=== PATIENT | female | born 1935 | race Caucasian/White ===

== ENCOUNTER 2017-11-06 19:53 | Inpatient (IN) | payer MEDICARE, OTHER ==
[2017-11-06] VITALS (9 sets, daily range): BP systolic 107–176; BP diastolic 57–110; PULSE 107–140; RESP 18–23; TEMP 97–98.7; O2SAT 95–100
[~2017-11-06] VITALS: Ht 162.6 cm; Wt 71.7 kg
[2017-11-06] MEDS ORDERED: SODIUM CHLOR 0.9% 1000 ML INJ 1,000 ML IV ONE (19:55)
[2017-11-06] MEDS ORDERED: methylPREDNISolone SOD SUCC 125 MG/2 ML VIAL ONE (19:57)
[2017-11-06] MEDS ORDERED: diphenhydrAMINE HCL 50 MG/ML VIAL ONE (19:57)
[2017-11-06] MEDS ORDERED: methylPREDNISolone SOD SUCC 125 MG/2 ML VIAL IV PUSH ONE (20:00)
[2017-11-06] MEDS ORDERED: MORPHINE SULFATE 4 MG/ML INJ IV PUSH ONE (20:00)
[2017-11-06] MEDS ORDERED: diphenhydrAMINE HCL 50 MG/ML VIAL IV PUSH ONE (20:00)
[2017-11-06] MEDS ORDERED: ONDANSETRON HCL 4 MG/2 ML VIAL ONE ×2 (20:02→20:04)
[2017-11-06 20:14] LABS: AUTOMATED NEUTROPHIL # 2.9 TH/MM3 (1.8-7.7); BASOPHIL # 0.1 TH/MM3 (0-0.2); BASOPHIL % 0.7 % (0.0-2.0); EOSINOPHIL # 0.1 TH/MM3 (0-0.4); EOSINOPHIL % 1.3 % (0.0-4.0); HEMATOCRIT 39.1 % (35.0-46.0); HEMOGLOBIN 13.4 GM/DL (11.6-15.3); LYMPH % 58.8 % (9.0-44.0); LYMPHOCYTE # 5.5 TH/MM3 (1.0-4.8); MEAN CELL VOLUME 91.5 FL (80.0-100.0); MEAN CORPUSCULAR HEMOGLOBIN 31.3 PG (27.0-34.0); MEAN CORPUSCULAR HGB CONC 34.2 % (32.0-36.0); MEAN PLATELET VOLUME 8.3 FL (7.0-11.0); MONO % 7.8 % (0.0-8.0); MONOCYTE # 0.7 TH/MM3 (0-0.9); NEUT % 31.4 % (16.0-70.0); PLATELET COUNT 263 TH/MM3 (150-450); RED BLOOD COUNT 4.27 MIL/MM3 (4.00-5.30); RED CELL DISTRIBUTION WIDTH 14.3 % (11.6-17.2); WHITE BLOOD COUNT 9.3 TH/MM3 (4.0-11.0)
[2017-11-06] MEDS ORDERED: ONDANSETRON HCL 4 MG/2 ML VIAL IV PUSH ONE (20:15)
[2017-11-06] MEDS ORDERED: niCARdipine INJ 25 MG in SODIUM CHLOR 0.9% 250 ML INJ 240 ML IV ONE (20:15)
--- NOTE | 2017-11-06 20:16 | RADRPT ---
EXAM DATE/TIME: 11/06/2017 20:05 [facility] COMPARISON: No previous studies available for comparison. INDICATIONS : Stroke Alert. Left sided weakness. RADIATION DOSE: 56.35 CTDIvol (mGy) MEDICAL HISTORY : Non-responsive. SURGICAL HISTORY : Non-responsive. ENCOUNTER: Initial ACUITY: 1 day PAIN SCALE: Non-responsive LOCATION: cranial TECHNIQUE: Multiple contiguous axial images were obtained of the head. Using automated exposure control and adj ustment of the mA and/or kV according to patient size, radiation dose was kept as low as reasonably a chievable to obtain optimal diagnostic quality images. DICOM format image data is available electro nically for review and comparison. FINDINGS: CEREBRUM: There is a large acute right frontal lobe hemorrhage measuring approximately 8.7 x 5.2 cm. It causes local mass effect with approximately 9 mm of [id number] midline shift. There is effacement of the right sylvian fissure with possible blood products in the sylvian fissure. There is effacement of the sulci in the right temporal lobe. Ventricles are normal in size. There is mild cerebral atrophy. No mass is appreciated. POSTERIOR FOSSA: The cerebellum and brainstem demonstrate no acute finding. The 4th ventricle is midline. The cerebe llopontine angle is unremarkable. EXTRACRANIAL: There is mucoperiosteal thickening within the right maxillary sinus. SKULL: The calvaria is intact. No evidence of skull fracture. CONCLUSION: Right frontal lobe acute hemorrhage measuring approximately 8.7 x 5.2 cm causing 9 mm of [id number] t midline shift. These findings were telephoned to Dr. Barnett at 8: 13 PM on 11/06/2017. Finn Molina MD on November 06, 2017 at 20:11 Board Certified Radiologist. This report was verified electronically.
[2017-11-06 20:22] LABS: INTERNATIONAL NORMALIZED RATIO 1.1 RATIO; PROTHROMBIN TIME - PATIENT 11.6 SEC (9.8-11.6)
[2017-11-06 20:34] LABS: TROPONIN I LESS THAN 0.02 NG/ML (0.02-0.05)
[2017-11-06 20:41] LABS: LYMPHOCYTES 59 % (9-44); MONOCYTES 7 % (0-8); POLYS (SEG NEUTROPHILS) 32 % (16-70)
[2017-11-06 20:43] LABS: BILIRUBIN, URINE NEG (NEG); BLOOD, URINE NEG (NEG); GLUCOSE,URINE NEG (NEG); HYALINE CAST, URINE 1 /lpf (RARE); KETONE, URINE NEG (NEG); NITRITE,URINE NEG (NEG); SQUAMOUS EPITHELIAL CELL URINE 1 /hpf (0-5); URINE COLOR YELLOW (YELLW/STRAW); URINE LEUKOCYTE ESTERASE NEG (NEG)
--- NOTE | 2017-11-06 20:45 | RADRPT ---
EXAM DATE/TIME: 11/06/2017 20:06 [facility] COMPARISON: CT BRAIN W/O CONTRAST, November 06, 2017, 20:05. INDICATIONS : Stroke alert. ; Reconstructed from previous dataset, no dose MEDICAL HISTORY : Non-responsive. SURGICAL HISTORY : Non-responsive. ENCOUNTER: Initial ACUITY: 1 day PAIN SCALE: Non-responsive LOCATION: Bilateral head TECHNIQUE: 3D reconstructions of the head were performed. DICOM format image data is available electronically f or review and comparison. FINDINGS: Sagittal and coronal reformations again demonstrate a large right frontal acute hemorrhage measuring approximately 8.6 x 5.4 x 6.1 cm. It has local mass effect and causes midline shift. CONCLUSION: Reconstructions again demonstrate the right frontal acute hemorrhage. Please see nonc ontrast head CT report for further description. Finn Molina MD on November 06, 2017 at 20:42 Board Certified Radiologist. This report was verified electronically.
[2017-11-06] MEDS ORDERED: APIX5TAB PO ×2 (20:48→21:33)
[2017-11-06] MEDS ORDERED: FURO1TAB62 PO (20:48)
--- NOTE | 2017-11-06 20:48 | PD ---
HPI . Stroke alert Chief Complaint: Stroke Alert Time Seen by Provider: 19:55 Travel History International Travel<30 days: No Contact w/Intl Traveler<30days: No Traveled to known affect area: No History of Present Illness HPI This patient presents to us as a stroke alert. Onset of symptoms was 7 PM. She describes severe headache and has profound left-sided weakness. She is on Eliquis for atrial fibrillation. Symptoms are severe. No modifying factors. PFSH Past Medical History Hx Anticoagulant Therapy: Yes (eliquis) Social History Tobacco Use: No Allergies-Medications (Allergen,Severity, Reaction): Coded Allergies: Fish Containing Products (Verified Allergy, Unknown, 11/06/17) Sulfa (Sulfonamide Antibiotics) (Verified Allergy, Unknown, 11/06/17) iodine (Verified Allergy, Unknown, 11/06/17) Reported Meds & Prescriptions Reported Meds & Active Scripts Active Reported Eliquis (Apixaban) 5 Mg Tab 5 Mg PO BID Lasix (Furosemide) 20 Mg Tab 20 Mg PO DAILY Review of Systems Except as stated in HPI: all other systems reviewed are Neg HENT: Positive: Headaches Neurologic: Positive: Focal Abnormalities, Headache, Slurred Speech, No: Change in Mentation Physical Exam Narrative GENERAL: Patient is awake and alert. SKIN: warm/dry. HEAD: Normocephalic. Atraumatic. EYES: Pupils equal and round. No scleral icterus. No injection or drainage. Left gaze palsy. ENT: No nasal bleeding or discharge. Mucous membranes pink and moist. NECK: Trachea midline. Full range of motion without pain.. CARDIOVASCULAR: Regular rate and rhythm. RESPIRATORY: No accessory muscle use. Clear to auscultation. Breath sounds equal bilaterally. GASTROINTESTINAL: Abdomen soft. Nontender. Bowel sounds present. Nondistended. MUSCULOSKELETAL: No obvious deformities. NEUROLOGICAL: Awake and alert. Obvious left-sided facial weakness. Tongue protrudes to the left. No extraocular motion to the left. Left extremities are flaccid. PSYCHIATRIC: Appropriate mood and affect; insight and judgment normal. Data Data Last Documented VS Vital Signs Date Time Temp Pulse Resp B/P (MAP) Pulse Ox O2 Delivery O2 Flow Rate FiO2 11/06/17 20:42 98 Nasal Cannula 2.00 11/06/17 20:42 11/06/17 20:38 125 18 11/06/17 19:53 98.7 Orders Orders Diphenhydramine Inj (Benadryl Inj) (11/06/17 19:57) Methylprednisolone So Succ Inj (Solumedr (11/06/17 19:57) Diet Npo (11/07/17 Breakfast) Activity Bed Rest (11/06/17 ) Electrocardiogram (11/06/17 ) I-Stat Profile (11/06/17 19:55) Prothrombin Time / Inr (Pt) (11/06/17 19:55) Act Partial Throm Time (Ptt) (11/06/17 19:55) Complete Blood Count With Diff (11/06/17 19:55) Fibrinogen (11/06/17 19:55) Creatine Kinase (Cpk) (11/06/17 19:55) Troponin I (11/06/17 19:55) Ua Includes Microscopic (11/06/17 19:55) Type And Screen (11/06/17 19:55) Ct Brain W/O Iv Contrast(Rout) (11/06/17 ) Chest, Single Ap (11/06/17 ) Consult Neurology (11/06/17 ) Blood Glucose (11/06/17 19:55) Ecg Monitoring (11/06/17 19:55) Neuro Checks Q2HX12,Q4H (11/06/17 19:55) Nursing Bedside Swallow Assess .ONCE (11/06/17 19:55) Iv Access Insert/Monitor (11/06/17 19:55) NPO (11/06/17 19:55) Oximetry (11/06/17 19:55) Resp Oxygen Nc Stroke (11/06/17 ) Sodium Chlor 0.9% 1000 Ml Inj (Ns 1000 M (11/06/17 19:55) Cath For Specimen (11/06/17 19:55) Diphenhydramine Inj (Benadryl Inj) (11/06/17 20:00) Morphine Inj (Morphine Inj) (11/06/17 20:00) Methylprednisolone So Succ Inj (Solumedr (11/06/17 20:00) Ondansetron Inj (Zofran Inj) (11/06/17 20:02) Ondansetron Inj (Zofran Inj) (11/06/17 20:15) (Hub Use Only)Inp Phy Cons/Ref (2/18/18 ) Ondansetron Inj (Zofran Inj) (11/06/17 20:04) Nicardipine Inj (Cardene Inj) (11/06/17 20:15) ^ Lab Follow Up (11/06/17 20:10) Prothrombin Complex Conc Inj (Kcentra In (11/06/17 21:00) Ct 3d/Special Reconstruction (11/06/17 ) Admit Order (Ed Use Only) (11/06/17 ) Physician President / Telemetry JANNETH.Q8H (11/06/17 20:48) Vital Signs (Adult) Q4H (11/06/17 20:48) Activity Bed Rest (11/06/17 20:48) Notify Dr: Other (11/06/17 20:48) Labs Laboratory Tests Test 11/06/17 19:58 11/06/17 20:30 White Blood Count 9.3 TH/MM3 Red Blood Count 4.27 MIL/MM3 Hemoglobin 13.4 GM/DL Bedside Hemoglobin 12.9 G/DL Hematocrit 39.1 % Bedside Hematocrit 38.0 % Mean Corpuscular Volume 91.5 FL Mean Corpuscular Hemoglobin 31.3 PG Mean Corpuscular Hemoglobin Concent 34.2 % Red Cell Distribution Width 14.3 % Platelet Count 263 TH/MM3 Mean Platelet Volume 8.3 FL Neutrophils (%) (Auto) 31.4 % Lymphocytes (%) (Auto) 58.8 % Monocytes (%) (Auto) 7.8 % Eosinophils (%) (Auto) 1.3 % Basophils (%) (Auto) 0.7 % Neutrophils # (Auto) 2.9 TH/MM3 Lymphocytes # (Auto) 5.5 TH/MM3 Monocytes # (Auto) 0.7 TH/MM3 Eosinophils # (Auto) 0.1 TH/MM3 Basophils # (Auto) 0.1 TH/MM3 CBC Comment AUTO DIFF Differential Total Cells Counted 100 Neutrophils % (Manual) 32 % Lymphocytes % 59 % Monocytes % 7 % Eosinophils % 2 % Neutrophils # (Manual) 3.0 TH/MM3 Differential Comment FINAL DIFF MANUAL Platelet Estimate NORMAL Platelet Morphology Comment NORMAL Red Cell Morphology Comment NORMAL Prothrombin Time 11.6 SEC Prothromb Time International Ratio 1.1 RATIO Activated Partial Thromboplast Time 24.3 SEC Fibrinogen 346 mg/dL Bedside Sodium 138 MMOL/L Bedside Potassium 3.6 MMOL/L Bedside Chloride 104 MMOL/L Bedside Blood Urea Nitrogen 13 MG/DL Bedside Creatinine 0.6 MG/DL Bedside Glucose 128 MG/DL Total Creatine Kinase 68 U/L Troponin I LESS THAN 0.02 NG/ML Urine Color YELLOW Urine Turbidity CLEAR Urine pH 6.0 Urine Specific [place] 1.009 Urine Protein NEG mg/dL Urine Glucose (UA) NEG mg/dL Urine Ketones NEG mg/dL Urine Occult Blood NEG Urine Nitrite NEG Urine Bilirubin NEG Urine Urobilinogen LESS THAN 2.0 MG/DL Urine Leukocyte Esterase NEG Urine Squamous Epithelial Cells 1 /hpf Urine Hyaline Casts 1 /lpf MDM Medical Screen Exam Complete: Yes Emergency Medical Condition: Yes Differential Diagnosis Differential diagnosis includes but is not limited to TIA, CVA, brain tumor, migraine, anxiety Narrative Course This patient presented to us as a stroke alert. Cursory NIH stroke scale is at least 9. She will not be a candidate for TPA because she is on Eliquis. She states that she is allergic to iodine in that it causes a rash. The patient was premedicated with Solu-Medrol and Benadryl anticipating the need for contrast. Patient was taken emergently to CT where she was found to have a large right- sided intracerebral hemorrhage. Cardene and Kcentra were then ordered. Dr. Uriarte, neurology, has been aware of this patient to presentation. Dr. Lin, neurosurgery, happened to be in the department seeing another patient. He was made immediately aware of currently. The patient will be admitted to [facility] [place]. Critical Care Narrative Aggregate critical care time was 60 minutes. Time to perform other separately billable procedures was not included in the critical care time. My time did not include minutes spent treating any other patients simultaneously or on activities that did not directly contribute to the patient's treatment. The services I provided to this patient were to treat and/or prevent clinically significant deterioration due to stroke alert, hemorrhagic stroke I provided critical care services requiring my management, as noted below: Chart data review, documentation time, medication orders and management, vital sign assessments/reviewing monitor data, ordering and reviewing lab tests, ordering and interpreting/reviewing x-rays and diagnostic studies, care of the patient and discussion of the patient with the admitting physicians Stroke Alert NIHSS NIH Stroke Scale Result: 9 NIHSS Time Completed: 19:50 Thrombolytic Contraindications Contraindications: CT Intracranial Bleed Physician Communication Physician Communication Dr. Uriarte, Dr. Lin, Dr. Yusuf Diagnosis Diagnosis: Primary Impression: Hemorrhagic stroke Admitting Physician Requests: Admit Condition: Serious Aline Barnett MD Nov 06, 2017 20:48
[2017-11-06] MEDS ORDERED: PROTHROMBIN COMPLEX CONC INJ 2,000 UNITS in SYRINGE/BAG 1 EA IV ONE (21:00)
--- NOTE | 2017-11-06 21:01 | RADRPT ---
EXAM DATE/TIME: 11/06/2017 20:52 [facility] COMPARISON: No previous studies available for comparison. INDICATIONS : Stroke Alert MEDICAL HISTORY : Non responsive SURGICAL HISTORY : Non responsive ENCOUNTER: Initial ACUITY: 1 day PAIN SCORE: Non-responsive. LOCATION: chest FINDINGS: Portable AP view the chest demonstrates a normal-sized cardiac silhouette with calcification of the a elías. Moderate opacity left base has an appearance suggesting atelectasis. No pleural effusion or pne umothorax is identified. Bones and soft tissues demonstrate no acute finding. CONCLUSION: Mild atelectasis at the left base. Otherwise, no acute finding is identified. Finn Molina MD on November 06, 2017 at 20:59 Board Certified Radiologist. This report was verified electronically.
[2017-11-06] MEDS ORDERED: BISACODYL 10 MG SUPP RECTAL PRN (21:30)
[2017-11-06] MEDS ORDERED: SENNOSIDES 8.6 MG TAB PO PRN (21:30)
[2017-11-06] MEDS ORDERED: MAGNESIUM HYDROXIDE SUSP 30 ML CUP PO PRN (21:30)
[2017-11-06] MEDS ORDERED: MISCELLANEOUS NURSING INFORMATION XX SCH (21:30)
[2017-11-06] MEDS ORDERED: SODIUM CHLORIDE 0.9% FLUSH 10 ML FLUSH IV FLUSH PRN (21:30)
[2017-11-06] MEDS ORDERED: ACETAMINOPHEN 325 MG TAB PO PRN (21:30)
[2017-11-06] MEDS ORDERED: LACTULOSE SYRUP 20 GM/30 ML CUP PO PRN (21:30)
[2017-11-06] MEDS ORDERED: DILT120C9 PO (21:33)
[2017-11-06] MEDS ORDERED: HYDR25TA5 PO (21:35)
[2017-11-06] MEDS ORDERED: AMIO200T PO (21:35)
[2017-11-06] MEDS ORDERED: FURO1TAB60 PO (21:35)
[2017-11-06] MEDS ORDERED: [UNRECOGNIZED DRUG - CODE] (21:35)
[2017-11-06] MEDS ORDERED: LIDO5%T TOPICAL (21:35)
[2017-11-06] MEDS: SODIUM CHLORIDE 23.4% INJ 188 MEQ in SODIUM CHLOR 0.9% 1000 ML INJ 1,000 ML IV SCH (22:15)
--- NOTE | 2017-11-06 22:39 | HHI.HP ---
HPI Service Critical Care Medicine Primary Care Physician Finn Deluca MD Admission Diagnosis hemorrhagic stroke Diagnosis: Travel History International Travel<30 Days: No Contact w/Intl Traveler <30 Da: No Traveled to Known Affected Are: No History of Present Illness History of Present Illness HPI 82-year-old female with a medical history of atrial fibrillation on anticoagulation with Eliquis who developed sudden onset left-sided weakness and altered mental status and slurred speech as she was walking out with her family after the [place]. She was rushed to the ER as a stroke alert. Head CT showed a large right frontal hemorrhage. She was also hypertensive on arrival and was started on nicardipine drip. She received Kcentra in the ER and was accepted for admission by critical care medicine. Neurosurgery was consulted and patient was evaluated in the ER by Dr. Lin. When I evaluated the patient in the ER she was laying in the ER stretcher not in any acute distress. She had a dense left-sided weakness and slurred speech however was easily arousable and following commands and knew where she was and couldn't give me her home address. History was obtained by discussion with patient's family as well as ER physician. History PFSH Past Medical History atrial fibrillation status post previous ablation by Dr. Blackburn few weeks ago Hx Anticoagulant Therapy: Yes (eliquis) Social History Tobacco Use: No Allergies-Medications Allergies-Medications (Allergen,Severity, Reaction): Coded Allergies: Fish Containing Products (Verified Allergy, Unknown, 11/06/17) Sulfa (Sulfonamide Antibiotics) (Verified Allergy, Unknown, 11/06/17) iodine (Verified Allergy, Unknown, 11/06/17) Reported Meds & Prescriptions Reported Meds & Active Scripts Active Reported Eliquis (Apixaban) 5 Mg Tab 5 Mg PO BID Lasix (Furosemide) 20 Mg Tab 20 Mg PO DAILY ROS Review of Systems Except as stated in HPI: all other systems reviewed are Neg HENT: Positive: Headaches Neurologic: Positive: Focal Abnormalities, Headache, Slurred Speech, No: Change in Mentation Past Family Social History Allergies: Coded Allergies: Fish Containing Products (Verified Allergy, Unknown, 11/06/17) Sulfa (Sulfonamide Antibiotics) (Verified Allergy, Unknown, 11/06/17) iodine (Verified Allergy, Unknown, 11/06/17) Physical Exam Vital Signs Vital Signs Date Time Temp Pulse Resp B/P (MAP) Pulse Ox O2 Delivery O2 Flow Rate FiO2 11/06/17 22:13 11/06/17 21:49 115 20 122/61 (81) 97 Nasal Cannula 2.00 11/06/17 21:37 109 18 107/65 (79) 99 Nasal Cannula 2.00 11/06/17 21:25 107 18 114/57 (76) 100 Nasal Cannula 2.00 11/06/17 20:51 117 145/71 11/06/17 20:42 98 Nasal Cannula 2.00 11/06/17 20:42 98 Nasal Cannula 2.00 11/06/17 20:38 125 18 147/66 (93) 98 Nasal Cannula 2.00 11/06/17 20:33 124 18 135/64 (87) 98 Nasal Cannula 2.00 11/06/17 19:55 99 2.00 11/06/17 19:55 99 Nasal Cannula 2.00 11/06/17 19:53 98.7 140 22 176/110 (132) 98 Physical Exam Narrative GENERAL: Patient is awake and alert. SKIN: warm/dry. HEAD: Normocephalic. Atraumatic. EYES: Pupils equal and round. No scleral icterus. No injection or drainage. Left gaze palsy. ENT: No nasal bleeding or discharge. Mucous membranes pink and moist. NECK: Trachea midline. Full range of motion without pain.. CARDIOVASCULAR: Regular rate and rhythm. RESPIRATORY: No accessory muscle use. Clear to auscultation. Breath sounds equal bilaterally. GASTROINTESTINAL: Abdomen soft. Nontender. Bowel sounds present. Nondistended. MUSCULOSKELETAL: No obvious deformities. NEUROLOGICAL: Awake and alert. Obvious left-sided facial weakness. Tongue protrudes to the left. No extraocular motion to the left. Left hemiplegia. Pupils equal reacting actively to light. Laboratory Laboratory Tests Test 11/06/17 19:58 11/06/17 20:30 White Blood Count 9.3 Red Blood Count 4.27 Hemoglobin 13.4 Bedside Hemoglobin 12.9 Hematocrit 39.1 Bedside Hematocrit 38.0 Mean Corpuscular Volume 91.5 Mean Corpuscular Hemoglobin 31.3 Mean Corpuscular Hemoglobin Concent 34.2 Red Cell Distribution Width 14.3 Platelet Count 263 Mean Platelet Volume 8.3 Neutrophils (%) (Auto) 31.4 Lymphocytes (%) (Auto) 58.8 Monocytes (%) (Auto) 7.8 Eosinophils (%) (Auto) 1.3 Basophils (%) (Auto) 0.7 Neutrophils # (Auto) 2.9 Lymphocytes # (Auto) 5.5 Monocytes # (Auto) 0.7 Eosinophils # (Auto) 0.1 Basophils # (Auto) 0.1 CBC Comment AUTO DIFF Differential Total Cells Counted 100 Neutrophils % (Manual) 32 Lymphocytes % 59 Monocytes % 7 Eosinophils % 2 Neutrophils # (Manual) 3.0 Differential Comment FINAL DIFF MANUAL Platelet Estimate NORMAL Platelet Morphology Comment NORMAL Red Cell Morphology Comment NORMAL Prothrombin Time 11.6 Prothromb Time International Ratio 1.1 Activated Partial Thromboplast Time 24.3 Fibrinogen 346 Bedside Sodium 138 Bedside Potassium 3.6 Bedside Chloride 104 Bedside Blood Urea Nitrogen 13 Bedside Creatinine 0.6 Bedside Glucose 128 Total Creatine Kinase 68 Troponin I LESS THAN 0.02 Urine Color YELLOW Urine Turbidity CLEAR Urine pH 6.0 Urine Specific [place] 1.009 Urine Protein NEG Urine Glucose (UA) NEG Urine Ketones NEG Urine Occult Blood NEG Urine Nitrite NEG Urine Bilirubin NEG Urine Urobilinogen LESS THAN 2.0 Urine Leukocyte Esterase NEG Urine Squamous Epithelial Cells 1 Urine Hyaline Casts 1 Result Diagram: 11/06/171957 Imaging Last Impressions Multiplanar Reconstruction 11/06/17 0000 Signed Impressions: Service Date/Time: Monday, November 06, 2017 20:06 - CONCLUSION: Reconstructions again demonstrate the right frontal acute hemorrhage. Please see noncontrast head CT report for further description. Finn Molina MD Head CT 11/06/17 0000 Signed Impressions: Service Date/Time: Monday, November 06, 2017 20:05 - CONCLUSION: Right frontal lobe acute hemorrhage measuring approximately 8.7 x 5.2 cm causing 9 mm of [id number] midline shift. These findings were telephoned to Dr. Barnett at 8 : 13 PM on 11/06/2017. Finn Molina MD Chest X-Ray 11/06/17 0000 Signed Impressions: Service Date/Time: Monday, November 06, 2017 20:52 - CONCLUSION: Mild atelectasis at the left base. Otherwise, no acute finding is identified. MD Flores Del Real VTE Risk Assessment Flores VTE Risk Assessment: Mod/High Risk (score >= 2) VTE Pharm Contraindication: Hemorrhage Caprini Risk Assessment Model Point Value = 1 Point Value = 2 Point Value = 3 Point Value = 5 Age 41-60 Minor surgery BMI > 25 kg/m2 Swollen legs Varicose veins or History of unexplained or recurrent spontaneous Oral contraceptives or hormone replacement Sepsis (< 1 month) Serious lung disease, including pneumonia (< 1 month) Abnormal pulmonary function Acute myocardial infarction Congestive heart failure (< 1 month) History of inflammatory bowel disease Medical patient at bed rest Age 61-74 Arthroscopic surgery Major open surgery (> 45 min) Laparoscopic surgery (> 45 min) Malignancy Confined to bed (> 72 hours) Immobilizing plaster cast Central venous access Age >= 75 History of VTE Family history of VTE Factor V Leiden Prothrombin [id number] Lupus anticoagulant Anticardiolipin antibodies Elevated serum homocysteine Heparin-induced thrombocytopenia Other congenital or acquired thrombophilia Stroke (< 1 month) Elective arthroplasty Hip, pelvis, or leg fracture Acute spinal cord injury (< 1 month) Prophylaxis Regimen Total Risk Factor Score Risk Level Prophylaxis Regimen 0-1 Low Early ambulation 2 Moderate Order ONE of the following: *Sequential Compression Device (SCD) *Heparin 5000 units SQ BID 3-4 Higher Order ONE of the following medications: *Heparin 5000 units SQ TID *Enoxaparin/Lovenox 40 mg SQ daily (WT < 150 kg, CrCl > 30 mL/min) *Enoxaparin/Lovenox 30 mg SQ daily (WT < 150 kg, CrCl > 10-29 mL/min) *Enoxaparin/Lovenox 30 mg SQ BID (WT < 150 kg, CrCl > 30 mL/min) AND/OR *Sequential Compression Device (SCD) 5 or more Highest Order ONE of the following medications: *Heparin 5000 units SQ TID (Preferred with Epidurals) *Enoxaparin/Lovenox 40 mg SQ daily (WT < 150 kg, CrCl > 30 mL/min) *Enoxaparin/Lovenox 30 mg SQ daily (WT < 150 kg, CrCl > 10-29 mL/min) *Enoxaparin/Lovenox 30 mg SQ BID (WT < 150 kg, CrCl > 30 mL/min) AND *Sequential Compression Device (SCD) Assessment and Plan Assessment and Plan 82-year-old female with: Large right frontal intracerebral hemorrhage with mass effect Uncontrolled hypertension History of atrial fibrillation on anticoagulation Plan: Neuro: Admit to [facility]. Neurochecks per ICU protocol. Neurosurgery consulted and has evaluated the patient. Received Kcentra for reversible for Eliquis. Repeat head CT in a.m. to follow up. Started 2% saline at 80 cc/h. Follow serial sodium and osmolality. Cardiovascular: Watch for hypotension. On nicardipine currently to keep SBP less than 1 40 mmHg. Hold anticoagulation with Eliquis. Received Kcentra. GI/liver: Nothing by mouth except meds. Renal/: Strict intake output, monitor and replete elect lites, follow BUN/ creatinine. Heme: Follow CBC and coags. Received Kcentra earlier. Endocrine: Watch for hyperglycemia, SSI for glycemic control if needed Prophylaxis: Pepcid, SCDs. No heparin or Lovenox in view of intracranial hemorrhage Discussed with neurosurgery, discussed with ER physician. Discussed with patient's family regarding current clinical status and plan of care and they voiced understanding. I explained possible need for intubation if neurologic status worsens. I also discussed possible need for central line placement. He voiced understanding and were agreeable with plan of care. Condition critical Time spent on critical care excluding procedures: 45 minutes Wiley Yusuf MD Nov 06, 2017 22:39
[2017-11-06] MEDS ORDERED: SODIUM CHLORIDE 0.9% IV ONE (23:00)
[2017-11-06] MEDS ORDERED: PHENYTOIN IV ONE (23:00)
[2017-11-07] VITALS (14 sets, daily range): BP systolic 108–135; BP diastolic 52–60; PULSE 94–124; RESP 20–27; TEMP 97.5–99.4; O2SAT 92–99
[2017-11-07] MEDS ORDERED: RESP: ALBUTEROL 2.5 MG/IPRATROPIUM 0.5 MG NEB (PRN) INH
[2017-11-07] MEDS: ONDANSETRON HCL 4 MG/2 ML VIAL IV PUSH PRN ×2 (00:53→15:10)
[2017-11-07] MEDS: niCARdipine 25 MG/NS 250 ML Vial2Bag or IV room IV PRN ×6 (02:50→23:43)
[2017-11-07] MEDS ORDERED: METOCLOPRAMIDE HCL 10 MG/2 ML VIAL IV PUSH PRN (03:00)
--- NOTE | 2017-11-07 05:07 | RADRPT ---
EXAM DATE/TIME: 11/07/2017 04:46 [facility] COMPARISON: CT BRAIN W/O CONTRAST, November 06, 2017, 20:05. INDICATIONS : Follow up hemorrhagic stroke. RADIATION DOSE: 34.76 CTDIvol (mGy) MEDICAL HISTORY : Cardiovascular disease. SURGICAL HISTORY : None. ENCOUNTER: Subsequent ACUITY: 1 day PAIN SCALE: Non-responsive LOCATION: cranial TECHNIQUE: Multiple contiguous axial images were obtained of the head. Using automated exposure control and adj ustment of the mA and/or kV according to patient size, radiation dose was kept as low as reasonably a chievable to obtain optimal diagnostic quality images. DICOM format image data is available electro nically for review and comparison. FINDINGS: There has been a mild interval increase in the size and density of the large high density hemorr paulette involving the right frontal and parietal lobes with surrounding edema. There is increased mass e ffect on the right lateral ventricle small amount of interventricular hemorrhage noted in the right l ateral ventricle. There is questionable subfalcine herniation anteriorly. There are new areas of punc pitt hemorrhage in the left frontal and parietal lobes best seen on axial image #23. These measure up to approximately 6-7 mm in greatest diameter. There is increased midline shift to the left is after approximately 1.2 cm. There is subtle apparent subarachnoid hemorrhage noted in the right temporal lo be. There is mild asymmetry of the suprasellar cisterns. CONCLUSION: 1. Mild interval increase in the size and density of the large intraparenchymal hemorrhage in the rig ht frontal and parietal lobes. 2. There are new small areas of intraparenchymal hemorrhages in the left frontal and parietal lobes. 3. There is increased mass effect and midline shift with questionable anterior subfalcine herniation. 4. New mild intraventricular hemorrhage now noted in the right lateral ventricle. 5. Mild subarachnoid hemorrhage is noted in the right temporal lobe. 6. There is mild asymmetry of the suprasellar cisterns. Randy Hyman MD on November 07, 2017 at 4:57 Board Certified Radiologist. This report was verified electronically.
[2017-11-07 06:00] LABS: AUTOMATED NEUTROPHIL # 9.6 TH/MM3 (1.8-7.7); HEMATOCRIT 36.4 % (35.0-46.0); HEMOGLOBIN 12.4 GM/DL (11.6-15.3); LYMPH % 3.6 % (9.0-44.0); LYMPHOCYTE # 0.4 TH/MM3 (1.0-4.8); MEAN CELL VOLUME 92.4 FL (80.0-100.0); MEAN CORPUSCULAR HEMOGLOBIN 31.5 PG (27.0-34.0); MEAN PLATELET VOLUME 8.6 FL (7.0-11.0); MONOCYTE # 0.1 TH/MM3 (0-0.9); NEUT % 95.4 % (16.0-70.0); PLATELET COUNT 247 TH/MM3 (150-450); RED BLOOD COUNT 3.94 MIL/MM3 (4.00-5.30); RED CELL DISTRIBUTION WIDTH 14.5 % (11.6-17.2); WHITE BLOOD COUNT 10.1 TH/MM3 (4.0-11.0)
[2017-11-07 06:21] LABS: INTERNATIONAL NORMALIZED RATIO 1.1 RATIO; PROTHROMBIN TIME - PATIENT 11.2 SEC (9.8-11.6)
--- NOTE | 2017-11-07 06:24 | MB ---
cc: JORGE A TODD MD DATE OF CONSULTATION 11/06/2017 CHIEF COMPLAINT Stroke. HISTORY This is an 82-year-old female patient with a history of atrial fibrillation on Eliquis. [place] she began to slur her words and developed weakness. She was then brought to [facility] by ambulance where she underwent evaluation and, because of abnormal CT neurosurgery consult was placed. No other history is available at the present time. PAST MEDICAL HISTORY Remarkable for atrial fibrillation and use of anticoagulants. No other history is available. ALLERGIES IODINE. SULFA. MEDICATIONS Not available at the present time. REVIEW OF SYSTEMS Unobtainable due to the patient's condition. SOCIAL HISTORY Not obtainable. FAMILY HISTORY Not obtainable. PHYSICAL EXAMINATION VITAL SIGNS: Blood pressure 176/110, pulse oximetry of 98, pulse of 140, respiratory rate of 22. Temperature of 98.7. GENERAL EXAM: A well-developed female in moderate distress. HEENT: Unremarkable. NECK: Supple with good carotid pulses bilaterally. CHEST: Symmetric. LUNGS: Clear. HEART: Regular rhythm with normal heart sounds. ABDOMEN: Soft and nontender. EXTREMITIES: Clear. NEUROLOGIC: The patient is lethargic but arouses to voice and to pain. She tends to follow some simple commands. She attempts to speak but some of the words are unintelligible. Cranial nerves II-XII appear intact. Motor exam shows a left hemiparesis at about 2+/5. Sensory exam is intact to pain. Deep tendon reflexes are trace at all sites. She has a positive Babinski on the left side. IMAGING STUDIES Review of the CT scan of the brain shows evidence of hemorrhage in the right frontal area with a shift from right to left and compression of the ventricular system from the right side. IMPRESSION Overall impression is that of hemorrhage stroke associated to the use of Eliquis. PLAN 1. Admit the patient to Intensive Care. 2. She is being given Kcentra by the ER physician. 3. She will be placed on neurological observation and, depending on her continued state, it is possible that surgery could be entertained. This has been discussed with the and the son. MD GLORIA You/MAGO /8:40 PM /6:13 AM MTDXiomara
[2017-11-07 06:27] LABS: ALBUMIN 3.8 GM/DL (3.4-5.0); AST (GOT) 25 U/L (15-37); BICARBONATE 21.1 MEQ/L (21.0-32.0); BLOOD UREA NITROGEN 10 MG/DL (7-18); CALCIUM 8.5 MG/DL (8.5-10.1); CHLORIDE 107 MEQ/L (98-107); CREATININE 0.85 MG/DL (0.50-1.00); GLOMERULAR FILTRATION RATE 64 ML/MIN (>89); GLUCOSE,RANDOM 224 MG/DL (74-106); MAGNESIUM 1.7 MG/DL (1.5-2.5); SODIUM (NA) 142 MEQ/L (136-145)
[2017-11-07 06:30] LABS: ALKALINE PHOSPHATASE 74 U/L (45-117); ALT (GPT) 17 U/L (10-53); PHOSPHORUS 2.3 MG/DL (2.5-4.9); TOTAL BILIRUBIN ADULT 0.6 MG/DL (0.2-1.0); TOTAL PROTEIN 7.5 GM/DL (6.4-8.2)
[2017-11-07] MEDS: SODIUM CHLORIDE 0.9% FLUSH 10 ML FLUSH IV FLUSH SCH ×2 (08:36→20:37)
[2017-11-07] MEDS: DOCUSATE SODIUM 50 MG/SENNA 8.6 MG TAB PO SCH ×2 (08:37→20:32)
[2017-11-07] MEDS: PHENYTOIN INJ 100 MG/2 ML VIAL IV PUSH SCH ×2 (09:20→20:31)
[2017-11-07] MEDS: FAMOTIDINE 20 MG/2 ML VIAL IV PUSH SCH ×2 (09:21→20:32)
--- NOTE | 2017-11-07 11:03 | HHI.CCPN ---
Subjective Remarks/Hospital Course 11/06: 82-year-old female with a medical history of atrial fibrillation on anticoagulation with Eliquis who developed sudden onset left-sided weakness and altered mental status and slurred speech as she was walking out with her family after the [place]. She was rushed to the ER as a stroke alert. Head CT showed a large right frontal hemorrhage. She was also hypertensive on arrival and was started on nicardipine drip. She received Kcentra in the ER and was accepted for admission by critical care medicine. Neurosurgery was consulted and patient was evaluated in the ER by Dr. Lin. When I evaluated the patient in the ER she was laying in the ER stretcher not in any acute distress. She had a dense left-sided weakness and slurred speech however was easily arousable and following commands and knew where she was and couldn't give me her home address. History was obtained by discussion with patient's family as well as ER physician. 11/07: No events since admission. Patient resting comfortable, easily arousable, following commands. No CP, dyspnea, palpitations, BARNARD, N/V. Tmax 98.7, I/O 215/ 1750. On nicardipine at 2.5. Objective Vital Signs Date Time Temp Pulse Resp B/P (MAP) Pulse Ox O2 Delivery O2 Flow Rate FiO2 11/07/17 09:29 93 Nasal Cannula 2.00 11/07/17 06:00 109 11/07/17 04:00 98.7 25 125/60 (81) Intake and Output 11/07/17 11/07/17 11/08/17 08:00 16:00 00:00 Intake Total 115 ml Output Total 1750 ml Balance -1635 ml Result Diagram: 11/07/17 0511/07/17 05 Imaging Last Impressions Multiplanar Reconstruction 11/06/17 0000 Signed Impressions: Service Date/Time: Monday, November 06, 2017 20:06 - CONCLUSION: Reconstructions again demonstrate the right frontal acute hemorrhage. Please see noncontrast head CT report for further description. Finn Molina MD Head CT 11/06/17 0000 Signed Impressions: Service Date/Time: Monday, November 06, 2017 20:05 - CONCLUSION: Right frontal lobe acute hemorrhage measuring approximately 8.7 x 5.2 cm causing 9 mm of [id number] midline shift. These findings were telephoned to Dr. Barnett at 8 : 13 PM on 11/06/2017. Finn Molina MD Chest X-Ray 11/06/17 0000 Signed Impressions: Service Date/Time: Monday, November 06, 2017 20:52 - CONCLUSION: Mild atelectasis at the left base. Otherwise, no acute finding is identified. Finn Molina MD Objective Remarks General - elderly lady, sleeping, easily arousable, ill appearing HEENT - pupils equal, reactive, sclerae anicteric, neck supple, no nuchal rigidity, neck veins not distended, no carotid bruit, MMM, no thrush CV - irregular S1, S2, no murmurs Chest - clear b/l, good air entry, no wheezes Abdomen - soft, non-tender, non-distended, BS present, no hepatomegaly, no splenomegaly Skin - no rashes, no cyanosis Extremities - warm and well perfused, no edema, + peripheral pulses, no clubbing Neuro - sleeping, easily arousable, oriented, + left-sided facial weakness, tongue protrudes towards left side, no EOMI left, motor 5/5 uppper and lower extremities over the right side and left upper 0/5, left lower 3/5 A/P Assessment and Plan 1. Large right frontal intracerebral hemorrhage with mass effect 2. Coagulopathy - in the setting of eliquis use 3. Uncontrolled hypertension - now controlled 4. History of atrial fibrillation 1. Continue supplemental O2 to keep SpO2 above 92% 2. neuro checks 3. If worsening neurologic status will need intubation. No need for now 4. HOB elevation, maintain normothermia, avoid aggitation 5. NS plan noted 6. Stat CT head with any chnage in neuro status 7. Recievd Kcentra. Last eliquis dose was on 11/06 in AM 8. On 2% saline at 80 cc/h. Follow serial sodium and osmolality. 9. On nicardipine currently to keep SBP less than 140 mmHg 10. NPO 11. Glycemic control if needed 12. GI/DVT prophylaxis. No heparin or Lovenox in view of intracranial hemorrhage 13. Replete electrolytes 14. On phenytoin for seizure ppx Patient is critically ill and she is at very high risk for further deterioration. I spent 32 minutes of critical care time managing BP, electrolytes, oxygenation , discussing with nursing staff and family, ordering labs, reviewing the data. Jose C Walton MD Nov 07, 2017 11:03
[2017-11-07] MEDS: SODIUM CHLORIDE 23.4% INJ 188 MEQ in SODIUM CHLOR 0.9% 1000 ML INJ 1,000 ML IV SCH (11:24)
--- NOTE | 2017-11-07 11:53 | HHI.NSPN ---
(Nahun Prabhakar) History Chief Complaint: Headache. Large right ICH. (Nahun Prabhakar) Interval History This is an 82-year-old female patient with a history of atrial fibrillation on Eliquis. [place] began to slur her words and developed weakness. She was then brought to [facility] by ambulance where she underwent evaluation and, because of abnormal CT neurosurgery consult was placed. No other history is available at the present time. 11/07: Pt lethargic but opens her eyes to voice. She does answer some questions when asked. Her son at the bedside states she was talking on the cell phone earlier. She complains of right sided headaches. (Nahun Prabhakar) Review of Systems General: Negative for: fever, chills, insomnia Respiratory: Negative for: shortness of breath, cough, sputum Cardiovascular: Negative for: chest pain Gastrointestinal: Negative for: nausea, vomitting (Nahun Prabhakar) Exam Results Vital Signs Date Time Temp Pulse Resp B/P (MAP) Pulse Ox O2 Delivery O2 Flow Rate FiO2 11/07/17 09:29 93 Nasal Cannula 2.00 11/07/17 06:00 109 11/07/17 04:00 98.7 25 125/60 (81) Intake and Output 11/07/17 11/07/17 11/08/17 08:00 16:00 00:00 Intake Total 115 ml Output Total 1750 ml Balance -1635 ml (Nahun Prabhakar) Physical Examination General: Pt resting in bed with eyes closed but does open them when asked and verbalizes. Eyes: Pupils equal. Sclera anicteric. Resp: CTA bilaterally Heart: NSR no murmurs. Abd: Soft positive bs Skin: No cyanosis or erythema Muscle: Left hemiparesis compared to the right side. Neuro: Pt prefers eyes closed but opens them when asked. Pupils 3mm bilaterally reactive bilaterally. Follows simple commands. She answers some simple questions. (Nahun Prabhakar) Lab, Micro, Other Results Last Impressions Head CT 11/07/17 0600 Signed Impressions: Service Date/Time: Tuesday, November 07, 2017 04:46 - CONCLUSION: 1. Mild interval increase in the size and density of the large intraparenchymal hemorrhage in the right frontal and parietal lobes. 2. There are new small areas of intraparenchymal hemorrhages in the left frontal and parietal lobes. 3. There is increased mass effect and midline shift with questionable anterior subfalcine herniation. 4. New mild intraventricular hemorrhage now noted in the right lateral ventricle. 5. Mild subarachnoid hemorrhage is noted in the right temporal lobe. 6. There is mild asymmetry of the suprasellar cisterns. Randy Hyman MD Multiplanar Reconstruction 11/06/17 0000 Signed Impressions: Service Date/Time: Monday, November 06, 2017 20:06 - CONCLUSION: Reconstructions again demonstrate the right frontal acute hemorrhage. Please see noncontrast head CT report for further description. Finn Molina MD Chest X-Ray 11/06/17 0000 Signed Impressions: Service Date/Time: Monday, November 06, 2017 20:52 - CONCLUSION: Mild atelectasis at the left base. Otherwise, no acute finding is identified. Finn Molina MD Laboratory Tests Test 11/06/17 19:58 11/06/17 20:30 11/06/17 22:30 11/07/17 05:19 White Blood Count 9.3 TH/MM3 10.1 TH/MM3 Red Blood Count 4.27 MIL/MM3 3.94 MIL/MM3 Hemoglobin 13.4 GM/DL 12.4 GM/DL Bedside Hemoglobin 12.9 G/DL Hematocrit 39.1 % 36.4 % Bedside Hematocrit 38.0 % Mean Corpuscular Volume 91.5 FL 92.4 FL Mean Corpuscular Hemoglobin 31.3 PG 31.5 PG Mean Corpuscular Hemoglobin Concent 34.2 % 34.0 % Red Cell Distribution Width 14.3 % 14.5 % Platelet Count 263 TH/MM3 247 TH/MM3 Mean Platelet Volume 8.3 FL 8.6 FL Neutrophils (%) (Auto) 31.4 % 95.4 % Lymphocytes (%) (Auto) 58.8 % 3.6 % Monocytes (%) (Auto) 7.8 % 1.0 % Eosinophils (%) (Auto) 1.3 % 0.0 % Basophils (%) (Auto) 0.7 % 0.0 % Neutrophils # (Auto) 2.9 TH/MM3 9.6 TH/MM3 Lymphocytes # (Auto) 5.5 TH/MM3 0.4 TH/MM3 Monocytes # (Auto) 0.7 TH/MM3 0.1 TH/MM3 Eosinophils # (Auto) 0.1 TH/MM3 0.0 TH/MM3 Basophils # (Auto) 0.1 TH/MM3 0.0 TH/MM3 CBC Comment AUTO DIFF DIFF FINAL Differential Total Cells Counted 100 Neutrophils % (Manual) 32 % Lymphocytes % 59 % Monocytes % 7 % Eosinophils % 2 % Neutrophils # (Manual) 3.0 TH/MM3 Differential Comment FINAL DIFF MANUAL Platelet Estimate NORMAL Platelet Morphology Comment NORMAL Red Cell Morphology Comment NORMAL Prothrombin Time 11.6 SEC 11.2 SEC Prothromb Time International Ratio 1.1 RATIO 1.1 RATIO Activated Partial Thromboplast Time 24.3 SEC 24.1 SEC Fibrinogen 346 mg/dL Bedside Sodium 138 MMOL/L Bedside Potassium 3.6 MMOL/L Bedside Chloride 104 MMOL/L Bedside Blood Urea Nitrogen 13 MG/DL Bedside Creatinine 0.6 MG/DL Bedside Glucose 128 MG/DL Total Creatine Kinase 68 U/L Troponin I LESS THAN 0.02 NG/ML Urine Color YELLOW Urine Turbidity CLEAR Urine pH 6.0 Urine Specific [place] 1.009 Urine Protein NEG mg/dL Urine Glucose (UA) NEG mg/dL Urine Ketones NEG mg/dL Urine Occult Blood NEG Urine Nitrite NEG Urine Bilirubin NEG Urine Urobilinogen LESS THAN 2.0 MG/DL Urine Leukocyte Esterase NEG Urine Squamous Epithelial Cells 1 /hpf Urine Hyaline Casts 1 /lpf Nasal Screen MRSA (PCR) MRSA NOT DETECTED Blood Urea Nitrogen 10 MG/DL Creatinine 0.85 MG/DL Random Glucose 224 MG/DL Total Protein 7.5 GM/DL Albumin 3.8 GM/DL Calcium Level 8.5 MG/DL Phosphorus Level 2.3 MG/DL Magnesium Level 1.7 MG/DL Alkaline Phosphatase 74 U/L Aspartate Amino Transf (AST/SGOT) 25 U/L Alanine Aminotransferase (ALT/SGPT) 17 U/L Total Bilirubin 0.6 MG/DL Sodium Level 142 MEQ/L Potassium Level 3.2 MEQ/L Chloride Level 107 MEQ/L Carbon Dioxide Level 21.1 MEQ/L Anion Gap 14 MEQ/L Estimat Glomerular Filtration Rate 64 ML/MIN (Nahun Prabhakar) Medical Decision Making Impression and Plan A: 82 y/o FM with 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 P: Continue with close Neuro checks. Eliquis has been stopped obviously. Continue to monitor off this. If pt becomes more lethargic she may require intubation by critical care for airway protection and I discussed with with the pts son at bedside. Pts is currently not at bedside. Continue with critical care. (Nahun Prabhakar) Attending Statement The exam, history, and the medical decision-making described in the above note were completed with the assistance of the mid-level provider. I reviewed and agree with the findings presented. I attest that I had a [id number] encounter with the patient on the same day, and personally performed and documented my assessment and findings in the medical record. Follow-up CT scan the progressive right hemorrhagic stroke with increased midline shift and small areas of hemorrhage in the left frontoparietal medial aspect. She is lethargic but does arouse and will follow simple commands with left hemiplegia and left facial droop. She is off Eliquis for 24 hours in the earliest any surgical intervention can be undertaken is tomorrow morning. Discussed at length with patient and the son at the bedside informs me that they want continue aggressive measures including intubation and surgical intervention once she is a candidate for surgery. Understand knee interim her condition could deteriorate and she could progress to a comatose state and brain but unfortunately there is no known reversal for her anticoagulation. Her condition is very critical with guarded prognosis. Discussed with nursing staff. (Gerhard Hernandez MD) Nahun Prabhakar Nov 07, 2017 11:53 Gerhard Hernandez MD Nov 07, 2017 13:58
[2017-11-07] MEDS ORDERED: MAGNESIUM SULFATE 1 GM PREMIX 100 ML IV ONE (12:00)
[2017-11-07] MEDS ORDERED: POTASSIUM PHOSPHATE INJ 15 MMOL in SODIUM CHLORIDE 0.9% INJ 150 ML IV ONE (13:00)
--- NOTE | 2017-11-07 22:04 | RADRPT ---
EXAM DATE/TIME: 11/07/2017 21:21 [facility] COMPARISON: No previous studies available for comparison. INDICATIONS : Cerebrovascular accident. MEDICAL HISTORY : Stroke. Hypertension. Anticoagulant therapy. Atrial fibrillation. Arthritis. SURGICAL HISTORY : Cardiac ablation. ENCOUNTER: Initial ACUITY: 1 day PAIN SCORE: 3/10 LOCATION: Bilateral neck PEAK SYSTOLIC VELOCITIES (cm/sec): ICA/CCA RATIO: Right: 0.9 Left: 1.2 ICA: Right: 55.7 Left: 94.3 CCA: Right: 63.3 Left: 76.5 ECA: Right: 102.2 Left: 102.2 VERTEBRAL: Right: 64.8 antegrade Left: 67.7 antegrade Elevated flow velocities and ICA/CCA ratios have been found to correlate with increased degrees of vessel stenosis, calculated as percentage of diameter relative to a normal segment of distal ICA/CCA FINDINGS: RIGHT CAROTID: No significant stenosis is visualized. The waveforms are within normal limits. LEFT CAROTID: No significant stenosis is visualized. The waveforms are within normal limits. VERTEBRAL ARTERIES: Antegrade flow is seen in both vertebral arteries. MISCELLANEOUS: None. CONCLUSION: No evidence of flow-limiting carotid stenosis. Finn Meza MD on November 07, 2017 at 22:02 Board Certified Radiologist. This report was verified electronically.
--- NOTE | 2017-11-07 23:01 | EKG ---
Date Performed: 11/06/2017 Time Performed: 20:24:55 PTAGE: 82 years EKG: ATRIAL FIBRILLATION WITH RAPID VENTRICULAR RESPONSE INCOMPLETE RIGHT BUNDLE BRANCH BLOCK MO DERATE ST DEPRESSION ABNORMAL QRS-T ANGLE ABNORMAL ECG INTERPRETATION BASED ON A DEFAULT AGE OF 40 YE ARS NO PREVIOUS TRACING DOCTOR: Aisha Blackburn Interpretating Date/Time 11/07/2017 22:54:07
[2017-11-08] VITALS (18 sets, daily range): BP systolic 104–145; BP diastolic 55–83; PULSE 83–133; RESP 19–28; TEMP 97.6–98.8; O2SAT 95–100
[2017-11-08] MEDS ORDERED: METOPROLOL TARTRATE 5 MG/5 ML VIAL IV PUSH PRN (00:15)
[2017-11-08] MEDS ORDERED: DILTIAZEM HCL 25 MG/5 ML VIAL IV PUSH ONE (04:30)
[2017-11-08 05:11] LABS: AUTOMATED NEUTROPHIL # 16.2 TH/MM3 (1.8-7.7); BASOPHIL # 0.2 TH/MM3 (0-0.2); BASOPHIL % 1.3 % (0.0-2.0); HEMATOCRIT 37.5 % (35.0-46.0); HEMOGLOBIN 12.8 GM/DL (11.6-15.3); LYMPH % 3.5 % (9.0-44.0); LYMPHOCYTE # 0.6 TH/MM3 (1.0-4.8); MEAN CELL VOLUME 92.7 FL (80.0-100.0); MEAN CORPUSCULAR HEMOGLOBIN 31.6 PG (27.0-34.0); MEAN CORPUSCULAR HGB CONC 34.1 % (32.0-36.0); MEAN PLATELET VOLUME 8.8 FL (7.0-11.0); MONO % 4.8 % (0.0-8.0); MONOCYTE # 0.9 TH/MM3 (0-0.9); NEUT % 90.4 % (16.0-70.0); PLATELET COUNT 229 TH/MM3 (150-450); RED BLOOD COUNT 4.04 MIL/MM3 (4.00-5.30); RED CELL DISTRIBUTION WIDTH 14.9 % (11.6-17.2); WHITE BLOOD COUNT 17.9 TH/MM3 (4.0-11.0)
[2017-11-08] MEDS: DILTIAZEM INJ 125 MG in SODIUM CHLORIDE 0.9% INJ 100 ML IV PRN ×2 (05:16→15:47)
[2017-11-08 05:35] LABS: ALBUMIN 3.7 GM/DL (3.4-5.0); ALKALINE PHOSPHATASE 75 U/L (45-117); ALT (GPT) 33 U/L (10-53); AST (GOT) 31 U/L (15-37); BICARBONATE 26.2 MEQ/L (21.0-32.0); BLOOD UREA NITROGEN 9 MG/DL (7-18); CALCIUM 8.6 MG/DL (8.5-10.1); CHLORIDE 114 MEQ/L (98-107); GLOMERULAR FILTRATION RATE 96 ML/MIN (>89); GLUCOSE,RANDOM 154 MG/DL (74-106); MAGNESIUM 2.4 MG/DL (1.5-2.5); SODIUM (NA) 149 MEQ/L (136-145); TOTAL BILIRUBIN ADULT 0.9 MG/DL (0.2-1.0); TOTAL PROTEIN 7.4 GM/DL (6.4-8.2)
[2017-11-08] MEDS: SODIUM CHLORIDE 23.4% INJ 188 MEQ in SODIUM CHLOR 0.9% 1000 ML INJ 1,000 ML IV SCH (07:11)
[2017-11-08] MEDS ORDERED: VANCOMYCIN HCL 1000 MG VIAL ONE (07:32)
[2017-11-08] MEDS ORDERED: THROMBIN (TOPICAL) 5,000 UNIT VIAL ONE ×2 (07:32→10:17)
[2017-11-08] MEDS ORDERED: BUPIVACAINE/EPINEPHRINE 0.5% PF 30 ML VIAL ONE (07:33)
[2017-11-08] MEDS ORDERED: GELFOAM SIZE 100 ONE ×2 (07:33→10:17)
[2017-11-08] MEDS ORDERED: levETIRAcetam 500 MG/5 ML VIAL IV ONE (07:33)
[2017-11-08] MEDS ORDERED: GENTAMICIN SULFATE 80 MG/2 ML VIAL ONE (07:33)
--- NOTE | 2017-11-08 08:06 | MB ---
cc: THALIA FONSECA M.D. DATE OF CONSULTATION 11/07/2017 REASON FOR CONSULTATION Stroke alert HISTORY OF PRESENT ILLNESS Ms. Sprague is an 82-year-old female on Eliquis for atrial fibrillation. Yesterday around 07:00 p.m. developed significant left-sided weakness and headache. She presented to the ER as a stroke alert. In the course of her evaluation, she underwent CT scan of the brain which revealed a right frontal lobe acute hemorrhage measuring 8.7 x 5.7 cm with right to left midline shift and mass effect. She has persisted with her left-sided weakness. She had a repeat CT scan today showing mild interval increase in the density and size of the intraparenchymal hemorrhage in the right frontal parietal area. There were new small areas of intraparenchymal hemorrhage in the left frontal and parietal lobes, increased mass effect and midline shift was noted. Mild subarachnoid hemorrhage was noted in the right temporal lobe. There is mild intraventricular hemorrhage as well in the right lateral ventricle. Mild asymmetry of the suprasellar cisterns was identified. Since the patient was on Eliquis, she did receive Kcentra in the emergency room. Neurosurgery has evaluated and has been following the patient as well. PERSONAL HISTORY Remarkable for atrial fibrillation. ALLERGIES FISH, SULFA, AND IODINE. MEDICATIONS On admission: 1. Eliquis 5 mg b.i.d. 2. Lasix 20 mg daily NEUROLOGIC EXAMINATION Blood pressure is 110/52, pulse 106, respirations are 25, temperature 98.9 degrees. Higher cortical functions, she is lethargic, but arousable. Follows simple commands. She has a dense left hemiplegia with essentially 0/5 strength left arm and left leg. She can move the right arm and right leg briskly, reflexes are symmetric. CT of the brain is as noted above including the follow-up CT today. LABORATORY DATA The white count is 10,100, hemoglobin is 12.4, hematocrit 36.4% platelet count 247,000. Sodium is 149, potassium 3.6, chloride 104, CO2 21.1, the BUN is 10, creatinine 0.85, AST 25, ALT 17, PT 11.2, INR 1.1, APTT 24.1. IMPRESSION Hemorrhagic stroke related to Eliquis. RECOMMENDATIONS We will obtain as well a carotid ultrasound and echocardiogram to rule out potential embolic source. ADDENDUM Because of the hemorrhage, the patient was obviously not a candidate for TPA. MD AMAYA Acevedo/MADDIE /8:58 PM /7:44 AM
[2017-11-08] MEDS ORDERED: PHENYTOIN INJ 100 MG/2 ML VIAL ONE (08:49)
[2017-11-08] MEDS: DOCUSATE SODIUM 50 MG/SENNA 8.6 MG TAB PO SCH ×2 (09:00→20:28)
[2017-11-08] MEDS: PHENYTOIN INJ 100 MG/2 ML VIAL IV PUSH SCH ×2 (09:00→20:27)
[2017-11-08] MEDS: FAMOTIDINE 20 MG/2 ML VIAL IV PUSH SCH ×2 (09:00→20:27)
[2017-11-08] MEDS: SODIUM CHLORIDE 0.9% FLUSH 10 ML FLUSH IV FLUSH SCH ×2 (09:00→20:28)
[2017-11-08] MEDS ORDERED: SODIUM CHLORIDE 0.9% IV ONE (09:45)
[2017-11-08] MEDS ORDERED: PHENYTOIN IV ONE (09:45)
[2017-11-08] MEDS ORDERED: SODIUM CHLORIDE 0.9% FLUSH 10 ML FLUSH IV FLUSH PRN (11:30)
[2017-11-08] MEDS ORDERED: SENNOSIDES 8.6 MG TAB PO PRN (11:30)
[2017-11-08] MEDS ORDERED: MAGNESIUM SULFATE INJ 2 GM in SODIUM CHLORIDE 0.9% INJ 100 ML IV PRN (11:30)
[2017-11-08] MEDS ORDERED: cloNIDine HCL 0.1 MG TAB PO PRN (11:30)
[2017-11-08] MEDS ORDERED: LORazepam 2 MG/ML VIAL IV PUSH PRN (11:30)
[2017-11-08] MEDS ORDERED: POTASSIUM CHLOR 20 MEQ PREMIX 100 ML IV PRN ×3 (11:30→14:30)
[2017-11-08] MEDS ORDERED: MAGNESIUM HYDROXIDE SUSP 30 ML CUP PO PRN (11:30)
[2017-11-08] MEDS ORDERED: MORPHINE SULFATE 4 MG/ML INJ IV PUSH PRN (11:30)
[2017-11-08] MEDS ORDERED: CALCIUM GLUCONATE INJ 1 GM in SODIUM CHLORIDE 0.9% INJ 100 ML IV PRN (11:30)
[2017-11-08] MEDS ORDERED: LACTULOSE SYRUP 20 GM/30 ML CUP PO PRN (11:30)
[2017-11-08] MEDS ORDERED: PROMETHAZINE INJ 25 MG/ML VIAL IM PRN (11:30)
[2017-11-08] MEDS ORDERED: RESP: ALBUTEROL 2.5 MG/3 ML NEB (PRN) NEB (11:30)
[2017-11-08] MEDS ORDERED: ALUMINUM/MAGNESIUM/SIMETH 30 ML CUP PO PRN (11:30)
[2017-11-08] MEDS ORDERED: ACETAMINOPHEN 325 MG TAB PO PRN (11:30)
[2017-11-08] MEDS ORDERED: BISACODYL 10 MG SUPP RECTAL PRN (11:30)
[2017-11-08] MEDS ORDERED: LABETALOL HCL 100 MG/20 ML VIAL IV PUSH PRN (11:30)
[2017-11-08] MEDS ORDERED: niCARdipine INJ 25 MG in SODIUM CHLOR 0.9% 250 ML INJ 240 ML IV PRN (11:30)
--- NOTE | 2017-11-08 11:41 | PD.OP ---
Finn Deluca MD Operative Report Date of Surgery: Nov 08, 2017 Preoperative Diagnosis: Large right frontal parietal intracerebral hemorrhage with associated stroke Postoperative Diagnosis: Same Procedure: Right frontoparietal craniotomy for intracerebral hemorrhage evacuation; microsurgical technique Anesthesia: Gen. endotracheal by Eloise soler Surgeon: Gerhard Hernandez M.D. Stenciler(s): Bhavna Amezcua Operation and Findings: Following initiation of a general endotracheal anesthesia the patient had invasive lines and Morrison catheter in place along with the sequential compression device. A gram of vancomycin and 500 mg of Dilantin administered intravenously and she was positioned with the right side up on a shoulder roll and head secured to a horseshoe headrest. The right side of the head shaved and prepped with ChloraPrep and sterilely draped in the usual sterile fashion. A large reverse question sridhar incision site was then made after infiltrating the scalp was 0.5% Marcaine with epinephrine solution a skin incision made extending onto the galea at the previous incision site. Valerie clips were used at the scalp edges for hemostasis and the flap retracted inferiorly with hooks. With an automated carton lettering machine operator a bur hole was made and with the craniotome bone flap elevated. Bone holes were placed the craniotomy edges and for Nurolon dural tacking sutures placed for hemostasis. The dura opened in a cruciate format and significant brain swelling was noted. The cerebral hemorrhage in the frontoparietal area was approaching the cortical surface. Microsurgical resection with microscope magnification was used for further dissection. Posterior frontal aspect corticectomy was made and the hematoma evacuated which was large and extending all the way down to the ventricle frontal parietal aspect. No underlying vascular abnormality or obvious neoplasm was evident. After resection of the cerebral hemorrhage the brain was more relaxed and pulsatile. Bipolar cautery along with Gelfoam and thrombin used for hemostasis of the hematoma evacuation. A 7 mm ADRIANA subdural drain was also placed which is exited through the marilee hole and through a separate scalp site and secured with a 2-0 nylon tie. The dura was then approximated using 4-0 Nurolon interrupted sutures and a central dural tacking stitch also placed. The bone flap was packed using Guild mini plates. The galea approximated using 2-0 Vicryl interrupted sutures and finer scalp closure was with greta. A sterile pressure dressing was then applied. There were no intraoperative complications and all sponge and needle count was correct at the end of the procedure. Estimated blood loss about 200 cc. Patient was extubated and taken to the recovery room. Gerhard Hernandez MD Nov 08, 2017 11:41
[2017-11-08] MEDS ORDERED: DO NOT ADM ANY ANTICOAGULANT DRUGS PRN (12:00)
[2017-11-08] MEDS ORDERED: ONDANSETRON HCL 4 MG/2 ML VIAL IV ONE (12:00)
[2017-11-08] MEDS ORDERED: LIDOCAINE HCL 1% PF 5 ML SYRINGE OTHER ONE (12:00)
[2017-11-08] MEDS ORDERED: PROPOFOL 200 MG/20 ML AMP IV ONE (12:00)
[2017-11-08] MEDS ORDERED: PHENYLEPHRINE HCL 10 MG/ML VIAL IV ONE (12:00)
[2017-11-08] MEDS ORDERED: GLYCOPYRROLATE 1 MG/5 ML SYRINGE IV PUSH ONE (12:00)
[2017-11-08] MEDS ORDERED: ROCURONIUM INJ 50 MG/5 ML SYRINGE IV PUSH ONE (12:00)
[2017-11-08] MEDS ORDERED: ePHEDrine/NS 25 MG/5 ML SYRINGE IV ONE (12:00)
[2017-11-08] MEDS ORDERED: NEOSTIGMINE 5 MG/5 ML SYRINGE IV PUSH ONE (12:00)
[2017-11-08] MEDS ORDERED: ceFAZolin INJ 1,000 MG VIAL ONE (12:22)
[2017-11-08] MEDS ORDERED: SODIUM CHLORIDE 0.9% INJ 100 ML ONE (12:22)
[2017-11-08 12:28] LABS: HEMATOCRIT 31.4 % (35.0-46.0); HEMOGLOBIN 10.5 GM/DL (11.6-15.3); MEAN CELL VOLUME 92.9 FL (80.0-100.0); MEAN CORPUSCULAR HEMOGLOBIN 31.1 PG (27.0-34.0); MEAN CORPUSCULAR HGB CONC 33.4 % (32.0-36.0); MEAN PLATELET VOLUME 8.8 FL (7.0-11.0); PLATELET COUNT 196 TH/MM3 (150-450); RED BLOOD COUNT 3.37 MIL/MM3 (4.00-5.30); RED CELL DISTRIBUTION WIDTH 14.7 % (11.6-17.2); WHITE BLOOD COUNT 14.1 TH/MM3 (4.0-11.0)
[2017-11-08 12:47] LABS: BICARBONATE 25.1 MEQ/L (21.0-32.0); CALCIUM 7.8 MG/DL (8.5-10.1); CREATININE 0.56 MG/DL (0.50-1.00)
[2017-11-08] MEDS: NS + KCL 20 MEQ INJ 1,000 ML IV SCH (13:55)
--- NOTE | 2017-11-08 14:09 | HHI.CCPN ---
Subjective Remarks/Hospital Course 11/06: 82-year-old female with a medical history of atrial fibrillation on anticoagulation with Eliquis who developed sudden onset left-sided weakness and altered mental status and slurred speech as she was walking out with her family after the [place]. She was rushed to the ER as a stroke alert. Head CT showed a large right frontal hemorrhage. She was also hypertensive on arrival and was started on nicardipine drip. She received Kcentra in the ER and was accepted for admission by critical care medicine. Neurosurgery was consulted and patient was evaluated in the ER by Dr. Lin. When I evaluated the patient in the ER she was laying in the ER stretcher not in any acute distress. She had a dense left-sided weakness and slurred speech however was easily arousable and following commands and knew where she was and couldn't give me her home address. History was obtained by discussion with patient's family as well as ER physician. 11/07: No events since admission. Patient resting comfortable, easily arousable, following commands. No CP, dyspnea, palpitations, BARNARD, N/V. Tmax 98.7, I/O 215/ 1750. On nicardipine at 2.5. 11/08: Patient underwent right frontoparietal craniotomy for intracerebral hemorrhage evacuation. No events intra-op. Tmax 99.4. Lethargic but arousable, follows some commands. Had episode of Afib with RVR last night and she was started on cardizem drip. now HR in the low 100's. ROS - unobtainable, patient is too lethargic Objective Vital Signs Date Time Temp Pulse Resp B/P (MAP) Pulse Ox O2 Delivery O2 Flow Rate FiO2 11/08/17 13:05 98.6 102 19 104/55 (71) 97 11/08/17 12:45 Nasal Cannula 3 Intake and Output 11/08/17 11/08/17 11/09/17 08:00 16:00 00:00 Intake Total 400 ml Output Total 1850 ml 540 ml Balance -1850 ml -140 ml Result Diagram: 11/08/17 1210 11/08/17 1210 Imaging Last Impressions Multiplanar Reconstruction 11/06/17 0000 Signed Impressions: Service Date/Time: Monday, November 06, 2017 20:06 - CONCLUSION: Reconstructions again demonstrate the right frontal acute hemorrhage. Please see noncontrast head CT report for further description. Finn Molina MD Head CT 11/06/17 0000 Signed Impressions: Service Date/Time: Monday, November 06, 2017 20:05 - CONCLUSION: Right frontal lobe acute hemorrhage measuring approximately 8.7 x 5.2 cm causing 9 mm of [id number] midline shift. These findings were telephoned to Dr. Barnett at 8 : 13 PM on 11/06/2017. Finn Molina MD Chest X-Ray 11/06/17 0000 Signed Impressions: Service Date/Time: Monday, November 06, 2017 20:52 - CONCLUSION: Mild atelectasis at the left base. Otherwise, no acute finding is identified. Finn Molina MD Objective Remarks General - elderly lady, lethargic, arousable, ill appearing HEENT - pupils are equal and reactive, sclerae are anicteric, neck is supple, no rigidity, no JVD, no carotid bruit, dry MM, no thrush, circumferential dressing over the scalp, + ADRIANA with sanguinous fluid CV - irregular heart sounds, no murmurs Chest - clear b/l, good air entry, no wheezes Abdomen - soft, not tender, non-distended, BS present, no hepatomegaly, no splenomegaly Skin - no rashes, no cyanosis Extremities - warm, no edema, + peripheral pulses, no clubbing Neuro - lethargic, arousable,+ pupillary, + left-sided facial weakness, follows some commands, moves right upper and lower extremity, does not appear to be moving left side A/P Assessment and Plan 1. Large right frontal intracerebral hemorrhage with mass effect s/p right frontoparietal craniotomy for intracerebral hemorrhage evacuation 2. Coagulopathy - in the setting of eliquis use 3. Uncontrolled hypertension - now controlled 4. History of atrial fibrillation - had RVR over the night 1. Continue supplemental O2 to keep SpO2 above 92% 2. Neuro checks 3. If worsening neurologic status will need intubation 4. HOB elevation, maintain normothermia, avoid agitation 5. Stop 2% NS 6. Stat CT head with any change in neuro status 7. Received Kcentra. Last eliquis dose was on 11/06 in AM 8. On cardizem drip. Will change to po tomorrow 9. Glycemic control if needed 10. Seizure prophylaxis with phenytoin 11. GI/DVT prophylaxis. No heparin or Lovenox in view of intracranial hemorrhage Jose C Walton MD Nov 08, 2017 14:09
[2017-11-08] MEDS ORDERED: MAGNESIUM OXIDE 400 MG TAB PO PRN (14:30)
[2017-11-08] MEDS ORDERED: POTASSIUM CHLOR 40 MEQ PREMIX 100 ML IV PRN ×2 (14:30)
[2017-11-08] MEDS ORDERED: POTASSIUM CHLORIDE 25 MEQ EFFERVESCENT TAB PO PRN (14:30)
[2017-11-08] MEDS ORDERED: POTASSIUM PHOSPHATE MONOBASIC 500 MG TAB PO PRN (14:30)
[2017-11-08] MEDS ORDERED: MAGNESIUM SULFATE INJ 2 GM in SODIUM CHLORIDE 0.9% INJ 96 ML IV PRN (14:30)
[2017-11-08] MEDS ORDERED: MAGNESIUM SULFATE INJ 4 GM in SODIUM CHLORIDE 0.9% INJ 92 ML IV PRN (14:30)
[2017-11-08] MEDS ORDERED: SODIUM PHOSPHATE INJ 30 MMOL in SODIUM CHLOR 0.9% 250 ML INJ 240 ML IV PRN (14:30)
[2017-11-08] MEDS ORDERED: POTASSIUM PHOSPHATE MONOBASIC 500 MG TAB PO/TUBE PRN (14:30)
[2017-11-08] MEDS ORDERED: POTASSIUM CHLOR 20 MEQ PREMIX 100 ML IV ONE (15:00)
[2017-11-08] MEDS ORDERED: POTASSIUM PHOSPHATE INJ 15 MMOL in SODIUM CHLORIDE 0.9% INJ 150 ML IV ONE (16:00)
[2017-11-08] MEDS ORDERED: SODIUM CHLORIDE 0.9% FLUSH 10 ML FLUSH IV FLUSH SCH (21:00)
[2017-11-08] MEDS ORDERED: DOCUSATE SODIUM 50 MG/SENNA 8.6 MG TAB PO SCH (21:00)
[2017-11-08] MEDS: MORPHINE SULFATE 4 MG/ML INJ IV PUSH PRN (21:10)
--- NOTE | 2017-11-08 21:53 | HHI.PR ---
Review/Management Diagnosis right frontal hemorrhage. s/p evacuation Diagnosis/Plan: Subjective Subjective Comments Pt underwent surgery today for evacuation of right frontal hematoma Active Medications Current Medications Medications (Trade) Dose Ordered Sig/Mary Anne Route Start Time Stop Time Status Last Admin (NS Flush) 2 ml UNSCH PRN IV FLUSH 11/06/17 21:30 (NS Flush) 2 ml BID IV FLUSH 11/07/17 09:00 11/08/17 20:28 (Pepcid Inj) 20 mg Q12HR IV PUSH 11/07/17 09:00 11/08/17 20:27 (Zofran Inj) 4 mg Q6H PRN IV PUSH 11/06/17 22:00 11/07/17 15:10 (Duoneb Neb) 1 ampule Q4HR NEB PRN INH 11/07/17 00:00 Miscellaneous Information 1 Q361D XX 11/06/17 21:30 (Cinyd-Colace) 1 tab BID PO 11/07/17 09:00 (Milk Of Magnesia Liq) 30 ml Q12H PRN PO 11/06/17 21:30 (Senokot) 17.2 mg Q12H PRN PO 11/06/17 21:30 (Dulcolax Supp) 10 mg DAILY PRN RECTAL 11/06/17 21:30 (Lactulose Liq) 30 ml DAILY PRN PO 11/06/17 21:30 Diltiazem HCl 125 mg/Sodium Chloride 125 ml @ 5 mls/hr TITRATE PRN IV 11/08/17 04:30 11/08/17 15:47 (Dilantin Inj) 200 mg Q12HR IV PUSH 11/08/17 21:00 11/08/17 20:27 Potassium Chloride/Sodium Chloride 1,000 ml @ 80 mls/hr [id number] IV 11/08/17 14:00 11/08/17 13:55 Cefazolin Sodium 1000 mg/Sodium Chloride 100 ml @ 200 mls/hr Q8H IV 11/08/17 20:00 11/09/17 12:29 11/08/17 20:28 (Ativan Inj) 1 mg Q1H PRN IV PUSH 11/08/17 11:30 (Mag-Al Plus Susp Liq) 30 ml Q6H PRN PO 11/08/17 11:30 (Phenergan Inj) 25 mg Q4H PRN IM 11/08/17 11:30 Calcium Gluconate 1 gm/Sodium Chloride 110 ml @ 110 mls/hr UNSCH PRN IV 11/08/17 11:30 (Morphine Inj) 2 mg Q2H PRN IV PUSH 11/08/17 11:30 11/08/17 21:10 (Morphine Inj) 4 mg Q2H PRN IV PUSH 11/08/17 11:30 (Trandate Inj) 10 mg Q1H PRN IV PUSH 11/08/17 11:30 (Catapres) 0.1 mg Q6H PRN PO 11/08/17 11:30 (Tylenol) 650 mg Q4H PRN PO 11/08/17 11:30 Nicardipine HCl 25 mg/Sodium Chloride 250 ml @ 50 mls/hr TITRATE PRN IV 11/08/17 11:30 Potassium Chloride 100 ml @ 50 mls/hr Q2H PRN IV 11/08/17 14:30 Potassium Chloride 100 ml @ 50 mls/hr Q2H PRN IV 11/08/17 14:30 (K-Lyte Cl Eff) 50 meq UNSCH PRN PO 11/08/17 14:30 Potassium Chloride 100 ml @ 25 mls/hr UNSCH PRN IV 11/08/17 14:30 Potassium Chloride 100 ml @ 50 mls/hr Q2H PRN IV 11/08/17 14:30 Magnesium Sulfate 4 gm/Sodium Chloride 100 ml @ 50 mls/hr UNSCH PRN IV 11/08/17 14:30 (Mag-Ox) 800 mg UNSCH PRN PO 11/08/17 14:30 Magnesium Sulfate 2 gm/Sodium Chloride 100 ml @ 50 mls/hr UNSCH PRN IV 11/08/17 14:30 (K-Phos) 2,000 mg Q4H PRN PO 11/08/17 14:30 Sodium Phosphate 30 mmol/Sodium Chloride 250 ml @ 42 mls/hr UNSCH PRN IV 11/08/17 14:30 (K-Phos) 2,000 mg UNSCH PRN PO/TUBE 11/08/17 14:30 Potassium Phosphate 30 mmol/ Sodium Chloride 260 ml @ 42 mls/hr UNSCH PRN IV 11/08/17 14:30 Miscellaneous Information ALL NURSING DEPARTME... UNSCH PRN .XX 2/20/18 12:00 11/09/17 11:59 Allergies Allergies Coded Allergies Fish Containing Products (Verified Allergy, Unknown, 11/06/17) Sulfa (Sulfonamide Antibiotics) (Verified Allergy, Unknown, 11/06/17) iodine (Verified Allergy, Unknown, 11/06/17) Exam I&O / VS 11/08/17 11/08/17 11/09/17 15:00 23:00 07:00 Intake Total 578 ml 343 ml Output Total 540 ml 360 ml Balance 38 ml -17 ml Intake IV Total 578 ml 343 ml Output Urine Total 300 ml 325 ml Drainage Total 40 ml 35 ml Estimated Blood Loss 200 ml # Bowel Movements 0 Vital Signs Date Time Temp Pulse Resp B/P (MAP) Pulse Ox O2 Delivery O2 Flow Rate FiO2 11/08/17 20:40 98 Nasal Cannula 3.00 11/08/17 18:00 113 11/08/17 16:00 97.8 111 20 100 104/72 (83) 11/08/17 16:00 111 11/08/17 15:47 91 109/62 11/08/17 15:00 112 11/08/17 14:00 83 11/08/17 13:05 98.6 102 19 104/55 (71) 97 11/08/17 13:05 102 11/08/17 13:05 98.6 102 19 97 104/55 (71) 11/08/17 12:45 98.3 105 12 100/59 (73) 99 Nasal Cannula 3 107/55 (72) 11/08/17 12:30 111 12 97/61 (73) 99 Nasal Cannula 3 103/54 (70) 11/08/17 12:15 111 12 105/59 (74) 99 Nasal Cannula 3 100/55 (70) 11/08/17 12:00 112 12 103/60 (74) 99 Nasal Cannula 3 107/54 (71) 11/08/17 11:52 98.3 108 12 97/53 (68) 97 Nasal Cannula 3 101/54 (70) 11/08/17 08:04 98.3 118 18 116/74 (88) 98 11/08/17 08:04 118 11/08/17 08:04 Nasal Cannula 3 11/08/17 08:00 112 11/08/17 07:00 97 Nasal Cannula 3.00 11/08/17 07:00 112 11/08/17 06:00 122 11/08/17 05:30 98.8 127 25 115/65 (82) 96 11/08/17 05:16 140 145/83 11/08/17 05:15 98.8 133 25 145/83 (103) 96 11/08/17 04:00 98.8 127 26 133/80 (97) 95 11/08/17 04:00 127 11/08/17 02:00 119 11/08/17 00:00 124 11/08/17 00:00 97.9 124 24 123/58 (79) 95 11/07/17 23:43 122 127/63 11/07/17 22:59 99 Nasal Cannula 2.00 11/07/17 22:00 123 Exam Comments lethargic, arousable, follows simple commands PERRL MOTOR--moves RUE 4/5. 0/5 LUE Objective Micro and Labs Laboratory Tests Test 11/07/17 23:44 11/08/17 04:11 11/08/17 12:10 Sodium Level 151 149 152 White Blood Count 17.9 14.1 Red Blood Count 4.04 3.37 Hemoglobin 12.8 10.5 Hematocrit 37.5 31.4 Mean Corpuscular Volume 92.7 92.9 Mean Corpuscular Hemoglobin 31.6 31.1 Mean Corpuscular Hemoglobin Concent 34.1 33.4 Red Cell Distribution Width 14.9 14.7 Platelet Count 229 196 Mean Platelet Volume 8.8 8.8 Neutrophils (%) (Auto) 90.4 Lymphocytes (%) (Auto) 3.5 Monocytes (%) (Auto) 4.8 Eosinophils (%) (Auto) 0.0 Basophils (%) (Auto) 1.3 Neutrophils # (Auto) 16.2 Lymphocytes # (Auto) 0.6 Monocytes # (Auto) 0.9 Eosinophils # (Auto) 0.0 Basophils # (Auto) 0.2 CBC Comment DIFF FINAL Differential Comment Blood Urea Nitrogen 9 11 Creatinine 0.60 0.56 Random Glucose 154 153 Total Protein 7.4 Albumin 3.7 Calcium Level 8.6 7.8 Phosphorus Level 2.0 3.2 Magnesium Level 2.4 Alkaline Phosphatase 75 Aspartate Amino Transf (AST/SGOT) 31 Alanine Aminotransferase (ALT/SGPT) 33 Total Bilirubin 0.9 Potassium Level 3.0 3.1 Chloride Level 114 118 Carbon Dioxide Level 26.2 25.1 Anion Gap 9 9 Estimat Glomerular Filtration Rate 96 104 Serum Osmolality 316 Naun Uriarte MD PhD Nov 08, 2017 21:53
[2017-11-09] VITALS (16 sets, daily range): BP systolic 110–127; BP diastolic 61–93; PULSE 100–122; RESP 17–28; TEMP 97.8–98.4; O2SAT 94–98
[2017-11-09 01:01] LABS: PHENYTOIN (DILANTIN) 14.6 MCG/ML (10.0-20.0)
[2017-11-09] MEDS: NS + KCL 20 MEQ INJ 1,000 ML IV SCH (02:30)
[2017-11-09] MEDS: DILTIAZEM INJ 125 MG in SODIUM CHLORIDE 0.9% INJ 100 ML IV PRN ×3 (03:23→19:25)
--- NOTE | 2017-11-09 04:42 | RADRPT ---
EXAM DATE/TIME: 11/09/2017 04:21 [place] COMPARISON: CT BRAIN W/O CONTRAST, November 07, 2017, 4:46. INDICATIONS : Evaluate hemorrhage. RADIATION DOSE: 56.35 CTDIvol (mGy) MEDICAL HISTORY : Stroke. Cardiovascular disease SURGICAL HISTORY : None. ENCOUNTER: Initial ACUITY: 1 day PAIN SCALE: 5/10 LOCATION: cranial TECHNIQUE: Multiple contiguous axial images were obtained of the head. Using automated exposure control and adj ustment of the mA and/or kV according to patient size, radiation dose was kept as low as reasonably a chievable to obtain optimal diagnostic quality images. DICOM format image data is available electro nically for review and comparison. FINDINGS: Interval postsurgical changes are present status post right parietal craniotomy. A subdural drai nage catheter is noted lung along the inside of the craniotomy. A small amount of surrounding gas is present along the catheter. The intraparenchymal hemorrhage has decreased in size with decreased jana a and mass effect on the lateral ventricles. The previously noted midline shift has been reduced to a pproximately 4-5 mm from 12 mm. There is a small amount of intraventricular hemorrhage again noted. T here are areas of subarachnoid hemorrhage noted in both parietal lobes. Punctate areas of intraparenc hymal hemorrhage are again noted in the medial left parietal lobe without significant change. CONCLUSION: 1. Status post interval right craniotomy and removal of a portion of the intraparenchymal hemorrhage. 2. Decreased mass effect and midline shift. 3. No new hemorrhage. Randy Hyman MD on November 09, 2017 at 4:37 Board Certified Radiologist. This report was verified electronically.
[2017-11-09 05:36] LABS: BASOPHIL % 0.2 % (0.0-2.0); HEMATOCRIT 31.5 % (35.0-46.0); HEMOGLOBIN 10.7 GM/DL (11.6-15.3); LYMPH % 6.1 % (9.0-44.0); MEAN CELL VOLUME 93.1 FL (80.0-100.0); MEAN CORPUSCULAR HEMOGLOBIN 31.7 PG (27.0-34.0); MEAN CORPUSCULAR HGB CONC 34.1 % (32.0-36.0); MEAN PLATELET VOLUME 8.8 FL (7.0-11.0); MONO % 7.2 % (0.0-8.0); MONOCYTE # 1.2 TH/MM3 (0-0.9); NEUT % 86.5 % (16.0-70.0); PLATELET COUNT 175 TH/MM3 (150-450); RED BLOOD COUNT 3.38 MIL/MM3 (4.00-5.30); RED CELL DISTRIBUTION WIDTH 14.9 % (11.6-17.2); WHITE BLOOD COUNT 16.2 TH/MM3 (4.0-11.0)
[2017-11-09 06:01] LABS: ALBUMIN 3.3 GM/DL (3.4-5.0); AST (GOT) 20 U/L (15-37); BICARBONATE 29.1 MEQ/L (21.0-32.0); BLOOD UREA NITROGEN 12 MG/DL (7-18); CALCIUM 8.5 MG/DL (8.5-10.1); CHLORIDE 120 MEQ/L (98-107); CREATININE 0.66 MG/DL (0.50-1.00); GLOMERULAR FILTRATION RATE 86 ML/MIN (>89); GLUCOSE,RANDOM 142 MG/DL (74-106); MAGNESIUM 2.3 MG/DL (1.5-2.5); SODIUM (NA) 155 MEQ/L (136-145)
[2017-11-09 06:07] LABS: ALKALINE PHOSPHATASE 70 U/L (45-117); ALT (GPT) 24 U/L (10-53); PHOSPHORUS 1.9 MG/DL (2.5-4.9); TOTAL BILIRUBIN ADULT 0.9 MG/DL (0.2-1.0); TOTAL PROTEIN 6.5 GM/DL (6.4-8.2)
[2017-11-09] MEDS: PHENYTOIN INJ 100 MG/2 ML VIAL IV PUSH SCH ×2 (08:50→21:03)
[2017-11-09] MEDS: DOCUSATE SODIUM 50 MG/SENNA 8.6 MG TAB PO SCH ×2 (08:50→21:00)
[2017-11-09] MEDS: SODIUM CHLORIDE 0.9% FLUSH 10 ML FLUSH IV FLUSH SCH ×2 (08:50→21:00)
[2017-11-09] MEDS: FAMOTIDINE 20 MG/2 ML VIAL IV PUSH SCH ×2 (08:50→21:02)
--- NOTE | 2017-11-09 09:02 | HHI.NSPN ---
(Nahun Prabhakar) History Chief Complaint: Headache. Large right ICH. (Nahun Prabhakar) Interval History This is an 82-year-old female patient with a history of atrial fibrillation on Eliquis. [place] to slur her words and developed weakness. She was then brought to [facility] by ambulance where she underwent evaluation and, because of abnormal CT neurosurgery consult was placed. No other history is available at the present time. 11/07: Pt lethargic but opens her eyes to voice. She does answer some questions when asked. Her son at the bedside states she was talking on the cell phone earlier. She complains of right sided headaches. 11/09: Pt s/p right frontoparietal craniotomy for intracerebral hemorrhage evacuation on 11/08. She opens eyes to voice, but is lethargic. Denies headache. Follows commands. Left dense hemiparesis/plegia. (Nahun Prabhakar) Review of Systems General: Negative for: fever, chills, insomnia Respiratory: Negative for: shortness of breath, cough, sputum Cardiovascular: Negative for: chest pain Gastrointestinal: Negative for: nausea, vomitting, diarrhea, constipation ( Nahun Prabhakar) Exam Results Vital Signs Date Time Temp Pulse Resp B/P (MAP) Pulse Ox O2 Delivery O2 Flow Rate FiO2 11/09/17 07:51 98 Nasal Cannula 2.00 11/09/17 06:00 118 11/09/17 04:00 98.1 23 117/72 (87) Intake and Output 11/09/17 11/09/17 11/10/17 08:00 16:00 00:00 Intake Total 125 ml Output Total 980 ml Balance -855 ml (Nahun Prabhakar) Physical Examination General: Pt resting in bed with eyes closed but does open them when asked and verbalizes. Eyes: Pupils equal 3mm bilaterally reactive bilaterally. Sclera anicteric. Resp: CTA bilaterally Heart: Irregular no murmurs. Abd: Soft positive bs Skin: No cyanosis or erythema. ADRIANA drain in place. Muscle: Left dense hemiparesis/plegia. Moves right side well. Neuro: Pt prefers eyes closed but opens them when asked. Pupils 3mm bilaterally reactive bilaterally. Follows simple commands. She answers some simple questions. (Nahun Prabhakar) Lab, Micro, Other Results Last Impressions Head CT 11/09/17 0600 Signed Impressions: Service Date/Time: Thursday, November 09, 2017 04:21 - CONCLUSION: 1. Status post interval right craniotomy and removal of a portion of the intraparenchymal hemorrhage. 2. Decreased mass effect and midline shift. 3. No new hemorrhage. Randy Hyman MD Carotid Artery Ultrasound 11/07/17 0000 Signed Impressions: Service Date/Time: Tuesday, November 07, 2017 21:21 - CONCLUSION: No evidence of flow-limiting carotid stenosis. Finn Meza MD Multiplanar Reconstruction 11/06/17 0000 Signed Impressions: Service Date/Time: Monday, November 06, 2017 20:06 - CONCLUSION: Reconstructions again demonstrate the right frontal acute hemorrhage. Please see noncontrast head CT report for further description. Finn Molina MD Chest X-Ray 11/06/17 0000 Signed Impressions: Service Date/Time: Monday, November 06, 2017 20:52 - CONCLUSION: Mild atelectasis at the left base. Otherwise, no acute finding is identified. Finn Molina MD Laboratory Tests Test 11/08/17 12:10 11/09/17 00:25 11/09/17 05:18 White Blood Count 14.1 TH/MM3 16.2 TH/MM3 Red Blood Count 3.37 MIL/MM3 3.38 MIL/MM3 Hemoglobin 10.5 GM/DL 10.7 GM/DL Hematocrit 31.4 % 31.5 % Mean Corpuscular Volume 92.9 FL 93.1 FL Mean Corpuscular Hemoglobin 31.1 PG 31.7 PG Mean Corpuscular Hemoglobin Concent 33.4 % 34.1 % Red Cell Distribution Width 14.7 % 14.9 % Platelet Count 196 TH/MM3 175 TH/MM3 Mean Platelet Volume 8.8 FL 8.8 FL Blood Urea Nitrogen 11 MG/DL 12 MG/DL Creatinine 0.56 MG/DL 0.66 MG/DL Random Glucose 153 MG/DL 142 MG/DL Calcium Level 7.8 MG/DL 8.5 MG/DL Sodium Level 152 MEQ/L 154 MEQ/L 155 MEQ/L Potassium Level 3.1 MEQ/L 3.4 MEQ/L Chloride Level 118 MEQ/L 120 MEQ/L Carbon Dioxide Level 25.1 MEQ/L 29.1 MEQ/L Anion Gap 9 MEQ/L 6 MEQ/L Estimat Glomerular Filtration Rate 104 ML/MIN 86 ML/MIN Phosphorus Level 3.2 MG/DL 1.9 MG/DL Phenytoin (Dilantin) Level 14.6 MCG/ML Neutrophils (%) (Auto) 86.5 % Lymphocytes (%) (Auto) 6.1 % Monocytes (%) (Auto) 7.2 % Eosinophils (%) (Auto) 0.0 % Basophils (%) (Auto) 0.2 % Neutrophils # (Auto) 14.0 TH/MM3 Lymphocytes # (Auto) 1.0 TH/MM3 Monocytes # (Auto) 1.2 TH/MM3 Eosinophils # (Auto) 0.0 TH/MM3 Basophils # (Auto) 0.0 TH/MM3 CBC Comment DIFF FINAL Differential Comment Total Protein 6.5 GM/DL Albumin 3.3 GM/DL Magnesium Level 2.3 MG/DL Alkaline Phosphatase 70 U/L Aspartate Amino Transf (AST/SGOT) 20 U/L Alanine Aminotransferase (ALT/SGPT) 24 U/L Total Bilirubin 0.9 MG/DL Serum Osmolality 321 MOSM/KG (Nahun Prabhakar) Medical Decision Making Impression and Plan A: 82 y/o FM with 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 P: Continue with close Neuro checks. Remove ADRIANA drain per Dr. Hernandez. Continue with critical care. Continue with blood pressure control Continue with current care. (Nahun Prabhakar) Attending Statement The exam, history, and the medical decision-making described in the above note were completed with the assistance of the mid-level provider. I reviewed and agree with the findings presented. I attest that I had a [id number] encounter with the patient on the same day, and personally performed and documented my assessment and findings in the medical record. Follow-up CT scan ahead with significant improvement with hematoma evacuation and decreased midline shift. Continue with supportive care and rehabilitation. Updated at bedside. (Gerhard Hernandez MD) Nahun Prabhakar Nov 09, 2017 09:02 Gerhard Hernandez MD Nov 09, 2017 11:40
[2017-11-09] MEDS: POTASSIUM PHOSPHATE INJ 30 MMOL in SODIUM CHLOR 0.9% 250 ML INJ 250 ML IV PRN (09:10)
[2017-11-09] MEDS ORDERED: LIDOCAINE 2%/EPINEPHrine 1:100,000 20ML MDV INFIL ONE (10:00)
--- NOTE | 2017-11-09 13:28 | ECHRPT ---
Indication: CVA/TIA CONCLUSIONS The left ventricular systolic function is moderately reduced with an estimated ejection fraction in the range of 40-45%. Wall thickness is measured at the upper limits of normal. Normal left ventricular size. [id number] mitral valve regurgitation. There is mild tricuspid valve regurgitation. The estimated pulmonary arterial pressure is 33.6 mmHg. dense focal calcification of aortic valve technically limited study BP: / HR: 114 Rhythm: Other MEASUREMENTS (Male / Female) Normal Values Technical Quality:Fair 2D ECHO LV Diastolic Diameter PLAX 4.6 cm 4.2 - 5.9 / 3.9 - 5.3 cm LV Systolic Diameter PLAX 3.9 cm IVS Diastolic Thickness 1.1 cm 0.6 - 1.0 / 0.6 - 0.9 cm LVPW Diastolic Thickness 1.1 cm 0.6 - 1.0 / 0.6 - 0.9 cm LV Relative Wall Thickness 0.5 LVOT Diameter 1.8 cm M-MODE Aortic Root Diameter MM 3.0 cm LA Systolic Diameter MM 3.8 cm LA Ao Ratio MM 1.3 AV Cusp Separation MM 1.9 cm DOPPLER AV Peak Velocity 150.0 cm/s AV Peak Gradient 9.0 mmHg LVOT Peak Velocity 80.9 cm/s LVOT Peak Gradient 2.6 mmHg AV Area Cont Eq pk 1.4 cm MR Peak Velocity 414.0 cm/s MR Peak Gradient 68.6 mmHg LV E' Lateral Velocity 14.2 cm/s LV E' Septal Velocity 13.5 cm/s TR Peak Velocity 243.0 cm/s TR Peak Gradient 23.6 mmHg Right Atrial Pressure 10.0 mmHg Pulmonary Artery Systolic Pressu 33.6 mmHg Right Ventricular Systolic Press 33.6 mmHg PV Peak Velocity 115.0 cm/s PV Peak Gradient 5.3 mmHg FINDINGS LEFT VENTRICLE The left ventricular systolic function is moderately reduced with an estimated ejection fraction in the range of 40-45%. Wall thickness is measured at the upper limits of normal. Normal left ventricular size. RIGHT VENTRICLE Normal right ventricular size and systolic function. LEFT ATRIUM The left atrial size is normal. RIGHT ATRIUM The right atrial size is normal. ATRIAL SEPTUM Normal atrial septal thickness without atrial level shunting by limited color doppler interrogation. AORTA The aortic root and proximal ascending aorta are normal in size on limited imaging. MITRAL VALVE Hexa-yu-szhxjjuz mitral valve regurgitation. AORTIC VALVE Trileaflet aortic valve. No aortic valve stenosis or regurgitation. TRICUSPID VALVE There is mild tricuspid valve regurgitation. The estimated pulmonary arterial pressure is 33.6 mmHg. PULMONARY VALVE No pulmonary valve regurgitation or stenosis. VESSELS The inferior vena cava is normal in size. PERICARDIUM No pericardial effusion. Alex Lee MD, FACC, [facility] [place] (Electronically Signed) Final Date:09 November 2017 13:27
--- NOTE | 2017-11-09 14:30 | HHI.CCPN ---
Subjective Remarks/Hospital Course 11/06: 82-year-old female with a medical history of atrial fibrillation on anticoagulation with Eliquis who developed sudden onset left-sided weakness and altered mental status and slurred speech as she was walking out with her family after the [place]. She was rushed to the ER as a stroke alert. Head CT showed a large right frontal hemorrhage. She was also hypertensive on arrival and was started on nicardipine drip. She received Kcentra in the ER and was accepted for admission by critical care medicine. Neurosurgery was consulted and patient was evaluated in the ER by Dr. Lin. When I evaluated the patient in the ER she was laying in the ER stretcher not in any acute distress. She had a dense left-sided weakness and slurred speech however was easily arousable and following commands and knew where she was and couldn't give me her home address. History was obtained by discussion with patient's family as well as ER physician. 11/07: No events since admission. Patient resting comfortable, easily arousable, following commands. No CP, dyspnea, palpitations, BARNARD, N/V. Tmax 98.7, I/O 215/ 1750. On nicardipine at 2.5. 11/08: Patient underwent right frontoparietal craniotomy for intracerebral hemorrhage evacuation. No events intra-op. Tmax 99.4. Lethargic but arousable, follows some commands. Had episode of Afib with RVR last night and she was started on cardizem drip. now HR in the low 100's. 11/09: Patient did well overnight. She is slightly more awake, more responsive. Afebrile, T-max 98.4, ins and outs 1300/1900. at bedside. ROS - unobtainable due to patient's condition Objective Vital Signs Date Time Temp Pulse Resp B/P (MAP) Pulse Ox O2 Delivery O2 Flow Rate FiO2 11/09/17 14:00 100 11/09/17 12:00 98.4 17 127/76 (93) 98 Arterial Line 11/09/17 07:51 Nasal Cannula 2.00 Intake and Output 11/09/17 11/09/17 11/10/17 08:00 16:00 00:00 Intake Total 125 ml 475 ml Output Total 980 ml Balance -855 ml 475 ml Result Diagram: 11/09/1751711/09/17517 Imaging Last Impressions Multiplanar Reconstruction 11/06/17 0000 Signed Impressions: Service Date/Time: Monday, November 06, 2017 20:06 - CONCLUSION: Reconstructions again demonstrate the right frontal acute hemorrhage. Please see noncontrast head CT report for further description. Finn Molina MD Head CT 11/06/17 0000 Signed Impressions: Service Date/Time: Monday, November 06, 2017 20:05 - CONCLUSION: Right frontal lobe acute hemorrhage measuring approximately 8.7 x 5.2 cm causing 9 mm of [id number] midline shift. These findings were telephoned to Dr. Barnett at 8 : 13 PM on 11/06/2017. Finn Molina MD Chest X-Ray 11/06/17 0000 Signed Impressions: Service Date/Time: Monday, November 06, 2017 20:52 - CONCLUSION: Mild atelectasis at the left base. Otherwise, no acute finding is identified. Finn Molina MD Objective Remarks General - elderly lady, lethargic, easily arousable, ill appearing HEENT - pupils equal and reactive, sclerae anicteric, neck supple, no rigidity, neck veins not distended, no carotid bruit, still with dry MM, no thrush, circumferential dressing over the scalp, + ADRIANA removed CV - irregular S1-S2, no murmurs Chest - clear b/l, good air entry, no wheezes Abdomen - soft, non-distended, BS present, nontender, no hepatomegaly, no splenomegaly Skin - no rashes Extremities - no edema, + peripheral pulses, warm and well-perfused Neuro - unchanged, lethargic, easily arousable,+ pupillary, + left-sided facial weakness, follows some commands, more comprehensible words, moves right upper and lower extremity, does not appear to be moving left side A/P Assessment and Plan 1. Large right frontal intracerebral hemorrhage with mass effect s/p right frontoparietal craniotomy for intracerebral hemorrhage evacuation postop day 1, doing well 2. Coagulopathy - in the setting of eliquis use, resolved 3. Uncontrolled hypertension -resolved 4. History of atrial fibrillation -heart rate remains between low 80s-110s 5. Iatrogenic hypernatremia 6. Hypokalemia 1. Continue supplemental O2 to keep SpO2 above 92% 2. Neuro checks 3. If worsening neurologic stat CT had 4. HOB elevation, maintain normothermia, avoid agitation 5. Stop fluids 6. Stat CT head with any change in neuro status 7. Received Kcentra. Last eliquis dose was on 11/06 in AM 8. On cardizem drip. Will change to po once she is able to swallow 9. Glycemic control if needed 10. Seizure prophylaxis with phenytoin 11. GI/DVT prophylaxis. No heparin or Lovenox in view of intracranial hemorrhage 12. Replete potassium Discussed with at bedside Jose C Walton MD Nov 09, 2017 14:30
[2017-11-10] VITALS (13 sets, daily range): BP systolic 118–178; BP diastolic 68–88; PULSE 99–132; RESP 22–28; TEMP 97.8–99.3; O2SAT 91–99
[2017-11-10] MEDS: DILTIAZEM INJ 125 MG in SODIUM CHLORIDE 0.9% INJ 100 ML IV PRN ×2 (04:23→20:34)
[2017-11-10 06:48] LABS: AUTOMATED NEUTROPHIL # 12.1 TH/MM3 (1.8-7.7); BASOPHIL % 0.3 % (0.0-2.0); HEMATOCRIT 33.7 % (35.0-46.0); HEMOGLOBIN 11.4 GM/DL (11.6-15.3); LYMPH % 11.2 % (9.0-44.0); LYMPHOCYTE # 1.7 TH/MM3 (1.0-4.8); MEAN CORPUSCULAR HEMOGLOBIN 31.6 PG (27.0-34.0); MEAN CORPUSCULAR HGB CONC 33.6 % (32.0-36.0); MEAN PLATELET VOLUME 9.3 FL (7.0-11.0); MONO % 8.4 % (0.0-8.0); MONOCYTE # 1.3 TH/MM3 (0-0.9); NEUT % 80.1 % (16.0-70.0); PLATELET COUNT 165 TH/MM3 (150-450); RED BLOOD COUNT 3.59 MIL/MM3 (4.00-5.30); RED CELL DISTRIBUTION WIDTH 14.8 % (11.6-17.2); WHITE BLOOD COUNT 15.1 TH/MM3 (4.0-11.0)
[2017-11-10] MEDS ORDERED: DIGOXIN 0.5 MG/2 ML VIAL IV PUSH ONE (07:30)
[2017-11-10 07:35] LABS: ALBUMIN 3.3 GM/DL (3.4-5.0); ALKALINE PHOSPHATASE 79 U/L (45-117); ALT (GPT) 28 U/L (10-53); AST (GOT) 28 U/L (15-37); BICARBONATE 30.3 MEQ/L (21.0-32.0); BLOOD UREA NITROGEN 12 MG/DL (7-18); CALCIUM 8.7 MG/DL (8.5-10.1); CHLORIDE 119 MEQ/L (98-107); CREATININE 0.51 MG/DL (0.50-1.00); GLOMERULAR FILTRATION RATE 116 ML/MIN (>89); GLUCOSE,RANDOM 122 MG/DL (74-106); MAGNESIUM 2.5 MG/DL (1.5-2.5); PHOSPHORUS 2.1 MG/DL (2.5-4.9); TOTAL PROTEIN 6.9 GM/DL (6.4-8.2)
[2017-11-10 07:38] LABS: SODIUM (NA) 156 MEQ/L (136-145)
[2017-11-10] MEDS: PHENYTOIN INJ 100 MG/2 ML VIAL IV PUSH SCH ×2 (08:33→20:14)
[2017-11-10] MEDS: SODIUM CHLORIDE 0.9% FLUSH 10 ML FLUSH IV FLUSH SCH ×2 (08:34→20:15)
[2017-11-10] MEDS: FAMOTIDINE 20 MG/2 ML VIAL IV PUSH SCH ×2 (08:37→20:14)
--- NOTE | 2017-11-10 09:23 | HHI.CCPN ---
Subjective Remarks/Hospital Course 11/06: 82-year-old female with a medical history of atrial fibrillation on anticoagulation with Eliquis who developed sudden onset left-sided weakness and altered mental status and slurred speech as she was walking out with her family after the [place]. She was rushed to the ER as a stroke alert. Head CT showed a large right frontal hemorrhage. She was also hypertensive on arrival and was started on nicardipine drip. She received Kcentra in the ER and was accepted for admission by critical care medicine. Neurosurgery was consulted and patient was evaluated in the ER by Dr. Lin. When I evaluated the patient in the ER she was laying in the ER stretcher not in any acute distress. She had a dense left-sided weakness and slurred speech however was easily arousable and following commands and knew where she was and couldn't give me her home address. History was obtained by discussion with patient's family as well as ER physician. 11/07: No events since admission. Patient resting comfortable, easily arousable, following commands. No CP, dyspnea, palpitations, BARNARD, N/V. Tmax 98.7, I/O 215/ 1750. On nicardipine at 2.5. 11/08: Patient underwent right frontoparietal craniotomy for intracerebral hemorrhage evacuation. No events intra-op. Tmax 99.4. Lethargic but arousable, follows some commands. Had episode of Afib with RVR last night and she was started on cardizem drip. now HR in the low 100's. 11/09: Patient did well overnight. She is slightly more awake, more responsive. Afebrile, T-max 98.4, ins and outs 1300/1900. at bedside. 11/10: No events over the night. T-max 98.4. Increased urine output up to 2150 cc over the last 24 hours. No significant improvement in mental status, patient remains lethargic but arousable following some commands. She remains in A. fib on Cardizem at 15 mg/h, heart rate ranging between low 100s-130s. ROS - unobtainable due to patient's condition Objective Vital Signs Date Time Temp Pulse Resp B/P (MAP) Pulse Ox O2 Delivery O2 Flow Rate FiO2 11/10/17 06:00 120 11/10/17 04:23 125/66 11/10/17 04:00 98.1 22 99 11/09/17 19:00 Nasal Cannula 2.00 Intake and Output 11/10/17 11/10/17 11/11/17 08:00 16:00 00:00 Intake Total 125 ml Output Total 1250 ml Balance -1125 ml Result Diagram: 11/10/17 0609 11/10/17 0609 Imaging Last Impressions Multiplanar Reconstruction 11/06/17 0000 Signed Impressions: Service Date/Time: Monday, November 06, 2017 20:06 - CONCLUSION: Reconstructions again demonstrate the right frontal acute hemorrhage. Please see noncontrast head CT report for further description. Finn Molina MD Head CT 11/06/17 0000 Signed Impressions: Service Date/Time: Monday, November 06, 2017 20:05 - CONCLUSION: Right frontal lobe acute hemorrhage measuring approximately 8.7 x 5.2 cm causing 9 mm of [id number] midline shift. These findings were telephoned to Dr. Barnett at 8 : 13 PM on 11/06/2017. Finn Molina MD Chest X-Ray 11/06/17 0000 Signed Impressions: Service Date/Time: Monday, November 06, 2017 20:52 - CONCLUSION: Mild atelectasis at the left base. Otherwise, no acute finding is identified. Finn Molina MD Objective Remarks General - elderly lady, lethargic, easily arousable, ill appearing HEENT - pupils are equal and reactive, sclerae are anicteric, neck is supple, no rigidity, no JVD, no carotid bruit, dry MM, no thrush CV - irregular heart sounds, no murmurs Chest -slightly coarse breath sounds bilateral, good air entry, no wheezes Abdomen - soft, non-distended, not tender, BS present, no hepatomegaly, no splenomegaly Skin - no rashes, no cyanosis Extremities -warm, no edema, + peripheral pulses Neuro - lethargic but arousable,+ pupillary, + left-sided facial weakness, follows some commands, moves right upper and lower extremity, does not move left upper and lower extremities A/P Assessment and Plan 1. Large right frontal intracerebral hemorrhage with mass effect s/p right frontoparietal craniotomy for intracerebral hemorrhage evacuation postop day 2 2. Acute encephalopathy secondary to above, not significantly improved so far 3. Coagulopathy - in the setting of eliquis use, resolved 4. Uncontrolled hypertension -resolved 5. History of atrial fibrillation -heart rate remains uncontrolled at times despite cardizem 6. Hypernatremia -trending up 7. Hypokalemia and hypophosphatemia 1. Continue supplemental O2 to keep SpO2 above 92% 2. Neuro checks 3. If worsening neurologic stat CT had 4. HOB elevation, maintain normothermia, avoid agitation 5. Start LR at 50 cc/h 6. Swallowing reevaluation. If she does not become more awake she will need an NG tube placed for p.o. meds, nutrition and free water 7. Received Kcentra. Last eliquis dose was on 11/06 in AM 8. On cardizem drip. Will change to po once she is able to swallow or NG tube in place. Start digoxin 0.25 mg IV 1 dose now 9. Glycemic control if needed 10. Seizure prophylaxis with phenytoin 11. GI/DVT prophylaxis. No heparin or Lovenox in view of intracranial hemorrhage 12. Replete potassium and phosphorus. Keep potassium above 4 and mag above 2 No family present at bedside. Patient remains with tenuous mental status and she is at very high risk of further deterioration requiring intubation and mechanical ventilation. Jose C Walton MD Nov 10, 2017 09:22
[2017-11-10] MEDS: POTASSIUM CHLOR 20 MEQ PREMIX 100 ML IV SCH ×3 (09:30→11:30)
--- NOTE | 2017-11-10 10:28 | HHI.NSPN ---
(Nahun Prabhakar) History Chief Complaint: Headache. Large right ICH. (Nahun Prabhakar) Interval History This is an 82-year-old female patient with a history of atrial fibrillation on Eliquis. [place] began to slur her words and developed weakness. She was then brought to [facility] by ambulance where she underwent evaluation and, because of abnormal CT neurosurgery consult was placed. No other history is available at the present time. 11/07: Pt lethargic but opens her eyes to voice. She does answer some questions when asked. Her son at the bedside states she was talking on the cell phone earlier. She complains of right sided headaches. 11/09: Pt s/p right frontoparietal craniotomy for intracerebral hemorrhage evacuation on 11/08. She opens eyes to voice, but is lethargic. Denies headache. Follows commands. Left dense hemiparesis/plegia. 11/10: Pt opens eyes to voice but prefers them closed. She denies headache. No n/v. She has dense left hemiparesis/plegia with neglect. (Nahun Prabhakar) Review of Systems General: Negative for: fever, chills, insomnia Respiratory: Negative for: shortness of breath, cough, sputum Cardiovascular: Negative for: chest pain Gastrointestinal: Negative for: nausea, vomitting, diarrhea, constipation ( Nahun Prabhakar) Exam Results Vital Signs Date Time Temp Pulse Resp B/P (MAP) Pulse Ox O2 Delivery O2 Flow Rate FiO2 11/10/17 06:00 120 11/10/17 04:23 125/66 11/10/17 04:00 98.1 22 99 11/09/17 19:00 Nasal Cannula 2.00 Intake and Output 11/10/17 11/10/17 11/11/17 08:00 16:00 00:00 Intake Total 125 ml Output Total 1250 ml Balance -1125 ml (Nahun Prabhakar) Physical Examination General: Pt resting in bed with eyes closed but does open them when asked and verbalizes. Eyes: Pupils equal 3mm bilaterally reactive bilaterally. Sclera anicteric. Resp: CTA bilaterally Heart: Irregular no murmurs. Abd: Soft positive bs Skin: No cyanosis or erythema. Muscle: Left dense hemiparesis/plegia. Moves right side well. Neuro: Pt prefers eyes closed but opens them when asked. Pupils 3mm bilaterally reactive bilaterally. Follows simple commands. She answers some simple questions. (Nahun Prabhakar) Lab, Micro, Other Results Last Impressions Head CT 11/09/17 0600 Signed Impressions: Service Date/Time: Thursday, November 09, 2017 04:21 - CONCLUSION: 1. Status post interval right craniotomy and removal of a portion of the intraparenchymal hemorrhage. 2. Decreased mass effect and midline shift. 3. No new hemorrhage. Randy Hyman MD Carotid Artery Ultrasound 11/07/17 0000 Signed Impressions: Service Date/Time: Tuesday, November 07, 2017 21:21 - CONCLUSION: No evidence of flow-limiting carotid stenosis. Finn Meza MD Multiplanar Reconstruction 11/06/17 0000 Signed Impressions: Service Date/Time: Monday, November 06, 2017 20:06 - CONCLUSION: Reconstructions again demonstrate the right frontal acute hemorrhage. Please see noncontrast head CT report for further description. Finn Molina MD Chest X-Ray 11/06/17 0000 Signed Impressions: Service Date/Time: Monday, November 06, 2017 20:52 - CONCLUSION: Mild atelectasis at the left base. Otherwise, no acute finding is identified. Finn Molina MD Laboratory Tests Test 11/10/17 00:13 11/10/17 06:09 Sodium Level 158 MEQ/L 156 MEQ/L White Blood Count 15.1 TH/MM3 Red Blood Count 3.59 MIL/MM3 Hemoglobin 11.4 GM/DL Hematocrit 33.7 % Mean Corpuscular Volume 94.0 FL Mean Corpuscular Hemoglobin 31.6 PG Mean Corpuscular Hemoglobin Concent 33.6 % Red Cell Distribution Width 14.8 % Platelet Count 165 TH/MM3 Mean Platelet Volume 9.3 FL Neutrophils (%) (Auto) 80.1 % Lymphocytes (%) (Auto) 11.2 % Monocytes (%) (Auto) 8.4 % Eosinophils (%) (Auto) 0.0 % Basophils (%) (Auto) 0.3 % Neutrophils # (Auto) 12.1 TH/MM3 Lymphocytes # (Auto) 1.7 TH/MM3 Monocytes # (Auto) 1.3 TH/MM3 Eosinophils # (Auto) 0.0 TH/MM3 Basophils # (Auto) 0.0 TH/MM3 CBC Comment DIFF FINAL Differential Comment Blood Urea Nitrogen 12 MG/DL Creatinine 0.51 MG/DL Random Glucose 122 MG/DL Total Protein 6.9 GM/DL Albumin 3.3 GM/DL Calcium Level 8.7 MG/DL Phosphorus Level 2.1 MG/DL Magnesium Level 2.5 MG/DL Alkaline Phosphatase 79 U/L Aspartate Amino Transf (AST/SGOT) 28 U/L Alanine Aminotransferase (ALT/SGPT) 28 U/L Total Bilirubin 1.0 MG/DL Potassium Level 3.0 MEQ/L Chloride Level 119 MEQ/L Carbon Dioxide Level 30.3 MEQ/L Anion Gap 7 MEQ/L Estimat Glomerular Filtration Rate 116 ML/MIN Serum Osmolality 329 MOSM/KG (Nahun Prabhakar) Medical Decision Making Impression and Plan A: 82 y/o FM with 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 P: Continue with close Neuro checks. Continue with critical care. Continue with blood pressure control Continue with current care. Rehab efforts. (Nauhn Prabhakar) Attending Statement The exam, history, and the medical decision-making described in the above note were completed with the assistance of the mid-level provider. I reviewed and agree with the findings presented. I attest that I had a ailc-bx-unvo encounter with the patient on the same day, and personally performed and documented my assessment and findings in the medical record. (Gerhard Hernandez MD) Nahun Prabhakar Nov 10, 2017 10:27 Gerhard Hernandez MD Nov 10, 2017 14:56
[2017-11-10] MEDS: POTASSIUM PHOSPHATE INJ 15 MMOL in SODIUM CHLORIDE 0.9% INJ 150 ML IV ONE ×2 (11:30→13:30)
[2017-11-10] MEDS: POTASSIUM PHOSPHATE INJ 30 MMOL in SODIUM CHLOR 0.9% 250 ML INJ 250 ML IV PRN (13:30)
--- NOTE | 2017-11-10 15:27 | RADRPT ---
EXAM DATE/TIME: 11/10/2017 15:09 [facility] COMPARISON: No previous studies available for comparison. INDICATIONS : Nasogastric tube placement. MEDICAL HISTORY : Stroke. Cardiovascular disease. SURGICAL HISTORY : None. ENCOUNTER: Initial ACUITY: 4 - 6 days PAIN SCORE: Non-responsive. LOCATION: Bilateral abdomen FINDINGS: A single portable supine view of the abdomen omits the left aspects of the abdomen. An NG tube is see n with the tip just past the GE junction. The proximal sidehole is within the lower thoracic esophagu s. Gas-filled loops of nondilated large and small bowel scattered throughout the visualized portions of the abdomen is scoliotic and degenerative spine. No organomegaly observed. CONCLUSION: Tip of the NG tube just past the GE junction with the proximal sidehole in the lower thoracic esophag us. Johnathon Reece Jr., MD on November 10, 2017 at 15:23 Board Certified Radiologist. This report was verified electronically.
--- NOTE | 2017-11-10 17:39 | RADRPT ---
EXAM DATE/TIME: 11/10/2017 17:15 [facility] COMPARISON: ABDOMEN SINGLE VIEW, November 10, 2017, 15:09. INDICATIONS : NG tube placement. MEDICAL HISTORY : Stroke. Cardiovascular disease. SURGICAL HISTORY : None. ENCOUNTER: Subsequent ACUITY: 1 day PAIN SCORE: Non-responsive. LOCATION: Bilateral abdomen. FINDINGS: The tip of a gastric tube is projected within the stomach and the side port is projected at the level of the diaphragm, expected location of the GE junction. No dilated loops of small or large bowel. The visualized lower lungs are clear. Moderate curvature of the lumbar spine towards the left with a ssociated degenerative changes. CONCLUSION: The side port of the gastric tube is at the level of the diaphragm and probably has not crossed into the stomach. This needs to be advanced at least 2 cm. Johnathon Jones MD on November 10, 2017 at 17:35 Board Certified Radiologist. This report was verified electronically.
[2017-11-10] MEDS: DOCUSATE SODIUM 50 MG/SENNA 8.6 MG TAB PO SCH ×2 (21:26→21:36)
[2017-11-10] MEDS: LACTATED RINGER'S 1000 ML INJ 1,000 ML IV SCH (21:36)
[2017-11-11] VITALS (13 sets, daily range): BP systolic 103–146; BP diastolic 66–86; PULSE 110–132; RESP 22–26; TEMP 98–99.6; O2SAT 96–100
[2017-11-11] MEDS: MORPHINE SULFATE 4 MG/ML INJ IV PUSH PRN (04:52)
[2017-11-11] MEDS: DILTIAZEM INJ 125 MG in SODIUM CHLORIDE 0.9% INJ 100 ML IV PRN ×3 (04:53→22:08)
[2017-11-11 05:02] LABS: AUTOMATED NEUTROPHIL # 11.5 TH/MM3 (1.8-7.7); HEMATOCRIT 35.1 % (35.0-46.0); HEMOGLOBIN 11.8 GM/DL (11.6-15.3); LYMPH % 10.8 % (9.0-44.0); LYMPHOCYTE # 1.5 TH/MM3 (1.0-4.8); MEAN CELL VOLUME 95.1 FL (80.0-100.0); MEAN CORPUSCULAR HEMOGLOBIN 31.9 PG (27.0-34.0); MEAN CORPUSCULAR HGB CONC 33.5 % (32.0-36.0); MEAN PLATELET VOLUME 9.3 FL (7.0-11.0); MONO % 7.7 % (0.0-8.0); MONOCYTE # 1.1 TH/MM3 (0-0.9); NEUT % 81.5 % (16.0-70.0); PLATELET COUNT 194 TH/MM3 (150-450); RED CELL DISTRIBUTION WIDTH 14.8 % (11.6-17.2); WHITE BLOOD COUNT 14.1 TH/MM3 (4.0-11.0)
[2017-11-11 05:33] LABS: ALKALINE PHOSPHATASE 79 U/L (45-117); ALT (GPT) 33 U/L (10-53); AST (GOT) 30 U/L (15-37); BICARBONATE 30.2 MEQ/L (21.0-32.0); BLOOD UREA NITROGEN 12 MG/DL (7-18); CALCIUM 8.7 MG/DL (8.5-10.1); CHLORIDE 119 MEQ/L (98-107); CREATININE 0.62 MG/DL (0.50-1.00); GLOMERULAR FILTRATION RATE 93 ML/MIN (>89); GLUCOSE,RANDOM 140 MG/DL (74-106); MAGNESIUM 2.1 MG/DL (1.5-2.5); PHOSPHORUS 2.6 MG/DL (2.5-4.9); TOTAL BILIRUBIN ADULT 0.9 MG/DL (0.2-1.0); TOTAL PROTEIN 6.7 GM/DL (6.4-8.2)
[2017-11-11 05:45] LABS: SODIUM (NA) 156 MEQ/L (136-145)
[2017-11-11] MEDS: LACTATED RINGER'S 1000 ML INJ 1,000 ML IV SCH (08:00)
[2017-11-11] MEDS: FAMOTIDINE 20 MG/2 ML VIAL IV PUSH SCH ×2 (08:00→20:13)
[2017-11-11] MEDS: PHENYTOIN INJ 100 MG/2 ML VIAL IV PUSH SCH ×2 (08:01→20:13)
[2017-11-11] MEDS: DOCUSATE SODIUM 50 MG/SENNA 8.6 MG TAB PO SCH ×2 (08:01→20:13)
[2017-11-11] MEDS: SODIUM CHLORIDE 0.9% FLUSH 10 ML FLUSH IV FLUSH SCH ×2 (08:01→20:13)
--- NOTE | 2017-11-11 08:24 | HHI.CCPN ---
Subjective Remarks/Hospital Course 11/06: 82-year-old female with a medical history of atrial fibrillation on anticoagulation with Eliquis who developed sudden onset left-sided weakness and altered mental status and slurred speech as she was walking out with her [place] after the [place]. She was rushed to the ER as a stroke alert. Head CT showed a large right frontal hemorrhage. She was also hypertensive on arrival and was started on nicardipine drip. She received Kcentra in the ER and was accepted for admission by critical care medicine. Neurosurgery was consulted and patient was evaluated in the ER by Dr. Lin. When I evaluated the patient in the ER she was laying in the ER stretcher not in any acute distress. She had a dense left-sided weakness and slurred speech however was easily arousable and following commands and knew where she was and couldn't give me her home address. History was obtained by discussion with patient's family as well as ER physician. 11/07: No events since admission. Patient resting comfortable, easily arousable, following commands. No CP, dyspnea, palpitations, BARNARD, N/V. Tmax 98.7, I/O 215/ 1750. On nicardipine at 2.5. 11/08: Patient underwent right frontoparietal craniotomy for intracerebral hemorrhage evacuation. No events intra-op. Tmax 99.4. Lethargic but arousable, follows some commands. Had episode of Afib with RVR last night and she was started on cardizem drip. now HR in the low 100's. 11/09: Patient did well overnight. She is slightly more awake, more responsive. Afebrile, T-max 98.4, ins and outs 1300/1900. at bedside. 11/10: No events over the night. T-max 98.4. Increased urine output up to 2150 cc over the last 24 hours. No significant improvement in mental status, patient remains lethargic but arousable following some commands. She remains in A. fib on Cardizem at 15 mg/h, heart rate ranging between low 100s-130s. 11/11: NG tube placed last evening and tube feeds together with free water started. Mental status is unchanged, patient remains lethargic but arousable. T-max of 99.6. Heart rate ranging anywhere from 90s to low 130s, on Cardizem at 15. Blood pressure is okay. ROS - unobtainable due to patient's condition Objective Vital Signs Date Time Temp Pulse Resp B/P (MAP) Pulse Ox O2 Delivery O2 Flow Rate FiO2 11/11/17 07:00 100 Nasal Cannula 2.00 11/11/17 06:00 113 11/11/17 04:00 99.4 26 140/81 (100) 11/10/17 22:21 21 Intake and Output 11/11/17 11/11/17 11/12/17 08:00 16:00 00:00 Intake Total 593 ml Output Total 900 ml Balance -307 ml Result Diagram: 11/11/17 0415 11/11/17 0415 Imaging Last Impressions Multiplanar Reconstruction 11/06/17 0000 Signed Impressions: Service Date/Time: Monday, November 06, 2017 20:06 - CONCLUSION: Reconstructions again demonstrate the right frontal acute hemorrhage. Please see noncontrast head CT report for further description. Finn Molina MD Head CT 11/06/17 0000 Signed Impressions: Service Date/Time: Monday, November 06, 2017 20:05 - CONCLUSION: Right frontal lobe acute hemorrhage measuring approximately 8.7 x 5.2 cm causing 9 mm of [id number]-[id number] midline shift. These findings were telephoned to Dr. Barnett at 8 : 13 PM on 11/06/2017. Finn Molina MD Chest X-Ray 11/06/17 0000 Signed Impressions: Service Date/Time: Monday, November 06, 2017 20:52 - CONCLUSION: Mild atelectasis at the left base. Otherwise, no acute finding is identified. Finn Molina MD Objective Remarks General - elderly lady, lethargic, easily arousable, ill appearing HEENT - pupils equal, reactive, sclerae anicteric, neck supple, no rigidity, neck veins not distended, no carotid bruit, mucous membranes remain dry, no thrush CV - irregular S1-S2, no murmurs Chest -scattered coarse breath sounds bilateral, good air entry, no wheezes Abdomen - soft, not distended, not tender, BS present, no hepatomegaly, no splenomegaly Skin - no rashes, no cyanosis Extremities - no edema, + peripheral pulses, warm and well-perfused Neuro -exam remains unchanged, lethargic but arousable,+ pupillary, left-sided facial weakness, follows some commands, moves right upper and lower extremity, does not move left upper and lower extremities A/P Assessment and Plan 1. Large right frontal intracerebral hemorrhage with mass effect s/p right frontoparietal craniotomy for intracerebral hemorrhage evacuation postop day 3 - mental status remains unchanged 2. Acute encephalopathy secondary to above, not significantly improved so far 3. Coagulopathy - in the setting of eliquis use, resolved 4. Uncontrolled hypertension -resolved 5. History of atrial fibrillation -heart rate remains uncontrolled at times despite cardizem 6. Hypernatremia 7. Hypokalemia and hypophosphatemia -improved 1. Continue supplemental O2 to keep SpO2 above 92% 2. Neuro checks 3. HOB elevation, maintain normothermia, avoid agitation 4. On free water via NG tube 5. Continue Cardizem 6. Restart home amiodarone. Heart rate still uncontrolled we will start amiodarone IV protocol 7. Received Kcentra. Last eliquis dose was on 11/06 in AM 8. Seizure prophylaxis with phenytoin 9. Glycemic control if needed 10. GI/DVT prophylaxis. No heparin or Lovenox in view of intracranial hemorrhage No family present at bedside. Jose C Walton MD Nov 11, 2017 08:24
[2017-11-11] MEDS: AMIODARONE 200 MG TAB PO SCH (08:57)
--- NOTE | 2017-11-11 10:11 | HHI.NSPN ---
(Nahun Prabhakar) History Chief Complaint: Headache. Large right ICH. (Nahun Prabhakar) Interval History This is an 82-year-old female patient with a history of atrial fibrillation on Eliquis. [place] to [place] her words and developed weakness. She was then brought to [facility] by ambulance where she underwent evaluation and, because of abnormal CT neurosurgery consult was placed. No other history is available at the present time. 11/07: Pt lethargic but opens her eyes to voice. She does answer some questions when asked. Her son at the bedside states she was talking on the cell phone earlier. She complains of right sided headaches. 11/09: Pt s/p right frontoparietal craniotomy for intracerebral hemorrhage evacuation on 11/08. She opens eyes to voice, but is lethargic. Denies headache. Follows commands. Left dense hemiparesis/plegia. 11/10: Pt opens eyes to voice but prefers them closed. She denies headache. No n/v. She has dense left hemiparesis/plegia with neglect. 11/11: Pt lethargic but does open eyes slightly to voice. Pupils 3mm bilaterally. She follows some simple commands on right side. Left dense hemiparesis. (Nahun Prabhakar) System Review Comments Not able to obtain given clinical condition, pt lethargic. (Nahun Prabhakar) Exam Results Vital Signs Date Time Temp Pulse Resp B/P (MAP) Pulse Ox O2 Delivery O2 Flow Rate FiO2 11/11/17 08:00 115 11/11/17 08:00 99.2 22 119/66 (83) 100 11/11/17 07:00 Nasal Cannula 2.00 11/10/17 22:21 21 Intake and Output 11/11/17 11/11/17 11/12/17 08:00 16:00 00:00 Intake Total 593 ml Output Total 900 ml Balance -307 ml (Nahun Prabhakar) Physical Examination General: Pt resting in bed with eyes closed but does open them slightly when asked although a little more lethargic today than yesterday morning. Eyes: Pupils equal 3mm bilaterally reactive bilaterally. Sclera anicteric. Resp: CTA bilaterally Heart: Irregular no murmurs. On Diltiazem drip. Abd: Soft positive bs Skin: No cyanosis or erythema. Incision clean and dry without signs of infection. Muscle: Left dense hemiparesis/plegia. Moves right side well. Neuro: Pt prefers eyes closed but opens them slightly when asked. Pupils 3mm bilaterally reactive bilaterally. Follows simple commands. She answers some simple questions. (Nahun Prabhakar) Lab, Micro, Other Results Last Impressions Abdomen X-Ray 11/10/17 0000 Signed Impressions: Service Date/Time: October 17:15 - CONCLUSION: The side port of the gastric tube is at the level of the diaphragm and probably has not crossed into the stomach. This needs to be advanced at least 2 cm. Johnathon Jones MD Head CT 11/09/17 0600 Signed Impressions: Service Date/Time: Thursday, November 09, 2017 04:21 - CONCLUSION: 1. Status post interval right craniotomy and removal of a portion of the intraparenchymal hemorrhage. 2. Decreased mass effect and midline shift. 3. No new hemorrhage. Randy Hyman MD Carotid Artery Ultrasound 11/07/17 0000 Signed Impressions: Service Date/Time: Tuesday, November 07, 2017 21:21 - CONCLUSION: No evidence of flow-limiting carotid stenosis. Finn Meza MD Multiplanar Reconstruction 11/06/17 0000 Signed Impressions: Service Date/Time: Monday, November 06, 2017 20:06 - CONCLUSION: Reconstructions again demonstrate the right frontal acute hemorrhage. Please see noncontrast head CT report for further description. Finn Molina MD Chest X-Ray 11/06/17 0000 Signed Impressions: Service Date/Time: Monday, November 06, 2017 20:52 - CONCLUSION: Mild atelectasis at the left base. Otherwise, no acute finding is identified. Finn Molina MD Laboratory Tests Test 11/10/17 21:51 11/11/17 04:15 Sodium Level 161 MEQ/L 156 MEQ/L Potassium Level 3.7 MEQ/L 3.4 MEQ/L White Blood Count 14.1 TH/MM3 Red Blood Count 3.70 MIL/MM3 Hemoglobin 11.8 GM/DL Hematocrit 35.1 % Mean Corpuscular Volume 95.1 FL Mean Corpuscular Hemoglobin 31.9 PG Mean Corpuscular Hemoglobin Concent 33.5 % Red Cell Distribution Width 14.8 % Platelet Count 194 TH/MM3 Mean Platelet Volume 9.3 FL Neutrophils (%) (Auto) 81.5 % Lymphocytes (%) (Auto) 10.8 % Monocytes (%) (Auto) 7.7 % Eosinophils (%) (Auto) 0.0 % Basophils (%) (Auto) 0.0 % Neutrophils # (Auto) 11.5 TH/MM3 Lymphocytes # (Auto) 1.5 TH/MM3 Monocytes # (Auto) 1.1 TH/MM3 Eosinophils # (Auto) 0.0 TH/MM3 Basophils # (Auto) 0.0 TH/MM3 CBC Comment DIFF FINAL Differential Comment Blood Urea Nitrogen 12 MG/DL Creatinine 0.62 MG/DL Random Glucose 140 MG/DL Total Protein 6.7 GM/DL Albumin 3.0 GM/DL Calcium Level 8.7 MG/DL Phosphorus Level 2.6 MG/DL Magnesium Level 2.1 MG/DL Alkaline Phosphatase 79 U/L Aspartate Amino Transf (AST/SGOT) 30 U/L Alanine Aminotransferase (ALT/SGPT) 33 U/L Total Bilirubin 0.9 MG/DL Chloride Level 119 MEQ/L Carbon Dioxide Level 30.2 MEQ/L Anion Gap 7 MEQ/L Estimat Glomerular Filtration Rate 93 ML/MIN Serum Osmolality 326 MOSM/KG (Nahun Prabhakar) Medical Decision Making Impression and Plan A: 82 y/o FM with 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 P: Continue with close Neuro checks. Continue with critical care. Continue with blood pressure control Continue with current care. Rehab efforts. (Nahun Prabhakar) Attending Statement The exam, history, and the medical decision-making described in the above note were completed with the assistance of the mid-level provider. I reviewed and agree with the findings presented. I attest that I had a [id number] encounter with the patient on the same day, and personally performed and documented my assessment and findings in the medical record. Arouses to verbal stimulation and follows commands and right side with left hemiplegia. Will initiate chemical DVT prophylaxis in addition to mechanical DVT reflexes given the high risk for DVT/PE. (Gerhard Heranndez MD) Nahun Prabhakar Nov 11, 2017 10:11 Gerhard Hernandez MD Nov 11, 2017 16:14
[2017-11-11] MEDS: ENOXAPARIN SODIUM 40 MG/0.4 ML SYRINGE SQ SCH (10:21)
--- NOTE | 2017-11-11 19:01 | HHI.PR ---
Review/Management Diagnosis right frontal hemorrhage. s/p evacuation Diagnosis/Plan: Subjective Subjective Comments s/p craniotomy for right parietal hemorrhage Active Medications Current Medications Medications (Trade) Dose Ordered Sig/Mary Anne Route Start Time Stop Time Status Last Admin (NS Flush) 2 ml UNSCH PRN IV FLUSH 11/06/17 21:30 (NS Flush) 2 ml BID IV FLUSH 11/07/17 09:00 11/10/17 20:15 (Pepcid Inj) 20 mg Q12HR IV PUSH 11/07/17 09:00 11/11/17 08:00 (Zofran Inj) 4 mg Q6H PRN IV PUSH 11/06/17 22:00 11/07/17 15:10 (Duoneb Neb) 1 ampule Q4HR NEB PRN INH 11/07/17 00:00 Miscellaneous Information 1 Q361D XX 11/06/17 21:30 (Cindy-Colace) 1 tab BID PO 11/07/17 09:00 11/10/17 21:36 (Milk Of Magnesia Liq) 30 ml Q12H PRN PO 11/06/17 21:30 (Senokot) 17.2 mg Q12H PRN PO 11/06/17 21:30 (Dulcolax Supp) 10 mg DAILY PRN RECTAL 11/06/17 21:30 (Lactulose Liq) 30 ml DAILY PRN PO 11/06/17 21:30 11/11/17 07:59 Diltiazem HCl 125 mg/Sodium Chloride 125 ml @ 5 mls/hr TITRATE PRN IV 11/08/17 04:30 11/11/17 17:17 (Dilantin Inj) 200 mg Q12HR IV PUSH 11/08/17 21:00 11/11/17 08:01 (Ativan Inj) 1 mg Q1H PRN IV PUSH 11/08/17 11:30 (Mag-Al Plus Susp Liq) 30 ml Q6H PRN PO 11/08/17 11:30 (Phenergan Inj) 25 mg Q4H PRN IM 11/08/17 11:30 Calcium Gluconate 1 gm/Sodium Chloride 110 ml @ 110 mls/hr UNSCH PRN IV 11/08/17 11:30 (Morphine Inj) 2 mg Q2H PRN IV PUSH 11/08/17 11:30 11/11/17 04:52 (Morphine Inj) 4 mg Q2H PRN IV PUSH 11/08/17 11:30 (Trandate Inj) 10 mg Q1H PRN IV PUSH 11/08/17 11:30 11/10/17 16:17 (Catapres) 0.1 mg Q6H PRN PO 11/08/17 11:30 (Tylenol) 650 mg Q4H PRN PO 11/08/17 11:30 11/11/17 16:53 Potassium Chloride 100 ml @ 50 mls/hr Q2H PRN IV 11/08/17 14:30 Potassium Chloride 100 ml @ 50 mls/hr Q2H PRN IV 11/08/17 14:30 11/10/17 08:37 (K-Lyte Cl Eff) 50 meq UNSCH PRN PO 11/08/17 14:30 Potassium Chloride 100 ml @ 25 mls/hr UNSCH PRN IV 11/08/17 14:30 Potassium Chloride 100 ml @ 50 mls/hr Q2H PRN IV 11/08/17 14:30 11/11/17 08:00 Magnesium Sulfate 4 gm/Sodium Chloride 100 ml @ 50 mls/hr UNSCH PRN IV 11/08/17 14:30 (Mag-Ox) 800 mg UNSCH PRN PO 11/08/17 14:30 Magnesium Sulfate 2 gm/Sodium Chloride 100 ml @ 50 mls/hr UNSCH PRN IV 11/08/17 14:30 (K-Phos) 2,000 mg Q4H PRN PO 11/08/17 14:30 Sodium Phosphate 30 mmol/Sodium Chloride 250 ml @ 42 mls/hr UNSCH PRN IV 11/08/17 14:30 (K-Phos) 2,000 mg UNSCH PRN PO/TUBE 11/08/17 14:30 Potassium Phosphate 30 mmol/ Sodium Chloride 260 ml @ 42 mls/hr UNSCH PRN IV 11/08/17 14:30 11/10/17 13:30 Lactated Ringer's 1,000 ml @ 50 mls/hr Q20H IV 11/10/17 09:30 11/11/17 08:00 (Cordarone) 200 mg DAILY PO 11/11/17 09:00 11/11/17 08:57 (Lovenox Inj) 40 mg Q24H SQ 11/11/17 10:00 11/11/17 10:21 Allergies Allergies Coded Allergies Fish Containing Products (Verified Allergy, Unknown, 11/06/17) Sulfa (Sulfonamide Antibiotics) (Verified Allergy, Unknown, 11/06/17) iodine (Verified Allergy, Unknown, 11/06/17) Exam I&O / VS 11/11/17 11/11/17 11/12/17 15:00 23:00 07:00 Intake Total 969 ml Output Total 700 ml Balance 269 ml Intake IV Total 340 ml Tube Feeding 229 ml Other 400 ml Output Urine Total 700 ml Gastric Drainage Total 0 ml # Bowel Movements 3 Vital Signs Date Time Temp Pulse Resp B/P (MAP) Pulse Ox O2 Delivery O2 Flow Rate FiO2 11/11/17 18:00 112 11/11/17 17:17 120 122/77 11/11/17 16:00 99.2 124 23 146/86 (106) 97 11/11/17 16:00 122 11/11/17 14:00 111 11/11/17 12:00 110 11/11/17 12:00 99.4 112 24 117/76 (90) 100 11/11/17 10:00 122 11/11/17 08:00 115 11/11/17 08:00 99.2 124 22 119/66 (83) 100 11/11/17 07:00 100 Nasal Cannula 2.00 11/11/17 06:00 113 11/11/17 04:53 131 11/11/17 04:00 99.4 132 26 140/81 (100) 100 11/11/17 04:00 132 11/11/17 02:00 126 11/11/17 00:00 115 11/11/17 00:00 99.6 115 26 128/73 (91) 98 11/10/17 22:21 93 21 11/10/17 22:00 113 11/10/17 20:34 123 124/79 11/10/17 20:00 99.3 118 28 125/79 (94) 91 11/10/17 20:00 118 11/10/17 19:00 91 Room Air Exam Comments not following commands PERRL MOTOR--moves RUE to withdrawal. No movement left Objective Micro and Labs Laboratory Tests Test 11/10/17 21:51 11/11/17 04:15 Sodium Level 161 156 Potassium Level 3.7 3.4 White Blood Count 14.1 Red Blood Count 3.70 Hemoglobin 11.8 Hematocrit 35.1 Mean Corpuscular Volume 95.1 Mean Corpuscular Hemoglobin 31.9 Mean Corpuscular Hemoglobin Concent 33.5 Red Cell Distribution Width 14.8 Platelet Count 194 Mean Platelet Volume 9.3 Neutrophils (%) (Auto) 81.5 Lymphocytes (%) (Auto) 10.8 Monocytes (%) (Auto) 7.7 Eosinophils (%) (Auto) 0.0 Basophils (%) (Auto) 0.0 Neutrophils # (Auto) 11.5 Lymphocytes # (Auto) 1.5 Monocytes # (Auto) 1.1 Eosinophils # (Auto) 0.0 Basophils # (Auto) 0.0 CBC Comment DIFF FINAL Differential Comment Blood Urea Nitrogen 12 Creatinine 0.62 Random Glucose 140 Total Protein 6.7 Albumin 3.0 Calcium Level 8.7 Phosphorus Level 2.6 Magnesium Level 2.1 Alkaline Phosphatase 79 Aspartate Amino Transf (AST/SGOT) 30 Alanine Aminotransferase (ALT/SGPT) 33 Total Bilirubin 0.9 Chloride Level 119 Carbon Dioxide Level 30.2 Anion Gap 7 Estimat Glomerular Filtration Rate 93 Serum Osmolality 326 Naun Uriarte MD PhD Nov 11, 2017 19:01
[2017-11-12] VITALS (14 sets, daily range): BP systolic 109–133; BP diastolic 56–77; PULSE 105–136; RESP 21–26; TEMP 97.8–99.2; O2SAT 93–100
[2017-11-12] MEDS: MORPHINE SULFATE 4 MG/ML INJ IV PUSH PRN ×3 (00:37→18:35)
[2017-11-12] MEDS: LACTATED RINGER'S 1000 ML INJ 1,000 ML IV SCH ×2 (04:10→23:01)
[2017-11-12 06:22] LABS: HEMATOCRIT 31.6 % (35.0-46.0); HEMOGLOBIN 10.6 GM/DL (11.6-15.3); MEAN CELL VOLUME 94.8 FL (80.0-100.0); MEAN CORPUSCULAR HEMOGLOBIN 31.9 PG (27.0-34.0); MEAN CORPUSCULAR HGB CONC 33.7 % (32.0-36.0); MEAN PLATELET VOLUME 9.9 FL (7.0-11.0); PLATELET COUNT 160 TH/MM3 (150-450); RED BLOOD COUNT 3.33 MIL/MM3 (4.00-5.30); RED CELL DISTRIBUTION WIDTH 14.2 % (11.6-17.2); WHITE BLOOD COUNT 14.4 TH/MM3 (4.0-11.0)
[2017-11-12 06:40] LABS: BICARBONATE 25.2 MEQ/L (21.0-32.0); CALCIUM 7.8 MG/DL (8.5-10.1); CREATININE 0.48 MG/DL (0.50-1.00); MAGNESIUM 2.1 MG/DL (1.5-2.5); PHOSPHORUS 2.3 MG/DL (2.5-4.9)
[2017-11-12] MEDS: DOCUSATE SODIUM 50 MG/SENNA 8.6 MG TAB PO SCH ×2 (08:47→20:07)
[2017-11-12] MEDS: AMIODARONE 200 MG TAB PO SCH (08:47)
[2017-11-12] MEDS: FAMOTIDINE 20 MG/2 ML VIAL IV PUSH SCH ×2 (08:47→20:07)
[2017-11-12] MEDS: SODIUM CHLORIDE 0.9% FLUSH 10 ML FLUSH IV FLUSH SCH ×2 (08:48→20:08)
[2017-11-12] MEDS: PHENYTOIN INJ 100 MG/2 ML VIAL IV PUSH SCH (08:48)
[2017-11-12] MEDS: ENOXAPARIN SODIUM 40 MG/0.4 ML SYRINGE SQ SCH (10:00)
--- NOTE | 2017-11-12 10:39 | HHI.NSPN ---
History Chief Complaint: Headache. Large right ICH. Interval History This is an 82-year-old female patient with a history of atrial fibrillation on Eliquis. [place] to [place] her words and developed weakness. She was then brought to [facility] by ambulance where she underwent evaluation and, because of abnormal CT neurosurgery consult was placed. No other history is available at the present time. 11/07: Pt lethargic but opens her eyes to voice. She does answer some questions when asked. Her son at the bedside states she was talking on the cell phone earlier. She complains of right sided headaches. 11/09: Pt s/p right frontoparietal craniotomy for intracerebral hemorrhage evacuation on 11/08. She opens eyes to voice, but is lethargic. Denies headache. Follows commands. Left dense hemiparesis/plegia. 11/10: Pt opens eyes to voice but prefers them closed. She denies headache. No n/v. She has dense left hemiparesis/plegia with neglect. 11/11: Pt lethargic but does open eyes slightly to voice. Pupils 3mm bilaterally. She follows some simple commands on right side. Left dense hemiparesis. 11/12: Pt lethargic. She opens eyes slightly to voice with persistence. No verbalizing. Pupils 3mm bilaterally reactive bilaterally. Left dense hemiparesis. System Review Comments Not able to obtain given clinical condition. Exam Results Vital Signs Date Time Temp Pulse Resp B/P (MAP) Pulse Ox O2 Delivery O2 Flow Rate FiO2 11/12/17 07:27 96 21 11/12/17 06:00 106 11/12/17 04:00 99.0 25 110/73 (85) 11/11/17 19:00 Nasal Cannula 2.00 Intake and Output 11/12/17 11/12/17 11/13/17 08:00 16:00 00:00 Intake Total 1033 ml Output Total 875 ml Balance 158 ml Physical Examination General: Pt resting in bed with eyes closed and is lethargic. VSS. Eyes: Pupils equal 3mm bilaterally reactive bilaterally. Sclera anicteric. Resp: CTA bilaterally Heart: Irregular no murmurs. On Diltiazem drip. Abd: Soft positive bs Skin: No cyanosis or erythema. Incision clean and dry without signs of infection. Muscle: Left dense hemiparesis/plegia. Moves right side spontaneously. Neuro: Pt lethargic. Pupils 3mm bilaterally reactive bilaterally. Follows simple commands. Not verbalizing much today. Lab, Micro, Other Results Last Impressions Abdomen X-Ray 11/10/17 0000 Signed Impressions: Service Date/Time: October 17:15 - CONCLUSION: The side port of the gastric tube is at the level of the diaphragm and probably has not crossed into the stomach. This needs to be advanced at least 2 cm. Johnathon Jones MD Head CT 11/09/17 0600 Signed Impressions: Service Date/Time: Thursday, November 09, 2017 04:21 - CONCLUSION: 1. Status post interval right craniotomy and removal of a portion of the intraparenchymal hemorrhage. 2. Decreased mass effect and midline shift. 3. No new hemorrhage. Randy Hyman MD Carotid Artery Ultrasound 11/07/17 0000 Signed Impressions: Service Date/Time: Tuesday, November 07, 2017 21:21 - CONCLUSION: No evidence of flow-limiting carotid stenosis. Finn Meza MD Multiplanar Reconstruction 11/06/17 0000 Signed Impressions: Service Date/Time: Monday, November 06, 2017 20:06 - CONCLUSION: Reconstructions again demonstrate the right frontal acute hemorrhage. Please see noncontrast head CT report for further description. Finn Molina MD Chest X-Ray 11/06/17 0000 Signed Impressions: Service Date/Time: Monday, November 06, 2017 20:52 - CONCLUSION: Mild atelectasis at the left base. Otherwise, no acute finding is identified. Finn Molina MD Laboratory Tests Test 11/11/17 19:39 11/12/17 05:45 Potassium Level 3.8 MEQ/L 4.0 MEQ/L White Blood Count 14.4 TH/MM3 Red Blood Count 3.33 MIL/MM3 Hemoglobin 10.6 GM/DL Hematocrit 31.6 % Mean Corpuscular Volume 94.8 FL Mean Corpuscular Hemoglobin 31.9 PG Mean Corpuscular Hemoglobin Concent 33.7 % Red Cell Distribution Width 14.2 % Platelet Count 160 TH/MM3 Mean Platelet Volume 9.9 FL Blood Urea Nitrogen 12 MG/DL Creatinine 0.48 MG/DL Random Glucose 152 MG/DL Calcium Level 7.8 MG/DL Phosphorus Level 2.3 MG/DL Magnesium Level 2.1 MG/DL Sodium Level 154 MEQ/L Chloride Level 120 MEQ/L Carbon Dioxide Level 25.2 MEQ/L Anion Gap 9 MEQ/L Estimat Glomerular Filtration Rate 124 ML/MIN Medical Decision Making Impression and Plan A: 82 y/o FM with 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 s/p right craniotomy for ICH evacuation on 11/08/17. P: Continue with close Neuro checks. Continue with critical care. Continue with blood pressure control Continue with current care. Rehab efforts. Nahun Prabhakar Nov 12, 2017 10:39 am
[2017-11-12] MEDS: DILTIAZEM INJ 125 MG in SODIUM CHLORIDE 0.9% INJ 100 ML IV PRN ×3 (11:18→23:10)
--- NOTE | 2017-11-12 15:48 | HHI.CCPN ---
Subjective Remarks/Hospital Course 11/06: 82-year-old female with a medical history of atrial fibrillation on anticoagulation with Eliquis who developed sudden onset left-sided weakness and altered mental status and slurred speech as she was walking out with her family after the [place]. She was rushed to the ER as a stroke alert. Head CT showed a large right frontal hemorrhage. She was also hypertensive on arrival and was started on nicardipine drip. She received Kcentra in the ER and was accepted for admission by critical care medicine. Neurosurgery was consulted and patient was evaluated in the ER by Dr. Lin. When I evaluated the patient in the ER she was laying in the ER stretcher not in any acute distress. She had a dense left-sided weakness and slurred speech however was easily arousable and following commands and knew where she was and couldn't give me her home address. History was obtained by discussion with patient's family as well as ER physician. 11/07: No events since admission. Patient resting comfortable, easily arousable, following commands. No CP, dyspnea, palpitations, BARNARD, N/V. Tmax 98.7, I/O 215/ 1750. On nicardipine at 2.5. 11/08: Patient underwent right frontoparietal craniotomy for intracerebral hemorrhage evacuation. No events intra-op. Tmax 99.4. Lethargic but arousable, follows some commands. Had episode of Afib with RVR last night and she was started on cardizem drip. now HR in the low 100's. 11/09: Patient did well overnight. She is slightly more awake, more responsive. Afebrile, T-max 98.4, ins and outs 1300/1900. at bedside. 11/10: No events over the night. T-max 98.4. Increased urine output up to 2150 cc over the last 24 hours. No significant improvement in mental status, patient remains lethargic but arousable following some commands. She remains in A. fib on Cardizem at 15 mg/h, heart rate ranging between low 100s-130s. 11/11: NG tube placed last evening and tube feeds together with free water started. Mental status is unchanged, patient remains lethargic but arousable. T-max of 99.6. Heart rate ranging anywhere from 90s to low 130s, on Cardizem at 15. Blood pressure is okay. 11/12: No events over the night. Patient remains on Cardizem drip at 15, amiodarone added back yesterday. Afebrile with a T-max of 99.4. Good urine output, 1575 mL's in the last 24 hours. Tolerating tube feeds. No significant improvement in mental status. Family present at bedside. ROS - unobtainable due to patient's condition Objective Vital Signs Date Time Temp Pulse Resp B/P (MAP) Pulse Ox O2 Delivery O2 Flow Rate FiO2 11/12/17 14:00 114 11/12/17 11:18 99/59 11/12/17 08:00 17 11/12/17 07:27 96 21 11/12/17 07:00 Nasal Cannula 2.00 11/12/17 04:00 99.0 Intake and Output 11/12/17 11/12/17 11/13/17 08:00 16:00 00:00 Intake Total 1033 ml Output Total 875 ml Balance 158 ml Result Diagram: 11/12/17 0545 11/12/17 0545 Imaging Last Impressions Multiplanar Reconstruction 11/06/17 0000 Signed Impressions: Service Date/Time: Monday, November 06, 2017 20:06 - CONCLUSION: Reconstructions again demonstrate the right frontal acute hemorrhage. Please see noncontrast head CT report for further description. Finn Molina MD Head CT 11/06/17 0000 Signed Impressions: Service Date/Time: Monday, November 06, 2017 20:05 - CONCLUSION: Right frontal lobe acute hemorrhage measuring approximately 8.7 x 5.2 cm causing 9 mm of [id number] midline shift. These findings were telephoned to Dr. Barnett at 8 : 13 PM on 11/06/2017. Finn Molina MD Chest X-Ray 11/06/17 0000 Signed Impressions: Service Date/Time: Monday, November 06, 2017 20:52 - CONCLUSION: Mild atelectasis at the left base. Otherwise, no acute finding is identified. Finn Molina MD Objective Remarks General - elderly lady, lethargic, arousable, ill appearing HEENT - pupils are equal and reactive, sclerae are anicteric, no neck rigidity, supple, no JVD, no carotid bruit, mucous membranes remain dry, + NGT CV - irregular heart sounds, no murmurs Chest -clear breath sounds bilateral, good air entry, no wheezes Abdomen - soft, not distended, not tender, BS present, no hepatomegaly, no splenomegaly Skin - no rashes, no cyanosis Extremities - no edema, + peripheral pulses, warm Neuro -exam remains unchanged, lethargic but arousable, pupils equal and reactive, left-sided facial droop, follows some commands, moves spontaneously right upper and lower extremity, does not move left upper and lower extremities A/P Assessment and Plan 1. Large right frontal intracerebral hemorrhage with mass effect s/p right frontoparietal craniotomy for intracerebral hemorrhage evacuation postop day 4 - mental status remains unchanged 2. Acute encephalopathy secondary to above, not significantly improved so far 3. Coagulopathy - in the setting of eliquis use, resolved 4. Uncontrolled hypertension -resolved 5. History of atrial fibrillation -heart rate remains uncontrolled at times despite cardizem 6. Hypernatremia -slowly improving 7. Hypokalemia and hypophosphatemia -improved 1. Continue supplemental O2 to keep SpO2 above 92% 2. Neuro checks 3. HOB elevation, maintain normothermia, avoid agitation 4. On free water via NG tube 5. Continue Cardizem, amiodarone 6. Load with digoxin 7. Received Kcentra. Last eliquis dose was on 11/06 in AM 8. Change phenytoin to Keppra to minimize sedative effect for seizure prophylaxis 9. Glycemic control if needed 10. GI/DVT prophylaxis. Started on Lovenox prophylaxis by neurosurgery 11. Tube feeds at goal Patient condition discussed in detail with son and at bedside. Jose C Walton MD Nov 12, 2017 15:48
[2017-11-12] MEDS ORDERED: DIGOXIN 0.5 MG/2 ML VIAL IV PUSH ONE (16:00)
[2017-11-12] MEDS: levETIRAcetam 500 MG/5 ML UDC NG SCH (20:07)
[2017-11-13] VITALS (14 sets, daily range): BP systolic 111–148; BP diastolic 58–80; PULSE 88–124; RESP 20–23; TEMP 98.1–99; O2SAT 97–100
[2017-11-13] MEDS ORDERED: DIGOXIN 0.5 MG/2 ML VIAL IV PUSH ONE
[2017-11-13] MEDS: MORPHINE SULFATE 4 MG/ML INJ IV PUSH PRN ×2 (00:54→22:44)
[2017-11-13 05:08] LABS: HEMATOCRIT 33.7 % (35.0-46.0); HEMOGLOBIN 11.2 GM/DL (11.6-15.3); MEAN CELL VOLUME 95.4 FL (80.0-100.0); MEAN CORPUSCULAR HEMOGLOBIN 31.6 PG (27.0-34.0); MEAN CORPUSCULAR HGB CONC 33.1 % (32.0-36.0); MEAN PLATELET VOLUME 9.3 FL (7.0-11.0); PLATELET COUNT 194 TH/MM3 (150-450); RED BLOOD COUNT 3.54 MIL/MM3 (4.00-5.30); RED CELL DISTRIBUTION WIDTH 14.5 % (11.6-17.2); WHITE BLOOD COUNT 15.4 TH/MM3 (4.0-11.0)
[2017-11-13 05:28] LABS: BICARBONATE 27.9 MEQ/L (21.0-32.0); CALCIUM 8.1 MG/DL (8.5-10.1); CREATININE 0.48 MG/DL (0.50-1.00); PHOSPHORUS 1.9 MG/DL (2.5-4.9)
--- NOTE | 2017-11-13 08:29 | HHI.CCPN ---
Subjective Remarks/Hospital Course 11/06: 82-year-old female with a medical history of atrial fibrillation on anticoagulation with Eliquis who developed sudden onset left-sided weakness and altered mental status and slurred speech as she was walking out with her family after the [place]. She was rushed to the ER as a stroke alert. Head CT showed a large right frontal hemorrhage. She was also hypertensive on arrival and was started on nicardipine drip. She received Kcentra in the ER and was accepted for admission by critical care medicine. Neurosurgery was consulted and patient was evaluated in the ER by Dr. Lin. When I evaluated the patient in the ER she was laying in the ER stretcher not in any acute distress. She had a dense left-sided weakness and slurred speech however was easily arousable and following commands and knew where she was and couldn't give me her home address. History was obtained by discussion with patient's family as well as ER physician. 11/07: No events since admission. Patient resting comfortable, easily arousable, following commands. No CP, dyspnea, palpitations, BARNARD, N/V. Tmax 98.7, I/O 215/ 1750. On nicardipine at 2.5. 11/08: Patient underwent right frontoparietal craniotomy for intracerebral hemorrhage evacuation. No events intra-op. Tmax 99.4. Lethargic but arousable, follows some commands. Had episode of Afib with RVR last night and she was started on cardizem drip. now HR in the low 100's. 11/09: Patient did well overnight. She is slightly more awake, more responsive. Afebrile, T-max 98.4, ins and outs 1300/1900. at bedside. 11/10: No events over the night. T-max 98.4. Increased urine output up to 2150 cc over the last 24 hours. No significant improvement in mental status, patient remains lethargic but arousable following some commands. She remains in A. fib on Cardizem at 15 mg/h, heart rate ranging between low 100s-130s. 11/11: NG tube placed last evening and tube feeds together with free water started. Mental status is unchanged, patient remains lethargic but arousable. T-max of 99.6. Heart rate ranging anywhere from 90s to low 130s, on Cardizem at 15. Blood pressure is okay. 11/12: No events over the night. Patient remains on Cardizem drip at 15, amiodarone added back yesterday. Afebrile with a T-max of 99.4. Good urine output, 1575 mL's in the last 24 hours. Tolerating tube feeds. No significant improvement in mental status. Family present at bedside. 11/13: No events overnight. Mental status is unchanged. She remains lethargic but arousable, tolerating tube feeds. Loaded with dig, on Cardizem 15, heart rate better controlled. ROS - unobtainable due to patient's condition Objective Vital Signs Date Time Temp Pulse Resp B/P (MAP) Pulse Ox O2 Delivery O2 Flow Rate FiO2 11/13/17 06:00 107 11/13/17 04:00 98.9 23 124/61 (82) 99 11/12/17 19:24 2.00 11/12/17 19:00 Nasal Cannula 11/12/17 07:27 21 Intake and Output 11/13/17 11/13/17 11/14/17 08:00 16:00 00:00 Intake Total 1285 ml Output Total 1400 ml Balance -115 ml Result Diagram: 11/13/17 0355 11/13/17 0355 Imaging Last Impressions Multiplanar Reconstruction 11/06/17 0000 Signed Impressions: Service Date/Time: Monday, November 06, 2017 20:06 - CONCLUSION: Reconstructions again demonstrate the right frontal acute hemorrhage. Please see noncontrast head CT report for further description. Finn Molina MD Head CT 11/06/17 0000 Signed Impressions: Service Date/Time: Monday, November 06, 2017 20:05 - CONCLUSION: Right frontal lobe acute hemorrhage measuring approximately 8.7 x 5.2 cm causing 9 mm of [id number] midline shift. These findings were telephoned to Dr. Barnett at 8 : 13 PM on 11/06/2017. Finn Molina MD Chest X-Ray 11/06/17 0000 Signed Impressions: Service Date/Time: Monday, November 06, 2017 20:52 - CONCLUSION: Mild atelectasis at the left base. Otherwise, no acute finding is identified. Finn Molina MD Objective Remarks General - elderly lady, lethargic, arousable, ill appearing HEENT - pupils equal, reactive, sclerae anicteric, no neck rigidity, supple, neck veins not distended, no carotid bruit, mucous membranes remain dry, + NGT CV - irregular S1-S2, no murmurs, rubs or gallops Chest -clear breath sounds bilateral, good air entry, no wheezes Abdomen - soft, nontender, not distended, BS present, no hepatomegaly, no splenomegaly Skin - no rashes, no cyanosis Extremities -warm and well perfused, no edema, + peripheral pulses Neuro -exam remains unchanged, lethargic but arousable, pupils equal and reactive, left-sided facial droop, moves spontaneously right upper and lower extremity, does not move left upper and lower extremities A/P Assessment and Plan 1. Large right frontal intracerebral hemorrhage with mass effect s/p right frontoparietal craniotomy for intracerebral hemorrhage evacuation postop day 5 - mental status remains unchanged 2. Acute encephalopathy secondary to above -no significant improvement so far 3. Coagulopathy - in the setting of eliquis use, resolved 4. Uncontrolled hypertension -resolved 5. History of atrial fibrillation -heart rate remains uncontrolled at times despite cardizem 6. Hypernatremia -slowly improving 7. Hypokalemia and hypophosphatemia -improved 1. Continue supplemental O2 to keep SpO2 above 92% 2. Neuro checks 3. HOB elevation, maintain normothermia, avoid agitation 4. On free water via NG tube 5. Continue continue amiodarone 6. Start daily digoxin. Check level on Tuesday 7. Convert Cardizem drip to p.o. 60 mg every 6 hours. Might need gradual increase in dose up to 120 mg. Keep potassium above 4 and magnesium above 2 8. Received Kcentra. Last eliquis dose was on 11/06 in AM 9. Change phenytoin to Keppra to minimize sedative effect for seizure prophylaxis 10. Glycemic control if needed 11. GI/DVT prophylaxis. Started on Lovenox prophylaxis by neurosurgery 12. Tube feeds at goal Prognosis remains poor. Jose C Walton MD Nov 13, 2017 08:29
[2017-11-13] MEDS: SODIUM CHLORIDE 0.9% FLUSH 10 ML FLUSH IV FLUSH SCH ×2 (09:00→20:44)
[2017-11-13] MEDS: DILTIAZEM HCL 60 MG TAB PO SCH ×3 (09:28→18:30)
[2017-11-13] MEDS: levETIRAcetam 500 MG/5 ML UDC NG SCH ×2 (09:28→20:48)
[2017-11-13] MEDS: FAMOTIDINE 20 MG/2 ML VIAL IV PUSH SCH ×2 (09:28→20:48)
[2017-11-13] MEDS: DOCUSATE SODIUM 50 MG/SENNA 8.6 MG TAB PO SCH ×2 (09:28→20:47)
[2017-11-13] MEDS: DIGOXIN 0.125 MG TAB PO SCH (09:29)
[2017-11-13] MEDS: AMIODARONE 200 MG TAB PO SCH (09:29)
[2017-11-13] MEDS: ENOXAPARIN SODIUM 40 MG/0.4 ML SYRINGE SQ SCH (09:29)
--- NOTE | 2017-11-13 12:02 | HHI.NSPN ---
(Nahun Prabhakar) History Chief Complaint: Headache. Large right ICH. (Nahun Prabhakar) Interval History This is an 82-year-old female patient with a history of atrial fibrillation on Eliquis. [place] to slur her words and developed weakness. She was then brought to [facility] by ambulance where she underwent evaluation and, because of abnormal CT neurosurgery consult was placed. No other history is available at the present time. 11/07: Pt lethargic but opens her eyes to voice. She does answer some questions when asked. Her son at the bedside states she was talking on the cell phone earlier. She complains of right sided headaches. 11/09: Pt s/p right frontoparietal craniotomy for intracerebral hemorrhage evacuation on 11/08. She opens eyes to voice, but is lethargic. Denies headache. Follows commands. Left dense hemiparesis/plegia. 11/10: Pt opens eyes to voice but prefers them closed. She denies headache. No n/v. She has dense left hemiparesis/plegia with neglect. 11/11: Pt lethargic but does open eyes slightly to voice. Pupils 3mm bilaterally. She follows some simple commands on right side. Left dense hemiparesis. 11/12: Pt lethargic. She opens eyes slightly to voice with persistence. No verbalizing. Pupils 3mm bilaterally reactive bilaterally. Left dense hemiparesis. 11/13: Pt lethargic. Not opening eyes to voice or pain. Not verbalizing. Pupils 3mm bilaterally reactive bilaterally. (Nahun Prabhakar) System Review Comments Not able to obtain given level of alertness and clinical condition. (Nahun Prabhakar) Exam Results Vital Signs Date Time Temp Pulse Resp B/P (MAP) Pulse Ox O2 Delivery O2 Flow Rate FiO2 11/13/17 09:33 99 Nasal Cannula 2.00 11/13/17 06:00 107 11/13/17 04:00 98.9 23 124/61 (82) 11/12/17 07:27 21 Intake and Output 11/13/17 11/13/17 11/13/17 07:59 15:59 23:59 Intake Total 1285 ml Output Total 1400 ml Balance -115 ml (Nahun Prabhakar) Physical Examination General: Pt resting in bed with eyes closed and is lethargic. VSS. Eyes: Pupils equal 3mm bilaterally reactive bilaterally. Sclera anicteric. Resp: CTA bilaterally Heart: Irregular no murmurs. On Diltiazem drip. Abd: Soft positive bs Skin: No cyanosis or erythema. Incision clean and dry without signs of infection. Muscle: Left dense hemiparesis/plegia. Moves right side spontaneously. Neuro: Pt lethargic. Pupils 3mm bilaterally reactive bilaterally. Follows simple commands. Not verbalizing much today. (Nahun Prabhakar) Lab, Micro, Other Results Last Impressions Abdomen X-Ray 11/10/17 0000 Signed Impressions: Service Date/Time: October 17:15 - CONCLUSION: The side port of the gastric tube is at the level of the diaphragm and probably has not crossed into the stomach. This needs to be advanced at least 2 cm. Johnathon Jones MD Head CT 11/09/17 0600 Signed Impressions: Service Date/Time: Thursday, November 09, 2017 04:21 - CONCLUSION: 1. Status post interval right craniotomy and removal of a portion of the intraparenchymal hemorrhage. 2. Decreased mass effect and midline shift. 3. No new hemorrhage. Randy Hyman MD Carotid Artery Ultrasound 11/07/17 0000 Signed Impressions: Service Date/Time: Tuesday, November 07, 2017 21:21 - CONCLUSION: No evidence of flow-limiting carotid stenosis. Finn Meza MD Multiplanar Reconstruction 11/06/17 0000 Signed Impressions: Service Date/Time: Monday, November 06, 2017 20:06 - CONCLUSION: Reconstructions again demonstrate the right frontal acute hemorrhage. Please see noncontrast head CT report for further description. Finn Molina MD Chest X-Ray 11/06/17 0000 Signed Impressions: Service Date/Time: Monday, November 06, 2017 20:52 - CONCLUSION: Mild atelectasis at the left base. Otherwise, no acute finding is identified. Finn Molina MD Laboratory Tests Test 11/13/17 03:55 White Blood Count 15.4 TH/MM3 Red Blood Count 3.54 MIL/MM3 Hemoglobin 11.2 GM/DL Hematocrit 33.7 % Mean Corpuscular Volume 95.4 FL Mean Corpuscular Hemoglobin 31.6 PG Mean Corpuscular Hemoglobin Concent 33.1 % Red Cell Distribution Width 14.5 % Platelet Count 194 TH/MM3 Mean Platelet Volume 9.3 FL Blood Urea Nitrogen 13 MG/DL Creatinine 0.48 MG/DL Random Glucose 147 MG/DL Calcium Level 8.1 MG/DL Phosphorus Level 1.9 MG/DL Magnesium Level 2.0 MG/DL Sodium Level 151 MEQ/L Potassium Level 4.0 MEQ/L Chloride Level 117 MEQ/L Carbon Dioxide Level 27.9 MEQ/L Anion Gap 6 MEQ/L Estimat Glomerular Filtration Rate 124 ML/MIN (Nahun Prabhakar) Medical Decision Making Impression and Plan A: 82 y/o FM with 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 s/p right craniotomy for ICH evacuation on 11/08/17. P: Continue with close Neuro checks. Continue with critical care. Continue with blood pressure control Continue with current care. Rehab efforts. (Nahun Prabhakar) Attending Statement The exam, history, and the medical decision-making described in the above note were completed with the assistance of the mid-level provider. I reviewed and agree with the findings presented. I attest that I had a [id number] encounter with the patient on the same day, and personally performed and documented my assessment and findings in the medical record. (Gerhard Hernandez MD) Nahun Prabhakar Nov 13, 2017 12:02 Gerhard Hernandez MD Nov 13, 2017 16:43
[2017-11-14] VITALS (14 sets, daily range): BP systolic 124–147; BP diastolic 65–76; PULSE 100–128; RESP 20–29; TEMP 98.4–100.2; O2SAT 96–98
[2017-11-14] MEDS: DILTIAZEM HCL 60 MG TAB PO SCH ×4 (00:45→18:08)
[2017-11-14 06:09] LABS: HEMATOCRIT 32.1 % (35.0-46.0); HEMOGLOBIN 10.8 GM/DL (11.6-15.3); MEAN CELL VOLUME 94.7 FL (80.0-100.0); MEAN CORPUSCULAR HEMOGLOBIN 31.9 PG (27.0-34.0); MEAN CORPUSCULAR HGB CONC 33.7 % (32.0-36.0); MEAN PLATELET VOLUME 10.1 FL (7.0-11.0); PLATELET COUNT 180 TH/MM3 (150-450); RED BLOOD COUNT 3.38 MIL/MM3 (4.00-5.30); RED CELL DISTRIBUTION WIDTH 14.6 % (11.6-17.2); WHITE BLOOD COUNT 13.9 TH/MM3 (4.0-11.0)
[2017-11-14 06:44] LABS: PHOSPHORUS 1.8 MG/DL (2.5-4.9)
[2017-11-14 07:00] LABS: BICARBONATE 27.9 MEQ/L (21.0-32.0); CALCIUM 8.3 MG/DL (8.5-10.1); CREATININE 0.47 MG/DL (0.50-1.00)
[2017-11-14] MEDS: SODIUM CHLORIDE 0.9% FLUSH 10 ML FLUSH IV FLUSH SCH ×2 (09:02→21:28)
[2017-11-14] MEDS: ENOXAPARIN SODIUM 40 MG/0.4 ML SYRINGE SQ SCH (09:02)
[2017-11-14] MEDS: levETIRAcetam 500 MG/5 ML UDC NG SCH ×2 (09:02→21:28)
[2017-11-14] MEDS: FAMOTIDINE 20 MG/2 ML VIAL IV PUSH SCH ×2 (09:04→21:28)
[2017-11-14] MEDS: AMIODARONE 200 MG TAB PO SCH (09:05)
[2017-11-14] MEDS: DOCUSATE SODIUM 50 MG/SENNA 8.6 MG TAB PO SCH ×2 (09:05→21:28)
[2017-11-14] MEDS: DIGOXIN 0.125 MG TAB PO SCH (09:05)
--- NOTE | 2017-11-14 11:16 | HHI.CCPN ---
Subjective Remarks/Hospital Course 11/06: 82-year-old female with a medical history of atrial fibrillation on anticoagulation with Eliquis who developed sudden onset left-sided weakness and altered mental status and slurred speech as she was walking out with her family after the [place]. She was rushed to the ER as a stroke alert. Head CT showed a large right frontal hemorrhage. She was also hypertensive on arrival and was started on nicardipine drip. She received Kcentra in the ER and was accepted for admission by critical care medicine. Neurosurgery was consulted and patient was evaluated in the ER by Dr. Lin. When I evaluated the patient in the ER she was laying in the ER stretcher not in any acute distress. She had a dense left-sided weakness and slurred speech however was easily arousable and following commands and knew where she was and couldn't give me her home address. History was obtained by discussion with patient's family as well as ER physician. 11/07: No events since admission. Patient resting comfortable, easily arousable, following commands. No CP, dyspnea, palpitations, BARNARD, N/V. Tmax 98.7, I/O 215/ 1750. On nicardipine at 2.5. 11/08: Patient underwent right frontoparietal craniotomy for intracerebral hemorrhage evacuation. No events intra-op. Tmax 99.4. Lethargic but arousable, follows some commands. Had episode of Afib with RVR last night and she was started on cardizem drip. now HR in the low 100's. 11/09: Patient did well overnight. She is slightly more awake, more responsive. Afebrile, T-max 98.4, ins and outs 1300/1900. at bedside. 11/10: No events over the night. T-max 98.4. Increased urine output up to 2150 cc over the last 24 hours. No significant improvement in mental status, patient remains lethargic but arousable following some commands. She remains in A. fib on Cardizem at 15 mg/h, heart rate ranging between low 100s-130s. 11/11: NG tube placed last evening and tube feeds together with free water started. Mental status is unchanged, patient remains lethargic but arousable. T-max of 99.6. Heart rate ranging anywhere from 90s to low 130s, on Cardizem at 15. Blood pressure is okay. 11/12: No events over the night. Patient remains on Cardizem drip at 15, amiodarone added back yesterday. Afebrile with a T-max of 99.4. Good urine output, 1575 mL's in the last 24 hours. Tolerating tube feeds. No significant improvement in mental status. Family present at bedside. 11/13: No events overnight. Mental status is unchanged. She remains lethargic but arousable, tolerating tube feeds. Loaded with dig, on Cardizem 15, heart rate better controlled. 11/14: no changes. still encephalopathic. protecting airway. will order EEG to ensure no subclinical seizures. HR under better control. ROS - unobtainable due to patient's condition Objective Vital Signs Date Time Temp Pulse Resp B/P (MAP) Pulse Ox O2 Delivery O2 Flow Rate FiO2 11/14/17 10:00 120 11/14/17 08:00 98.5 20 129/76 (93) 97 11/14/17 07:52 Nasal Cannula 2.00 11/12/17 07:27 21 Intake and Output 11/14/17 11/14/17 11/15/17 08:00 16:00 00:00 Intake Total 1064 ml Output Total 1150 ml Balance -86 ml Result Diagram: 11/14/17 0529 11/14/17 0529 Imaging Last Impressions Multiplanar Reconstruction 11/06/17 0000 Signed Impressions: Service Date/Time: Monday, November 06, 2017 20:06 - CONCLUSION: Reconstructions again demonstrate the right frontal acute hemorrhage. Please see noncontrast head CT report for further description. Finn Molina MD Head CT 11/06/17 0000 Signed Impressions: Service Date/Time: Monday, November 06, 2017 20:05 - CONCLUSION: Right frontal lobe acute hemorrhage measuring approximately 8.7 x 5.2 cm causing 9 mm of [id number] midline shift. These findings were telephoned to Dr. Barnett at 8 : 13 PM on 11/06/2017. Finn Molina MD Chest X-Ray 11/06/17 0000 Signed Impressions: Service Date/Time: Monday, November 06, 2017 20:52 - CONCLUSION: Mild atelectasis at the left base. Otherwise, no acute finding is identified. Finn Molina MD Objective Remarks General - elderly lady, lethargic, arousable, ill appearing HEENT - pupils equal, reactive, sclerae anicteric, no neck rigidity, supple, neck veins not distended, mucous membranes moist, + NGT CV - irregular, afib by tele. Chest -equal chest rise. protects airway. nc o2. Abdomen - soft, nontender, not distended, no guarding. Skin - no rashes, no cyanosis Extremities -warm and well perfused, no edema, + peripheral pulses Neuro -exam remains unchanged, lethargic but arousable, pupils equal and reactive, left-sided facial droop, moves spontaneously right upper and lower extremity, does not move left upper and lower extremities A/P Assessment and Plan 1. Large right frontal intracerebral hemorrhage with mass effect s/p right frontoparietal craniotomy for intracerebral hemorrhage evacuation postop day 6 - mental status remains unchanged 2. Acute encephalopathy secondary to above -no significant improvement so far 3. Coagulopathy - in the setting of eliquis use, resolved 4. Uncontrolled hypertension -resolved 5. History of atrial fibrillation -better controlled today. 6. Hypernatremia -slowly improving 7. Hypokalemia and hypophosphatemia -improved 1. Continue supplemental O2 to keep SpO2 above 92% 2. Neuro checks 3. HOB elevation, maintain normothermia, avoid agitation 4. On free water via NG tube 5. Continue continue amiodarone 6. daily digoxin. Check level on Tuesday 7. Cardizem drip to p.o. 60 mg every 6 hours. Keep potassium above 4 and magnesium above 2 8. Received Kcentra. Last eliquis dose was on 11/06 in AM 9. Changed phenytoin to Keppra 11/13 to minimize sedative effect for seizure prophylaxis 10. EEG today to rule out subclinical seizures. 11. Glycemic control if needed 12. GI/DVT prophylaxis. Started on Lovenox prophylaxis by neurosurgery 13. Tube feeds at goal Prognosis remains poor. Avelino Colunga MD Nov 14, 2017 11:16
--- NOTE | 2017-11-14 17:29 | HHI.NSPN ---
(Nahun Prabhakar) History Chief Complaint: Headache. Large right ICH. (Nahun Prabhakar) Interval History This is an 82-year-old female patient with a history of atrial fibrillation on Eliquis. [place] her words and developed weakness. She was then brought to [facility] by ambulance where she underwent evaluation and, because of abnormal CT neurosurgery consult was placed. No other history is available at the present time. 11/07: Pt lethargic but opens her eyes to voice. She does answer some questions when asked. Her son at the bedside states she was talking on the cell phone earlier. She complains of right sided headaches. 11/09: Pt s/p right frontoparietal craniotomy for intracerebral hemorrhage evacuation on 11/08. She opens eyes to voice, but is lethargic. Denies headache. Follows commands. Left dense hemiparesis/plegia. 11/10: Pt opens eyes to voice but prefers them closed. She denies headache. No n/v. She has dense left hemiparesis/plegia with neglect. 11/11: Pt lethargic but does open eyes slightly to voice. Pupils 3mm bilaterally. She follows some simple commands on right side. Left dense hemiparesis. 11/12: Pt lethargic. She opens eyes slightly to voice with persistence. No verbalizing. Pupils 3mm bilaterally reactive bilaterally. Left dense hemiparesis. 11/13: Pt lethargic. Not opening eyes to voice or pain. Not verbalizing. Pupils 3mm bilaterally reactive bilaterally. 11/14: Pt lethargic. She opens eyes slightly to pain. Not verbalizing. Pupils 3mm bilaterally reactive bilaterally. Not following commands. (Nahun Prabhakar) System Review Comments Not able to obtain given level of alertness. (Nahun Prabhakar) Exam Results Vital Signs Date Time Temp Pulse Resp B/P (MAP) Pulse Ox O2 Delivery O2 Flow Rate FiO2 11/14/17 16:00 128 11/14/17 16:00 98.4 24 147/71 (96) 98 11/14/17 07:52 Nasal Cannula 2.00 11/12/17 07:27 21 Intake and Output 11/14/17 11/14/17 11/15/17 08:00 16:00 00:00 Intake Total 1064 ml Output Total 1150 ml Balance -86 ml (Nahun Prabhakar) Physical Examination General: Pt resting in bed with eyes closed and is lethargic. VSS. Eyes: Pupils equal 3mm bilaterally reactive bilaterally. Sclera anicteric. Resp: CTA bilaterally Heart: Irregular no murmurs. Abd: Soft positive bs Skin: No cyanosis or erythema. Incision clean and dry without signs of infection. Muscle: Left dense hemiparesis/plegia. Not moving extremities. Neuro: Pt lethargic, opens eyes slightly to deep pain in upper chest. Pupils 3mm bilaterally reactive bilaterally. Follows simple commands. Not verbalizing. No posturing. (Nahun Prabhakar) Lab, Micro, Other Results Last Impressions Abdomen X-Ray 11/10/17 0000 Signed Impressions: Service Date/Time: October 17:15 - CONCLUSION: The side port of the gastric tube is at the level of the diaphragm and probably has not crossed into the stomach. This needs to be advanced at least 2 cm. Johnathon Jones MD Head CT 11/09/17 0600 Signed Impressions: Service Date/Time: Thursday, November 09, 2017 04:21 - CONCLUSION: 1. Status post interval right craniotomy and removal of a portion of the intraparenchymal hemorrhage. 2. Decreased mass effect and midline shift. 3. No new hemorrhage. Randy Hyman MD Carotid Artery Ultrasound 11/07/17 0000 Signed Impressions: Service Date/Time: Tuesday, November 07, 2017 21:21 - CONCLUSION: No evidence of flow-limiting carotid stenosis. Finn Meza MD Multiplanar Reconstruction 11/06/17 0000 Signed Impressions: Service Date/Time: Monday, November 06, 2017 20:06 - CONCLUSION: Reconstructions again demonstrate the right frontal acute hemorrhage. Please see noncontrast head CT report for further description. Finn Molina MD Chest X-Ray 11/06/17 0000 Signed Impressions: Service Date/Time: Monday, November 06, 2017 20:52 - CONCLUSION: Mild atelectasis at the left base. Otherwise, no acute finding is identified. Finn Molina MD Laboratory Tests Test 11/14/17 05:29 White Blood Count 13.9 TH/MM3 Red Blood Count 3.38 MIL/MM3 Hemoglobin 10.8 GM/DL Hematocrit 32.1 % Mean Corpuscular Volume 94.7 FL Mean Corpuscular Hemoglobin 31.9 PG Mean Corpuscular Hemoglobin Concent 33.7 % Red Cell Distribution Width 14.6 % Platelet Count 180 TH/MM3 Mean Platelet Volume 10.1 FL Blood Urea Nitrogen 15 MG/DL Creatinine 0.47 MG/DL Random Glucose 143 MG/DL Calcium Level 8.3 MG/DL Phosphorus Level 1.8 MG/DL Magnesium Level 2.0 MG/DL Sodium Level 146 MEQ/L Potassium Level 4.4 MEQ/L Chloride Level 114 MEQ/L Carbon Dioxide Level 27.9 MEQ/L Anion Gap 4 MEQ/L Estimat Glomerular Filtration Rate 128 ML/MIN (Nahun Prabhakar) Medical Decision Making Impression and Plan A: 82 y/o FM with 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 s/p right craniotomy for ICH evacuation on 11/08/17. P: Continue with close Neuro checks. Continue with critical care. Continue with blood pressure control Continue with current care. Rehab efforts. Pt had an EEG. Follow up CT head tomorrow am, sooner if clinically worsening currently she does open eyes slightly to deep pain briefly. (Nahun Prabhakar) Attending Statement The exam, history, and the medical decision-making described in the above note were completed with the assistance of the mid-level provider. I reviewed and agree with the findings presented. I attest that I had a [id number] encounter with the patient on the same day, and personally performed and documented my assessment and findings in the medical record. (Gerhard Hernandez MD) Nahun Prabhakar Nov 14, 2017 17:29 Gerhard Hernandez MD Nov 14, 2017 18:02
[2017-11-15] VITALS (14 sets, daily range): BP systolic 119–148; BP diastolic 58–73; PULSE 103–121; RESP 24–33; TEMP 98.1–99.7; O2SAT 96–99
[2017-11-15] MEDS: DILTIAZEM HCL 60 MG TAB PO SCH ×5 (00:31→23:24)
[2017-11-15 04:24] LABS: HEMATOCRIT 31.9 % (35.0-46.0); HEMOGLOBIN 10.5 GM/DL (11.6-15.3); MEAN CELL VOLUME 94.5 FL (80.0-100.0); MEAN CORPUSCULAR HGB CONC 32.8 % (32.0-36.0); MEAN PLATELET VOLUME 9.5 FL (7.0-11.0); PLATELET COUNT 204 TH/MM3 (150-450); RED BLOOD COUNT 3.37 MIL/MM3 (4.00-5.30); RED CELL DISTRIBUTION WIDTH 14.5 % (11.6-17.2); WHITE BLOOD COUNT 15.4 TH/MM3 (4.0-11.0)
[2017-11-15 04:56] LABS: BICARBONATE 25.4 MEQ/L (21.0-32.0); CALCIUM 8.1 MG/DL (8.5-10.1); CREATININE 0.41 MG/DL (0.50-1.00); PHOSPHORUS 2.5 MG/DL (2.5-4.9)
--- NOTE | 2017-11-15 05:48 | RADRPT ---
EXAM DATE/TIME: 11/15/2017 05:08 [facility] COMPARISON: CT BRAIN W/O CONTRAST, November 09, 2017, 4:21. INDICATIONS : Evaluate hemorrhage stroke. RADIATION DOSE: 37.73 CTDIvol (mGy) MEDICAL HISTORY : Cardiovascular disease. Hypertension. SURGICAL HISTORY : None. ENCOUNTER: Initial ACUITY: 1 day PAIN SCALE: 5/10 LOCATION: cranial TECHNIQUE: Multiple contiguous axial images were obtained of the head. Using automated exposure control and adj ustment of the mA and/or kV according to patient size, radiation dose was kept as low as reasonably a chievable to obtain optimal diagnostic quality images. DICOM format image data is available electro nically for review and comparison. FINDINGS: Redemonstration of postsurgical features of right frontoparietal craniotomy. Surgical drain has been removed in the interval. Evolving intraparenchymal hemorrhage in the right frontoparietal mid to high convexities with improved pneumocephalus and smaller intraparenchymal hemorrhage in the medial left frontal high convexities. There is stable approximate 5 mm right to left shift. Ventricles are stable in size with small amount of intraventricular blood products. There is also stable bilateral subarac hnoid blood products. Basilar cisterns are intact. Cerebellum and brainstem are intact. Remainder of the exam is unchanged. CONCLUSION: 1. Stable postsurgical features with interval removal of a right subdural drain. 2. Evolving intraparenchymal hemorrhages with stable 5 mm right to left subfalcine shift. 3. Stable subarachnoid and intraventricular hemorrhage. 4. No intercurrent hemorrhage or hydrocephalus. Bienvenido Snell MD on November 15, 2017 at 5:40 Board Certified Radiologist. This report was verified electronically.
[2017-11-15] MEDS: DOCUSATE SODIUM 50 MG/SENNA 8.6 MG TAB PO SCH ×2 (08:47→21:49)
[2017-11-15] MEDS: SODIUM CHLORIDE 0.9% FLUSH 10 ML FLUSH IV FLUSH SCH ×2 (08:47→21:49)
[2017-11-15] MEDS: levETIRAcetam 500 MG/5 ML UDC NG SCH ×2 (08:47→21:49)
[2017-11-15] MEDS: DIGOXIN 0.125 MG TAB PO SCH (08:47)
[2017-11-15] MEDS: FAMOTIDINE 20 MG/2 ML VIAL IV PUSH SCH ×2 (08:47→21:49)
[2017-11-15] MEDS: AMIODARONE 200 MG TAB PO SCH (08:47)
[2017-11-15] MEDS: ENOXAPARIN SODIUM 40 MG/0.4 ML SYRINGE SQ SCH (09:15)
--- NOTE | 2017-11-15 09:54 | HHI.CCPN ---
Subjective Remarks/Hospital Course 11/06: 82-year-old female with a medical history of atrial fibrillation on anticoagulation with Eliquis who developed sudden onset left-sided weakness and altered mental status and slurred speech as she was walking out with her family after the [place]. She was rushed to the ER as a stroke alert. Head CT showed a large right frontal hemorrhage. She was also hypertensive on arrival and was started on nicardipine drip. She received Kcentra in the ER and was accepted for admission by critical care medicine. Neurosurgery was consulted and patient was evaluated in the ER by Dr. Lin. When I evaluated the patient in the ER she was laying in the ER stretcher not in any acute distress. She had a dense left-sided weakness and slurred speech however was easily arousable and following commands and knew where she was and couldn't give me her home address. History was obtained by discussion with patient's family as well as ER physician. 11/07: No events since admission. Patient resting comfortable, easily arousable, following commands. No CP, dyspnea, palpitations, BARNARD, N/V. Tmax 98.7, I/O 215/ 1750. On nicardipine at 2.5. 11/08: Patient underwent right frontoparietal craniotomy for intracerebral hemorrhage evacuation. No events intra-op. Tmax 99.4. Lethargic but arousable, follows some commands. Had episode of Afib with RVR last night and she was started on cardizem drip. now HR in the low 100's. 11/09: Patient did well overnight. She is slightly more awake, more responsive. Afebrile, T-max 98.4, ins and outs 1300/1900. at bedside. 11/10: No events over the night. T-max 98.4. Increased urine output up to 2150 cc over the last 24 hours. No significant improvement in mental status, patient remains lethargic but arousable following some commands. She remains in A. fib on Cardizem at 15 mg/h, heart rate ranging between low 100s-130s. 11/11: NG tube placed last evening and tube feeds together with free water started. Mental status is unchanged, patient remains lethargic but arousable. T-max of 99.6. Heart rate ranging anywhere from 90s to low 130s, on Cardizem at 15. Blood pressure is okay. 11/12: No events over the night. Patient remains on Cardizem drip at 15, amiodarone added back yesterday. Afebrile with a T-max of 99.4. Good urine output, 1575 mL's in the last 24 hours. Tolerating tube feeds. No significant improvement in mental status. Family present at bedside. 11/13: No events overnight. Mental status is unchanged. She remains lethargic but arousable, tolerating tube feeds. Loaded with dig, on Cardizem 15, heart rate better controlled. 11/14: no changes. Still encephalopathic. protecting airway. will order EEG to ensure no subclinical seizures. HR under better control. ROS - unobtainable due to patient's condition 11/15: no changes. opens eyes to voice. tolerating tube feeds. EEG pending, but prelim negative for overt ictal activity. ROS unobtainable. protecting airway Objective Vital Signs Date Time Temp Pulse Resp B/P (MAP) Pulse Ox O2 Delivery O2 Flow Rate FiO2 11/15/17 08:26 97 Nasal Cannula 2.00 11/15/17 08:00 109 11/15/17 08:00 98.9 30 148/70 (96) 11/12/17 07:27 21 Intake and Output 11/15/17 11/15/17 11/16/17 08:00 16:00 00:00 Intake Total 1993 ml Output Total 1100 ml Balance 893 ml Result Diagram: 11/15/17 0333 11/15/17 0333 Imaging Last Impressions Multiplanar Reconstruction 11/06/17 0000 Signed Impressions: Service Date/Time: Monday, November 06, 2017 20:06 - CONCLUSION: Reconstructions again demonstrate the right frontal acute hemorrhage. Please see noncontrast head CT report for further description. Finn Molina MD Head CT 11/06/17 0000 Signed Impressions: Service Date/Time: Monday, November 06, 2017 20:05 - CONCLUSION: Right frontal lobe acute hemorrhage measuring approximately 8.7 x 5.2 cm causing 9 mm of atkug-[id number] midline shift. These findings were telephoned to Dr. Barnett at 8 : 13 PM on 11/06/2017. Finn Molina MD Chest X-Ray 11/06/17 0000 Signed Impressions: Service Date/Time: Monday, November 06, 2017 20:52 - CONCLUSION: Mild atelectasis at the left base. Otherwise, no acute finding is identified. Finn Molina MD Objective Remarks General - elderly lady, lethargic, arousable, ill appearing HEENT - pupils equal, reactive, sclerae anicteric, no neck rigidity, supple, neck veins not distended, mucous membranes moist, + NGT CV - irregular, afib by tele. Chest -equal chest rise. protects airway. nc o2. Abdomen - soft, nontender, not distended, no guarding. Skin - no rashes, no cyanosis Extremities -warm and well perfused, no edema, + peripheral pulses Neuro -exam remains unchanged, lethargic but arousable, pupils equal and reactive, left-sided facial droop, moves spontaneously right upper and lower extremity, does not move left upper and lower extremities A/P Assessment and Plan 1. Large right frontal intracerebral hemorrhage with mass effect s/p right frontoparietal craniotomy for intracerebral hemorrhage evacuation postop day 7 - mental status remains unchanged 2. Acute encephalopathy secondary to above -no significant improvement so far 3. Coagulopathy - in the setting of eliquis use, resolved 4. Uncontrolled hypertension -resolved 5. History of atrial fibrillation -better controlled today. 6. Hypernatremia -slowly improving 7. Hypokalemia and hypophosphatemia -improved 1. Continue supplemental O2 to keep SpO2 above 92% 2. Neuro checks 3. HOB elevation, maintain normothermia, avoid agitation 4. On free water via NG tube 5. Continue amiodarone 6. daily digoxin. Check level on Tuesday 7. Cardizem p.o. 60 mg every 6 hours. Keep potassium above 4 and magnesium above 2 8. Received Kcentra. Last eliquis dose was on 11/06 in AM 9. Changed phenytoin to Keppra 11/13 to minimize sedative effect for seizure prophylaxis 10. EEG today to rule out subclinical seizures. 11. Glycemic control if needed 12. GI/DVT prophylaxis. Started on Lovenox prophylaxis by neurosurgery 13. Tube feeds at goal Prognosis remains poor. Avelino Colunga MD Nov 15, 2017 09:54
--- NOTE | 2017-11-15 11:23 | MG ---
cc: Sarita Martinez MD EEG NUMBER [id number] Reece ROOM [id number] with photic done REASON FOR PROCEDURE Status post right frontoparietal craniotomy for ICH, 11/08/2017, came in as a stroke alert and headache, left sided hemiparesis. MEDICATIONS 1. Lanoxin 2. Cardizem 3. Keppra 4. Cordarone 5. Tylenol DESCRIPTION OF RECORD The patient has overall background attenuation. Seen predominantly of 1-2 hertz. Questionably slightly slower in the left compared with the right but overall diffusely slow. EKG, there seems to be some type of an arrhythmia noted. Photic stimulation with no driving response. IMPRESSION Abnormal EEG due to moderate slowing consistent with an encephalopathic process but no epileptic activity. MD RUTHANN Szymanski/YARELI/jonelle , 08:26 AM , 11:06 AM
--- NOTE | 2017-11-15 13:42 | RADRPT ---
EXAM DATE/TIME: 11/15/2017 09:47 [facility] COMPARISON: No previous studies available for comparison. INDICATIONS : Right arm redness. MEDICAL HISTORY : Hypertension. Arthritis. Hemorrhagic stroke. SURGICAL HISTORY : Ablation. ENCOUNTER: Initial ACUITY: 1 day PAIN SCORE: Non-responsive LOCATION: Right arm. FINDINGS: There is spontaneous flow documented in the brachial, basilic, cephalic, axillary, and subclavian vei ns. The vessels are compressible and augmentation response is documented. No filling defects are se en. The flow is phasic with respiration. Direction of flow in the jugular vein is caudal. There is a largely cystic slightly greater than 2 cm mass in the right lobe of thyroid. CONCLUSION: No evidence of right arm DVT. Thyroid mass. Further evaluation with thyroid sonography suggested Finn Meza MD on November 15, 2017 at 13:39 Board Certified Radiologist. This report was verified electronically.
--- NOTE | 2017-11-15 16:22 | HHI.NSPN ---
(Nahun Prabhakar) History Chief Complaint: Headache. Large right ICH. (Nahun Prabhakar) Interval History This is an 82-year-old female patient with a history of atrial fibrillation on Eliquis. [place] began to slur her words and developed weakness. She was then brought to [facility] by ambulance where she underwent evaluation and, because of abnormal CT neurosurgery consult was placed. No other history is available at the present time. 11/07: Pt lethargic but opens her eyes to voice. She does answer some questions when asked. Her son at the bedside states she was talking on the cell phone earlier. She complains of right sided headaches. 11/09: Pt s/p right frontoparietal craniotomy for intracerebral hemorrhage evacuation on 11/08. She opens eyes to voice, but is lethargic. Denies headache. Follows commands. Left dense hemiparesis/plegia. 11/10: Pt opens eyes to voice but prefers them closed. She denies headache. No n/v. She has dense left hemiparesis/plegia with neglect. 11/11: Pt lethargic but does open eyes slightly to voice. Pupils 3mm bilaterally. She follows some simple commands on right side. Left dense hemiparesis. 11/12: Pt lethargic. She opens eyes slightly to voice with persistence. No verbalizing. Pupils 3mm bilaterally reactive bilaterally. Left dense hemiparesis. 11/13: Pt lethargic. Not opening eyes to voice or pain. Not verbalizing. Pupils 3mm bilaterally reactive bilaterally. 11/14: Pt lethargic. She opens eyes slightly to pain. Not verbalizing. Pupils 3mm bilaterally reactive bilaterally. Not following commands. 11/15: Pt lethargic but opens eyes to voice this am. Not verbalizing. Pupils 3mm bilaterally reactive bilaterally. Not following commands. (Nahun Prabhakar) System Review Comments Not able to obtain given clinical condition. (Nahun Prabhakar) Exam Results Vital Signs Date Time Temp Pulse Resp B/P (MAP) Pulse Ox O2 Delivery O2 Flow Rate FiO2 11/15/17 14:00 113 11/15/17 12:00 98.1 27 137/59 (85) 96 11/15/17 08:26 Nasal Cannula 2.00 11/12/17 07:27 21 Intake and Output 11/15/17 11/15/17 11/16/17 08:00 16:00 00:00 Intake Total 1993 ml Output Total 1100 ml Balance 893 ml (Nahun Prabhakar) Physical Examination General: Pt resting in bed with eyes closed and is lethargic. VSS. She does open her eyes briefly to voice this am. Eyes: Pupils equal 3mm bilaterally reactive bilaterally. Sclera anicteric. Resp: CTA bilaterally Heart: Irregular no murmurs. Abd: Soft positive bs Skin: No cyanosis or erythema. Incision clean and dry without signs of infection. Muscle: Left dense hemiparesis/plegia. Not moving extremities. Neuro: Pt lethargic, opens eyes to voice for short period of time, which is better than last 2 days. Pupils 3mm bilaterally reactive bilaterally. Not following simple commands. Not verbalizing. No posturing. (Nahun Prabhakar) Lab, Micro, Other Results Last Impressions Upper Extremity Ultrasound 11/15/17 0000 Signed Impressions: Service Date/Time: Wednesday, November 15, 2017 09:47 - CONCLUSION: No evidence of right arm DVT. Thyroid mass. Further evaluation with thyroid sonography suggested Finn Meza MD Head CT 11/15/17 0000 Signed Impressions: Service Date/Time: Wednesday, November 15, 2017 05:08 - CONCLUSION: 1. Stable postsurgical features with interval removal of a right subdural drain. 2. Evolving intraparenchymal hemorrhages with stable 5 mm right to left subfalcine shift. 3. Stable subarachnoid and intraventricular hemorrhage. 4. No intercurrent hemorrhage or hydrocephalus. Bienvenido Snell MD Abdomen X-Ray 11/10/17 0000 Signed Impressions: Service Date/Time: October 17:15 - CONCLUSION: The side port of the gastric tube is at the level of the diaphragm and probably has not crossed into the stomach. This needs to be advanced at least 2 cm. Johnathon Jones MD Carotid Artery Ultrasound 11/07/17 0000 Signed Impressions: Service Date/Time: Tuesday, November 07, 2017 21:21 - CONCLUSION: No evidence of flow-limiting carotid stenosis. Finn Meza MD Multiplanar Reconstruction 11/06/17 0000 Signed Impressions: Service Date/Time: Monday, November 06, 2017 20:06 - CONCLUSION: Reconstructions again demonstrate the right frontal acute hemorrhage. Please see noncontrast head CT report for further description. Finn Molina MD Chest X-Ray 11/06/17 0000 Signed Impressions: Service Date/Time: Monday, November 06, 2017 20:52 - CONCLUSION: Mild atelectasis at the left base. Otherwise, no acute finding is identified. Finn Molina MD Laboratory Tests Test 11/15/17 03:33 White Blood Count 15.4 TH/MM3 Red Blood Count 3.37 MIL/MM3 Hemoglobin 10.5 GM/DL Hematocrit 31.9 % Mean Corpuscular Volume 94.5 FL Mean Corpuscular Hemoglobin 31.0 PG Mean Corpuscular Hemoglobin Concent 32.8 % Red Cell Distribution Width 14.5 % Platelet Count 204 TH/MM3 Mean Platelet Volume 9.5 FL Blood Urea Nitrogen 15 MG/DL Creatinine 0.41 MG/DL Random Glucose 148 MG/DL Calcium Level 8.1 MG/DL Phosphorus Level 2.5 MG/DL Magnesium Level 2.0 MG/DL Sodium Level 144 MEQ/L Potassium Level 4.2 MEQ/L Chloride Level 112 MEQ/L Carbon Dioxide Level 25.4 MEQ/L Anion Gap 7 MEQ/L Estimat Glomerular Filtration Rate 149 ML/MIN (Nahun Prabhakar) Medical Decision Making Impression and Plan A: 82 y/o FM with 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 s/p right craniotomy for ICH evacuation on 11/08/17. Follow up CT head stable P: Continue with close Neuro checks. Continue with critical care. Continue with blood pressure control Continue with current care. Rehab efforts. (Nahun Prabhakar) Attending Statement The exam, history, and the medical decision-making described in the above note were completed with the assistance of the mid-level provider. I reviewed and agree with the findings presented. I attest that I had a [id number] encounter with the patient on the same day, and personally performed and documented my assessment and findings in the medical record. Updated at bedside. (Gerhard Hernandez MD) Nahun Prabhakar Nov 15, 2017 16:21 Gerhard Hernandez MD Nov 15, 2017 18:00
[2017-11-16] VITALS (13 sets, daily range): BP systolic 108–146; BP diastolic 57–75; PULSE 102–120; RESP 27–32; TEMP 98.1–100.5; O2SAT 94–97
[2017-11-16 03:32] LABS: HEMATOCRIT 31.9 % (35.0-46.0); HEMOGLOBIN 10.5 GM/DL (11.6-15.3); MEAN CELL VOLUME 93.7 FL (80.0-100.0); MEAN CORPUSCULAR HGB CONC 33.1 % (32.0-36.0); MEAN PLATELET VOLUME 9.2 FL (7.0-11.0); PLATELET COUNT 230 TH/MM3 (150-450); WHITE BLOOD COUNT 15.6 TH/MM3 (4.0-11.0)
[2017-11-16 04:05] LABS: BICARBONATE 25.3 MEQ/L (21.0-32.0); CALCIUM 8.2 MG/DL (8.5-10.1); CREATININE 0.48 MG/DL (0.50-1.00)
[2017-11-16 04:20] LABS: DIGOXIN 0.9 NG/ML (0.8-2.0)
[2017-11-16] MEDS: DILTIAZEM HCL 60 MG TAB PO SCH ×3 (05:42→17:09)
[2017-11-16] MEDS: levETIRAcetam 500 MG/5 ML UDC NG SCH ×2 (08:05→21:06)
[2017-11-16] MEDS: DOCUSATE SODIUM 50 MG/SENNA 8.6 MG TAB PO SCH ×2 (08:05→20:58)
[2017-11-16] MEDS: AMIODARONE 200 MG TAB PO SCH (08:05)
[2017-11-16] MEDS: FAMOTIDINE 20 MG/2 ML VIAL IV PUSH SCH ×2 (08:05→21:06)
[2017-11-16] MEDS: DIGOXIN 0.125 MG TAB PO SCH (08:05)
[2017-11-16] MEDS: SODIUM CHLORIDE 0.9% FLUSH 10 ML FLUSH IV FLUSH SCH ×2 (08:35→21:05)
--- NOTE | 2017-11-16 09:46 | HHI.CCPN ---
Subjective Remarks/Hospital Course 11/06: 82-year-old female with a medical history of atrial fibrillation on anticoagulation with Eliquis who developed sudden onset left-sided weakness and altered mental status and slurred speech as she was walking out with her family after the [place]. She was rushed to the ER as a stroke alert. Head CT showed a large right frontal hemorrhage. She was also hypertensive on arrival and was started on nicardipine drip. She received Kcentra in the ER and was accepted for admission by critical care medicine. Neurosurgery was consulted and patient was evaluated in the ER by Dr. Lin. When I evaluated the patient in the ER she was laying in the ER stretcher not in any acute distress. She had a dense left-sided weakness and slurred speech however was easily arousable and following commands and knew where she was and couldn't give me her home address. History was obtained by discussion with patient's family as well as ER physician. 11/07: No events since admission. Patient resting comfortable, easily arousable, following commands. No CP, dyspnea, palpitations, BARNARD, N/V. Tmax 98.7, I/O 215/ 1750. On nicardipine at 2.5. 11/08: Patient underwent right frontoparietal craniotomy for intracerebral hemorrhage evacuation. No events intra-op. Tmax 99.4. Lethargic but arousable, follows some commands. Had episode of Afib with RVR last night and she was started on cardizem drip. now HR in the low 100's. 11/09: Patient did well overnight. She is slightly more awake, more responsive. Afebrile, T-max 98.4, ins and outs 1300/1900. at bedside. 11/10: No events over the night. T-max 98.4. Increased urine output up to 2150 cc over the last 24 hours. No significant improvement in mental status, patient remains lethargic but arousable following some commands. She remains in A. fib on Cardizem at 15 mg/h, heart rate ranging between low 100s-130s. 11/11: NG tube placed last evening and tube feeds together with free water started. Mental status is unchanged, patient remains lethargic but arousable. T-max of 99.6. Heart rate ranging anywhere from 90s to low 130s, on Cardizem at 15. Blood pressure is okay. 11/12: No events over the night. Patient remains on Cardizem drip at 15, amiodarone added back yesterday. Afebrile with a T-max of 99.4. Good urine output, 1575 mL's in the last 24 hours. Tolerating tube feeds. No significant improvement in mental status. Family present at bedside. 11/13: No events overnight. Mental status is unchanged. She remains lethargic but arousable, tolerating tube feeds. Loaded with dig, on Cardizem 15, heart rate better controlled. 11/14: no changes. Still encephalopathic. protecting airway. will order EEG to ensure no subclinical seizures. HR under better control. ROS - unobtainable due to patient's condition 11/15: no changes. opens eyes to voice. tolerating tube feeds. EEG pending, but prelim negative for overt ictal activity. ROS unobtainable. protecting airway. 11/16: Protects airway, breathing comfortably. No seizure activity. Objective Vital Signs Date Time Temp Pulse Resp B/P (MAP) Pulse Ox O2 Delivery O2 Flow Rate FiO2 11/16/17 08:00 99.2 116 32 136/66 (89) 97 11/16/17 07:53 21 11/16/17 07:00 Nasal Cannula 2.00 Intake and Output 11/16/17 11/16/17 11/17/17 08:00 16:00 00:00 Intake Total 1298 ml Output Total 850 ml Balance 448 ml Result Diagram: 11/16/17 0310 11/16/17 0310 Imaging Last Impressions Multiplanar Reconstruction 11/06/17 0000 Signed Impressions: Service Date/Time: Monday, November 06, 2017 20:06 - CONCLUSION: Reconstructions again demonstrate the right frontal acute hemorrhage. Please see noncontrast head CT report for further description. Finn Molina MD Head CT 11/06/17 0000 Signed Impressions: Service Date/Time: Monday, November 06, 2017 20:05 - CONCLUSION: Right frontal lobe acute hemorrhage measuring approximately 8.7 x 5.2 cm causing 9 mm of sefth-bq-cjeo midline shift. These findings were telephoned to Dr. Barnett at 8 : 13 PM on 11/06/2017. Finn Molina MD Chest X-Ray 11/06/17 0000 Signed Impressions: Service Date/Time: Monday, November 06, 2017 20:52 - CONCLUSION: Mild atelectasis at the left base. Otherwise, no acute finding is identified. Finn Molina MD Objective Remarks General - elderly lady, lethargic, arousable, ill appearing HEENT - pupils equal, reactive, sclerae anicteric, no neck rigidity, supple, neck veins not distended, mucous membranes moist, + NGT CV - irregular, afib by tele. Chest -equal chest rise. protects airway. nc o2. Abdomen - soft, nontender, not distended, no guarding. bs active. Skin - no rashes, no cyanosis Extremities -warm and well perfused, no edema, + peripheral pulses Neuro -exam remains unchanged, lethargic, pupils equal and reactive, left-sided facial droop, moves spontaneously right upper and lower extremity, does not move left upper and lower extremities A/P Assessment and Plan 1. Large right frontal intracerebral hemorrhage with mass effect s/p right frontoparietal craniotomy for intracerebral hemorrhage evacuation postop day 7 - mental status remains unchanged 2. Acute encephalopathy secondary to above -no significant improvement so far 3. Coagulopathy - in the setting of eliquis use, resolved 4. Uncontrolled hypertension -resolved 5. History of atrial fibrillation -better controlled today. 6. Hypernatremia -slowly improving 7. Hypokalemia and hypophosphatemia -improved 1. Continue supplemental O2 to keep SpO2 above 92% 2. Neuro checks 3. HOB elevation, maintain normothermia, avoid agitation 4. On free water via NG tube 5. Continue amiodarone 6. daily digoxin. Check level on Tuesday 7. Cardizem p.o. 60 mg every 6 hours. Keep potassium above 4 and magnesium above 2 8. Received Kcentra. Last eliquis dose was on 11/06 in AM 9. Changed phenytoin to Keppra 11/13 to minimize sedative effect for seizure prophylaxis 10. EEG today to rule out subclinical seizures. 11. Glycemic control if needed 12. GI/DVT prophylaxis. Started on Lovenox prophylaxis by neurosurgery 13. Tube feeds at goal 14. Evaluating for rehab placement. Tay Quiñones MD Nov 16, 2017 09:46
[2017-11-16] MEDS: ENOXAPARIN SODIUM 40 MG/0.4 ML SYRINGE SQ SCH (10:26)
--- NOTE | 2017-11-16 17:22 | HHI.NSPN ---
(Nahun Prabhakar) History Chief Complaint: Headache. Large right ICH. (Nahun Prabhakar) Interval History This is an 82-year-old female patient with a history of atrial fibrillation on Eliquis. [place] to slur her words and developed weakness. She was then brought to [facility] by ambulance where she underwent evaluation and, because of abnormal CT neurosurgery consult was placed. No other history is available at the present time. 11/07: Pt lethargic but opens her eyes to voice. She does answer some questions when asked. Her son at the bedside states she was talking on the cell phone earlier. She complains of right sided headaches. 11/09: Pt s/p right frontoparietal craniotomy for intracerebral hemorrhage evacuation on 11/08. She opens eyes to voice, but is lethargic. Denies headache. Follows commands. Left dense hemiparesis/plegia. 11/10: Pt opens eyes to voice but prefers them closed. She denies headache. No n/v. She has dense left hemiparesis/plegia with neglect. 11/11: Pt lethargic but does open eyes slightly to voice. Pupils 3mm bilaterally. She follows some simple commands on right side. Left dense hemiparesis. 11/12: Pt lethargic. She opens eyes slightly to voice with persistence. No verbalizing. Pupils 3mm bilaterally reactive bilaterally. Left dense hemiparesis. 11/13: Pt lethargic. Not opening eyes to voice or pain. Not verbalizing. Pupils 3mm bilaterally reactive bilaterally. 11/14: Pt lethargic. She opens eyes slightly to pain. Not verbalizing. Pupils 3mm bilaterally reactive bilaterally. Not following commands. 11/15: Pt lethargic but opens eyes to voice this am. Not verbalizing. Pupils 3mm bilaterally reactive bilaterally. Not following commands. 11/16: Pt lethargic but opens eyes to pain not voice today. She is not verbalizing. Not following commands. Pupils 3mm bilaterally reactive bilaterally. (Nahun Prabhakar) System Review Comments Not able to obtain given level of alertness. (Nahun Prabhakar) Exam Results Vital Signs Date Time Temp Pulse Resp B/P (MAP) Pulse Ox O2 Delivery O2 Flow Rate FiO2 11/16/17 16:00 99.4 108 30 112/63 (79) 96 11/16/17 07:53 21 11/16/17 07:00 Nasal Cannula 2.00 Intake and Output 11/16/17 11/16/17 11/17/17 08:00 16:00 00:00 Intake Total 1298 ml 400 ml Output Total 850 ml Balance 448 ml 400 ml (Nahun Prabhakar) Physical Examination General: Pt resting in bed with eyes closed and is lethargic. VSS. She does open her eyes briefly to pain. Eyes: Pupils equal 3mm bilaterally reactive bilaterally. Sclera anicteric. Resp: CTA bilaterally Heart: Irregular no murmurs. Abd: Soft positive bs Skin: No cyanosis or erythema. Incision clean and dry without signs of infection. Muscle: Left dense hemiparesis/plegia. Not moving extremities spontaneously. Neuro: Pt lethargic, opens eyes to pain for short period of time. Pupils 3mm bilaterally reactive bilaterally. Not following simple commands. Not verbalizing. Not posturing. (Nahun Prabhakar) Lab, Micro, Other Results Last Impressions Upper Extremity Ultrasound 11/15/17 0000 Signed Impressions: Service Date/Time: Wednesday, November 15, 2017 09:47 - CONCLUSION: No evidence of right arm DVT. Thyroid mass. Further evaluation with thyroid sonography suggested Finn Meza MD Head CT 11/15/17 0000 Signed Impressions: Service Date/Time: Wednesday, November 15, 2017 05:08 - CONCLUSION: 1. Stable postsurgical features with interval removal of a right subdural drain. 2. Evolving intraparenchymal hemorrhages with stable 5 mm right to left subfalcine shift. 3. Stable subarachnoid and intraventricular hemorrhage. 4. No intercurrent hemorrhage or hydrocephalus. Bienvenido Snell MD Abdomen X-Ray 11/10/17 0000 Signed Impressions: Service Date/Time: October 17:15 - CONCLUSION: The side port of the gastric tube is at the level of the diaphragm and probably has not crossed into the stomach. This needs to be advanced at least 2 cm. Johnathon Jones MD Carotid Artery Ultrasound 11/07/17 0000 Signed Impressions: Service Date/Time: Tuesday, November 07, 2017 21:21 - CONCLUSION: No evidence of flow-limiting carotid stenosis. Finn Meza MD Multiplanar Reconstruction 11/06/17 0000 Signed Impressions: Service Date/Time: Monday, November 06, 2017 20:06 - CONCLUSION: Reconstructions again demonstrate the right frontal acute hemorrhage. Please see noncontrast head CT report for further description. Finn Molina MD Chest X-Ray 11/06/17 0000 Signed Impressions: Service Date/Time: Monday, November 06, 2017 20:52 - CONCLUSION: Mild atelectasis at the left base. Otherwise, no acute finding is identified. Finn Molina MD Laboratory Tests Test 11/16/17 03:10 White Blood Count 15.6 TH/MM3 Red Blood Count 3.40 MIL/MM3 Hemoglobin 10.5 GM/DL Hematocrit 31.9 % Mean Corpuscular Volume 93.7 FL Mean Corpuscular Hemoglobin 31.0 PG Mean Corpuscular Hemoglobin Concent 33.1 % Red Cell Distribution Width 14.0 % Platelet Count 230 TH/MM3 Mean Platelet Volume 9.2 FL Blood Urea Nitrogen 17 MG/DL Creatinine 0.48 MG/DL Random Glucose 165 MG/DL Calcium Level 8.2 MG/DL Sodium Level 142 MEQ/L Potassium Level 4.2 MEQ/L Chloride Level 109 MEQ/L Carbon Dioxide Level 25.3 MEQ/L Anion Gap 8 MEQ/L Estimat Glomerular Filtration Rate 124 ML/MIN Digoxin Level 0.9 NG/ML 11/16/17 11/16/17 11/17/17 15:00 23:00 07:00 Intake Total 400 ml Balance 400 ml Other 400 ml (Nahun Prabhakar) Medical Decision Making Impression and Plan A: 82 y/o FM with 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 s/p right craniotomy for ICH evacuation on 11/08/17. Follow up CT head stable P: Continue with close Neuro checks. Continue with critical care. Continue with blood pressure control Continue with current care. Rehab efforts. Pt may need a peg tube if she does not wake up soon. Discussed with son at bedside. (Nahun Prabhakar) Attending Statement The exam, history, and the medical decision-making described in the above note were completed with the assistance of the mid-level provider. I reviewed and agree with the findings presented. I attest that I had a [id number] encounter with the patient on the same day, and personally performed and documented my assessment and findings in the medical record. (Gerhard Hernandez MD) Nahun Prabhakar Nov 16, 2017 17:22 Gerhard Hernandez MD Nov 16, 2017 18:17
[2017-11-17] VITALS (16 sets, daily range): BP systolic 83–135; BP diastolic 53–73; PULSE 102–122; RESP 26–32; TEMP 98.4–99.4; O2SAT 94–100
[2017-11-17] MEDS: DILTIAZEM HCL 60 MG TAB PO SCH ×4 (00:16→18:00)
[2017-11-17] MEDS: FAMOTIDINE 20 MG/2 ML VIAL IV PUSH SCH ×2 (08:04→21:38)
[2017-11-17] MEDS: SODIUM CHLORIDE 0.9% FLUSH 10 ML FLUSH IV FLUSH SCH ×2 (08:04→21:00)
[2017-11-17] MEDS: DIGOXIN 0.125 MG TAB PO SCH (08:05)
[2017-11-17] MEDS: DOCUSATE SODIUM 50 MG/SENNA 8.6 MG TAB PO SCH ×2 (08:05→21:00)
[2017-11-17] MEDS: levETIRAcetam 500 MG/5 ML UDC NG SCH ×2 (08:05→21:38)
[2017-11-17] MEDS: AMIODARONE 200 MG TAB PO SCH (08:05)
[2017-11-17] MEDS: ENOXAPARIN SODIUM 40 MG/0.4 ML SYRINGE SQ SCH (10:00)
--- NOTE | 2017-11-17 13:40 | HHI.CCPN ---
Subjective Remarks/Hospital Course 11/06: 82-year-old female with a medical history of atrial fibrillation on anticoagulation with Eliquis who developed sudden onset left-sided weakness and altered mental status and slurred speech as she was walking out with her family after the [place]. She was rushed to the ER as a stroke alert. Head CT showed a large right frontal hemorrhage. She was also hypertensive on arrival and was started on nicardipine drip. She received Kcentra in the ER and was accepted for admission by critical care medicine. Neurosurgery was consulted and patient was evaluated in the ER by Dr. Lin. When I evaluated the patient in the ER she was laying in the ER stretcher not in any acute distress. She had a dense left-sided weakness and slurred speech however was easily arousable and following commands and knew where she was and couldn't give me her home address. History was obtained by discussion with patient's family as well as ER physician. 11/07: No events since admission. Patient resting comfortable, easily arousable, following commands. No CP, dyspnea, palpitations, BARNARD, N/V. Tmax 98.7, I/O 215/ 1750. On nicardipine at 2.5. 11/08: Patient underwent right frontoparietal craniotomy for intracerebral hemorrhage evacuation. No events intra-op. Tmax 99.4. Lethargic but arousable, follows some commands. Had episode of Afib with RVR last night and she was started on cardizem drip. now HR in the low 100's. 11/09: Patient did well overnight. She is slightly more awake, more responsive. Afebrile, T-max 98.4, ins and outs 1300/1900. at bedside. 11/10: No events over the night. T-max 98.4. Increased urine output up to 2150 cc over the last 24 hours. No significant improvement in mental status, patient remains lethargic but arousable following some commands. She remains in A. fib on Cardizem at 15 mg/h, heart rate ranging between low 100s-130s. 11/11: NG tube placed last evening and tube feeds together with free water started. Mental status is unchanged, patient remains lethargic but arousable. T-max of 99.6. Heart rate ranging anywhere from 90s to low 130s, on Cardizem at 15. Blood pressure is okay. 11/12: No events over the night. Patient remains on Cardizem drip at 15, amiodarone added back yesterday. Afebrile with a T-max of 99.4. Good urine output, 1575 mL's in the last 24 hours. Tolerating tube feeds. No significant improvement in mental status. Family present at bedside. 11/13: No events overnight. Mental status is unchanged. She remains lethargic but arousable, tolerating tube feeds. Loaded with dig, on Cardizem 15, heart rate better controlled. 11/14: no changes. Still encephalopathic. protecting airway. will order EEG to ensure no subclinical seizures. HR under better control. ROS - unobtainable due to patient's condition 11/15: no changes. opens eyes to voice. tolerating tube feeds. EEG pending, but prelim negative for overt ictal activity. ROS unobtainable. protecting airway. 11/16: Protects airway, breathing comfortably. No seizure activity. 11/17: Patient is not protecting airway. Gurgling breath sounds. Tachypneic. Wheezing bilateral upper chest. Myself and Dr. Quiñones discussed extensively with patient's . he wants everything done including trach and PEG Objective Vital Signs Date Time Temp Pulse Resp B/P (MAP) Pulse Ox O2 Delivery O2 Flow Rate FiO2 11/17/17 12:00 99.1 112 30 123/73 (90) 96 11/17/17 07:00 Room Air 21 11/16/17 07:00 2.00 Intake and Output 11/17/17 11/17/17 11/18/17 08:00 16:00 00:00 Intake Total 1284 ml Output Total 800 ml Balance 484 ml Result Diagram: 11/16/17 0310 11/16/17 0310 Imaging Last Impressions Multiplanar Reconstruction 11/06/17 0000 Signed Impressions: Service Date/Time: Monday, November 06, 2017 20:06 - CONCLUSION: Reconstructions again demonstrate the right frontal acute hemorrhage. Please see noncontrast head CT report for further description. Finn Molina MD Head CT 11/06/17 0000 Signed Impressions: Service Date/Time: Monday, November 06, 2017 20:05 - CONCLUSION: Right frontal lobe acute hemorrhage measuring approximately 8.7 x 5.2 cm causing 9 mm of [id number] midline shift. These findings were telephoned to Dr. Barnett at 8 : 13 PM on 11/06/2017. Finn Molina MD Chest X-Ray 11/06/17 0000 Signed Impressions: Service Date/Time: Monday, November 06, 2017 20:52 - CONCLUSION: Mild atelectasis at the left base. Otherwise, no acute finding is identified. Finn Molina MD Objective Remarks General - elderly lady, lethargic, not arousable, ill appearing HEENT - pupils equal, reactive, sclerae anicteric, no neck rigidity, supple, neck veins not distended, mucous membranes moist, + NGT CV - irregular, afib by tele. Chest -equal chest rise. Not protecting airway. No gag, very weak cough. Upper chest wheezing. Gurgling Abdomen - soft, nontender, not distended, no guarding. bs active. Skin - no rashes, no cyanosis Extremities -warm and well perfused, no edema, + peripheral pulses Neuro -Lethargic, pupils equal and reactive, left-sided facial droop, very weakly moves spontaneously right upper extremity, does not move left upper and lower extremities Urinary Catheter: Yes Assessment to: Continue A/P Assessment and Plan ASSESSMENT Large right frontal intracerebral hemorrhage with mass effect s/p right frontoparietal craniotomy for intracerebral hemorrhage evacuation postop day 7 - mental status remains unchanged Acute encephalopathy secondary to above Lack of airway protection, respiratory failure Probable Aspiration Coagulopathy - in the setting of eliquis use, resolved Uncontrolled hypertension -resolved History of atrial fibrillation -better controlled today. Hypernatremia -slowly improving Hypokalemia and hypophosphatemia -improved PLAN: 1. Proceed with endotracheal intubation and mechanical ventilation as the patient clearly lacks airway protection, clinically aspirating 2. Proceed with tracheostomy after intubation. Consent obtained from a . Discussed with neurosurgery Dr. Hernandez 3. HOB elevation, maintain normothermia, avoid agitation. Neuro checks 4. On free water via NG tube. Discontinue as the sodium is 142 5. Propofol infusion for sedation and vent synchrony 6. Consult GI for PEG placement 7. Continue amiodarone. Daily digoxin. Cardizem p.o. 60 mg every 6 hours. Keep potassium above 4 and magnesium above 2 8. Received Kcentra. Last eliquis dose was on 11/06 in AM 9. Changed phenytoin to Keppra 11/13 to minimize sedative effect for seizure prophylaxis 10. EEG 11/15 due to moderate slowing consistent with an encephalopathic process but no epileptic activity. 11. Glycemic control if needed 12. GI/DVT prophylaxis. Started on Lovenox prophylaxis by neurosurgery. Hold for tracheostomy and PEG placement 13. Tube feeds at goal, hold for procedures 14. Evaluate for rehab placement after trach and PEG. Sanjay Briseno MD Nov 17, 2017 13:40
[2017-11-17] MEDS ORDERED: ROCURONIUM INJ 50 MG/5 ML VIAL IV ONE ×2 (13:45→16:30)
[2017-11-17] MEDS ORDERED: ETOMIDATE 20 MG/10 ML VIAL IV PUSH ONE (13:45)
[2017-11-17] MEDS ORDERED: MIDAZOLAM HCL 5 MG/ML VIAL (1 ML) ONE ×2 (14:29→14:30)
--- NOTE | 2017-11-17 15:01 | PD.PROCEDR ---
Procedure Note Procedure Indication -respiratory failure from inability to protect airway INTUBATION: The patient was put in optimal position for the procedure. Rapid sequence intubation was initiated by me using 15 milligrams of etomidate IV and 50 milligrams of Rocuronium IV. DL with Mac 4 blade Grade 1 view, single attempt. The patient was intubated with a 8.0 cuffed endotracheal tube. Tube placement was confirmed by visualization of the tube and balloon passing through the cords, capnometry and subsequent chest x-ray. Breath sounds were equal and well aerated bilaterally postintubation. No breath sounds over stomach. Patient tolerated procedure well. Sanjay Briseno MD Nov 17, 2017 15:01
--- NOTE | 2017-11-17 15:05 | PD.PROCEDR ---
Procedure Note Procedure Procedure: Percutaneous Dilation Tracheostomy Tube Placement Diagnosis: Acute and Chronic respiratory failure Indications: Failure to protect airway due to ICH, encephalopathy Anesthesia: Versed 5 mg IV, fentanyl 100 ug IV. Continuous propofol infusion Neuromuscular Blockade: Rocuronium 10 g IV Description of the Procedure: The patient was sedated and paralyzed and positioned in the supine position with a chest roll. The patient's neck was slightly extended. Landmarks were palpated and the anatomy of the anterior neck was deemed normal. A time out procedure was performed. The patient was placed on a volume control mode of ventilation, on 100% FiO2. The patient's neck was prepped and draped sterilely. A bronchoscope was inserted into the endotracheal tube for endoscopic guidance (see separate bronchoscopy procedure note). 1% lidocaine with epinephrine was injected subcutaneously in the midline neck for local anesthesia. An approximately 1.5cm skin incision was made using a #15 blade. Under direct bronchoscopic guidance, the cuff of the endotracheal tube was deflated and the endotracheal tube was retracted to a level above the level of the skin incision. At this point, a 15G introducer needle/catheter was advanced midline under negative aspiration with saline filled syringe until bubbles were seen and the needle and catheter were visualized in the lumen of the trachea. The needle was withdrawn leaving the catheter in place. A J- shaped guidewire was advanced through the catheter into the lumen of the trachea , under direct bronchoscopic visualization. Using a modified Seldinger technique, a 14 Fr, 4.5 cm introducer dilator was used, followed by a Blue Rhino Percutaneous Tracheostomy Dilator, and finally a 28 Fr tracheostomy loading catheter with 8.0 Cuffed Shiley tracheostomy tube. The loading catheter and guidewire were removed and the tracheostomy tube was confirmed in the lumen of the trachea with bronchoscopy, end-tidal CO2, and returning volumes on the ventilator. The tracheostomy was sewn to the skin with interrupted 2.0 Prolene sutures, and a tracheostomy tie was applied to the skin. There were no immediate complications. EBL <1ml. A chest x-ray has been ordered. I personally performed the procedure, along with Dr. Quiñones. Sanjay Briseno MD Nov 17, 2017 15:05
--- NOTE | 2017-11-17 15:07 | PD.PROCEDR ---
Procedure Note Procedure DX Respiratory Failure, Hemorrhagic Stroke OP: Therapeutic Bronchoscopy (64113) Procedure: Time out performed. Bronchoscope delivered through the side port of the indwelling orotracheal tube circuit while mechanical ventilation in use and usual ICU monitoring operative. The tracheobronchial tree revealed normal anatomy and clean mucosa without inflammation or excoriation. No secretions. The scope and tracheal tube were then withdrawn together to the level of the cricoid and used to provide visualization for the percutaneous tracheostomy described in a separate note. After trach tube insertion the scope was passed to confirm a good position of the new trach tube in the mid trachea, safely above the carley. Sats were mainatained over 95% throughout the procedure. Tay Quiñones MD Nov 17, 2017 15:07
--- NOTE | 2017-11-17 15:27 | RADRPT ---
EXAM DATE/TIME: 11/17/2017 15:00 [facility] COMPARISON: CHEST SINGLE AP, November 06, 2017, 20:52. INDICATIONS : Evaluate trach placement. MEDICAL HISTORY : Stroke. Cardiovascular disease. SURGICAL HISTORY : None. ENCOUNTER: Subsequent ACUITY: 2 weeks PAIN SCORE: Non-responsive. LOCATION: Bilateral chest FINDINGS: A single view of the chest demonstrates the lungs to be symmetrically aerated without evidence of mas s, infiltrate or effusion. Tracheostomy tube and nasogastric are both in good position The cardiomed iastinal contours are unremarkable. Osseous structures are intact. CONCLUSION: Lungs are grossly clear. Tracheostomy tube and nasogastric tube are both in good position. Karri Box MD on November 17, 2017 at 15:25 Board Certified Radiologist. This report was verified electronically.
[2017-11-17] MEDS ORDERED: MIDAZOLAM HCL 10 MG/10 ML VIAL IV ONE (16:30)
--- NOTE | 2017-11-17 17:03 | HHI.NSPN ---
(Nahun Prabhakar) History Chief Complaint: Headache. Large right ICH. (Nahun Prabhakar) Interval History This is an 82-year-old female patient with a history of atrial fibrillation on Eliquis. [place] her words and developed weakness. She was then brought to [facility] by ambulance where she underwent evaluation and, because of abnormal CT neurosurgery consult was placed. No other history is available at the present time. 11/07: Pt lethargic but opens her eyes to voice. She does answer some questions when asked. Her son at the bedside states she was talking on the cell phone earlier. She complains of right sided headaches. 11/09: Pt s/p right frontoparietal craniotomy for intracerebral hemorrhage evacuation on 11/08. She opens eyes to voice, but is lethargic. Denies headache. Follows commands. Left dense hemiparesis/plegia. 11/10: Pt opens eyes to voice but prefers them closed. She denies headache. No n/v. She has dense left hemiparesis/plegia with neglect. 11/11: Pt lethargic but does open eyes slightly to voice. Pupils 3mm bilaterally. She follows some simple commands on right side. Left dense hemiparesis. 11/12: Pt lethargic. She opens eyes slightly to voice with persistence. No verbalizing. Pupils 3mm bilaterally reactive bilaterally. Left dense hemiparesis. 11/13: Pt lethargic. Not opening eyes to voice or pain. Not verbalizing. Pupils 3mm bilaterally reactive bilaterally. 11/14: Pt lethargic. She opens eyes slightly to pain. Not verbalizing. Pupils 3mm bilaterally reactive bilaterally. Not following commands. 11/15: Pt lethargic but opens eyes to voice this am. Not verbalizing. Pupils 3mm bilaterally reactive bilaterally. Not following commands. 11/16: Pt lethargic but opens eyes to pain not voice today. She is not verbalizing. Not following commands. Pupils 3mm bilaterally reactive bilaterally. 11/17: Pt had trach today. On Diprivan. Not opening eyes. Pupils 3mm bilaterally, reactive bilaterally. Not following commands. (Nahun Prabhakar) System Review Comments Not able to obtain given clinical condition. (Nahun Prabhakar) Exam Results Vital Signs Date Time Temp Pulse Resp B/P (MAP) Pulse Ox O2 Delivery O2 Flow Rate FiO2 11/17/17 15:28 100 40 11/17/17 14:00 109 11/17/17 12:00 99.1 30 123/73 (90) 11/17/17 07:00 Room Air 11/16/17 07:00 2.00 Intake and Output 11/17/17 11/17/17 11/18/17 08:00 16:00 00:00 Intake Total 1284 ml Output Total 800 ml Balance 484 ml (Nahun Prabhakar) Physical Examination General: Pt seated on Diprivan with trach in place. VSS. Eyes: Pupils equal 3mm bilaterally reactive bilaterally. Sclera anicteric. Resp: CTA bilaterally Heart: Irregular no murmurs. Abd: Soft positive bs Skin: No cyanosis or erythema. Incision clean and dry without signs of infection. Muscle: Left dense hemiparesis/plegia. Not moving extremities spontaneously. Neuro: Pt sedated on Diprivan. Pupils 3mm bilaterally reactive bilaterally. Not following simple commands. Not verbalizing. Not posturing. (Nahun Prabhakar) Lab, Micro, Other Results Last Impressions Chest X-Ray 11/17/17 0000 Signed Impressions: Service Date/Time: November 15:00 - CONCLUSION: Lungs are grossly clear. Tracheostomy tube and nasogastric tube are both in good position. Karri Box MD Upper Extremity Ultrasound 11/15/17 0000 Signed Impressions: Service Date/Time: Wednesday, November 15, 2017 09:47 - CONCLUSION: No evidence of right arm DVT. Thyroid mass. Further evaluation with thyroid sonography suggested Finn Meza MD Head CT 11/15/17 0000 Signed Impressions: Service Date/Time: Wednesday, November 15, 2017 05:08 - CONCLUSION: 1. Stable postsurgical features with interval removal of a right subdural drain. 2. Evolving intraparenchymal hemorrhages with stable 5 mm right to left subfalcine shift. 3. Stable subarachnoid and intraventricular hemorrhage. 4. No intercurrent hemorrhage or hydrocephalus. Bienvenido Snell MD Abdomen X-Ray 11/10/17 0000 Signed Impressions: Service Date/Time: October 17:15 - CONCLUSION: The side port of the gastric tube is at the level of the diaphragm and probably has not crossed into the stomach. This needs to be advanced at least 2 cm. Johnathon Jones MD Carotid Artery Ultrasound 11/07/17 0000 Signed Impressions: Service Date/Time: Tuesday, November 07, 2017 21:21 - CONCLUSION: No evidence of flow-limiting carotid stenosis. Finn Meza MD Multiplanar Reconstruction 11/06/17 0000 Signed Impressions: Service Date/Time: Monday, November 06, 2017 20:06 - CONCLUSION: Reconstructions again demonstrate the right frontal acute hemorrhage. Please see noncontrast head CT report for further description. Finn Molina MD (Nahun Prabhakar) Medical Decision Making Impression and Plan A: 82 y/o FM with 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 s/p right craniotomy for ICH evacuation on 11/08/17. Follow up CT head stable P: Continue with Neuro checks. Continue with critical care. Continue with blood pressure control Continue with current care. Rehab efforts. Pt was trached today and reportedly consents for peg soon. (Nahun Prabhakar) Attending Statement The exam, history, and the medical decision-making described in the above note were completed with the assistance of the mid-level provider. I reviewed and agree with the findings presented. I attest that I had a [id number] encounter with the patient on the same day, and personally performed and documented my assessment and findings in the medical record. (Gerhard Hernandez MD) Nahun Prabhakar Nov 17, 2017 17:03 Gerhard Hernandez MD Nov 18, 2017 07:54
[2017-11-17] MEDS: CHLORHEXIDINE 0.12% (ORAL KIT) 15 ML CUP MT SCH (20:00)
[2017-11-18] VITALS (18 sets, daily range): BP systolic 125–132; BP diastolic 56–68; PULSE 76–112; RESP 22–31; TEMP 98.2–99.9; O2SAT 99–100
[2017-11-18] MEDS: DILTIAZEM HCL 60 MG TAB PO SCH ×4 (00:11→17:18)
[2017-11-18] MEDS: PROPOFOL 1000 MG/100 ML INJ 100 ML IV PRN ×2 (05:49→06:30)
[2017-11-18] MEDS: CHLORHEXIDINE 0.12% (ORAL KIT) 15 ML CUP MT SCH ×2 (08:00→20:50)
[2017-11-18] MEDS: DOCUSATE SODIUM 50 MG/SENNA 8.6 MG TAB PO SCH ×2 (09:00→20:50)
[2017-11-18] MEDS: SODIUM CHLORIDE 0.9% FLUSH 10 ML FLUSH IV FLUSH SCH ×2 (09:00→20:50)
[2017-11-18] MEDS: AMIODARONE 200 MG TAB PO SCH (09:21)
[2017-11-18] MEDS: MORPHINE SULFATE 4 MG/ML INJ IV PUSH PRN (09:22)
[2017-11-18] MEDS: ENOXAPARIN SODIUM 40 MG/0.4 ML SYRINGE SQ SCH (09:22)
[2017-11-18] MEDS: DIGOXIN 0.125 MG TAB PO SCH (09:22)
[2017-11-18] MEDS: levETIRAcetam 500 MG/5 ML UDC NG SCH ×2 (09:22→20:49)
[2017-11-18] MEDS: FAMOTIDINE 20 MG/2 ML VIAL IV PUSH SCH ×2 (09:22→20:49)
--- NOTE | 2017-11-18 09:50 | HHI.NSPN ---
(Nahun Prabhakar) History Chief Complaint: Headache. Large right ICH. (Nahun Prabhakar) Interval History This is an 82-year-old female patient with a history of atrial fibrillation on Eliquis. [place] began to slur her words and developed weakness. She was then brought to [facility] by ambulance where she underwent evaluation and, because of abnormal CT neurosurgery consult was placed. No other history is available at the present time. 11/07: Pt lethargic but opens her eyes to voice. She does answer some questions when asked. Her son at the bedside states she was talking on the cell phone earlier. She complains of right sided headaches. 11/09: Pt s/p right frontoparietal craniotomy for intracerebral hemorrhage evacuation on 11/08. She opens eyes to voice, but is lethargic. Denies headache. Follows commands. Left dense hemiparesis/plegia. 11/10: Pt opens eyes to voice but prefers them closed. She denies headache. No n/v. She has dense left hemiparesis/plegia with neglect. 11/11: Pt lethargic but does open eyes slightly to voice. Pupils 3mm bilaterally. She follows some simple commands on right side. Left dense hemiparesis. 11/12: Pt lethargic. She opens eyes slightly to voice with persistence. No verbalizing. Pupils 3mm bilaterally reactive bilaterally. Left dense hemiparesis. 11/13: Pt lethargic. Not opening eyes to voice or pain. Not verbalizing. Pupils 3mm bilaterally reactive bilaterally. 11/14: Pt lethargic. She opens eyes slightly to pain. Not verbalizing. Pupils 3mm bilaterally reactive bilaterally. Not following commands. 11/15: Pt lethargic but opens eyes to voice this am. Not verbalizing. Pupils 3mm bilaterally reactive bilaterally. Not following commands. 11/16: Pt lethargic but opens eyes to pain not voice today. She is not verbalizing. Not following commands. Pupils 3mm bilaterally reactive bilaterally. 11/17: Pt had trach today. On Diprivan. Not opening eyes. Pupils 3mm bilaterally, reactive bilaterally. Not following commands. 11/18: Pt opening eyes slightly to pain. Not following commands. Trach in place on Vent. (Nahun Prabhakar) System Review Comments Not able to obtain given clinical condition. (Nahun Prabhakar) Exam Results Vital Signs Date Time Temp Pulse Resp B/P (MAP) Pulse Ox O2 Delivery O2 Flow Rate FiO2 11/18/17 08:00 40 11/18/17 08:00 98.9 108 25 125/57 (79) 100 11/18/17 07:00 Mechanical Ventilator Trach Collar 11/16/17 07:00 2.00 Intake and Output 11/18/17 11/18/17 11/18/17 07:59 15:59 23:59 Intake Total 915 ml Output Total 550 ml Balance 365 ml (Nahun Prabhakar) Physical Examination General: Pt seated on Diprivan with trach in place. VSS. Eyes: Pupils equal 3mm bilaterally reactive bilaterally. Sclera anicteric. Resp: CTA bilaterally. trach in place. On vent pressure controlled. Rate 16. FiO2 35%. Heart: Irregular no murmurs. Abd: Soft positive bs Skin: No cyanosis or erythema. Incision clean and dry without signs of infection. Muscle: Left dense hemiparesis/plegia. Not moving extremities spontaneously. Neuro: Pt sedated on Diprivan. Opens eyes slightly to pain. Pupils 3mm bilaterally reactive bilaterally. Not following simple commands. Not verbalizing. Not posturing. (Nahun Prabhakar) Lab, Micro, Other Results Last Impressions Chest X-Ray 11/17/17 0000 Signed Impressions: Service Date/Time: November 15:00 - CONCLUSION: Lungs are grossly clear. Tracheostomy tube and nasogastric tube are both in good position. Karri Box MD Upper Extremity Ultrasound 11/15/17 0000 Signed Impressions: Service Date/Time: Wednesday, November 15, 2017 09:47 - CONCLUSION: No evidence of right arm DVT. Thyroid mass. Further evaluation with thyroid sonography suggested Finn Meza MD Head CT 11/15/17 0000 Signed Impressions: Service Date/Time: Wednesday, November 15, 2017 05:08 - CONCLUSION: 1. Stable postsurgical features with interval removal of a right subdural drain. 2. Evolving intraparenchymal hemorrhages with stable 5 mm right to left subfalcine shift. 3. Stable subarachnoid and intraventricular hemorrhage. 4. No intercurrent hemorrhage or hydrocephalus. Bienvenido Snell MD Abdomen X-Ray 11/10/17 0000 Signed Impressions: Service Date/Time: October 17:15 - CONCLUSION: The side port of the gastric tube is at the level of the diaphragm and probably has not crossed into the stomach. This needs to be advanced at least 2 cm. Johnathon Jones MD Carotid Artery Ultrasound 11/07/17 0000 Signed Impressions: Service Date/Time: Tuesday, November 07, 2017 21:21 - CONCLUSION: No evidence of flow-limiting carotid stenosis. Finn Meza MD Multiplanar Reconstruction 11/06/17 0000 Signed Impressions: Service Date/Time: Monday, November 06, 2017 20:06 - CONCLUSION: Reconstructions again demonstrate the right frontal acute hemorrhage. Please see noncontrast head CT report for further description. Finn Molina MD Laboratory Tests Test 11/17/17 15:50 Blood Gas Puncture Site RT RADIAL Blood Gas Patient Temperature 98.6 Blood Gas HCO3 24 mmol/L Blood Gas Base Excess 1.0 mmol/L Blood Gas Oxygen Saturation 98 % Arterial Blood pH 7.53 Arterial Blood Partial Pressure CO2 29 mmHg Arterial Blood Partial Pressure O2 144 mmHg Arterial Blood Oxygen Content 16.7 Vol % Arterial Blood Carboxyhemoglobin 1.3 % Arterial Blood Methemoglobin 0.6 % Blood Gas Hemoglobin 12.0 G/DL Oxygen Delivery Device VENTILATOR Blood Gas Ventilator Setting PRVC/16/425/0.9/+5 Blood Gas Inspired Oxygen 40 % (Nahun Prabhakar) Medical Decision Making Impression and Plan A: 82 y/o FM with 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 s/p right craniotomy for ICH evacuation on 11/08/17. Follow up CT head stable P: Continue with Neuro checks. Continue with critical care. Continue with blood pressure control Continue with current care. Rehab efforts. Consents signed for peg. (Nahun Prabhakar) Attending Statement The exam, history, and the medical decision-making described in the above note were completed with the assistance of the mid-level provider. I reviewed and agree with the findings presented. I attest that I had a [id number] encounter with the patient on the same day, and personally performed and documented my assessment and findings in the medical record. (Gerhard Hernandez MD) Nahun Prabhakra Nov 18, 2017 09:50 Gerhard Hernandez MD Nov 18, 2017 18:48
--- NOTE | 2017-11-18 11:55 | PD.CONS ---
HPI History of Present Illness This is a 82 year old female with hx AF on eliquis who was brought as stroke alert. she was found to have large right frontal hemorrhage, is s/p crani. She subsequently had respiratory distress and was intubated. GI has been consulted for PEG tube placement. is seeking aggressive care and she is s/p trach. Tolerating TF. Hx obtained from EMR and pt's at bedside. (Shruthi Turk) PFSH Past Medical History AF Past Surgical History ABLATION STEFANIA (Shruthi Turk) Coded Allergies: Fish Containing Products (Verified Allergy, Unknown, 11/06/17) Sulfa (Sulfonamide Antibiotics) (Verified Allergy, Unknown, 11/06/17) iodine (Verified Allergy, Unknown, 11/06/17) Family History unk Social History rare etoh quit smoking 10 y ago no illicit drug use per (Shruthi Turk) Review of Systems noncontributory (Shruthi Turk) GI Exam Vitals I&O Vital Signs Date Time Temp Pulse Resp B/P (MAP) Pulse Ox O2 Delivery O2 Flow Rate FiO2 11/18/17 10:00 98 11/18/17 08:00 40 11/18/17 08:00 98.9 108 25 125/57 (79) 100 11/18/17 08:00 101 11/18/17 07:41 100 35 11/18/17 07:00 100 Mechanical Ventilator 40 Trach Collar 11/18/17 06:00 103 11/18/17 04:14 99 40 11/18/17 04:00 102 11/18/17 04:00 98.6 102 30 125/58 (80) 100 11/18/17 04:00 40 11/18/17 02:00 104 11/18/17 01:04 100 40 11/18/17 00:00 112 11/18/17 00:00 40 11/18/17 00:00 98.4 112 28 132/62 (85) 100 11/17/17 22:00 106 11/17/17 20:00 40 11/17/17 20:00 99.4 104 32 119/65 (83) 100 11/17/17 20:00 104 11/17/17 19:44 100 40 11/17/17 19:00 100 Mechanical Ventilator 40 Trach Collar 3/1/18 18:00 108 11/17/17 17:02 99 40 11/17/17 16:00 98.4 102 29 83/53 (63) 100 11/17/17 16:00 108 11/17/17 15:28 100 40 11/17/17 15:00 40 11/17/17 14:30 100 100 11/17/17 14:00 109 11/17/17 12:00 99.1 112 30 123/73 (90) 96 11/17/17 12:00 112 I/O 11/17/17 11/17/17 11/17/17 11/18/17 11/18/17 11/18/17 07:00 15:00 23:00 07:00 15:00 23:00 Intake Total 1284 ml 776 ml 915 ml Output Total 800 ml 750 ml 550 ml Balance 484 ml 26 ml 365 ml IV Total 100 ml Tube Feeding 684 ml 356 ml 715 ml Tube Irrigant 20 ml Other 600 ml 400 ml 100 ml Output Urine Total 800 ml 750 ml 550 ml # Bowel Movements 1 1 0 Imaging Last Impressions Chest X-Ray 11/17/17 0000 Signed Impressions: Service Date/Time: November 15:00 - CONCLUSION: Lungs are grossly clear. Tracheostomy tube and nasogastric tube are both in good position. Karri Box MD Upper Extremity Ultrasound 11/15/17 0000 Signed Impressions: Service Date/Time: Wednesday, November 15, 2017 09:47 - CONCLUSION: No evidence of right arm DVT. Thyroid mass. Further evaluation with thyroid sonography suggested Finn Meza MD Head CT 11/15/17 0000 Signed Impressions: Service Date/Time: Wednesday, November 15, 2017 05:08 - CONCLUSION: 1. Stable postsurgical features with interval removal of a right subdural drain. 2. Evolving intraparenchymal hemorrhages with stable 5 mm right to left subfalcine shift. 3. Stable subarachnoid and intraventricular hemorrhage. 4. No intercurrent hemorrhage or hydrocephalus. Bienvenido Snell MD Abdomen X-Ray 11/10/17 0000 Signed Impressions: Service Date/Time: October 17:15 - CONCLUSION: The side port of the gastric tube is at the level of the diaphragm and probably has not crossed into the stomach. This needs to be advanced at least 2 cm. Johnathon Jones MD Carotid Artery Ultrasound 11/07/17 0000 Signed Impressions: Service Date/Time: Tuesday, November 07, 2017 21:21 - CONCLUSION: No evidence of flow-limiting carotid stenosis. Finn Meza MD Multiplanar Reconstruction 11/06/17 0000 Signed Impressions: Service Date/Time: Monday, November 06, 2017 20:06 - CONCLUSION: Reconstructions again demonstrate the right frontal acute hemorrhage. Please see noncontrast head CT report for further description. Finn Molina MD Laboratory Test 11/17/17 15:50 Blood Gas Puncture Site RT RADIAL Blood Gas Patient Temperature 98.6 Blood Gas HCO3 24 mmol/L Blood Gas Base Excess 1.0 mmol/L Blood Gas Oxygen Saturation 98 % Arterial Blood pH 7.53 Arterial Blood Partial Pressure CO2 29 mmHg Arterial Blood Partial Pressure O2 144 mmHg Arterial Blood Oxygen Content 16.7 Vol % Arterial Blood Carboxyhemoglobin 1.3 % Arterial Blood Methemoglobin 0.6 % Blood Gas Hemoglobin 12.0 G/DL Oxygen Delivery Device VENTILATOR Blood Gas Ventilator Setting PRVC/16/425/0.9/+5 Blood Gas Inspired Oxygen 40 % Physical Examination HEENT: normocephalic;right cranium incision; no jaundice. CHEST: coarse CARDIAC: irr HR ABDOMEN: Soft, nondistended, nontender; no hepatosplenomegaly; bowel sounds are present in all four quadrants. EXTREMITIES: No clubbing, cyanosis,+ generalized edema. SKIN: Normal; no rash; no jaundice. [employer] RESOURCE SPECIALIST: unresponsive (Shruthi Turk) Assessment and Plan Plan ASSESSMENT - 82 yo lady brought as stroke alert, found to have frontal hemorrhage, s/p crani, s/p trach, GI consulted for PEG tube placement. d/w pts and he wants to proceed PLAN - EGD with PEG tube placement Tuesday - obtain consent - hold TF after midnight Tuesday night - 1g ancef consulting sales manager to OR - supportive care pt seen by myself and Dr Bartlett and this note is on his behalf (Shruthi Turk) Plan Patient was seen and examined, agree with above note, plan for PEG tube on Tuesday, antibiotic will be given before the procedure (America Byrne MD) Shruthi Turk Nov 18, 2017 11:55 America Byrne MD Nov 18, 2017 17:25
[2017-11-18] MEDS: MORPHINE SULFATE 2 MG/ML INJ IV PUSH PRN ×2 (12:03→15:59)
--- NOTE | 2017-11-18 16:19 | HHI.CCPN ---
Subjective Remarks/Hospital Course 11/06: 82-year-old female with a medical history of atrial fibrillation on anticoagulation with Eliquis who developed sudden onset left-sided weakness and altered mental status and slurred speech as she was walking out with her family after the [place] [employer]. She was rushed to the ER as a stroke alert. Head CT showed a large right frontal hemorrhage. She was also hypertensive on arrival and was started on nicardipine drip. She received Kcentra in the ER and was accepted for admission by critical care medicine. Neurosurgery was consulted and patient was evaluated in the ER by Dr. Lin. When I evaluated the patient in the ER she was laying in the ER stretcher not in any acute distress. She had a dense left-sided weakness and slurred speech however was easily arousable and following commands and knew where she was and couldn't give me her home address. History was obtained by discussion with patient's family as well as ER physician. 11/07: No events since admission. Patient resting comfortable, easily arousable, following commands. No CP, dyspnea, palpitations, BARNARD, N/V. Tmax 98.7, I/O 215/ 1750. On nicardipine at 2.5. 11/08: Patient underwent right frontoparietal craniotomy for intracerebral hemorrhage evacuation. No events intra-op. Tmax 99.4. Lethargic but arousable, follows some commands. Had episode of Afib with RVR last night and she was started on cardizem drip. now HR in the low 100's. 11/09: Patient did well overnight. She is slightly more awake, more responsive. Afebrile, T-max 98.4, ins and outs 1300/1900. at bedside. 11/10: No events over the night. T-max 98.4. Increased urine output up to 2150 cc over the last 24 hours. No significant improvement in mental status, patient remains lethargic but arousable following some commands. She remains in A. fib on Cardizem at 15 mg/h, heart rate ranging between low 100s-130s. 11/11: NG tube placed last evening and tube feeds together with free water started. Mental status is unchanged, patient remains lethargic but arousable. T-max of 99.6. Heart rate ranging anywhere from 90s to low 130s, on Cardizem at 15. Blood pressure is okay. 11/12: No events over the night. Patient remains on Cardizem drip at 15, amiodarone added back yesterday. Afebrile with a T-max of 99.4. Good urine output, 1575 mL's in the last 24 hours. Tolerating tube feeds. No significant improvement in mental status. Family present at bedside. 11/13: No events overnight. Mental status is unchanged. She remains lethargic but arousable, tolerating tube feeds. Loaded with dig, on Cardizem 15, heart rate better controlled. 11/14: no changes. Still encephalopathic. protecting airway. will order EEG to ensure no subclinical seizures. HR under better control. ROS - unobtainable due to patient's condition 11/15: no changes. opens eyes to voice. tolerating tube feeds. EEG pending, but prelim negative for overt ictal activity. ROS unobtainable. protecting airway. 11/16: Protects airway, breathing comfortably. No seizure activity. 11/17: Patient is not protecting airway. Gurgling breath sounds. Tachypneic. Wheezing bilateral upper chest. Myself and Dr. Quiñones discussed extensively with patient's . he wants everything done including trach and PEG. 11/18: Plan for PEG on tuesday. Continue weaning trials for vent. Opens eyes today. Objective Vital Signs Date Time Temp Pulse Resp B/P (MAP) Pulse Ox O2 Delivery O2 Flow Rate FiO2 11/18/17 14:00 97 11/18/17 12:00 40 11/18/17 12:00 98.9 26 131/57 (81) 100 11/18/17 07:00 Mechanical Ventilator Trach Collar 11/16/17 07:00 2.00 Intake and Output 11/18/17 11/18/17 11/19/17 08:00 16:00 00:00 Intake Total 915 ml Output Total 550 ml Balance 365 ml Result Diagram: 11/16/17 0310 11/16/17 0310 Imaging Last Impressions Multiplanar Reconstruction 11/06/17 0000 Signed Impressions: Service Date/Time: Monday, November 06, 2017 20:06 - CONCLUSION: Reconstructions again demonstrate the right frontal acute hemorrhage. Please see noncontrast head CT report for further description. Finn Molina MD Head CT 11/06/17 0000 Signed Impressions: Service Date/Time: Monday, November 06, 2017 20:05 - CONCLUSION: Right frontal lobe acute hemorrhage measuring approximately 8.7 x 5.2 cm causing 9 mm of [id number] midline shift. These findings were telephoned to Dr. Barnett at 8 : 13 PM on 11/06/2017. Finn Molina MD Chest X-Ray 11/06/17 0000 Signed Impressions: Service Date/Time: Monday, November 06, 2017 20:52 - CONCLUSION: Mild atelectasis at the left base. Otherwise, no acute finding is identified. Finn Molina MD Objective Remarks General - elderly lady, lethargic, not arousable, ill appearing HEENT - pupils equal, reactive, sclerae anicteric, no neck rigidity, supple, neck veins not distended, mucous membranes moist, + NGT. Trach site clean. CV - irregular, afib by tele. Chest -equal chest rise. Not protecting airway. No gag, very weak cough. Upper chest wheezing. Gurgling Abdomen - soft, nontender, not distended, no guarding. bs active. Skin - no rashes, no cyanosis Extremities -warm and well perfused, no edema, + peripheral pulses Neuro -Lethargic, pupils equal and reactive, left-sided facial droop, very weakly moves spontaneously right upper extremity, does not move left upper and lower extremities A/P Assessment and Plan ASSESSMENT Large right frontal intracerebral hemorrhage with mass effect s/p right frontoparietal craniotomy for intracerebral hemorrhage evacuation postop day 7 - mental status remains unchanged Acute encephalopathy secondary to above Lack of airway protection, respiratory failure Probable Aspiration Coagulopathy - in the setting of eliquis use, resolved Uncontrolled hypertension -resolved History of atrial fibrillation -better controlled today. Hypernatremia -slowly improving Hypokalemia and hypophosphatemia -improved PLAN: 1. Proceed with endotracheal intubation and mechanical ventilation as the patient clearly lacks airway protection, clinically aspirating 2. Proceed with tracheostomy after intubation. Consent obtained from a . Discussed with neurosurgery Dr. Hernandez 3. HOB elevation, maintain normothermia, avoid agitation. Neuro checks 4. On free water via NG tube. Discontinue as the sodium is 142 5. Propofol infusion for sedation and vent synchrony 6. Consult GI for PEG placement 7. Continue amiodarone. Daily digoxin. Cardizem p.o. 60 mg every 6 hours. Keep potassium above 4 and magnesium above 2 8. Received Kcentra. Last eliquis dose was on 11/06 in AM 9. Changed phenytoin to Keppra 11/13 to minimize sedative effect for seizure prophylaxis 10. EEG 11/15 due to moderate slowing consistent with an encephalopathic process but no epileptic activity. 11. Glycemic control if needed 12. GI/DVT prophylaxis. Started on Lovenox prophylaxis by neurosurgery. Hold for tracheostomy and PEG placement 13. Tube feeds at goal, hold for procedures 14. Evaluate for rehab placement after trach and PEG. Overall impression: Slightly more responsive. Will need rehab placement after PEG. Tay Quiñones MD Nov 18, 2017 16:19
[2017-11-19] VITALS (16 sets, daily range): BP systolic 120–156; BP diastolic 56–67; PULSE 92–110; RESP 27–35; TEMP 97.6–100.9; O2SAT 99–100
[2017-11-19] MEDS: DILTIAZEM HCL 60 MG TAB PO SCH ×5 (00:06→22:13)
[2017-11-19] MEDS: DOCUSATE SODIUM 50 MG/SENNA 8.6 MG TAB PO SCH ×2 (08:12→20:06)
[2017-11-19] MEDS: DIGOXIN 0.125 MG TAB PO SCH (08:12)
[2017-11-19] MEDS: MORPHINE SULFATE 2 MG/ML INJ IV PUSH PRN ×2 (08:12→20:20)
[2017-11-19] MEDS: levETIRAcetam 500 MG/5 ML UDC NG SCH ×2 (08:12→20:06)
[2017-11-19] MEDS: FAMOTIDINE 20 MG/2 ML VIAL IV PUSH SCH ×2 (08:12→20:06)
[2017-11-19] MEDS: AMIODARONE 200 MG TAB PO SCH (08:12)
[2017-11-19] MEDS: CHLORHEXIDINE 0.12% (ORAL KIT) 15 ML CUP MT SCH ×2 (08:13→20:07)
[2017-11-19] MEDS: SODIUM CHLORIDE 0.9% FLUSH 10 ML FLUSH IV FLUSH SCH ×2 (08:13→20:06)
[2017-11-19] MEDS: ENOXAPARIN SODIUM 40 MG/0.4 ML SYRINGE SQ SCH (10:29)
--- NOTE | 2017-11-19 11:31 | HHI.GIFU ---
Subjective Remarks Pt resting in bed. On vent. Tolerating TF at goal rate. + BM. (Shruthi Turk) Objective Vitals I&O Vital Signs Date Time Temp Pulse Resp B/P (MAP) Pulse Ox O2 Delivery O2 Flow Rate FiO2 11/19/17 10:00 109 11/19/17 08:41 35 18 08:41 100 35 11/19/17 08:41 100 Ventilator 35 11/19/17 08:00 109 11/19/17 08:00 35 11/19/17 08:00 99.6 109 35 139/60 (86) 100 11/19/17 07:00 100 Mechanical Ventilator 35 11/19/17 06:00 105 11/19/17 05:45 100 35 11/19/17 04:00 110 11/19/17 04:00 100.9 110 28 128/57 (80) 99 11/19/17 04:00 35 11/19/17 02:00 92 11/19/17 00:08 99 35 11/19/17 00:00 35 11/19/17 00:00 97.6 102 27 125/56 (79) 100 11/19/17 00:00 102 11/18/17 22:00 102 11/18/17 21:10 100 35 11/18/17 20:00 98 11/18/ 20:00 35 11/18/17 20:00 100 Mechanical Ventilator 35 Trach Collar 11/18/17 20:00 98.2 99 31 128/68 (88) 100 11/18/17 18:00 76 11/18/17 16:00 99.9 108 22 127/56 (79) 100 11/18/17 16:00 108 18 16:00 35 11/18/17 14:00 97 11/18/17 12:00 104 18 12:00 40 11/18/17 12:00 98.9 104 26 131/57 (81) 100 11/18/17 11:51 100 35 I/O 32/18 3/2/18 3/18 3/18 3//18 18 07:00 15:00 23:00 07:00 15:00 23:00 Intake Total 915 ml 805 ml 1216 ml Output Total 550 ml 651 ml 675 ml Balance 365 ml 154 ml 541 ml IV Total 100 ml Tube Feeding 715 ml 655 ml 616 ml Other 100 ml 150 ml 600 ml Output Urine Total 550 ml 650 ml 675 ml Stool Total 1 ml # Bowel Movements 0 1 Laboratory Laboratory Tests Test 11/06/17 19:58 11/06/17 20:30 11/06/17 22:30 11/07/17 05:19 Bedside Hemoglobin 12.9 G/DL Bedside Hematocrit 38.0 % Differential Total Cells Counted 100 Neutrophils % (Manual) 32 % Lymphocytes % 59 % Monocytes % 7 % Eosinophils % 2 % Neutrophils # (Manual) 3.0 TH/MM3 Platelet Estimate NORMAL Platelet Morphology Comment NORMAL Red Cell Morphology Comment NORMAL Fibrinogen 346 mg/dL Bedside Sodium 138 MMOL/L Bedside Potassium 3.6 MMOL/L Bedside Chloride 104 MMOL/L Bedside Blood Urea Nitrogen 13 MG/DL Bedside Creatinine 0.6 MG/DL Bedside Glucose 128 MG/DL Total Creatine Kinase 68 U/L Troponin I LESS THAN 0.02 NG/ML Urine Color YELLOW Urine Turbidity CLEAR Urine pH 6.0 Urine Specific [place] 1.009 Urine Protein NEG mg/dL Urine Glucose (UA) NEG mg/dL Urine Ketones NEG mg/dL Urine Occult Blood NEG Urine Nitrite NEG Urine Bilirubin NEG Urine Urobilinogen LESS THAN 2.0 MG/DL Urine Leukocyte Esterase NEG Urine Squamous Epithelial Cells 1 /hpf Urine Hyaline Casts 1 /lpf Nasal Screen MRSA (PCR) MRSA NOT DETECTED Prothrombin Time 11.2 SEC Prothromb Time International Ratio 1.1 RATIO Activated Partial Thromboplast Time 24.1 SEC Test 11/09/17 00:25 11/11/17 04:15 11/15/17 03:33 11/16/17 03:10 Phenytoin (Dilantin) Level 14.6 MCG/ML Neutrophils (%) (Auto) 81.5 % Lymphocytes (%) (Auto) 10.8 % Monocytes (%) (Auto) 7.7 % Eosinophils (%) (Auto) 0.0 % Basophils (%) (Auto) 0.0 % Neutrophils # (Auto) 11.5 TH/MM3 Lymphocytes # (Auto) 1.5 TH/MM3 Monocytes # (Auto) 1.1 TH/MM3 Eosinophils # (Auto) 0.0 TH/MM3 Basophils # (Auto) 0.0 TH/MM3 CBC Comment DIFF FINAL Differential Comment Serum Osmolality 326 MOSM/KG Blood Urea Nitrogen 12 MG/DL 15 MG/DL 17 MG/DL Creatinine 0.62 MG/DL 0.41 MG/DL 0.48 MG/DL Random Glucose 140 MG/DL 148 MG/DL 165 MG/DL Total Protein 6.7 GM/DL Albumin 3.0 GM/DL Calcium Level 8.7 MG/DL 8.1 MG/DL 8.2 MG/DL Phosphorus Level 2.6 MG/DL 2.5 MG/DL Magnesium Level 2.1 MG/DL 2.0 MG/DL Alkaline Phosphatase 79 U/L Aspartate Amino Transf (AST/SGOT) 30 U/L Alanine Aminotransferase (ALT/SGPT) 33 U/L Total Bilirubin 0.9 MG/DL Sodium Level 156 MEQ/L 144 MEQ/L 142 MEQ/L Potassium Level 3.4 MEQ/L 4.2 MEQ/L 4.2 MEQ/L Chloride Level 119 MEQ/L 112 MEQ/L 109 MEQ/L Carbon Dioxide Level 30.2 MEQ/L 25.4 MEQ/L 25.3 MEQ/L White Blood Count 15.6 TH/MM3 Red Blood Count 3.40 MIL/MM3 Hemoglobin 10.5 GM/DL Hematocrit 31.9 % Mean Corpuscular Volume 93.7 FL Mean Corpuscular Hemoglobin 31.0 PG Mean Corpuscular Hemoglobin Concent 33.1 % Red Cell Distribution Width 14.0 % Platelet Count 230 TH/MM3 Mean Platelet Volume 9.2 FL Anion Gap 8 MEQ/L Estimat Glomerular Filtration Rate 124 ML/MIN Digoxin Level 0.9 NG/ML Test 11/17/17 15:50 Blood Gas Puncture Site RT RADIAL Blood Gas Patient Temperature 98.6 Blood Gas HCO3 24 mmol/L Blood Gas Base Excess 1.0 mmol/L Blood Gas Oxygen Saturation 98 % Arterial Blood pH 7.53 Arterial Blood Partial Pressure CO2 29 mmHg Arterial Blood Partial Pressure O2 144 mmHg Arterial Blood Oxygen Content 16.7 Vol % Arterial Blood Carboxyhemoglobin 1.3 % Arterial Blood Methemoglobin 0.6 % Blood Gas Hemoglobin 12.0 G/DL Oxygen Delivery Device VENTILATOR Blood Gas Ventilator Setting [facility]/16/425/0.9/+5 Blood Gas Inspired Oxygen 40 % Imaging Last Impressions Chest X-Ray 11/17/17 0000 Signed Impressions: Service Date/Time: November 15:00 - CONCLUSION: Lungs are grossly clear. Tracheostomy tube and nasogastric tube are both in good position. Karri Box MD Upper Extremity Ultrasound 11/15/17 0000 Signed Impressions: Service Date/Time: Wednesday, November 15, 2017 09:47 - CONCLUSION: No evidence of right arm DVT. Thyroid mass. Further evaluation with thyroid sonography suggested Finn Meza MD Head CT 11/15/17 0000 Signed Impressions: Service Date/Time: Wednesday, November 15, 2017 05:08 - CONCLUSION: 1. Stable postsurgical features with interval removal of a right subdural drain. 2. Evolving intraparenchymal hemorrhages with stable 5 mm right to left subfalcine shift. 3. Stable subarachnoid and intraventricular hemorrhage. 4. No intercurrent hemorrhage or hydrocephalus. Bienvenido Snell MD Abdomen X-Ray 11/10/17 0000 Signed Impressions: Service Date/Time: October 17:15 - CONCLUSION: The side port of the gastric tube is at the level of the diaphragm and probably has not crossed into the stomach. This needs to be advanced at least 2 cm. Johnathon Jones MD Carotid Artery Ultrasound 11/07/17 0000 Signed Impressions: Service Date/Time: Tuesday, November 07, 2017 21:21 - CONCLUSION: No evidence of flow-limiting carotid stenosis. Finn Meza MD Multiplanar Reconstruction 11/06/17 0000 Signed Impressions: Service Date/Time: Monday, November 06, 2017 20:06 - CONCLUSION: Reconstructions again demonstrate the right frontal acute hemorrhage. Please see noncontrast head CT report for further description. Finn Molina MD Physical Exam HEENT: normocephalic;right cranium incision; no jaundice. CHEST: coarse CARDIAC: irr HR ABDOMEN: Soft, nondistended, nontender; no hepatosplenomegaly; bowel sounds are present in all four quadrants. EXTREMITIES: No clubbing, cyanosis,mild BUE edema SKIN: Normal; no rash; no jaundice. RESEARCH PROGRAM INTERN: unresponsive (Srhuthi Turk) Assessment and Plan Plan ASSESSMENT - 82 yo lady brought as stroke alert, found to have frontal hemorrhage, s/p crani, s/p trach, GI consulted for PEG tube placement. d/w pts and he wants to proceed 11/19/17 tolerating TF. + BM. weaning trials underway per CCM PLAN - EGD with PEG tube placement Tuesday - hold TF after midnight Tuesday night - 1g ancef application performance engineer to OR - supportive care pt seen by myself and Dr Childs and this note is on his behalf (Shruthi Truk) Physician Comments Seen and examined with MEDIA ANALYTICS MANAGER< egd/peg on tuesday. Continue TF for now. (Drew Childs MD) Shruthi Turk Nov 19, 2017 11:31 Drew Childs MD Nov 20, 2017 16:19
--- NOTE | 2017-11-19 13:04 | HHI.NSPN ---
(Sadie Deluca) Note Status Status: Progress Note (Sadie Deluca) Interval History Interval History This is an 82-year-old female patient with a history of atrial fibrillation on Eliquis. [place] to slur her words and developed weakness. She was then brought to [facility] by ambulance where she underwent evaluation and, because of abnormal CT neurosurgery consult was placed. No other history is available at the present time. 11/07: Pt lethargic but opens her eyes to voice. She does answer some questions when asked. Her son at the bedside states she was talking on the cell phone earlier. She complains of right sided headaches. 11/09: Pt s/p right frontoparietal craniotomy for intracerebral hemorrhage evacuation on 11/08. She opens eyes to voice, but is lethargic. Denies headache. Follows commands. Left dense hemiparesis/plegia. 11/10: Pt opens eyes to voice but prefers them closed. She denies headache. No n/v. She has dense left hemiparesis/plegia with neglect. 11/11: Pt lethargic but does open eyes slightly to voice. Pupils 3mm bilaterally. She follows some simple commands on right side. Left dense hemiparesis. 11/12: Pt lethargic. She opens eyes slightly to voice with persistence. No verbalizing. Pupils 3mm bilaterally reactive bilaterally. Left dense hemiparesis. 11/13: Pt lethargic. Not opening eyes to voice or pain. Not verbalizing. Pupils 3mm bilaterally reactive bilaterally. 11/14: Pt lethargic. She opens eyes slightly to pain. Not verbalizing. Pupils 3mm bilaterally reactive bilaterally. Not following commands. 11/15: Pt lethargic but opens eyes to voice this am. Not verbalizing. Pupils 3mm bilaterally reactive bilaterally. Not following commands. 11/16: Pt lethargic but opens eyes to pain not voice today. She is not verbalizing. Not following commands. Pupils 3mm bilaterally reactive bilaterally. 11/17: Pt had trach today. On Diprivan. Not opening eyes. Pupils 3mm bilaterally, reactive bilaterally. Not following commands. 3/2: Pt opening eyes slightly to pain. Not following commands. Trach in place on Vent. 11/19: in room, reports opening eyes. she has previous purposeful movement right arm trying to reach and he reports moving right leg placing it off the bed. (Sadie Deluca) Labs, Micro, & Vital Signs Results Date Time Temp Pulse Resp B/P (MAP) Pulse Ox O2 Delivery O2 Flow Rate FiO2 11/19/17 12:14 100 35 11/19/17 10:00 109 11/19/17 08:41 35 11/19/17 08:41 100 35 11/19/17 08:41 100 Ventilator 35 11/19/17 08:00 109 11/19/17 08:00 35 11/19/17 08:00 99.6 109 35 139/60 (86) 100 11/19/17 07:00 100 Mechanical Ventilator 35 11/19/17 06:00 105 11/19/17 05:45 100 35 11/19/17 04:00 110 11/19/17 04:00 100.9 110 28 128/57 (80) 99 11/19/17 04:00 35 11/19/17 02:00 92 11/19/17 00:08 99 35 11/19/17 00:00 35 11/19/17 00:00 97.6 102 27 125/56 (79) 100 11/19/17 00:00 102 11/18/17 22:00 102 11/18/17 21:10 100 35 11/18/17 20:00 98 11/18/17 20:00 35 11/18/17 20:00 100 Mechanical Ventilator 35 Trach Collar 11/18/17 20:00 98.2 99 31 128/68 (88) 100 11/18/17 18:00 76 11/18/17 16:00 99.9 108 22 127/56 (79) 100 11/18/17 16:00 108 11/18/17 16:00 35 11/18/17 14:00 97 Constitutional Vital Signs Date Time Temp Pulse Resp B/P (MAP) Pulse Ox O2 Delivery O2 Flow Rate FiO2 11/19/17 12:14 100 35 11/19/17 10:00 109 11/19/17 08:41 35 3//18 08:41 100 35 3//18 08:41 100 Ventilator 35 3//18 08:00 109 3/18 08:00 35 3//18 08:00 99.6 109 35 139/60 (86) 100 3/18 07:00 100 Mechanical Ventilator 35 3/18 06:00 105 3//18 05:45 100 35 3/18 04:00 110 3//18 04:00 100.9 110 28 128/57 (80) 99 3/18 04:00 35 3//18 02:00 92 3/18 00:08 99 35 3/18 00:00 35 3/18 00:00 97.6 102 27 125/56 (79) 100 318 00:00 102 3/18 22:00 102 /18 21:10 100 35 3//18 20:00 98 3//18 20:00 35 3//18 20:00 100 Mechanical Ventilator 35 Trach Collar 11/18/17 20:00 98.2 99 31 128/68 (88) 100 3/18 18:00 76 3//18 16:00 99.9 108 22 127/56 (79) 100 18 16:00 108 /18 16:00 35 18 14:00 97 (Sadie Deluca) Review of Systems ROS Limitations: Clinical Condition (Sadie Deluca) Physical Exam General: Pt off sedative drips Eyes: Pupils equal. Sclera anicteric. Resp: CTA bilaterally. Heart: NSR no murmurs Abd: Soft positive bs but diminished. Skin. scalp incision is healing well. Muscle: Not following for muscle testing. Pt had slight withdrawal right side to pain. Left hemiparesis. Neuro: Pupils equal 3mm bilaterally with slight reaction bilaterally. Slightly opening eyes to pain. Not following commands. Neck: tracheostomy NGT feeds in place (Sadie Deluca) Medications Current Medications Current Medications Medications (Trade) Dose Ordered Sig/Mary [place] Route PRN Reason Start Time Stop Time Status Last Admin Dose Admin Sodium Chloride (NS Flush) 2 ml UNSCH PRN IV FLUSH FLUSH AFTER USING IV ACCESS 11/06/17 21:30 Sodium Chloride (NS Flush) 2 ml BID IV FLUSH 11/07/17 09:00 11/19/17 08:13 Famotidine (Pepcid Inj) 20 mg Q12HR IV PUSH 11/07/17 09:00 11/19/17 08:12 Ondansetron HCl (Zofran Inj) 4 mg Q6H PRN IV PUSH NAUSEA OR VOMITING 11/06/17 22:00 11/07/17 15:10 Albuterol/ Ipratropium (Duoneb Neb) 1 ampule Q4HR NEB PRN INH WHEEZING 11/07/17 00:00 Miscellaneous Information 1 Q361D XX 11/06/17 21:30 Senna/Docusate Sodium (Cindy-Colace) 1 tab BID PO 11/07/17 09:00 11/19/17 08:12 Magnesium Hydroxide (Milk Of Magnesia Liq) 30 ml Q12H PRN PO Mild constipation 11/06/17 21:30 Sennosides (Senokot) 17.2 mg Q12H PRN PO Moderate constipation 11/06/17 21:30 Bisacodyl (Dulcolax Supp) 10 mg DAILY PRN RECTAL SEVERE CONSITIPATION 11/06/17 21:30 Lactulose (Lactulose Liq) 30 ml DAILY PRN PO SEVERE CONSITIPATION 11/06/17 21:30 11/11/17 07:59 Al Hydrox/Mg Hydrox/Simethicone (Mag-Al Plus Susp Liq) 30 ml Q6H PRN PO DYSPEPSIA 11/08/17 11:30 Promethazine HCl (Phenergan Inj) 25 mg Q4H PRN IM NAUSEA OR VOMITING 11/08/17 11:30 Calcium Gluconate 1 gm/Sodium Chloride 110 ml @ 110 mls/hr UNSCH PRN IV SEE LABEL COMMENTS 11/08/17 11:30 Labetalol HCl (Trandate Inj) 10 mg Q1H PRN IV PUSH SYS BP GREATER THAN 170 MMHG 11/08/17 11:30 11/10/17 16:17 Acetaminophen (Tylenol) 650 mg Q4H PRN PO TEMPERATURE > 101.5 F 11/08/17 11:30 11/11/17 16:53 Potassium Chloride 100 ml @ 50 mls/hr Q2H PRN IV For Potassium 2.8 - 3.2 mEq/L 11/08/17 14:30 Potassium Chloride 100 ml @ 50 mls/hr Q2H PRN IV For Potassium 2.8 - 3.2 mEq/L 11/08/17 14:30 11/10/17 08:37 Potassium Bicarb/ Potassium Chloride (K-Lyte Cl Eff) 50 meq UNSCH PRN PO For Potassium 3.3 - 3.5 mEq/L 11/08/17 14:30 Potassium Chloride 100 ml @ 25 mls/hr UNSCH PRN IV For Potassium 3.3 - 3.5 mEq/L 11/08/17 14:30 Potassium Chloride 100 ml @ 50 mls/hr Q2H PRN IV For Potassium 3.3 - 3.5 mEq/L 11/08/17 14:30 11/11/17 08:00 Magnesium Sulfate 4 gm/Sodium Chloride 100 ml @ 50 mls/hr UNSCH PRN IV For Magnesium 0.9 - 1.1 mg/dL 11/08/17 14:30 Magnesium Oxide (Mag-Ox) 800 mg UNSCH PRN PO For Magnesium 1.2 - 1.6 mg/dL 11/08/17 14:30 Magnesium Sulfate 2 gm/Sodium Chloride 100 ml @ 50 mls/hr UNSCH PRN IV For Magnesium 1.2 - 1.6 mg/dL 11/08/17 14:30 Potassium Phosphate (K-Phos) 2,000 mg Q4H PRN PO For Phosphorus < 2.5 mg/dL 11/08/17 14:30 Sodium Phosphate 30 mmol/Sodium Chloride 250 ml @ 42 mls/hr UNSCH PRN IV For Phosphorus < 2.5 mg/dL 11/08/17 14:30 Potassium Phosphate (K-Phos) 2,000 mg UNSCH PRN PO/TUBE SEE LABEL COMMENTS 11/08/17 14:30 Potassium Phosphate 30 mmol/ Sodium Chloride 260 ml @ 42 mls/hr UNSCH PRN IV SEE LABEL COMMENTS 11/08/17 14:30 11/10/17 13:30 Amiodarone HCl (Cordarone) 200 mg DAILY PO 11/11/17 09:00 11/19/17 08:12 Enoxaparin Sodium (Lovenox Inj) 40 mg Q24H SQ 11/11/17 10:00 Future Hold 11/19/17 10:29 Levetriacetam (Keppra Liq) 500 mg Q12HR NG 11/12/17 21:00 11/19/17 08:12 Digoxin (Lanoxin) 0.125 mg DAILY PO 11/13/17 09:00 11/19/17 08:12 Diltiazem HCl (Cardizem) 60 mg Q6HR PO 11/13/17 08:30 11/19/17 11:20 Chlorhexidine Gluconate (Peridex 0.12% Liq) 15 ml BID@08,20 MT 11/17/17 20:00 11/19/17 08:13 Propofol 100 ml @ 2.172 mls/ hr TITRATE PRN IV SEDATION 11/17/17 13:45 11/18/17 06:30 Morphine Sulfate (Morphine Inj) 2 mg Q3H PRN IV PUSH PAIN SCALE 1 TO 10 11/18/17 09:45 11/19/17 08:12 Cefazolin Sodium 1000 mg/Sodium Chloride 100 ml @ 200 mls/hr VETERINARY MANAGER IV 11/19/17 06:00 11/22/17 05:59 (Sadie Deluca) Medical Decision Making MDM Remarks 82 y/o FM with 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 s/p right craniotomy for ICH evacuation on 11/08/17. Follow up CT head stable (Sadie Deluca) Plan Plan Remarks continue with critical care wean sedation and vent as tolerated continue with close neuro checks discussed with in room, questions answered (Sadie Deluca) Attending Statement The exam, history, and the medical decision-making described in the above note were completed with the assistance of the mid-level provider. I reviewed and agree with the findings presented. I attest that I had a [id number] encounter with the patient on the same day, and personally performed and documented my assessment and findings in the medical record. (Edson Nolen MD) Sadie Deluca Nov 19, 2017 13:04 Edson Nolen MD Nov 21, 2017 12:51
[2017-11-20] VITALS (14 sets, daily range): BP systolic 126–153; BP diastolic 60–73; PULSE 87–120; RESP 28–33; TEMP 99.7–102.3; O2SAT 98–100
[2017-11-20] MEDS: DILTIAZEM HCL 60 MG TAB PO SCH ×3 (04:06→17:44)
[2017-11-20] MEDS: SODIUM CHLORIDE 0.9% FLUSH 10 ML FLUSH IV FLUSH SCH ×2 (09:26→20:52)
[2017-11-20] MEDS: DIGOXIN 0.125 MG TAB PO SCH (09:26)
[2017-11-20] MEDS: FAMOTIDINE 20 MG/2 ML VIAL IV PUSH SCH ×2 (09:26→20:51)
[2017-11-20] MEDS: CHLORHEXIDINE 0.12% (ORAL KIT) 15 ML CUP MT SCH ×2 (09:26→20:52)
[2017-11-20] MEDS: AMIODARONE 200 MG TAB PO SCH (09:26)
[2017-11-20] MEDS: levETIRAcetam 500 MG/5 ML UDC NG SCH ×2 (09:26→20:51)
[2017-11-20] MEDS: ENOXAPARIN SODIUM 40 MG/0.4 ML SYRINGE SQ SCH (09:27)
[2017-11-20] MEDS: DOCUSATE SODIUM 50 MG/SENNA 8.6 MG TAB PO SCH ×2 (09:27→20:51)
--- NOTE | 2017-11-20 11:16 | HHI.GIFU ---
Subjective Remarks Resting in the bed eyes closed No response to verbal communication Trach and ventilator still present Mild abdominal bloating, feedings tolerated at 65 cc an hour (Serina Palacios) Objective Vitals I&O Vital Signs Date Time Temp Pulse Resp B/P (MAP) Pulse Ox O2 Delivery O2 Flow Rate FiO2 11/20/17 08:17 99 35 11/20/17 08:17 98 Ventilator 35 11/20/17 08:17 35 11/20/17 08:00 102.3 105 32 136/73 (94) 100 11/20/17 08:00 35 11/20/17 07:00 100 Mechanical Ventilator 35 11/20/17 06:00 87 11/20/17 04:22 99 35 11/20/17 04:00 100.3 104 31 153/64 (93) 100 11/20/17 04:00 104 11/20/17 04:00 35 11/20/17 02:00 98 11/20/17 01:38 99 35 11/20/17 00:00 94 11/20/17 00:00 99.9 94 28 140/65 (90) 99 11/20/17 00:00 35 11/19/17 22:00 100 11/19/17 20:00 102 11/19/17 20:00 99.8 102 34 156/67 (96) 100 11/19/17 20:00 35 11/19/17 19:30 100 35 11/19/17 19:00 100 Mechanical Ventilator 35 11/19/17 16:37 99 35 11/19/17 16:00 35 11/19/17 16:00 98.5 93 29 120/60 (80) 100 11/19/17 12:14 100 35 11/19/17 12:00 35 11/19/17 12:00 99.8 105 29 134/63 (86) 100 I/O 11/19/17 11/19/17 11/19/17 11/20/17 11/20/17 11/20/17 06:59 14:59 22:59 06:59 14:59 22:59 Intake Total 1216 ml 1446 ml 1446 ml Output Total 675 ml 800 ml 550 ml Balance 541 ml 646 ml 896 ml Tube Feeding 616 ml 746 ml 646 ml Tube Irrigant 200 ml Other 600 ml 700 ml 600 ml Output Urine Total 675 ml 800 ml 550 ml # Bowel Movements 1 2 0 Imaging Last Impressions Chest X-Ray 11/17/17 0000 Signed Impressions: Service Date/Time: November 15:00 - CONCLUSION: Lungs are grossly clear. Tracheostomy tube and nasogastric tube are both in good position. Karri Box MD Upper Extremity Ultrasound 11/15/17 0000 Signed Impressions: Service Date/Time: Wednesday, November 15, 2017 09:47 - CONCLUSION: No evidence of right arm DVT. Thyroid mass. Further evaluation with thyroid sonography suggested Finn Meza MD Head CT 11/15/17 0000 Signed Impressions: Service Date/Time: Wednesday, November 15, 2017 05:08 - CONCLUSION: 1. Stable postsurgical features with interval removal of a right subdural drain. 2. Evolving intraparenchymal hemorrhages with stable 5 mm right to left subfalcine shift. 3. Stable subarachnoid and intraventricular hemorrhage. 4. No intercurrent hemorrhage or hydrocephalus. Beinvenido Snell MD Abdomen X-Ray 11/10/17 0000 Signed Impressions: Service Date/Time: October 17:15 - CONCLUSION: The side port of the gastric tube is at the level of the diaphragm and probably has not crossed into the stomach. This needs to be advanced at least 2 cm. Johnathon Jones MD Carotid Artery Ultrasound 11/07/17 0000 Signed Impressions: Service Date/Time: Tuesday, November 07, 2017 21:21 - CONCLUSION: No evidence of flow-limiting carotid stenosis. Finn Meza MD Multiplanar Reconstruction 11/06/17 0000 Signed Impressions: Service Date/Time: Monday, November 06, 2017 20:06 - CONCLUSION: Reconstructions again demonstrate the right frontal acute hemorrhage. Please see noncontrast head CT report for further description. Finn Molina MD Physical Exam HEENT: normocephalic;right cranium incision open to air clean dry and intact; no jaundice. Eyes closed CHEST: No obvious wheezing and coarse rhonchi CARDIAC: irr HR ABDOMEN: Mild bloating, no hepatosplenomegaly; bowel sounds are present in all four quadrants. EXTREMITIES: No clubbing, cyanosis,mild BUE edema improved SKIN: Pale thin turgor no rash; no jaundice. VACUUM FORMING MACHINE OPERATOR: No obvious response to verbal stimuli (Serina Palacios) Assessment and Plan Plan ASSESSMENT/ History - 82 yo lady brought as stroke alert, found to have frontal hemorrhage, s/p crani, s/p trach, GI consulted for PEG tube placement. d/w pts and he wants to proceed 11/19/17 tolerating TF. + BM. weaning trials underway per CCM 11/20/17, No family present, Trach and ventilator continue, positive bloating, Feedings [place] 65cc/hr. tolerating PLAN - EGD with PEG tube placement Tuesday - hold TF after midnight Tuesday night - 1g ancef ad operations specialist to OR - supportive care - Monitor labs - Is notified GI if patient has any bleeding seen by myself and Dr Childs and this note is on his behalf (Serina Palacios) Physician Comments Seen and examined with FINAL ASSEMBLER BOAT, egd/peg tomorrow. Hold TF after midnight. Ancef ad operations specialist to GI. (Drew Childs MD) Serina Palacios Nov 20, 2017 11:16 Drew Childs MD Nov 20, 2017 16:20
--- NOTE | 2017-11-20 12:21 | HHI.CCPN ---
Subjective Remarks/Hospital Course 11/06: 82-year-old female with a medical history of atrial fibrillation on anticoagulation with Eliquis who developed sudden onset left-sided weakness and altered mental status and slurred speech as she was walking out with her family after the [place]. She was rushed to the ER as a stroke alert. Head CT showed a large right frontal hemorrhage. She was also hypertensive on arrival and was started on nicardipine drip. She received Kcentra in the ER and was accepted for admission by critical care medicine. Neurosurgery was consulted and patient was evaluated in the ER by Dr. Lin. When I evaluated the patient in the ER she was laying in the ER stretcher not in any acute distress. She had a dense left-sided weakness and slurred speech however was easily arousable and following commands and knew where she was and couldn't give me her home address. History was obtained by discussion with patient's family as well as ER physician. 11/07: No events since admission. Patient resting comfortable, easily arousable, following commands. No CP, dyspnea, palpitations, BARNARD, N/V. Tmax 98.7, I/O 215/ 1750. On nicardipine at 2.5. 11/08: Patient underwent right frontoparietal craniotomy for intracerebral hemorrhage evacuation. No events intra-op. Tmax 99.4. Lethargic but arousable, follows some commands. Had episode of Afib with RVR last night and she was started on cardizem drip. now HR in the low 100's. 11/09: Patient did well overnight. She is slightly more awake, more responsive. Afebrile, T-max 98.4, ins and outs 1300/1900. at bedside. 11/10: No events over the night. T-max 98.4. Increased urine output up to 2150 cc over the last 24 hours. No significant improvement in mental status, patient remains lethargic but arousable following some commands. She remains in A. fib on Cardizem at 15 mg/h, heart rate ranging between low 100s-130s. 11/11: NG tube placed last evening and tube feeds together with free water started. Mental status is unchanged, patient remains lethargic but arousable. T-max of 99.6. Heart rate ranging anywhere from 90s to low 130s, on Cardizem at 15. Blood pressure is okay. 11/12: No events over the night. Patient remains on Cardizem drip at 15, amiodarone added back yesterday. Afebrile with a T-max of 99.4. Good urine output, 1575 mL's in the last 24 hours. Tolerating tube feeds. No significant improvement in mental status. Family present at bedside. 11/13: No events overnight. Mental status is unchanged. She remains lethargic but arousable, tolerating tube feeds. Loaded with dig, on Cardizem 15, heart rate better controlled. 11/14: no changes. Still encephalopathic. protecting airway. will order EEG to ensure no subclinical seizures. HR under better control. ROS - unobtainable due to patient's condition 11/15: no changes. opens eyes to voice. tolerating tube feeds. EEG pending, but prelim negative for overt ictal activity. ROS unobtainable. protecting airway. 11/16: Protects airway, breathing comfortably. No seizure activity. 11/17: Patient is not protecting airway. Gurgling breath sounds. Tachypneic. Wheezing bilateral upper chest. Myself and Dr. Quiñones discussed extensively with patient's . he wants everything done including trach and PEG. 11/18: Plan for PEG on tuesday. Continue weaning trials for vent. Opens eyes today. 11/20: Remains on CPAP 10/5 slightly tachypneic. No improvement in mental status. PEG tube planned for tomorrow. Attempt TP up to 2 hours Objective Vital Signs Date Time Temp Pulse Resp B/P (MAP) Pulse Ox O2 Delivery O2 Flow Rate FiO2 11/20/17 08:17 99 35 11/20/17 08:17 Ventilator 11/20/17 08:00 102.3 105 32 136/73 (94) 11/16/17 07:00 2.00 Intake and Output 11/20/17 11/20/17 11/21/17 08:00 16:00 00:00 Intake Total 1446 ml Output Total 550 ml Balance 896 ml Result Diagram: 11/16/17 0310 11/16/17 0310 Imaging Last Impressions Multiplanar Reconstruction 11/06/17 0000 Signed Impressions: Service Date/Time: Monday, November 06, 2017 20:06 - CONCLUSION: Reconstructions again demonstrate the right frontal acute hemorrhage. Please see noncontrast head CT report for further description. Finn Molina MD Head CT 11/06/17 0000 Signed Impressions: Service Date/Time: Monday, November 06, 2017 20:05 - CONCLUSION: Right frontal lobe acute hemorrhage measuring approximately 8.7 x 5.2 cm causing 9 mm of [id number] midline shift. These findings were telephoned to Dr. Barnett at 8 : 13 PM on 11/06/2017. Finn Molina MD Chest X-Ray 11/06/17 0000 Signed Impressions: Service Date/Time: Monday, November 06, 2017 20:52 - CONCLUSION: Mild atelectasis at the left base. Otherwise, no acute finding is identified. Finn Molina MD Objective Remarks General - elderly lady, lethargic, not arousable, ill appearing HEENT - pupils equal, reactive, sclerae anicteric, no neck rigidity, supple, neck veins not distended, mucous membranes moist, + NGT. Trach site clean. CV - irregular, afib by tele. Chest -equal chest rise. Chest clear to auscultation Abdomen - soft, nontender, not distended, no guarding. bs active. Skin - no rashes, no cyanosis Extremities -warm and well perfused, no edema, + peripheral pulses Neuro -Lethargic, pupils equal and reactive, left-sided facial droop, weakly moves spontaneously right upper extremity, localizes to pian, does not move left upper and lower extremities A/P Assessment and Plan ASSESSMENT Large right frontal intracerebral hemorrhage with mass effect s/p right frontoparietal craniotomy for intracerebral hemorrhage evacuation Acute encephalopathy secondary to above Lack of airway protection, respiratory failure, status post tracheostomy on 2017 Coagulopathy - in the setting of eliquis use, resolved Uncontrolled hypertension -resolved History of atrial fibrillation -better controlled today. Hypernatremia -slowly improving Hypokalemia and hypophosphatemia -improved PLAN: 1. Status post tracheostomy tolerating CPAP attempt TP up to 2 hours 2. PEG 11/21/17 3. HOB elevation, maintain normothermia, avoid agitation. Neuro checks 4. On free water via NG tube. 5. Propofol infusion as needed for sedation and vent synchrony. Daily sedation hold 6. Monitor heart rate blood pressure 7. Continue amiodarone. Daily digoxin. Cardizem p.o. 60 mg every 6 hours. Keep potassium above 4 and magnesium above 2 8. Received Kcentra. Last eliquis dose was on 11/06 in AM 9. Changed phenytoin to Keppra 11/13 to minimize sedative effect for seizure prophylaxis 10. EEG 11/15 due to moderate slowing consistent with an encephalopathic process but no epileptic activity. 11. Glycemic control if needed 12. GI/DVT prophylaxis. Started on Lovenox prophylaxis by neurosurgery. Hold for PEG placement 13. Tube feeds at goal, hold for procedures 14. Evaluate for rehab placement after trach (done) and PEG. Overall impression: Will need rehab placement after PEG. Sanjay Briseno MD Nov 20, 2017 12:21
--- NOTE | 2017-11-20 13:13 | HHI.NSPN ---
(Sadie Deluca) Note Status Status: Progress Note (Sadie Deluca) Interval History Interval History This is an 82-year-old female patient with a history of atrial fibrillation on Eliquis. [place] to slur her words and developed weakness. She was then brought to [facility] by ambulance where she underwent evaluation and, because of abnormal CT neurosurgery consult was placed. No other history is available at the present time. 11/07: Pt lethargic but opens her eyes to voice. She does answer some questions when asked. Her son at the bedside states she was talking on the cell phone earlier. She complains of right sided headaches. 11/09: Pt s/p right frontoparietal craniotomy for intracerebral hemorrhage evacuation on 11/08. She opens eyes to voice, but is lethargic. Denies headache. Follows commands. Left dense hemiparesis/plegia. 11/10: Pt opens eyes to voice but prefers them closed. She denies headache. No n/v. She has dense left hemiparesis/plegia with neglect. 11/11: Pt lethargic but does open eyes slightly to voice. Pupils 3mm bilaterally. She follows some simple commands on right side. Left dense hemiparesis. 11/12: Pt lethargic. She opens eyes slightly to voice with persistence. No verbalizing. Pupils 3mm bilaterally reactive bilaterally. Left dense hemiparesis. 11/13: Pt lethargic. Not opening eyes to voice or pain. Not verbalizing. Pupils 3mm bilaterally reactive bilaterally. 11/14: Pt lethargic. She opens eyes slightly to pain. Not verbalizing. Pupils 3mm bilaterally reactive bilaterally. Not following commands. 11/15: Pt lethargic but opens eyes to voice this am. Not verbalizing. Pupils 3mm bilaterally reactive bilaterally. Not following commands. 11/16: Pt lethargic but opens eyes to pain not voice today. She is not verbalizing. Not following commands. Pupils 3mm bilaterally reactive bilaterally. 11/17: Pt had trach today. On Diprivan. Not opening eyes. Pupils 3mm bilaterally, reactive bilaterally. Not following commands. 3: Pt opening eyes slightly to pain. Not following commands. Trach in place on Vent. 11/19: in room, reports opening eyes. she has previous purposeful movement right arm trying to reach and he reports moving right leg placing it off the bed. 11/20: on CPAP, no overall changes to neuro checks overnight (Sadie Deluca) Labs, Micro, & Vital Signs Results Date Time Temp Pulse Resp B/P (MAP) Pulse Ox O2 Delivery O2 Flow Rate FiO2 11/20/17 08:17 99 35 11/20/17 08:17 98 Ventilator 35 11/20/17 08:17 35 11/20/17 08:00 102.3 105 32 136/73 (94) 100 11/20/17 08:00 35 11/20/17 07:00 100 Mechanical Ventilator 35 11/20/17 06:00 87 11/20/17 04:22 99 35 11/20/17 04:00 100.3 104 31 153/64 (93) 100 11/20/17 04:00 104 11/20/17 04:00 35 11/20/17 02:00 98 11/20/17 01:38 99 35 11/20/17 00:00 94 11/20/17 00:00 99.9 94 28 140/65 (90) 99 11/20/17 00:00 35 11/19/17 22:00 100 11/19/17 20:00 102 11/19/17 20:00 99.8 102 34 156/67 (96) 100 11/19/17 20:00 35 11/19/17 19:30 100 35 11/19/17 19:00 100 Mechanical Ventilator 35 11/19/17 16:37 99 35 11/19/17 16:00 35 11/19/17 16:00 98.5 93 29 120/60 (80) 100 Constitutional Vital Signs Date Time Temp Pulse Resp B/P (MAP) Pulse Ox O2 Delivery O2 Flow Rate FiO2 11/20/17 08:17 99 35 11/20/17 08:17 98 Ventilator 35 11/20/17 08:17 35 11/20/17 08:00 102.3 105 32 136/73 (94) 100 11/20/17 08:00 35 11/20/17 07:00 100 Mechanical Ventilator 35 11/20/17 06:00 87 11/20/17 04:22 99 35 11/20/17 04:00 100.3 104 31 153/64 (93) 100 11/20/17 04:00 104 11/20/17 04:00 35 11/20/17 02:00 98 11/20/17 01:38 99 35 11/20/17 00:00 94 11/20/17 00:00 99.9 94 28 140/65 (90) 99 11/20/17 00:00 35 11/19/17 22:00 100 11/19/17 20:00 102 11/19/17 20:00 99.8 102 34 156/67 (96) 100 11/19/17 20:00 35 11/19/17 19:30 100 35 11/19/17 19:00 100 Mechanical Ventilator 35 11/19/17 16:37 99 35 11/19/17 16:00 35 11/19/17 16:00 98.5 93 29 120/60 (80) 100 (Sadie Deluca) Review of Systems ROS Limitations: Clinical Condition, Altered Mental Status (Sadie Deluca) Physical Exam General: Pt off sedative drips Eyes: Pupils equal. Sclera anicteric. Resp: CTA bilaterally. Heart: NSR no murmurs Abd: Soft positive bs but diminished. Skin. scalp incision is healing well. Muscle: Not following for muscle testing. Pt had slight withdrawal right side to pain. Left hemiparesis. Neuro: Pupils equal 3mm bilaterally with slight reaction bilaterally. Slightly opening eyes to pain. Not following commands. Neck: tracheostomy NGT feeds in place (Sadie Deluca) Medications Current Medications Current Medications Medications (Trade) Dose Ordered Sig/Mary Anne Route PRN Reason Start Time Stop Time Status Last Admin Dose Admin Sodium Chloride (NS Flush) 2 ml UNSCH PRN IV FLUSH FLUSH AFTER USING IV ACCESS 11/06/17 21:30 Sodium Chloride (NS Flush) 2 ml BID IV FLUSH 11/07/17 09:00 11/20/17 09:26 Famotidine (Pepcid Inj) 20 mg Q12HR IV PUSH 11/07/17 09:00 11/20/17 09:26 Ondansetron HCl (Zofran Inj) 4 mg Q6H PRN IV PUSH NAUSEA OR VOMITING 11/06/17 22:00 11/07/17 15:10 Albuterol/ Ipratropium (Duoneb Neb) 1 ampule Q4HR NEB PRN INH WHEEZING 11/07/17 00:00 Miscellaneous Information 1 Q361D XX 11/06/17 21:30 Senna/Docusate Sodium (Cindy-Colace) 1 tab BID PO 11/07/17 09:00 11/20/17 09:27 Magnesium Hydroxide (Milk Of Magnesia Liq) 30 ml Q12H PRN PO Mild constipation 11/06/17 21:30 Sennosides (Senokot) 17.2 mg Q12H PRN PO Moderate constipation 11/06/17 21:30 Bisacodyl (Dulcolax Supp) 10 mg DAILY PRN RECTAL SEVERE CONSITIPATION 11/06/17 21:30 Lactulose (Lactulose Liq) 30 ml DAILY PRN PO SEVERE CONSITIPATION 11/06/17 21:30 11/11/17 07:59 Al Hydrox/Mg Hydrox/Simethicone (Mag-Al Plus Susp Liq) 30 ml Q6H PRN PO DYSPEPSIA 11/08/17 11:30 Promethazine HCl (Phenergan Inj) 25 mg Q4H PRN IM NAUSEA OR VOMITING 11/08/17 11:30 Calcium Gluconate 1 gm/Sodium Chloride 110 ml @ 110 mls/hr UNSCH PRN IV SEE LABEL COMMENTS 11/08/17 11:30 Labetalol HCl (Trandate Inj) 10 mg Q1H PRN IV PUSH SYS BP GREATER THAN 170 MMHG 11/08/17 11:30 11/10/17 16:17 Acetaminophen (Tylenol) 650 mg Q4H PRN PO TEMPERATURE > 101.5 F 11/08/17 11:30 11/11/17 16:53 Potassium Chloride 100 ml @ 50 mls/hr Q2H PRN IV For Potassium 2.8 - 3.2 mEq/L 11/08/17 14:30 Potassium Chloride 100 ml @ 50 mls/hr Q2H PRN IV For Potassium 2.8 - 3.2 mEq/L 11/08/17 14:30 11/10/17 08:37 Potassium Bicarb/ Potassium Chloride (K-Lyte Cl Eff) 50 meq UNSCH PRN PO For Potassium 3.3 - 3.5 mEq/L 11/08/17 14:30 Potassium Chloride 100 ml @ 25 mls/hr UNSCH PRN IV For Potassium 3.3 - 3.5 mEq/L 11/08/17 14:30 Potassium Chloride 100 ml @ 50 mls/hr Q2H PRN IV For Potassium 3.3 - 3.5 mEq/L 11/08/17 14:30 11/11/17 08:00 Magnesium Sulfate 4 gm/Sodium Chloride 100 ml @ 50 mls/hr UNSCH PRN IV For Magnesium 0.9 - 1.1 mg/dL 11/08/17 14:30 Magnesium Oxide (Mag-Ox) 800 mg UNSCH PRN PO For Magnesium 1.2 - 1.6 mg/dL 11/08/17 14:30 Magnesium Sulfate 2 gm/Sodium Chloride 100 ml @ 50 mls/hr UNSCH PRN IV For Magnesium 1.2 - 1.6 mg/dL 11/08/17 14:30 Potassium Phosphate (K-Phos) 2,000 mg Q4H PRN PO For Phosphorus < 2.5 mg/dL 11/08/17 14:30 Sodium Phosphate 30 mmol/Sodium Chloride 250 ml @ 42 mls/hr UNSCH PRN IV For Phosphorus < 2.5 mg/dL 11/08/17 14:30 Potassium Phosphate (K-Phos) 2,000 mg UNSCH PRN PO/TUBE SEE LABEL COMMENTS 11/08/17 14:30 Potassium Phosphate 30 mmol/ Sodium Chloride 260 ml @ 42 mls/hr UNSCH PRN IV SEE LABEL COMMENTS 11/08/17 14:30 11/10/17 13:30 Amiodarone HCl (Cordarone) 200 mg DAILY PO 11/11/17 09:00 11/20/17 09:26 Enoxaparin Sodium (Lovenox Inj) 40 mg Q24H SQ 11/11/17 10:00 Future Hold 11/20/17 09:27 Levetriacetam (Keppra Liq) 500 mg Q12HR NG 11/12/17 21:00 11/20/17 09:26 Digoxin (Lanoxin) 0.125 mg DAILY PO 11/13/17 09:00 11/20/17 09:26 Diltiazem HCl (Cardizem) 60 mg Q6HR PO 11/13/17 08:30 11/20/17 11:15 Chlorhexidine Gluconate (Peridex 0.12% Liq) 15 ml BID@08,20 MT 11/17/17 20:00 11/20/17 09:26 Propofol 100 ml @ 2.172 mls/ hr TITRATE PRN IV SEDATION 11/17/17 13:45 11/18/17 06:30 Morphine Sulfate (Morphine Inj) 2 mg Q3H PRN IV PUSH PAIN SCALE 1 TO 10 11/18/17 09:45 11/19/17 20:20 Cefazolin Sodium 1000 mg/Sodium Chloride 100 ml @ 200 mls/hr [employer] SOFTWARE CONSULTANT IV 11/19/17 06:00 11/22/17 05:59 (Sadie Deluca) Medical Decision Making MDM Remarks 82 y/o FM with 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 s/p right craniotomy for ICH evacuation on 11/08/17. Follow up CT head stable (Sadie Deluca) Plan Plan Remarks continue with critical care, CPAP and vent weaning as tolerated continue with close neuro checks follow up neuro exam (Sadie Deluca) Attending Statement The exam, history, and the medical decision-making described in the above note were completed with the assistance of the mid-level provider. I reviewed and agree with the findings presented. I attest that I had a [id number] encounter with the patient on the same day, and personally performed and documented my assessment and findings in the medical record. (Edson Nolen MD) Sadie Deluca Nov 20, 2017 13:13 Edson Nolen MD Nov 21, 2017 13:03
[2017-11-20] MEDS: MORPHINE SULFATE 2 MG/ML INJ IV PUSH PRN (17:44)
--- NOTE | 2017-11-20 19:38 | HHI.CCPN ---
Subjective Remarks/Hospital Course Note for 11/19/17: 11/06: 82-year-old female with a medical history of atrial fibrillation on anticoagulation with Eliquis who developed sudden onset left-sided weakness and altered mental status and slurred speech as she was walking out with her family after the [place]. She was rushed to the ER as a stroke alert. Head CT showed a large right frontal hemorrhage. She was also hypertensive on arrival and was started on nicardipine drip. She received Kcentra in the ER and was accepted for admission by critical care medicine. Neurosurgery was consulted and patient was evaluated in the ER by Dr. Lin. When I evaluated the patient in the ER she was laying in the ER stretcher not in any acute distress. She had a dense left-sided weakness and slurred speech however was easily arousable and following commands and knew where she was and couldn't give me her home address. History was obtained by discussion with patient's family as well as ER physician. 11/07: No events since admission. Patient resting comfortable, easily arousable, following commands. No CP, dyspnea, palpitations, BARNARD, N/V. Tmax 98.7, I/O 215/ 1750. On nicardipine at 2.5. 11/08: Patient underwent right frontoparietal craniotomy for intracerebral hemorrhage evacuation. No events intra-op. Tmax 99.4. Lethargic but arousable, follows some commands. Had episode of Afib with RVR last night and she was started on cardizem drip. now HR in the low 100's. 11/09: Patient did well overnight. She is slightly more awake, more responsive. Afebrile, T-max 98.4, ins and outs 1300/1900. at bedside. 11/10: No events over the night. T-max 98.4. Increased urine output up to 2150 cc over the last 24 hours. No significant improvement in mental status, patient remains lethargic but arousable following some commands. She remains in A. fib on Cardizem at 15 mg/h, heart rate ranging between low 100s-130s. 11/11: NG tube placed last evening and tube feeds together with free water started. Mental status is unchanged, patient remains lethargic but arousable. T-max of 99.6. Heart rate ranging anywhere from 90s to low 130s, on Cardizem at 15. Blood pressure is okay. 11/12: No events over the night. Patient remains on Cardizem drip at 15, amiodarone added back yesterday. Afebrile with a T-max of 99.4. Good urine output, 1575 mL's in the last 24 hours. Tolerating tube feeds. No significant improvement in mental status. Family present at bedside. 11/13: No events overnight. Mental status is unchanged. She remains lethargic but arousable, tolerating tube feeds. Loaded with dig, on Cardizem 15, heart rate better controlled. 11/14: no changes. Still encephalopathic. protecting airway. will order EEG to ensure no subclinical seizures. HR under better control. ROS - unobtainable due to patient's condition 11/15: no changes. opens eyes to voice. tolerating tube feeds. EEG pending, but prelim negative for overt ictal activity. ROS unobtainable. protecting airway. 11/16: Protects airway, breathing comfortably. No seizure activity. 11/17: Patient is not protecting airway. Gurgling breath sounds. Tachypneic. Wheezing bilateral upper chest. Myself and Dr. Quiñones discussed extensively with patient's . he wants everything done including trach and PEG. 11/18: Plan for PEG on tuesday. Continue weaning trials for vent. Opens eyes today. 11/19: Appears to open eyes more frequently. PEG placement discussed again with . Probably won't participate with rehab, likely need LTAC or SNF disposition in 4-5 days. Objective Vital Signs Date Time Temp Pulse Resp B/P (MAP) Pulse Ox O2 Delivery O2 Flow Rate FiO2 11/20/17 16:00 99.7 103 32 138/63 (88) 100 11/20/17 16:00 35 11/20/17 08:17 Ventilator 11/16/17 07:00 2.00 Intake and Output 11/20/17 11/20/17 11/21/17 08:00 16:00 00:00 Intake Total 1446 ml 1446 ml Output Total 550 ml 900 ml Balance 896 ml 546 ml Result Diagram: 11/16/17 0310 11/16/17 0310 Imaging Last Impressions Multiplanar Reconstruction 11/06/17 0000 Signed Impressions: Service Date/Time: Monday, November 06, 2017 20:06 - CONCLUSION: Reconstructions again demonstrate the right frontal acute hemorrhage. Please see noncontrast head CT report for further description. Finn Molina MD Head CT 11/06/17 0000 Signed Impressions: Service Date/Time: Monday, November 06, 2017 20:05 - CONCLUSION: Right frontal lobe acute hemorrhage measuring approximately 8.7 x 5.2 cm causing 9 mm of [id number] midline shift. These findings were telephoned to Dr. Barnett at 8 : 13 PM on 11/06/2017. Finn Molina MD Chest X-Ray 11/06/17 0000 Signed Impressions: Service Date/Time: Monday, November 06, 2017 20:52 - CONCLUSION: Mild atelectasis at the left base. Otherwise, no acute finding is identified. Finn Molina MD Objective Remarks General - elderly lady, lethargic, not arousable, ill appearing HEENT - pupils equal, reactive, sclerae anicteric, no neck rigidity, supple, neck veins not distended, mucous membranes moist, + NGT. Trach site clean. CV - irregular, afib by tele. Chest -equal chest rise. Chest clear to auscultation, no adventitious sounds. Abdomen - soft, nontender, not distended, no guarding. bs active. Skin - no rashes, no cyanosis Extremities -warm and well perfused, no edema, + peripheral pulses Neuro -Lethargic, pupils equal and reactive, left-sided facial droop, weakly moves spontaneously right upper extremity, localizes right side to pain, does not move left upper and lower extremities A/P Assessment and Plan ASSESSMENT Large right frontal intracerebral hemorrhage with mass effect s/p right frontoparietal craniotomy for intracerebral hemorrhage evacuation Acute encephalopathy secondary to above Lack of airway protection, respiratory failure, status post tracheostomy on 2017 Coagulopathy - in the setting of eliquis use, resolved Uncontrolled hypertension -resolved History of atrial fibrillation -better controlled today. Hypernatremia -slowly improving Hypokalemia and hypophosphatemia -improved PLAN: 1. Status post tracheostomy tolerating CPAP attempt TP up to 2 hours 2. PEG 11/21/17 3. HOB elevation, maintain normothermia, avoid agitation. Neuro checks 4. On free water via NG tube. 5. Propofol infusion as needed for sedation and vent synchrony. Daily sedation hold 6. Monitor heart rate blood pressure 7. Continue amiodarone. Daily digoxin. Cardizem p.o. 60 mg every 6 hours. Keep potassium above 4 and magnesium above 2 8. Received Kcentra. Last eliquis dose was on 11/06 in AM 9. Changed phenytoin to Keppra 11/13 to minimize sedative effect for seizure prophylaxis 10. EEG 11/15 due to moderate slowing consistent with an encephalopathic process but no epileptic activity. 11. Glycemic control if needed 12. GI/DVT prophylaxis. Started on Lovenox prophylaxis by neurosurgery. Hold for PEG placement 13. Tube feeds at goal, hold for procedures 14. Evaluate for rehab placement after trach (done) and PEG. Overall impression: Will need rehab or SNF placement after PEG. Tay Quiñones MD Nov 20, 2017 19:38
[2017-11-21] VITALS (19 sets, daily range): BP systolic 116–161; BP diastolic 65–84; PULSE 94–117; RESP 19–32; TEMP 98.2–99.1; O2SAT 99–100
[2017-11-21] MEDS: DILTIAZEM HCL 60 MG TAB PO SCH ×4 (00:37→17:33)
[2017-11-21 06:21] LABS: AUTOMATED NEUTROPHIL # 11.2 TH/MM3 (1.8-7.7); BASOPHIL # 0.1 TH/MM3 (0-0.2); BASOPHIL % 0.5 % (0.0-2.0); EOSINOPHIL # 0.1 TH/MM3 (0-0.4); EOSINOPHIL % 0.6 % (0.0-4.0); HEMATOCRIT 28.7 % (35.0-46.0); HEMOGLOBIN 9.5 GM/DL (11.6-15.3); LYMPH % 10.5 % (9.0-44.0); LYMPHOCYTE # 1.4 TH/MM3 (1.0-4.8); MEAN CELL VOLUME 94.7 FL (80.0-100.0); MEAN CORPUSCULAR HEMOGLOBIN 31.4 PG (27.0-34.0); MEAN CORPUSCULAR HGB CONC 33.2 % (32.0-36.0); MEAN PLATELET VOLUME 8.8 FL (7.0-11.0); MONO % 5.3 % (0.0-8.0); MONOCYTE # 0.7 TH/MM3 (0-0.9); NEUT % 83.1 % (16.0-70.0); PLATELET COUNT 476 TH/MM3 (150-450); RED BLOOD COUNT 3.03 MIL/MM3 (4.00-5.30); RED CELL DISTRIBUTION WIDTH 14.4 % (11.6-17.2); WHITE BLOOD COUNT 13.5 TH/MM3 (4.0-11.0)
--- NOTE | 2017-11-21 06:28 | RADRPT ---
EXAM DATE/TIME: 11/21/2017 05:06 [facility] COMPARISON: CHEST SINGLE AP, November 17, 2017, 15:00. INDICATIONS : Short of breath. MEDICAL HISTORY : Stroke. Cardiovascular disease. SURGICAL HISTORY : None. ENCOUNTER: Subsequent ACUITY: 1 week PAIN SCORE: 0/10 LOCATION: Bilateral chest FINDINGS: Portable AP view of the chest demonstrates a normal-sized cardiac silhouette. Tracheostomy and nasoga stric tube remain present. EKG lines overlie the patient. No pleural effusion, airspace consolidation , or pneumothorax is identified. The bones and soft tissues demonstrate no acute finding. CONCLUSION: No acute cardiopulmonary abnormality is identified. Finn Molina MD on November 21, 2017 at 6:25 Board Certified Radiologist. This report was verified electronically.
[2017-11-21 06:53] LABS: ALBUMIN 1.9 GM/DL (3.4-5.0); AST (GOT) 36 U/L (15-37); BICARBONATE 26.8 MEQ/L (21.0-32.0); BLOOD UREA NITROGEN 25 MG/DL (7-18); CALCIUM 8.8 MG/DL (8.5-10.1); CHLORIDE 111 MEQ/L (98-107); CREATININE 0.53 MG/DL (0.50-1.00); GLOMERULAR FILTRATION RATE 111 ML/MIN (>89); GLUCOSE,RANDOM 143 MG/DL (74-106); MAGNESIUM 2.4 MG/DL (1.5-2.5); SODIUM (NA) 148 MEQ/L (136-145)
[2017-11-21 06:57] LABS: ALKALINE PHOSPHATASE 108 U/L (45-117); ALT (GPT) 77 U/L (10-53); TOTAL BILIRUBIN ADULT 0.4 MG/DL (0.2-1.0); TOTAL PROTEIN 6.7 GM/DL (6.4-8.2)
[2017-11-21] MEDS: CHLORHEXIDINE 0.12% (ORAL KIT) 15 ML CUP MT SCH ×2 (08:00→20:03)
[2017-11-21] MEDS: DOCUSATE SODIUM 50 MG/SENNA 8.6 MG TAB PO SCH ×2 (08:53→20:19)
[2017-11-21] MEDS: FAMOTIDINE 20 MG/2 ML VIAL IV PUSH SCH ×2 (08:53→20:19)
[2017-11-21] MEDS: AMIODARONE 200 MG TAB PO SCH (08:53)
[2017-11-21] MEDS: DIGOXIN 0.125 MG TAB PO SCH (08:53)
[2017-11-21] MEDS: levETIRAcetam 500 MG/5 ML UDC NG SCH ×2 (08:53→20:19)
[2017-11-21] MEDS: SODIUM CHLORIDE 0.9% FLUSH 10 ML FLUSH IV FLUSH SCH ×2 (08:53→20:04)
--- NOTE | 2017-11-21 10:09 | HHI.CCPN ---
Subjective Remarks/Hospital Course Note for 11/19/17: 11/06: 82-year-old female with a medical history of atrial fibrillation on anticoagulation with Eliquis who developed sudden onset left-sided weakness and altered mental status and slurred speech as she was walking out with her family after the [place]. She was rushed to the ER as a stroke alert. Head CT showed a large right frontal hemorrhage. She was also hypertensive on arrival and was started on nicardipine drip. She received Kcentra in the ER and was accepted for admission by critical care medicine. Neurosurgery was consulted and patient was evaluated in the ER by Dr. Lin. When I evaluated the patient in the ER she was laying in the ER stretcher not in any acute distress. She had a dense left-sided weakness and slurred speech however was easily arousable and following commands and knew where she was and couldn't give me her home address. History was obtained by discussion with patient's family as well as ER physician. 11/07: No events since admission. Patient resting comfortable, easily arousable, following commands. No CP, dyspnea, palpitations, BARNARD, N/V. Tmax 98.7, I/O 215/ 1750. On nicardipine at 2.5. 11/08: Patient underwent right frontoparietal craniotomy for intracerebral hemorrhage evacuation. No events intra-op. Tmax 99.4. Lethargic but arousable, follows some commands. Had episode of Afib with RVR last night and she was started on cardizem drip. now HR in the low 100's. 11/09: Patient did well overnight. She is slightly more awake, more responsive. Afebrile, T-max 98.4, ins and outs 1300/1900. at bedside. 11/10: No events over the night. T-max 98.4. Increased urine output up to 2150 cc over the last 24 hours. No significant improvement in mental status, patient remains lethargic but arousable following some commands. She remains in A. fib on Cardizem at 15 mg/h, heart rate ranging between low 100s-130s. 11/11: NG tube placed last evening and tube feeds together with free water started. Mental status is unchanged, patient remains lethargic but arousable. T-max of 99.6. Heart rate ranging anywhere from 90s to low 130s, on Cardizem at 15. Blood pressure is okay. 11/12: No events over the night. Patient remains on Cardizem drip at 15, amiodarone added back yesterday. Afebrile with a T-max of 99.4. Good urine output, 1575 mL's in the last 24 hours. Tolerating tube feeds. No significant improvement in mental status. Family present at bedside. 11/13: No events overnight. Mental status is unchanged. She remains lethargic but arousable, tolerating tube feeds. Loaded with dig, on Cardizem 15, heart rate better controlled. 11/14: no changes. Still encephalopathic. protecting airway. will order EEG to ensure no subclinical seizures. HR under better control. ROS - unobtainable due to patient's condition 11/15: no changes. opens eyes to voice. tolerating tube feeds. EEG pending, but prelim negative for overt ictal activity. ROS unobtainable. protecting airway. 11/16: Protects airway, breathing comfortably. No seizure activity. 11/17: Patient is not protecting airway. Gurgling breath sounds. Tachypneic. Wheezing bilateral upper chest. Myself and Dr. Quiñones discussed extensively with patient's . he wants everything done including trach and PEG. 11/18: Plan for PEG on tuesday. Continue weaning trials for vent. Opens eyes today. 11/19: Appears to open eyes more frequently. PEG placement discussed again with . Probably won't participate with rehab, likely need LTAC or SNF disposition in 4-5 days. 11/20: Remains on CPAP / slightly tachypneic. No improvement in mental status. PEG tube planned for tomorrow. Attempt TP up to 2 hours 11/21: Remains from CPAP again slightly tachypneic plan for PEG today. Neuro status remains the same. LTAC/SNF eval after PEG Objective Vital Signs Date Time Temp Pulse Resp B/P (MAP) Pulse Ox O2 Delivery O2 Flow Rate FiO2 11/21/17 08:45 35 11/21/17 08:30 100 11/21/17 08:00 102 11/21/17 08:00 98.7 22 133/84 (100) 11/21/17 07:00 Mechanical Ventilator Intake and Output 11/21/17 11/21/17 11/22/17 08:00 16:00 00:00 Intake Total 577 ml Output Total 650 ml Balance -73 ml Result Diagram: 11/21/17 0552 11/21/17 0552 Imaging Last Impressions Multiplanar Reconstruction 11/06/17 0000 Signed Impressions: Service Date/Time: Monday, November 06, 2017 20:06 - CONCLUSION: Reconstructions again demonstrate the right frontal acute hemorrhage. Please see noncontrast head CT report for further description. Finn Molina MD Head CT 11/06/17 0000 Signed Impressions: Service Date/Time: Monday, November 06, 2017 20:05 - CONCLUSION: Right frontal lobe acute hemorrhage measuring approximately 8.7 x 5.2 cm causing 9 mm of [id number] midline shift. These findings were telephoned to Dr. Barnett at 8 : 13 PM on 11/06/2017. Finn Molina MD Chest X-Ray 11/06/17 0000 Signed Impressions: Service Date/Time: Monday, November 06, 2017 20:52 - CONCLUSION: Mild atelectasis at the left base. Otherwise, no acute finding is identified. Finn Molina MD Objective Remarks General - elderly lady, lethargic, not arousable, ill appearing HEENT - pupils equal, reactive, sclerae anicteric, no neck rigidity, supple, neck veins not distended, mucous membranes moist, + NGT. Trach site clean. CV - irregular, afib by tele. Chest -equal chest rise. Chest clear to auscultation, no adventitious sounds. Abdomen - soft, nontender, not distended, no guarding. bs active. Skin - no rashes, no cyanosis Extremities -warm and well perfused, no edema, + peripheral pulses Neuro -Lethargic, pupils equal and reactive, left-sided facial droop, weakly moves spontaneously right upper extremity, localizes right side to pain, does not move left upper and lower extremities A/P Assessment and Plan ASSESSMENT Large right frontal intracerebral hemorrhage with mass effect s/p right frontoparietal craniotomy for intracerebral hemorrhage evacuation Acute encephalopathy secondary to above Lack of airway protection, respiratory failure, status post tracheostomy on 2017 Coagulopathy - in the setting of eliquis use, resolved Uncontrolled hypertension -resolved History of atrial fibrillation -better controlled today. Hypernatremia -slowly improving Hypokalemia and hypophosphatemia -improved PLAN: 1. Status post tracheostomy 11/17/17, tolerating CPAP. Tolerated TP up to 2 hours , increase to 4-6 hours today 2. PEG planned for 11/21/17 3. HOB elevation, maintain normothermia, avoid agitation. Neuro checks 4. On free water via NG tube. 5. Propofol infusion as needed for sedation and vent synchrony. Daily sedation hold 6. Monitor heart rate blood pressure 7. Continue amiodarone. Daily digoxin. Cardizem p.o. 60 mg every 6 hours. Keep potassium above 4 and magnesium above 2 8. Received Kcentra. Last eliquis dose was on 11/06 in AM 9. Changed phenytoin to Keppra 11/13 to minimize sedative effect for seizure prophylaxis 10. EEG 11/15 due to moderate slowing consistent with an encephalopathic process but no epileptic activity. 11. Glycemic control 12. GI/DVT prophylaxis. Started on Lovenox prophylaxis by neurosurgery. Hold for PEG placement 13. Tube feeds at goal, hold for procedures 14. Evaluate for SNF/LTAC after trach (done) and PEG today. Overall impression: Will need rehab or SNF/LTAC placement after PEG. Level 2 Sanjay Briseno MD Nov 21, 2017 10:09
[2017-11-21] MEDS ORDERED: PHENYLEPH/NS 1000 MCG/10 ML SYR IV ONE (12:00)
[2017-11-21] MEDS ORDERED: ceFAZolin INJ 1,000 MG VIAL IV ONE (13:20)
--- NOTE | 2017-11-21 13:59 | GIPROC ---
[facility] [address] [facility]. [facility], [address] EGD WITH PEG PROCEDURE REPORT EXAM DATE: 11/21/2017 PATIENT NAME: Cynthia Sprague MR#: [id number] BIRTHDATE: 1935 ATTENDING: Alida Farooq MD ORDER #: [id number] MACHINE [employer] SPECIALIST: Krish Manuel and Annabella Shrestha STATUS: inpatient INDICATIONS: The patient is a 82 yr old female here for an EGD with PEG due to placement of PEG PROCEDURE PERFORMED: EGD with PEG placement MEDICATIONS: None and Per Anesthesia. TOPICAL ANESTHETIC: none CONSENT: The patient understands the risks and benefits of the procedure and understands that these risks include, but are not limited to: sedation, allergic reaction, infection, perforation and/or bleeding. Alternative means of evaluation and treatment include, among others: physical exam, x-rays, and/or surgical intervention. The patient elects to proceed with this endoscopic procedure. medical equipment was checked for proper function. Hand hygiene and appropriate measures for infection prevention was taken. After the risks, benefits and alternatives of the procedure were thoroughly explained, Informed consent was verified, confirmed and timeout was successfully executed by the treatment team. The patient was anesthetized with topical anesthesia and the Pentax [id number] endoscope was introduced through the mouth and advanced to the second portion of the duodenum. The instrument was slowly withdrawn as the mucosa was fully examined. The upper, middle, and distal third of the esophagus were carefully inspected and no abnormalities were noted. The z-line was well seen at the GEJ. The endoscope was pushed into the fundus which was normal including a retroflexed view. The antrum, first and second part of the duodenum were unremarkable. The stomach was then inflated with air, and by a combination of transillumination and manual palpation, the site for the gastrostomy tube placement was selected and marked on the anterior abdominal wall. The skin of the anterior abdomen was surgically prepped and draped with sterile towels. Utilizing strict sterile technique, the selected site was then anesthetized with 1% xylocaine by injection into the skin and subcutaneous tissue. A 1 cm incision was made through the skin and subcutaneous tissue, and the needle/cannula assembly was then passed through the abdominal wall and through the anterior wall of the stomach, maintaining visualization with the endoscope. A snare device previously placed through the instrument channel was then opened and placed around the cannula, the needle was removed, and the insertion wire was passed through the cannula and into the stomach lumen. The snare was then loosened from the cannula, and repositioned to snare the insertion wire. The snare was then pulled up to the endoscope distal tip, and the scope was then withdrawn bringing with it the snare and insertion wire. The insertion wire was then released from the snare, and then loop-attached to the Bard 20 Fr gastrostomy tube. Using the "pull technique", the G-tube was then pulled into place by traction on the insertion wire at the abdominal wall end. The G-tube insertion site was then cleansed once again, and the external bolster was placed over the tube to secure it to the abdominal wall. A sterile dressing was then applied, and the procedure terminated. no abnormalities The gastroscope was then slowly withdrawn and removed. ADVERSE EVENT: There were no complications. IMPRESSIONS: 1. The upper, middle, and distal third of the esophagus were carefully inspected and no abnormalities were noted. The z-line was well seen at the GEJ. The endoscope was pushed into the fundus which was normal including a retroflexed view. The antrum, first and second part of the duodenum were unremarkable. 2. PEG tube placed successfully. RECOMMENDATIONS: PEG recomendations: 1- NPO for 6 hours except for meds 2- Flush PEG tube every 6 hours with water and after each PEG feeding 3- May resume regular diet in the morning 4- May use Ensure or Boost etc. for PEG tube feeding REPEAT EXAM: procedure as needed Alida Farooq MD eSigned: Alida Farooq MD 11/21/2017 1:59 PM cc: PATIENT NAME: Cynthia Sprague MR#: [id number]
--- NOTE | 2017-11-21 23:32 | HHI.NSPN ---
History Chief Complaint: Headache. Large right ICH. Interval History 82-year-old female status post right craniotomy for intracranial hemorrhage. Exam Results Vital Signs Date Time Temp Pulse Resp B/P (MAP) Pulse Ox O2 Delivery O2 Flow Rate FiO2 11/21/17 22:00 114 11/21/17 20:00 99.1 24 148/65 (92) 100 11/21/17 20:00 35 11/21/17 19:00 T-Piece 11/21/17 16:10 6.00 Intake and Output 11/21/17 11/21/17 11/22/17 08:00 16:00 00:00 Intake Total 577 ml 100 ml 100 ml Output Total 650 ml 700 ml Balance -73 ml 100 ml -600 ml Physical Examination General: Pt off sedative drips Eyes: Pupils equal. Sclera anicteric. Resp: CTA bilaterally. Heart: NSR no murmurs Abd: Soft positive bs but diminished. NG tube Skin. scalp incision is healing well. Muscle: Not following for muscle testing. Pt had slight withdrawal right side to pain. Left hemiparesis. Neuro: Minimal eye opening to pain. Not following commands. Pupils mid range mildly reactive. Mild conjugate oculocephalic movements. Neck: tracheostomy Lab, Micro, Other Results Laboratory Tests Test 11/21/17 05:52 White Blood Count 13.5 TH/MM3 Red Blood Count 3.03 MIL/MM3 Hemoglobin 9.5 GM/DL Hematocrit 28.7 % Mean Corpuscular Volume 94.7 FL Mean Corpuscular Hemoglobin 31.4 PG Mean Corpuscular Hemoglobin Concent 33.2 % Red Cell Distribution Width 14.4 % Platelet Count 476 TH/MM3 Mean Platelet Volume 8.8 FL Neutrophils (%) (Auto) 83.1 % Lymphocytes (%) (Auto) 10.5 % Monocytes (%) (Auto) 5.3 % Eosinophils (%) (Auto) 0.6 % Basophils (%) (Auto) 0.5 % Neutrophils # (Auto) 11.2 TH/MM3 Lymphocytes # (Auto) 1.4 TH/MM3 Monocytes # (Auto) 0.7 TH/MM3 Eosinophils # (Auto) 0.1 TH/MM3 Basophils # (Auto) 0.1 TH/MM3 CBC Comment DIFF FINAL Differential Comment Blood Urea Nitrogen 25 MG/DL Creatinine 0.53 MG/DL Random Glucose 143 MG/DL Total Protein 6.7 GM/DL Albumin 1.9 GM/DL Calcium Level 8.8 MG/DL Magnesium Level 2.4 MG/DL Alkaline Phosphatase 108 U/L Aspartate Amino Transf (AST/SGOT) 36 U/L Alanine Aminotransferase (ALT/SGPT) 77 U/L Total Bilirubin 0.4 MG/DL Sodium Level 148 MEQ/L Potassium Level 4.4 MEQ/L Chloride Level 111 MEQ/L Carbon Dioxide Level 26.8 MEQ/L Anion Gap 10 MEQ/L Estimat Glomerular Filtration Rate 111 ML/MIN Medical Decision Making Impression and Plan Impression: No overall neurologic improvement following right craniotomy for intracranial hemorrhage. Continuing therapy. At this point she is not adequately responsive to benefit from inpatient rehabilitation. Discussed with the patient's in the room today and all questions answered. Continue tube feedings Sky Villareal MD Nov 21, 2017 23:32
[2017-11-22] VITALS (15 sets, daily range): BP systolic 98–150; BP diastolic 60–93; PULSE 84–119; RESP 21–31; TEMP 98.5–99.2; O2SAT 100
[2017-11-22 01:46] LABS: HEMATOCRIT 30.1 % (35.0-46.0); HEMOGLOBIN 9.7 GM/DL (11.6-15.3)
[2017-11-22] MEDS: DILTIAZEM HCL 60 MG TAB PO SCH ×4 (06:14→17:46)
[2017-11-22] MEDS: FAMOTIDINE 20 MG/2 ML VIAL IV PUSH SCH ×2 (08:34→20:53)
[2017-11-22] MEDS: DIGOXIN 0.125 MG TAB PO SCH (08:34)
[2017-11-22] MEDS: levETIRAcetam 500 MG/5 ML UDC NG SCH ×2 (08:35→20:53)
[2017-11-22] MEDS: DOCUSATE SODIUM 50 MG/SENNA 8.6 MG TAB PO SCH ×2 (08:35→20:53)
[2017-11-22] MEDS: AMIODARONE 200 MG TAB PO SCH (08:35)
[2017-11-22] MEDS: CHLORHEXIDINE 0.12% (ORAL KIT) 15 ML CUP MT SCH ×2 (08:36→20:53)
[2017-11-22] MEDS: SODIUM CHLORIDE 0.9% FLUSH 10 ML FLUSH IV FLUSH SCH ×2 (08:36→20:53)
--- NOTE | 2017-11-22 11:59 | HHI.GIFU ---
Subjective Remarks Pt resting in bed. s/p PEG tube placement. at bedside. (Shruthi TurkP) Objective Vitals I&O Vital Signs Date Time Temp Pulse Resp B/P (MAP) Pulse Ox O2 Delivery O2 Flow Rate FiO2 11/22/17 10:00 108 11/22/17 08:22 100 35 11/22/17 08:00 98.6 110 31 102/60 (74) 100 11/22/17 08:00 35 11/22/17 08:00 110 11/22/17 07:00 Mechanical Ventilator 35 11/22/17 06:00 86 11/22/17 04:00 98.9 119 21 98/66 (77) 100 11/22/17 04:00 119 11/22/17 04:00 35 11/22/17 02:00 109 11/22/17 01:40 100 35 11/22/17 00:00 118 11/22/17 00:00 35 11/22/17 00:00 99.1 118 30 126/68 (87) 100 11/21/17 22:00 114 11/21/17 20:00 117 11/21/17 20:00 99.1 117 24 148/65 (92) 100 11/21/17 20:00 35 11/21/17 19:52 100 35 11/21/17 19:00 T-Piece 35 11/21/17 18:00 94 11/21/17 16:10 100 T-piece 6.00 35 11/21/17 16:00 98.2 112 29 146/66 (92) 100 11/21/17 16:00 35 11/21/17 16:00 112 11/21/17 15:44 100 35 11/21/17 15:00 35 11/21/17 14:00 116 11/21/17 13:26 35 11/21/17 12:00 98.8 110 32 135/67 (89) 100 11/21/17 12:00 110 11/21/17 12:00 35 I/O 11/21/17 11/21/17 11/21/17 11/22/17 11/22/17 11/22/17 07:00 15:00 23:00 07:00 15:00 23:00 Intake Total 577 ml 100 ml 100 ml 100 ml Output Total 650 ml 700 ml 650 ml Balance -73 ml 100 ml -600 ml -550 ml Tube Feeding 377 ml 0 ml Other 200 ml 100 ml 100 ml 100 ml Output Urine Total 650 ml 700 ml 650 ml # Bowel Movements 0 1 Laboratory Laboratory Tests Test 11/22/17 01:36 Hemoglobin 9.7 Hematocrit 30.1 Imaging Last Impressions Chest X-Ray 11/21/17 0600 Signed Impressions: Service Date/Time: Tuesday, November 21, 2017 05:06 - CONCLUSION: No acute cardiopulmonary abnormality is identified. Finn Molina MD Upper Extremity Ultrasound 11/15/17 0000 Signed Impressions: Service Date/Time: Wednesday, November 15, 2017 09:47 - CONCLUSION: No evidence of right arm DVT. Thyroid mass. Further evaluation with thyroid sonography suggested Finn Meza MD Head CT 11/15/17 0000 Signed Impressions: Service Date/Time: Wednesday, November 15, 2017 05:08 - CONCLUSION: 1. Stable postsurgical features with interval removal of a right subdural drain. 2. Evolving intraparenchymal hemorrhages with stable 5 mm right to left subfalcine shift. 3. Stable subarachnoid and intraventricular hemorrhage. 4. No intercurrent hemorrhage or hydrocephalus. Bienvenido Snell MD Abdomen X-Ray 11/10/17 0000 Signed Impressions: Service Date/Time: October 17:15 - CONCLUSION: The side port of the gastric tube is at the level of the diaphragm and probably has not crossed into the stomach. This needs to be advanced at least 2 cm. Johnathon Jones MD Carotid Artery Ultrasound 11/07/17 0000 Signed Impressions: Service Date/Time: Tuesday, November 07, 2017 21:21 - CONCLUSION: No evidence of flow-limiting carotid stenosis. Finn Meza MD Multiplanar Reconstruction 11/06/17 0000 Signed Impressions: Service Date/Time: Monday, November 06, 2017 20:06 - CONCLUSION: Reconstructions again demonstrate the right frontal acute hemorrhage. Please see noncontrast head CT report for further description. Finn Molina MD Physical Exam HEENT: normocephalic;right cranium incision CHEST: CTA CARDIAC: irr HR ABDOMEN: BS +, nondistended, PEG tube dressing D&I EXTREMITIES: No clubbing, cyanosis SKIN: no rash no jaundice [employer]: No obvious response to verbal stimuli (Shruthi Turk) Assessment and Plan Plan ASSESSMENT/ History - 82 yo lady brought as stroke alert, found to have frontal hemorrhage, s/p crani, s/p trach, GI consulted for PEG tube placement. d/w pts and he wants to proceed 11/19/17 tolerating TF. + BM. weaning trials underway per CCM 11/20/17, No family present, Trach and ventilator continue, positive bloating, Feedings Twocal 65cc/hr. tolerating 11/21/17 s/p EGD and PEG tube placement PLAN - restart TF - Monitor labs - supportive care - GI will sign off, please reconsult if needed seen by myself and Dr Farooq and this note is on his behalf (Shruthi Turk) Physician Comments As above, follow post PEG orders, please notify us if needed. (Alida Farooq MD) Shruthi Turk Nov 22, 2017 11:59 Alida Farooq MD Nov 22, 2017 12:18
--- NOTE | 2017-11-22 13:39 | HHI.NSPN ---
(Sadie Deluca) Note Status Status: Progress Note (Sadie Deluca) Interval History Interval History This is an 82-year-old female patient with a history of atrial fibrillation on Eliquis. [place] to slur her words and developed weakness. She was then brought to [facility] by ambulance where she underwent evaluation and, because of abnormal CT neurosurgery consult was placed. No other history is available at the present time. 11/07: Pt lethargic but opens her eyes to voice. She does answer some questions when asked. Her son at the bedside states she was talking on the cell phone earlier. She complains of right sided headaches. 11/09: Pt s/p right frontoparietal craniotomy for intracerebral hemorrhage evacuation on 11/08. She opens eyes to voice, but is lethargic. Denies headache. Follows commands. Left dense hemiparesis/plegia. 11/10: Pt opens eyes to voice but prefers them closed. She denies headache. No n/v. She has dense left hemiparesis/plegia with neglect. 11/11: Pt lethargic but does open eyes slightly to voice. Pupils 3mm bilaterally. She follows some simple commands on right side. Left dense hemiparesis. 11/12: Pt lethargic. She opens eyes slightly to voice with persistence. No verbalizing. Pupils 3mm bilaterally reactive bilaterally. Left dense hemiparesis. 11/13: Pt lethargic. Not opening eyes to voice or pain. Not verbalizing. Pupils 3mm bilaterally reactive bilaterally. 11/14: Pt lethargic. She opens eyes slightly to pain. Not verbalizing. Pupils 3mm bilaterally reactive bilaterally. Not following commands. 11/15: Pt lethargic but opens eyes to voice this am. Not verbalizing. Pupils 3mm bilaterally reactive bilaterally. Not following commands. 11/16: Pt lethargic but opens eyes to pain not voice today. She is not verbalizing. Not following commands. Pupils 3mm bilaterally reactive bilaterally. 11/17: Pt had trach today. On Diprivan. Not opening eyes. Pupils 3mm bilaterally, reactive bilaterally. Not following commands. 3: Pt opening eyes slightly to pain. Not following commands. Trach in place on Vent. 11/19: in room, reports opening eyes. she has previous purposeful movement right arm trying to reach and he reports moving right leg placing it off the bed. 11/20: on CPAP, no overall changes to neuro checks overnight 11/22: moves right side spontaneously, awaiting PEG placement. no acute neuro changes overnight (Sadie Deluca) Labs, Micro, & Vital Signs Results Date Time Temp Pulse Resp B/P (MAP) Pulse Ox O2 Delivery O2 Flow Rate FiO2 11/22/17 10:00 108 11/22/17 08:22 100 35 11/22/17 08:00 98.6 110 31 102/60 (74) 100 11/22/17 08:00 35 11/22/17 08:00 110 11/22/17 07:00 Mechanical Ventilator 35 11/22/17 06:00 86 11/22/17 04:00 98.9 119 21 98/66 (77) 100 11/22/17 04:00 119 11/22/17 04:00 35 11/22/17 02:00 109 11/22/17 01:40 100 35 11/22/17 00:00 118 11/22/17 00:00 35 11/22/17 00:00 99.1 118 30 126/68 (87) 100 11/21/17 22:00 114 11/21/17 20:00 117 11/21/17 20:00 99.1 117 24 148/65 (92) 100 11/21/17 20:00 35 11/21/17 19:52 100 35 11/21/17 19:00 T-Piece 35 11/21/17 18:00 94 11/21/17 16:10 100 T-piece 6.00 35 11/21/17 16:00 98.2 112 29 146/66 (92) 100 11/21/17 16:00 35 11/21/17 16:00 112 11/21/17 15:44 100 35 11/21/17 15:00 35 11/21/17 14:00 116 Constitutional Vital Signs Date Time Temp Pulse Resp B/P (MAP) Pulse Ox O2 Delivery O2 Flow Rate FiO2 11/22/17 10:00 108 11/22/17 08:22 100 35 11/22/17 08:00 98.6 110 31 102/60 (74) 100 11/22/17 08:00 35 11/22/17 08:00 110 11/22/17 07:00 Mechanical Ventilator 35 11/22/17 06:00 86 11/22/17 04:00 98.9 119 21 98/66 (77) 100 11/22/17 04:00 119 11/22/17 04:00 35 11/22/17 02:00 109 11/22/17 01:40 100 35 11/22/17 00:00 118 11/22/17 00:00 35 11/22/17 00:00 99.1 118 30 126/68 (87) 100 11/21/17 22:00 114 11/21/17 20:00 117 11/21/17 20:00 99.1 117 24 148/65 (92) 100 11/21/17 20:00 35 11/21/17 19:52 100 35 11/21/17 19:00 T-Piece 35 11/21/17 18:00 94 11/21/17 16:10 100 T-piece 6.00 35 11/21/17 16:00 98.2 112 29 146/66 (92) 100 11/21/17 16:00 35 11/21/17 16:00 112 11/21/17 15:44 100 35 11/21/17 15:00 35 11/21/17 14:00 116 (Sadie Deluca) Physical Exam General: Pt off sedative drips Eyes: Pupils equal. Sclera anicteric. Resp: CTA bilaterally. Heart: NSR no murmurs Abd: Soft positive bs but diminished. Skin. scalp incision is healing well. Muscle: Not following for muscle testing. moves spontaneously, right side. left hemiparesis. Neuro: Pupils equal 3mm bilaterally with slight reaction bilaterally. Slightly opening eyes to pain. Not following commands. Neck: tracheostomy NGT feeds in place (Sadie Deluca) Medications Current Medications Current Medications Medications (Trade) Dose Ordered Sig/Mary Anne Route PRN Reason Start Time Stop Time Status Last Admin Dose Admin Sodium Chloride (NS Flush) 2 ml UNSCH PRN IV FLUSH FLUSH AFTER USING IV ACCESS 11/06/17 21:30 Sodium Chloride (NS Flush) 2 ml BID IV FLUSH 11/07/17 09:00 11/22/17 08:36 Famotidine (Pepcid Inj) 20 mg Q12HR IV PUSH 11/07/17 09:00 11/22/17 08:34 Ondansetron HCl (Zofran Inj) 4 mg Q6H PRN IV PUSH NAUSEA OR VOMITING 11/06/17 22:00 11/07/17 15:10 Albuterol/ Ipratropium (Duoneb Neb) 1 ampule Q4HR NEB PRN INH WHEEZING 11/07/17 00:00 Miscellaneous Information 1 Q361D XX 11/06/17 21:30 Senna/Docusate Sodium (Cindy-Colace) 1 tab BID PO 11/07/17 09:00 11/22/17 08:35 Magnesium Hydroxide (Milk Of Magnesia Liq) 30 ml Q12H PRN PO Mild constipation 11/06/17 21:30 Sennosides (Senokot) 17.2 mg Q12H PRN PO Moderate constipation 11/06/17 21:30 Bisacodyl (Dulcolax Supp) 10 mg DAILY PRN RECTAL SEVERE CONSITIPATION 11/06/17 21:30 Lactulose (Lactulose Liq) 30 ml DAILY PRN PO SEVERE CONSITIPATION 11/06/17 21:30 11/11/17 07:59 Al Hydrox/Mg Hydrox/Simethicone (Mag-Al Plus Susp Liq) 30 ml Q6H PRN PO DYSPEPSIA 11/08/17 11:30 Promethazine HCl (Phenergan Inj) 25 mg Q4H PRN IM NAUSEA OR VOMITING 11/08/17 11:30 Calcium Gluconate 1 gm/Sodium Chloride 110 ml @ 110 mls/hr UNSCH PRN IV SEE LABEL COMMENTS 11/08/17 11:30 Labetalol HCl (Trandate Inj) 10 mg Q1H PRN IV PUSH SYS BP GREATER THAN 170 MMHG 11/08/17 11:30 11/10/17 16:17 Acetaminophen (Tylenol) 650 mg Q4H PRN PO TEMPERATURE > 101.5 F 11/08/17 11:30 11/11/17 16:53 Potassium Chloride 100 ml @ 50 mls/hr Q2H PRN IV For Potassium 2.8 - 3.2 mEq/L 11/08/17 14:30 Potassium Chloride 100 ml @ 50 mls/hr Q2H PRN IV For Potassium 2.8 - 3.2 mEq/L 11/08/17 14:30 11/10/17 08:37 Potassium Bicarb/ Potassium Chloride (K-Lyte Cl Eff) 50 meq UNSCH PRN PO For Potassium 3.3 - 3.5 mEq/L 11/08/17 14:30 Potassium Chloride 100 ml @ 25 mls/hr UNSCH PRN IV For Potassium 3.3 - 3.5 mEq/L 11/08/17 14:30 Potassium Chloride 100 ml @ 50 mls/hr Q2H PRN IV For Potassium 3.3 - 3.5 mEq/L 11/08/17 14:30 11/11/17 08:00 Magnesium Sulfate 4 gm/Sodium Chloride 100 ml @ 50 mls/hr UNSCH PRN IV For Magnesium 0.9 - 1.1 mg/dL 11/08/17 14:30 Magnesium Oxide (Mag-Ox) 800 mg UNSCH PRN PO For Magnesium 1.2 - 1.6 mg/dL 11/08/17 14:30 Magnesium Sulfate 2 gm/Sodium Chloride 100 ml @ 50 mls/hr UNSCH PRN IV For Magnesium 1.2 - 1.6 mg/dL 11/08/17 14:30 Potassium Phosphate (K-Phos) 2,000 mg Q4H PRN PO For Phosphorus < 2.5 mg/dL 11/08/17 14:30 Sodium Phosphate 30 mmol/Sodium Chloride 250 ml @ 42 mls/hr UNSCH PRN IV For Phosphorus < 2.5 mg/dL 11/08/17 14:30 Potassium Phosphate (K-Phos) 2,000 mg UNSCH PRN PO/TUBE SEE LABEL COMMENTS 11/08/17 14:30 Potassium Phosphate 30 mmol/ Sodium Chloride 260 ml @ 42 mls/hr UNSCH PRN IV SEE LABEL COMMENTS 11/08/17 14:30 11/10/17 13:30 Amiodarone HCl (Cordarone) 200 mg DAILY PO 11/11/17 09:00 11/22/17 08:35 Enoxaparin Sodium (Lovenox Inj) 40 mg Q24H SQ 11/11/17 10:00 Future Hold 11/20/17 09:27 Levetriacetam (Keppra Liq) 500 mg Q12HR NG 11/12/17 21:00 11/22/17 08:35 Digoxin (Lanoxin) 0.125 mg DAILY PO 11/13/17 09:00 11/22/17 08:34 Diltiazem HCl (Cardizem) 60 mg Q6HR PO 11/13/17 08:30 11/22/17 12:25 Chlorhexidine Gluconate (Peridex 0.12% Liq) 15 ml BID@08,20 MT 11/17/17 20:00 11/22/17 08:36 Propofol 100 ml @ 2.172 mls/ hr TITRATE PRN IV SEDATION 11/17/17 13:45 11/18/17 06:30 Morphine Sulfate (Morphine Inj) 2 mg Q3H PRN IV PUSH PAIN SCALE 1 TO 10 11/18/17 09:45 11/20/17 17:44 (Sadie Deluca) Medical Decision Making MDM Remarks 82 y/o FM with 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 s/p right craniotomy for ICH evacuation on 11/08/17. Follow up CT head stable (Sadie Deluca) Plan Plan Remarks awaiting PEG placement, continue with critical care wean sedation and vent as tolerated continue with neuro checks (Sadie Deluca) Attending Statement The exam, history, and the medical decision-making described in the above note were completed with the assistance of the mid-level provider. I reviewed and agree with the findings presented. I attest that I had a [id number] encounter with the patient on the same day, and personally performed and documented my assessment and findings in the medical record. (Edson Nolen MD) Sadie Deluca Nov 22, 2017 13:39 Edson Nolen MD Nov 25, 2017 20:35
--- NOTE | 2017-11-22 15:12 | HHI.CCPN ---
Subjective Remarks/Hospital Course Note for 11/19/17: 11/06: 82-year-old female with a medical history of atrial fibrillation on anticoagulation with Eliquis who developed sudden onset left-sided weakness and altered mental status and slurred speech as she was walking out with her family after the [place]. She was rushed to the ER as a stroke alert. Head CT showed a large right frontal hemorrhage. She was also hypertensive on arrival and was started on nicardipine drip. She received Kcentra in the ER and was accepted for admission by critical care medicine. Neurosurgery was consulted and patient was evaluated in the ER by Dr. Lin. When I evaluated the patient in the ER she was laying in the ER stretcher not in any acute distress. She had a dense left-sided weakness and slurred speech however was easily arousable and following commands and knew where she was and couldn't give me her home address. History was obtained by discussion with patient's family as well as ER physician. 11/07: No events since admission. Patient resting comfortable, easily arousable, following commands. No CP, dyspnea, palpitations, BARNARD, N/V. Tmax 98.7, I/O 215/ 1750. On nicardipine at 2.5. 11/08: Patient underwent right frontoparietal craniotomy for intracerebral hemorrhage evacuation. No events intra-op. Tmax 99.4. Lethargic but arousable, follows some commands. Had episode of Afib with RVR last night and she was started on cardizem drip. now HR in the low 100's. 11/09: Patient did well overnight. She is slightly more awake, more responsive. Afebrile, T-max 98.4, ins and outs 1300/1900. at bedside. 11/10: No events over the night. T-max 98.4. Increased urine output up to 2150 cc over the last 24 hours. No significant improvement in mental status, patient remains lethargic but arousable following some commands. She remains in A. fib on Cardizem at 15 mg/h, heart rate ranging between low 100s-130s. 11/11: NG tube placed last evening and tube feeds together with free water started. Mental status is unchanged, patient remains lethargic but arousable. T-max of 99.6. Heart rate ranging anywhere from 90s to low 130s, on Cardizem at 15. Blood pressure is okay. 11/12: No events over the night. Patient remains on Cardizem drip at 15, amiodarone added back yesterday. Afebrile with a T-max of 99.4. Good urine output, 1575 mL's in the last 24 hours. Tolerating tube feeds. No significant improvement in mental status. Family present at bedside. 11/13: No events overnight. Mental status is unchanged. She remains lethargic but arousable, tolerating tube feeds. Loaded with dig, on Cardizem 15, heart rate better controlled. 11/14: no changes. Still encephalopathic. protecting airway. will order EEG to ensure no subclinical seizures. HR under better control. ROS - unobtainable due to patient's condition 11/15: no changes. opens eyes to voice. tolerating tube feeds. EEG pending, but prelim negative for overt ictal activity. ROS unobtainable. protecting airway. 11/16: Protects airway, breathing comfortably. No seizure activity. 11/17: Patient is not protecting airway. Gurgling breath sounds. Tachypneic. Wheezing bilateral upper chest. Myself and Dr. Quiñones discussed extensively with patient's . he wants everything done including trach and PEG. 11/18: Plan for PEG on tuesday. Continue weaning trials for vent. Opens eyes today. 11/19: Appears to open eyes more frequently. PEG placement discussed again with . Probably won't participate with rehab, likely need LTAC or SNF disposition in 4-5 days. 11/20: Remains on CPAP 06/23 slightly tachypneic. No improvement in mental status. PEG tube planned for tomorrow. Attempt TP up to 2 hours 11/21: Remains from CPAP again slightly tachypneic plan for PEG today. Neuro status remains the same. LTAC/SNF eval after PEG 11/22: Status post trach and PEG. PEG was placed yesterday. Case management for rehab/LTAC/SNF placement. Tolerating T piece Objective Vital Signs Date Time Temp Pulse Resp B/P (MAP) Pulse Ox O2 Delivery O2 Flow Rate FiO2 11/22/17 10:00 108 11/22/17 08:22 100 35 11/22/17 08:00 98.6 31 102/60 (74) 11/22/17 07:00 Mechanical Ventilator 11/21/17 16:10 6.00 Intake and Output 11/22/17 11/22/17 11/23/17 08:00 16:00 00:00 Intake Total 100 ml Output Total 650 ml Balance -550 ml Result Diagram: 11/22/17 0136 11/21/17 0552 Imaging Last Impressions Multiplanar Reconstruction 11/06/17 0000 Signed Impressions: Service Date/Time: Monday, November 06, 2017 20:06 - CONCLUSION: Reconstructions again demonstrate the right frontal acute hemorrhage. Please see noncontrast head CT report for further description. Finn Molina MD Head CT 11/06/17 0000 Signed Impressions: Service Date/Time: Monday, November 06, 2017 20:05 - CONCLUSION: Right frontal lobe acute hemorrhage measuring approximately 8.7 x 5.2 cm causing 9 mm of [id number] midline shift. These findings were telephoned to Dr. Barnett at 8 : 13 PM on 11/06/2017. Finn Molina MD Chest X-Ray 11/06/17 0000 Signed Impressions: Service Date/Time: Monday, November 06, 2017 20:52 - CONCLUSION: Mild atelectasis at the left base. Otherwise, no acute finding is identified. Finn Molina MD Objective Remarks General - elderly lady, lethargic, not arousable, ill appearing HEENT - pupils equal, reactive, sclerae anicteric, no neck rigidity, supple, neck veins not distended, mucous membranes moist, + NGT. Trach site clean. CV - irregular, afib by tele. Chest -equal chest rise. Chest clear to auscultation, no adventitious sounds. Abdomen - soft, nontender, not distended, no guarding. bs active. Skin - no rashes, no cyanosis Extremities -warm and well perfused, no edema, + peripheral pulses Neuro -Lethargic, pupils equal and reactive, left-sided facial droop, weakly moves spontaneously right upper extremity, localizes right side to pain, does not move left upper and lower extremities A/P Assessment and Plan ASSESSMENT Large right frontal intracerebral hemorrhage with mass effect s/p right frontoparietal craniotomy for intracerebral hemorrhage evacuation Acute encephalopathy secondary to above Lack of airway protection, respiratory failure, status post tracheostomy on 2017 Coagulopathy - in the setting of eliquis use, resolved Uncontrolled hypertension -resolved History of atrial fibrillation -better controlled today. Hypernatremia -slowly improving Hypokalemia and hypophosphatemia -improved PLAN: 1. Status post tracheostomy 11/17/17, TP 24/7 as tolerated 2. s/p PEG 11/21/17 3. HOB elevation, maintain normothermia, avoid agitation. Neuro checks 4. On free water via NG tube. 5. Tube feeds restarted 6. Monitor heart rate blood pressure 7. Continue amiodarone. Daily digoxin. Cardizem p.o. 60 mg every 6 hours. Keep potassium above 4 and magnesium above 2 8. Received Kcentra. Last eliquis dose was on 11/06 in AM 9. Changed phenytoin to Keppra 11/13 to minimize sedative effect for seizure prophylaxis 10. EEG 11/15 due to moderate slowing consistent with an encephalopathic process but no epileptic activity. 11. Glycemic control 12. GI/DVT prophylaxis. Started on Lovenox prophylaxis by neurosurgery. 13. Evaluate for SNF/LTAC. [place] [address] [place] Overall impression: Will need rehab or SNF/LTAC placement Level 2 Sanjay Briseno MD Nov 22, 2017 15:12
[2017-11-23] VITALS (14 sets, daily range): BP systolic 95–141; BP diastolic 62–94; PULSE 82–110; RESP 20–24; TEMP 97.8–98.6; O2SAT 99–100
[2017-11-23] MEDS: DILTIAZEM HCL 60 MG TAB PO SCH ×4 (01:14→17:18)
[2017-11-23] MEDS: CHLORHEXIDINE 0.12% (ORAL KIT) 15 ML CUP MT SCH ×2 (08:00→19:34)
[2017-11-23] MEDS: DIGOXIN 0.125 MG TAB PO SCH (09:38)
[2017-11-23] MEDS: DOCUSATE SODIUM 50 MG/SENNA 8.6 MG TAB PO SCH ×2 (09:38→21:00)
[2017-11-23] MEDS: AMIODARONE 200 MG TAB PO SCH (09:38)
[2017-11-23] MEDS: levETIRAcetam 500 MG/5 ML UDC NG SCH ×2 (09:39→21:13)
[2017-11-23] MEDS: FAMOTIDINE 20 MG/2 ML VIAL IV PUSH SCH (09:39)
[2017-11-23] MEDS: SODIUM CHLORIDE 0.9% FLUSH 10 ML FLUSH IV FLUSH SCH (09:39)
[2017-11-23] MEDS ORDERED: DILT60TA33 PO (11:43)
[2017-11-23] MEDS ORDERED: DIGO0.12 PO (11:43)
[2017-11-23] MEDS ORDERED: LEVE500S NG (11:43)
--- NOTE | 2017-11-23 11:45 | HHI.DS ---
Discharge Summary Admission Date Nov 06, 2017 at 20:51 Discharge Date: Nov 23, 2017 Admitting Diagnosis hemorrhagic stroke Brief History History of Present Illness HPI 82-year-old female with a medical history of atrial fibrillation on anticoagulation with Eliquis who developed sudden onset left-sided weakness and altered mental status and slurred speech as she was walking out with her family after the [place]. She was rushed to the ER as a stroke alert. Head CT showed a large right frontal hemorrhage. She was also hypertensive on arrival and was started on nicardipine drip. She received Kcentra in the ER and was accepted for admission by critical care medicine. Neurosurgery was consulted and patient was evaluated in the ER by Dr. Lin. When I evaluated the patient in the ER she was laying in the ER stretcher not in any acute distress. She had a dense left-sided weakness and slurred speech however was easily arousable and following commands and knew where she was and couldn't give me her home address. History was obtained by discussion with patient's family as well as ER physician. History PFSH Past Medical History atrial fibrillation status post previous ablation by Dr. Blackburn few weeks ago Hx Anticoagulant Therapy: Yes (eliquis) Social History Tobacco Use: No Allergies-Medications Allergies-Medications (Allergen,Severity, Reaction): Coded Allergies: Fish Containing Products (Verified Allergy, Unknown, 11/06/17) Sulfa (Sulfonamide Antibiotics) (Verified Allergy, Unknown, 11/06/17) iodine (Verified Allergy, Unknown, 11/06/17) Reported Meds & Prescriptions Reported Meds & Active Scripts Active Reported Eliquis (Apixaban) 5 Mg Tab 5 Mg PO BID Lasix (Furosemide) 20 Mg Tab 20 Mg PO DAILY ROS Review of Systems Except as stated in HPI: all other systems reviewed are Neg HENT: Positive: Headaches Neurologic: Positive: Focal Abnormalities, Headache, Slurred Speech, No: Change in Mentation CBC/BMP: 11/22/17 0136 11/21/17 0552 Significant Findings Laboratory Tests Test 11/21/17 05:52 11/22/17 01:36 White Blood Count 13.5 TH/MM3 (4.0-11.0) Red Blood Count 3.03 MIL/MM3 (4.00-5.30) Hemoglobin 9.5 GM/DL (11.6-15.3) 9.7 GM/DL (11.6-15.3) Hematocrit 28.7 % (35.0-46.0) 30.1 % (35.0-46.0) Platelet Count 476 TH/MM3 (150-450) Neutrophils (%) (Auto) 83.1 % (16.0-70.0) Neutrophils # (Auto) 11.2 TH/MM3 (1.8-7.7) Blood Urea Nitrogen 25 MG/DL (7-18) Random Glucose 143 MG/DL (74-106) Albumin 1.9 GM/DL (3.4-5.0) Alanine Aminotransferase (ALT/SGPT) 77 U/L (10-53) Sodium Level 148 MEQ/L (136-145) Chloride Level 111 MEQ/L (98-107) Hospital Course Note for 11/19/17: 11/06: 82-year-old female with a medical history of atrial fibrillation on anticoagulation with Eliquis who developed sudden onset left-sided weakness and altered mental status and slurred speech as she was walking out with her family after the [place]. She was rushed to the ER as a stroke alert. Head CT showed a large right frontal hemorrhage. She was also hypertensive on arrival and was started on nicardipine drip. She received Kcentra in the ER and was accepted for admission by critical care medicine. Neurosurgery was consulted and patient was evaluated in the ER by Dr. Lin. When I evaluated the patient in the ER she was laying in the ER stretcher not in any acute distress. She had a dense left-sided weakness and slurred speech however was easily arousable and following commands and knew where she was and couldn't give me her home address. History was obtained by discussion with patient's family as well as ER physician. 11/07: No events since admission. Patient resting comfortable, easily arousable, following commands. No CP, dyspnea, palpitations, BARNARD, N/V. Tmax 98.7, I/O 215/ 1750. On nicardipine at 2.5. 11/08: Patient underwent right frontoparietal craniotomy for intracerebral hemorrhage evacuation. No events intra-op. Tmax 99.4. Lethargic but arousable, follows some commands. Had episode of Afib with RVR last night and she was started on cardizem drip. now HR in the low 100's. 11/09: Patient did well overnight. She is slightly more awake, more responsive. Afebrile, T-max 98.4, ins and outs 1300/1900. at bedside. 11/10: No events over the night. T-max 98.4. Increased urine output up to 2150 cc over the last 24 hours. No significant improvement in mental status, patient remains lethargic but arousable following some commands. She remains in A. fib on Cardizem at 15 mg/h, heart rate ranging between low 100s-130s. 11/11: NG tube placed last evening and tube feeds together with free water started. Mental status is unchanged, patient remains lethargic but arousable. T-max of 99.6. Heart rate ranging anywhere from 90s to low 130s, on Cardizem at 15. Blood pressure is okay. 11/12: No events over the night. Patient remains on Cardizem drip at 15, amiodarone added back yesterday. Afebrile with a T-max of 99.4. Good urine output, 1575 mL's in the last 24 hours. Tolerating tube feeds. No significant improvement in mental status. Family present at bedside. 11/13: No events overnight. Mental status is unchanged. She remains lethargic but arousable, tolerating tube feeds. Loaded with dig, on Cardizem 15, heart rate better controlled. 11/14: no changes. Still encephalopathic. protecting airway. will order EEG to ensure no subclinical seizures. HR under better control. ROS - unobtainable due to patient's condition 11/15: no changes. opens eyes to voice. tolerating tube feeds. EEG pending, but prelim negative for overt ictal activity. ROS unobtainable. protecting airway. 11/16: Protects airway, breathing comfortably. No seizure activity. 11/17: Patient is not protecting airway. Gurgling breath sounds. Tachypneic. Wheezing bilateral upper chest. Myself and Dr. Quiñones discussed extensively with patient's . he wants everything done including trach and PEG. 11/18: Plan for PEG on tuesday. Continue weaning trials for vent. Opens eyes today. 11/19: Appears to open eyes more frequently. PEG placement discussed again with . Probably won't participate with rehab, likely need LTAC or SNF disposition in 4-5 days. 11/20: Remains on CPAP 10/5 slightly tachypneic. No improvement in mental status. PEG tube planned for tomorrow. Attempt TP up to 2 hours 11/21: Remains from CPAP again slightly tachypneic plan for PEG today. Neuro status remains the same. LTAC/SNF eval after PEG 11/22: Status post trach and PEG. PEG was placed yesterday. Case management for rehab/LTAC/SNF placement. Tolerating T piece patient has remained stable for transfer to SNF. Pt Condition on Discharge: Stable Discharge Disposition: Discharge to SNF Discharge Instructions DIET: Follow Instructions for: On Tube Feeding Activities you can perform: Regular-No Restrictions vAelino Colunga MD Nov 23, 2017 11:45
--- NOTE | 2017-11-23 12:28 | HHI.NSPN ---
(Carlo Acuna) History Chief Complaint: Unable to obtain due to patient's mental status. (Carlo Acuna) Interval History This is an 82-year-old female patient with a history of atrial fibrillation on Eliquis. [place] to slur her words and developed weakness. She was then brought to [facility] by ambulance where she underwent evaluation and, because of abnormal CT neurosurgery consult was placed. No other history is available at the present time. 11/07: Pt lethargic but opens her eyes to voice. She does answer some questions when asked. Her son at the bedside states she was talking on the cell phone earlier. She complains of right sided headaches. 11/09: Pt s/p right frontoparietal craniotomy for intracerebral hemorrhage evacuation on 11/08. She opens eyes to voice, but is lethargic. Denies headache. Follows commands. Left dense hemiparesis/plegia. 11/10: Pt opens eyes to voice but prefers them closed. She denies headache. No n/v. She has dense left hemiparesis/plegia with neglect. 11/11: Pt lethargic but does open eyes slightly to voice. Pupils 3mm bilaterally. She follows some simple commands on right side. Left dense hemiparesis. 11/12: Pt lethargic. She opens eyes slightly to voice with persistence. No verbalizing. Pupils 3mm bilaterally reactive bilaterally. Left dense hemiparesis. 11/13: Pt lethargic. Not opening eyes to voice or pain. Not verbalizing. Pupils 3mm bilaterally reactive bilaterally. 11/14: Pt lethargic. She opens eyes slightly to pain. Not verbalizing. Pupils 3mm bilaterally reactive bilaterally. Not following commands. 11/15: Pt lethargic but opens eyes to voice this am. Not verbalizing. Pupils 3mm bilaterally reactive bilaterally. Not following commands. 11/16: Pt lethargic but opens eyes to pain not voice today. She is not verbalizing. Not following commands. Pupils 3mm bilaterally reactive bilaterally. 11/17: Pt had trach today. On Diprivan. Not opening eyes. Pupils 3mm bilaterally, reactive bilaterally. Not following commands. 11/18: Pt opening eyes slightly to pain. Not following commands. Trach in place on Vent. 11/19: in room, reports opening eyes. she has previous purposeful movement right arm trying to reach and he reports moving right leg placing it off the bed. 11/20: on CPAP, no overall changes to neuro checks overnight 11/22: moves right side spontaneously, awaiting PEG placement. no acute neuro changes overnight 11/23: Patient is lethargic when seen and has no sedation infusing. She did have some response on the right to local noxious stimulation but none on the left. Nursing reported that the patient did open her eyes and followed commands with the right upper and tried to with the right foot. She also stated the patient is to be discharged to a SNF later today. (Carlo Acuna) System Review Comments Unable to obtain due to patient's mental status. (Carlo Acuna) Exam Results 11/21/17 11/21/17 11/22/17 11/22/17 11/23/17 11/23/17 06:00 18:00 06:00 18:00 06:00 18:00 Intake Total 2023 ml 200 ml 100 ml 232 ml 420 ml Output Total 1550 ml 700 ml 650 ml 700 ml 775 ml Balance 473 ml -500 ml -550 ml -468 ml -355 ml Tube Feeding 1223 ml 0 ml 32 ml 300 ml Other 800 ml 200 ml 100 ml 200 ml 120 ml Output Urine Total 1550 ml 700 ml 650 ml 700 ml 775 ml # Bowel Movements 1 1 1 1 Vital Signs Date Time Temp Pulse Resp B/P (MAP) Pulse Ox O2 Delivery O2 Flow Rate FiO2 11/23/17 12:00 82 11/23/17 10:00 102 11/23/17 08:00 100 T-Piece 35 Humidified 11/23/17 08:00 98.6 100 24 141/62 (88) 100 11/23/17 08:00 102 11/23/17 07:27 100 T-piece 5.00 28 11/23/17 06:00 109 11/23/17 05:20 99 T-piece 5.00 28 11/23/17 04:00 98.5 98 24 134/73 (93) 100 11/23/17 04:00 110 11/23/17 02:00 100 11/23/17 00:00 98.2 96 23 114/86 (95) 100 11/23/17 00:00 110 11/22/17 22:00 84 11/22/17 20:00 107 11/22/17 20:00 98.5 107 26 149/93 (111) 100 11/22/17 19:39 100 T-piece 40 11/22/17 19:00 100 T-Piece 35 Humidified 11/22/17 18:00 118 11/22/17 16:00 103 11/22/17 16:00 98.9 103 26 150/61 (90) 100 11/22/17 16:00 40 11/22/17 14:00 100 11/22/17 12:00 99.2 112 29 114/74 (87) 100 11/22/17 12:00 35 11/22/17 12:00 112 11/22/17 10:00 108 11/22/17 08:22 100 35 11/22/17 08:00 98.6 110 31 102/60 (74) 100 11/22/17 08:00 35 11/22/17 08:00 110 11/22/17 07:00 Mechanical Ventilator 35 11/22/17 06:00 86 11/22/17 04:00 98.9 119 21 98/66 (77) 100 11/22/17 04:00 119 11/22/17 04:00 35 11/22/17 02:00 109 11/22/17 01:40 100 35 11/22/17 00:00 118 11/22/17 00:00 35 11/22/17 00:00 99.1 118 30 126/68 (87) 100 11/21/17 22:00 114 11/21/17 20:00 117 11/21/17 20:00 99.1 117 24 148/65 (92) 100 11/21/17 20:00 35 11/21/17 19:52 100 35 11/21/17 19:00 T-Piece 35 11/21/17 18:00 94 11/21/17 16:10 100 T-piece 6.00 35 11/21/17 16:00 98.2 112 29 146/66 (92) 100 11/21/17 16:00 35 11/21/17 16:00 112 11/21/17 15:44 100 35 11/21/17 15:00 35 11/21/17 14:00 116 11/21/17 13:26 35 11/21/17 12:00 98.8 110 32 135/67 (89) 100 11/21/17 12:00 110 11/21/17 12:00 35 11/21/17 11:39 100 35 11/21/17 10:00 112 11/21/17 08:45 35 11/21/17 08:30 100 35 11/21/17 08:00 102 11/21/17 08:00 35 11/21/17 08:00 98.7 108 22 133/84 (100) 100 11/21/17 07:00 Mechanical Ventilator 35 11/21/17 06:00 108 11/21/17 04:36 100 35 11/21/17 04:00 35 11/21/17 04:00 98.6 114 21 116/74 (88) 99 11/21/17 04:00 114 11/21/17 02:00 112 11/21/17 00:19 100 35 11/21/17 00:00 35 11/21/17 00:00 106 11/21/17 00:00 98.8 106 19 161/70 (100) 100 11/20/17 22:00 120 11/20/17 20:00 35 11/20/17 20:00 96 11/20/17 20:00 100.1 96 30 126/60 (82) 100 11/20/17 19:48 99 35 11/20/17 19:00 100 Mechanical Ventilator 35 11/20/17 16:00 99.7 103 32 138/63 (88) 100 11/20/17 16:00 35 11/20/17 15:33 100 35 (Carlo Acuna) Physical Examination GENERAL: Patient lethargic when seen, no response to voice. No sedation. Trached and on T-piece. No apparent distress. HEENT: Well-healed right frontotemporal surgical incision w/o any drainage, erythema or streaking noted, some crusting present. PERRLA 4 mm brisk. MUSCULOSKELETAL: No evident clubbing or deformity. NEUROLOGICAL: Lethargic, no sedation. No eye opening to voice or noxious stimulation. Does not follow any commands. Withdrew RUE to local noxious stimulation, trace movement of right foot to local noxious stimulation. No movement on left side to local noxious stimulation but slight movement of RUE noted w/stimulation to LUE. Upward plantar response bilaterally. (Carlo Acuna) Lab, Micro, Other Results Recent Impressions Chest X-Ray 11/21/17 0600 Signed Impressions: Service Date/Time: Tuesday, November 21, 2017 05:06 - CONCLUSION: No acute cardiopulmonary abnormality is identified. Finn Molina MD Laboratory Tests Test 11/21/17 05:52 11/22/17 01:36 White Blood Count 13.5 TH/MM3 Red Blood Count 3.03 MIL/MM3 Hemoglobin 9.5 GM/DL 9.7 GM/DL Hematocrit 28.7 % 30.1 % Mean Corpuscular Volume 94.7 FL Mean Corpuscular Hemoglobin 31.4 PG Mean Corpuscular Hemoglobin Concent 33.2 % Red Cell Distribution Width 14.4 % Platelet Count 476 TH/MM3 Mean Platelet Volume 8.8 FL Neutrophils (%) (Auto) 83.1 % Lymphocytes (%) (Auto) 10.5 % Monocytes (%) (Auto) 5.3 % Eosinophils (%) (Auto) 0.6 % Basophils (%) (Auto) 0.5 % Neutrophils # (Auto) 11.2 TH/MM3 Lymphocytes # (Auto) 1.4 TH/MM3 Monocytes # (Auto) 0.7 TH/MM3 Eosinophils # (Auto) 0.1 TH/MM3 Basophils # (Auto) 0.1 TH/MM3 CBC Comment DIFF FINAL Differential Comment Blood Urea Nitrogen 25 MG/DL Creatinine 0.53 MG/DL Random Glucose 143 MG/DL Total Protein 6.7 GM/DL Albumin 1.9 GM/DL Calcium Level 8.8 MG/DL Magnesium Level 2.4 MG/DL Alkaline Phosphatase 108 U/L Aspartate Amino Transf (AST/SGOT) 36 U/L Alanine Aminotransferase (ALT/SGPT) 77 U/L Total Bilirubin 0.4 MG/DL Sodium Level 148 MEQ/L Potassium Level 4.4 MEQ/L Chloride Level 111 MEQ/L Carbon Dioxide Level 26.8 MEQ/L Anion Gap 10 MEQ/L Estimat Glomerular Filtration Rate 111 ML/MIN (Carlo Acuna) Medical Decision Making Impression and Plan Impression: 82 y/o FM with 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 s/p right craniotomy for ICH evacuation on 11/08/17. Follow up CT head stable Patient lethargic when seen, no sedation. Did move RUE to local noxious stimulation, also slight movement of right foot to local stimulation. Nursing reported patient opened eyes and did follow commands with the RUE and tried to with the right foot. Plan: Patient able to be discharged to a SNF for further care and therapy. (Carlo Acuna) Attending Statement The exam, history, and the medical decision-making described in the above note were completed with the assistance of the mid-level provider. I reviewed and agree with the findings presented. I attest that I had a [id number] encounter with the patient on the same day, and personally performed and documented my assessment and findings in the medical record. On my examination of 11/23/2017, the patient is on a TPs. The right scalp incision is dry and intact She arouses to sternal rub. Right gaze. Seems to try to verbalize a little bit. Mild right grasp which appears to be taken man. Localizes with right upper extremity and moves right foot. Left hemiparesis. Neurologic exam stable Stables for fdc/rehabilitation from neurosurgery standpoint. (Sky Villareal MD) Carlo Acuna Nov 23, 2017 12:28 Sky Villareal MD Nov 23, 2017 20:55
--- NOTE | 2017-11-23 17:14 | HHI.CCPN ---
Subjective Remarks/Hospital Course Note for 11/19/17: 11/06: 82-year-old female with a medical history of atrial fibrillation on anticoagulation with Eliquis who developed sudden onset left-sided weakness and altered mental status and slurred speech as she was walking out with her family after the [place] [employer]. She was rushed to the ER as a stroke alert. Head CT showed a large right frontal hemorrhage. She was also hypertensive on arrival and was started on nicardipine drip. She received Kcentra in the ER and was accepted for admission by critical care medicine. Neurosurgery was consulted and patient was evaluated in the ER by Dr. Lin. When I evaluated the patient in the ER she was laying in the ER stretcher not in any acute distress. She had a dense left-sided weakness and slurred speech however was easily arousable and following commands and knew where she was and couldn't give me her home address. History was obtained by discussion with patient's family as well as ER physician. 11/07: No events since admission. Patient resting comfortable, easily arousable, following commands. No CP, dyspnea, palpitations, BARNARD, N/V. Tmax 98.7, I/O 215/ 1750. On nicardipine at 2.5. 11/08: Patient underwent right frontoparietal craniotomy for intracerebral hemorrhage evacuation. No events intra-op. Tmax 99.4. Lethargic but arousable, follows some commands. Had episode of Afib with RVR last night and she was started on cardizem drip. now HR in the low 100's. 11/09: Patient did well overnight. She is slightly more awake, more responsive. Afebrile, T-max 98.4, ins and outs 1300/1900. at bedside. 11/10: No events over the night. T-max 98.4. Increased urine output up to 2150 cc over the last 24 hours. No significant improvement in mental status, patient remains lethargic but arousable following some commands. She remains in A. fib on Cardizem at 15 mg/h, heart rate ranging between low 100s-130s. 11/11: NG tube placed last evening and tube feeds together with free water started. Mental status is unchanged, patient remains lethargic but arousable. T-max of 99.6. Heart rate ranging anywhere from 90s to low 130s, on Cardizem at 15. Blood pressure is okay. 11/12: No events over the night. Patient remains on Cardizem drip at 15, amiodarone added back yesterday. Afebrile with a T-max of 99.4. Good urine output, 1575 mL's in the last 24 hours. Tolerating tube feeds. No significant improvement in mental status. Family present at bedside. 11/13: No events overnight. Mental status is unchanged. She remains lethargic but arousable, tolerating tube feeds. Loaded with dig, on Cardizem 15, heart rate better controlled. 11/14: no changes. Still encephalopathic. protecting airway. will order EEG to ensure no subclinical seizures. HR under better control. ROS - unobtainable due to patient's condition 11/15: no changes. opens eyes to voice. tolerating tube feeds. EEG pending, but prelim negative for overt ictal activity. ROS unobtainable. protecting airway. 11/16: Protects airway, breathing comfortably. No seizure activity. 11/17: Patient is not protecting airway. Gurgling breath sounds. Tachypneic. Wheezing bilateral upper chest. Myself and Dr. Quiñones discussed extensively with patient's . he wants everything done including trach and PEG. 11/18: Plan for PEG on tuesday. Continue weaning trials for vent. Opens eyes today. 11/19: Appears to open eyes more frequently. PEG placement discussed again with . Probably won't participate with rehab, likely need LTAC or SNF disposition in 4-5 days. 11/20: Remains on CPAP 06/23 slightly tachypneic. No improvement in mental status. PEG tube planned for tomorrow. Attempt TP up to 2 hours 11/21: Remains from CPAP again slightly tachypneic plan for PEG today. Neuro status remains the same. LTAC/SNF eval after PEG 11/22: Status post trach and PEG. PEG was placed yesterday. Case management for rehab/LTAC/SNF placement. Tolerating T piece patient has remained stable for transfer to SNF. 11/23: SNF is available and patient is breathing comfortably on T-piece. agrees with transfer. Objective Vital Signs Date Time Temp Pulse Resp B/P (MAP) Pulse Ox O2 Delivery O2 Flow Rate FiO2 11/23/17 12:00 97.8 104 20 140/94 (109) 100 11/23/17 08:00 T-Piece 35 Humidified 11/23/17 07:27 5.00 Intake and Output 11/23/17 11/23/17 11/24/17 08:00 16:00 00:00 Intake Total 420 ml Output Total 775 ml Balance -355 ml Result Diagram: 11/22/17 0136 11/21/17 0552 Imaging Last Impressions Multiplanar Reconstruction 11/06/17 0000 Signed Impressions: Service Date/Time: Monday, November 06, 2017 20:06 - CONCLUSION: Reconstructions again demonstrate the right frontal acute hemorrhage. Please see noncontrast head CT report for further description. Finn Molina MD Head CT 11/06/17 0000 Signed Impressions: Service Date/Time: Monday, November 06, 2017 20:05 - CONCLUSION: Right frontal lobe acute hemorrhage measuring approximately 8.7 x 5.2 cm causing 9 mm of [id number] midline shift. These findings were telephoned to Dr. Barnett at 8 : 13 PM on 11/06/2017. Finn Molina MD Chest X-Ray 11/06/17 0000 Signed Impressions: Service Date/Time: Monday, November 06, 2017 20:52 - CONCLUSION: Mild atelectasis at the left base. Otherwise, no acute finding is identified. Finn Molina MD Objective Remarks General - elderly lady, lethargic, not arousable, ill appearing HEENT - pupils equal, reactive, sclerae anicteric, no neck rigidity, supple, neck veins not distended, mucous membranes moist, + NGT. Trach site clean. CV - irregular, afib by tele. Chest -equal chest rise. Chest clear to auscultation, no adventitious sounds. Abdomen - soft, nontender, not distended, no guarding. bs active. Skin - no rashes, no cyanosis Extremities -warm and well perfused, no edema, + peripheral pulses Neuro -Lethargic, pupils equal and reactive, left-sided facial droop, weakly moves spontaneously right upper extremity, localizes right side to pain, does not move left upper and lower extremities A/P Assessment and Plan ASSESSMENT Large right frontal intracerebral hemorrhage with mass effect s/p right frontoparietal craniotomy for intracerebral hemorrhage evacuation Acute encephalopathy secondary to above Lack of airway protection, respiratory failure, status post tracheostomy on 2017 Coagulopathy - in the setting of eliquis use, resolved Uncontrolled hypertension -resolved History of atrial fibrillation -better controlled today. Hypernatremia -slowly improving Hypokalemia and hypophosphatemia -improved PLAN: 1. Status post tracheostomy 11/17/17, TP 24/7 as tolerated 2. s/p PEG 11/21/17 3. HOB elevation, maintain normothermia, avoid agitation. Neuro checks 4. On free water via NG tube. 5. Tube feeds restarted 6. Monitor heart rate blood pressure 7. Continue amiodarone. Daily digoxin. Cardizem p.o. 60 mg every 6 hours. Keep potassium above 4 and magnesium above 2 8. Received Kcentra. Last eliquis dose was on 11/06 in AM 9. Changed phenytoin to Keppra 11/13 to minimize sedative effect for seizure prophylaxis 10. EEG 11/15 due to moderate slowing consistent with an encephalopathic process but no epileptic activity. 11. Glycemic control 12. GI/DVT prophylaxis. Started on Lovenox prophylaxis by neurosurgery. 13. Evaluate for SNF. [place] to place near [place] Overall impression: Ready for SNF placement Tay Quiñones MD Nov 23, 2017 17:14
[2017-11-24] VITALS (13 sets, daily range): BP systolic 108–146; BP diastolic 53–85; PULSE 91–119; RESP 24–34; TEMP 98.1–99.2; O2SAT 95–100
[2017-11-24] MEDS: DILTIAZEM HCL 60 MG TAB PO SCH ×5 (00:45→23:08)
[2017-11-24] MEDS: CHLORHEXIDINE 0.12% (ORAL KIT) 15 ML CUP MT SCH ×2 (08:00→20:00)
[2017-11-24] MEDS: DIGOXIN 0.125 MG TAB PO SCH (09:33)
[2017-11-24] MEDS: DOCUSATE SODIUM 50 MG/SENNA 8.6 MG TAB PO SCH ×2 (09:34→21:05)
[2017-11-24] MEDS: AMIODARONE 200 MG TAB PO SCH (09:34)
[2017-11-24] MEDS: levETIRAcetam 500 MG/5 ML UDC NG SCH ×2 (09:34→21:05)
[2017-11-25] VITALS: BP 99/74; PULSE 108; PULSE 112; RESP 30; TEMP 99; O2SAT 94
[2017-11-25 04:00] VITALS: BP 129/68; PULSE 117; RESP 32; TEMP 99.9; O2SAT 92
[2017-11-25] MEDS: DILTIAZEM HCL 60 MG TAB PO SCH ×2 (05:14→12:19)
[2017-11-25 08:00] VITALS: BP 122/57; PULSE 105; RESP 36; TEMP 100.4; O2SAT 95
[2017-11-25] MEDS: CHLORHEXIDINE 0.12% (ORAL KIT) 15 ML CUP MT SCH (08:30)
[2017-11-25] MEDS: levETIRAcetam 500 MG/5 ML UDC NG SCH (10:22)
[2017-11-25] MEDS: DOCUSATE SODIUM 50 MG/SENNA 8.6 MG TAB PO SCH (10:22)
[2017-11-25] MEDS: AMIODARONE 200 MG TAB PO SCH (10:22)
[2017-11-25] MEDS: DIGOXIN 0.125 MG TAB PO SCH (10:22)
[2017-11-25 12:00] VITALS: BP 130/61; PULSE 101; RESP 28; TEMP 99.2; O2SAT 93
--- NOTE | 2017-11-25 17:18 | HHI.CCPN ---
Subjective Remarks/Hospital Course Note for 11/24/17: 11/06: 82-year-old female with a medical history of atrial fibrillation on anticoagulation with Eliquis who developed sudden onset left-sided weakness and altered mental status and slurred speech as she was walking out with her family after the [place]. She was rushed to the ER as a stroke alert. Head CT showed a large right frontal hemorrhage. She was also hypertensive on arrival and was started on nicardipine drip. She received Kcentra in the ER and was accepted for admission by critical care medicine. Neurosurgery was consulted and patient was evaluated in the ER by Dr. Lin. When I evaluated the patient in the ER she was laying in the ER stretcher not in any acute distress. She had a dense left-sided weakness and slurred speech however was easily arousable and following commands and knew where she was and couldn't give me her home address. History was obtained by discussion with patient's family as well as ER physician. 11/07: No events since admission. Patient resting comfortable, easily arousable, following commands. No CP, dyspnea, palpitations, BARNARD, N/V. Tmax 98.7, I/O 215/ 1750. On nicardipine at 2.5. 11/08: Patient underwent right frontoparietal craniotomy for intracerebral hemorrhage evacuation. No events intra-op. Tmax 99.4. Lethargic but arousable, follows some commands. Had episode of Afib with RVR last night and she was started on cardizem drip. now HR in the low 100's. 11/09: Patient did well overnight. She is slightly more awake, more responsive. Afebrile, T-max 98.4, ins and outs 1300/1900. at bedside. 11/10: No events over the night. T-max 98.4. Increased urine output up to 2150 cc over the last 24 hours. No significant improvement in mental status, patient remains lethargic but arousable following some commands. She remains in A. fib on Cardizem at 15 mg/h, heart rate ranging between low 100s-130s. 11/11: NG tube placed last evening and tube feeds together with free water started. Mental status is unchanged, patient remains lethargic but arousable. T-max of 99.6. Heart rate ranging anywhere from 90s to low 130s, on Cardizem at 15. Blood pressure is okay. 11/12: No events over the night. Patient remains on Cardizem drip at 15, amiodarone added back yesterday. Afebrile with a T-max of 99.4. Good urine output, 1575 mL's in the last 24 hours. Tolerating tube feeds. No significant improvement in mental status. Family present at bedside. 11/13: No events overnight. Mental status is unchanged. She remains lethargic but arousable, tolerating tube feeds. Loaded with dig, on Cardizem 15, heart rate better controlled. 11/14: no changes. Still encephalopathic. protecting airway. will order EEG to ensure no subclinical seizures. HR under better control. ROS - unobtainable due to patient's condition 11/15: no changes. opens eyes to voice. tolerating tube feeds. EEG pending, but prelim negative for overt ictal activity. ROS unobtainable. protecting airway. 11/16: Protects airway, breathing comfortably. No seizure activity. 11/17: Patient is not protecting airway. Gurgling breath sounds. Tachypneic. Wheezing bilateral upper chest. Myself and Dr. Quiñones discussed extensively with patient's . he wants everything done including trach and PEG. 11/18: Plan for PEG on tuesday. Continue weaning trials for vent. Opens eyes today. 11/19: Appears to open eyes more frequently. PEG placement discussed again with . Probably won't participate with rehab, likely need LTAC or SNF disposition in 4-5 days. 11/20: Remains on CPAP 06/23 slightly tachypneic. No improvement in mental status. PEG tube planned for tomorrow. Attempt TP up to 2 hours 11/21: Remains from CPAP again slightly tachypneic plan for PEG today. Neuro status remains the same. LTAC/SNF eval after PEG 11/22: Status post trach and PEG. PEG was placed yesterday. Case management for rehab/LTAC/SNF placement. Tolerating T piece patient has remained stable for transfer to SNF. 11/23: SNF is available and patient is breathing comfortably on T-piece. agrees with transfer. 11/24: SNF transfer pending. No change in status. Objective Vital Signs Date Time Temp Pulse Resp B/P (MAP) Pulse Ox O2 Delivery O2 Flow Rate FiO2 11/25/17 12:00 101 11/25/17 12:00 99.2 28 130/61 (84) 93 11/25/17 07:00 Room Air 11/24/17 21:02 21 11/23/17 07:27 5.00 Intake and Output 11/25/17 11/25/17 11/26/17 08:00 16:00 00:00 Intake Total 980 ml Output Total 450 ml Balance 530 ml Result Diagram: 11/22/17 0136 11/21/17 0552 Imaging Last Impressions Multiplanar Reconstruction 11/06/17 0000 Signed Impressions: Service Date/Time: Monday, November 06, 2017 20:06 - CONCLUSION: Reconstructions again demonstrate the right frontal acute hemorrhage. Please see noncontrast head CT report for further description. Finn Molina MD Head CT 11/06/17 0000 Signed Impressions: Service Date/Time: Monday, November 06, 2017 20:05 - CONCLUSION: Right frontal lobe acute hemorrhage measuring approximately 8.7 x 5.2 cm causing 9 mm of [id number] midline shift. These findings were telephoned to Dr. Barnett at 8 : 13 PM on 11/06/2017. Finn Molina MD Chest X-Ray 11/06/17 0000 Signed Impressions: Service Date/Time: Monday, November 06, 2017 20:52 - CONCLUSION: Mild atelectasis at the left base. Otherwise, no acute finding is identified. Finn Molina MD Objective Remarks General - elderly lady, lethargic, not arousable, ill appearing HEENT - pupils equal, reactive, sclerae anicteric, no neck rigidity, supple, neck veins not distended, mucous membranes moist, + NGT. Trach site clean. CV - irregular, afib by tele. rate controlled. Chest -equal chest rise. Chest clear to auscultation, no adventitious sounds. Abdomen - soft, nontender, not distended, no guarding. bs active. Skin - no rashes, no cyanosis, well perfused. Extremities -warm and well perfused, no edema, + peripheral pulses Neuro -Lethargic, pupils equal and reactive, left-sided facial droop, weakly moves spontaneously right upper extremity, localizes right side to pain, does not move left upper and lower extremities A/P Assessment and Plan ASSESSMENT Large right frontal intracerebral hemorrhage with mass effect s/p right frontoparietal craniotomy for intracerebral hemorrhage evacuation Acute encephalopathy secondary to above Lack of airway protection, respiratory failure, status post tracheostomy on 2017 Coagulopathy - in the setting of eliquis use, resolved Uncontrolled hypertension -resolved History of atrial fibrillation -better controlled today. Hypernatremia -slowly improving Hypokalemia and hypophosphatemia -improved PLAN: 1. Status post tracheostomy 11/17/17, TP 24/7 as tolerated 2. s/p PEG 11/21/17 3. HOB elevation, maintain normothermia, avoid agitation. Neuro checks 4. On free water via NG tube. 5. Tube feeds restarted 6. Monitor heart rate blood pressure 7. Continue amiodarone. Daily digoxin. Cardizem p.o. 60 mg every 6 hours. Keep potassium above 4 and magnesium above 2 8. Received Kcentra. Last eliquis dose was on 11/06 in AM 9. Changed phenytoin to Keppra 11/13 to minimize sedative effect for seizure prophylaxis 10. EEG 11/15 due to moderate slowing consistent with an encephalopathic process but no epileptic activity. 11. Glycemic control 12. GI/DVT prophylaxis. Started on Lovenox prophylaxis by neurosurgery. 13. Evaluate for SNF. [place] [address] near [place] Overall impression: Ready for SNF placement, trach and PEG functional. Tay Quiñones MD Nov 25, 2017 17:18
--- NOTE | 2017-11-25 17:20 | HHI.CCPN ---
Subjective Remarks/Hospital Course Note for 11/25/17: 11/06: 82-year-old female with a medical history of atrial fibrillation on anticoagulation with Eliquis who developed sudden onset left-sided weakness and altered mental status and slurred speech as she was walking out with her [place] after the [place]. She was rushed to the ER as a stroke alert. Head CT showed a large right frontal hemorrhage. She was also hypertensive on arrival and was started on nicardipine drip. She received Kcentra in the ER and was accepted for admission by critical care medicine. Neurosurgery was consulted and patient was evaluated in the ER by Dr. Lin. When I evaluated the patient in the ER she was laying in the ER stretcher not in any acute distress. She had a dense left-sided weakness and slurred speech however was easily arousable and following commands and knew where she was and couldn't give me her home address. History was obtained by discussion with patient's family as well as ER physician. 11/07: No events since admission. Patient resting comfortable, easily arousable, following commands. No CP, dyspnea, palpitations, BARNARD, N/V. Tmax 98.7, I/O 215/ 1750. On nicardipine at 2.5. 11/08: Patient underwent right frontoparietal craniotomy for intracerebral hemorrhage evacuation. No events intra-op. Tmax 99.4. Lethargic but arousable, follows some commands. Had episode of Afib with RVR last night and she was started on cardizem drip. now HR in the low 100's. 11/09: Patient did well overnight. She is slightly more awake, more responsive. Afebrile, T-max 98.4, ins and outs 1300/1900. at bedside. 11/10: No events over the night. T-max 98.4. Increased urine output up to 2150 cc over the last 24 hours. No significant improvement in mental status, patient remains lethargic but arousable following some commands. She remains in A. fib on Cardizem at 15 mg/h, heart rate ranging between low 100s-130s. 11/11: NG tube placed last evening and tube feeds together with free water started. Mental status is unchanged, patient remains lethargic but arousable. T-max of 99.6. Heart rate ranging anywhere from 90s to low 130s, on Cardizem at 15. Blood pressure is okay. 11/12: No events over the night. Patient remains on Cardizem drip at 15, amiodarone added back yesterday. Afebrile with a T-max of 99.4. Good urine output, 1575 mL's in the last 24 hours. Tolerating tube feeds. No significant improvement in mental status. Family present at bedside. 11/13: No events overnight. Mental status is unchanged. She remains lethargic but arousable, tolerating tube feeds. Loaded with dig, on Cardizem 15, heart rate better controlled. 11/14: no changes. Still encephalopathic. protecting airway. will order EEG to ensure no subclinical seizures. HR under better control. ROS - unobtainable due to patient's condition 11/15: no changes. opens eyes to voice. tolerating tube feeds. EEG pending, but prelim negative for overt ictal activity. ROS unobtainable. protecting airway. 11/16: Protects airway, breathing comfortably. No seizure activity. 11/17: Patient is not protecting airway. Gurgling breath sounds. Tachypneic. Wheezing bilateral upper chest. Myself and Dr. Quiñones discussed extensively with patient's . he wants everything done including trach and PEG. 11/18: Plan for PEG on tuesday. Continue weaning trials for vent. Opens eyes today. 11/19: Appears to open eyes more frequently. PEG placement discussed again with . Probably won't participate with rehab, likely need LTAC or SNF disposition in 4-5 days. 11/20: Remains on CPAP 06/23 slightly tachypneic. No improvement in mental status. PEG tube planned for tomorrow. Attempt TP up to 2 hours 11/21: Remains from CPAP again slightly tachypneic plan for PEG today. Neuro status remains the same. LTAC/SNF eval after PEG 11/22: Status post trach and PEG. PEG was placed yesterday. Case management for rehab/LTAC/SNF placement. Tolerating T piece patient has remained stable for transfer to SNF. 11/23: SNF is available and patient is breathing comfortably on T-piece. agrees with transfer. 11/24: SNF transfer pending. No change in status. 11/25: Safe for SNF transfer today. Trach site clean, dry. Objective Vital Signs Date Time Temp Pulse Resp B/P (MAP) Pulse Ox O2 Delivery O2 Flow Rate FiO2 11/25/17 12:00 101 11/25/17 12:00 99.2 28 130/61 (84) 93 11/25/17 07:00 Room Air 11/24/17 21:02 21 11/23/17 07:27 5.00 Intake and Output 11/25/17 11/25/17 11/26/17 08:00 16:00 00:00 Intake Total 980 ml Output Total 450 ml Balance 530 ml Result Diagram: 11/22/17 0136 11/21/17 0552 Imaging Last Impressions Multiplanar Reconstruction 11/06/17 0000 Signed Impressions: Service Date/Time: Monday, November 06, 2017 20:06 - CONCLUSION: Reconstructions again demonstrate the right frontal acute hemorrhage. Please see noncontrast head CT report for further description. Finn Molina MD Head CT 11/06/17 0000 Signed Impressions: Service Date/Time: Monday, November 06, 2017 20:05 - CONCLUSION: Right frontal lobe acute hemorrhage measuring approximately 8.7 x 5.2 cm causing 9 mm of [id number] midline shift. These findings were telephoned to Dr. Barnett at 8 : 13 PM on 11/06/2017. Finn Molina MD Chest X-Ray 11/06/17 0000 Signed Impressions: Service Date/Time: Monday, November 06, 2017 20:52 - CONCLUSION: Mild atelectasis at the left base. Otherwise, no acute finding is identified. Finn Molina MD Objective Remarks General - elderly lady, lethargic, not arousable, ill appearing HEENT - pupils equal, reactive, sclerae anicteric, no neck rigidity, supple, neck veins not distended, mucous membranes moist, + NGT. Trach site clean. CV - irregular, afib by tele. rate controlled. Chest -equal chest rise. Chest clear to auscultation, no adventitious sounds. Abdomen - soft, nontender, not distended, no guarding. bs active. Skin - no rashes, no cyanosis, well perfused. Extremities -warm and well perfused, no edema, + peripheral pulses feet Neuro: Lethargic, pupils equal and reactive, left-sided facial droop persists, weakly moves spontaneously right upper extremity, does not move left upper and lower extremities A/P Assessment and Plan ASSESSMENT Large right frontal intracerebral hemorrhage with mass effect s/p right frontoparietal craniotomy for intracerebral hemorrhage evacuation Acute encephalopathy secondary to above Lack of airway protection, respiratory failure, status post tracheostomy on 2017 Coagulopathy - in the setting of eliquis use, resolved Uncontrolled hypertension -resolved History of atrial fibrillation -better controlled today. Hypernatremia -slowly improving Hypokalemia and hypophosphatemia -improved PLAN: 1. Status post tracheostomy 11/17/17, TP 24/7 as tolerated 2. s/p PEG 11/21/17 3. HOB elevation, maintain normothermia, avoid agitation. Neuro checks 4. On free water via NG tube. 5. Tube feeds restarted 6. Monitor heart rate blood pressure 7. Continue amiodarone. Daily digoxin. Cardizem p.o. 60 mg every 6 hours. Keep potassium above 4 and magnesium above 2 8. Received Kcentra. Last eliquis dose was on 11/06 in AM 9. Changed phenytoin to Keppra 11/13 to minimize sedative effect for seizure prophylaxis 10. EEG 11/15 due to moderate slowing consistent with an encephalopathic process but no epileptic activity. 11. Glycemic control 12. GI/DVT prophylaxis. Started on Lovenox prophylaxis by neurosurgery. 13. Evaluate for SNF. [place] to place near [place] Overall impression: Ready for SNF placement, trach and PEG functional. Transfer today. Tay Quiñones MD Nov 25, 2017 17:20
--- NOTE | 2017-11-25 17:22 | HHI.DS ---
Discharge Summary Admission Date Nov 06, 2017 at 20:51 Discharge Date: Nov 25, 2017 Admitting Diagnosis hemorrhagic stroke (1) Stroke, hemorrhagic ICD Code: I61.9 - Nontraumatic intracerebral hemorrhage, unspecified Diagnosis: Principal (2) Respiratory failure requiring intubation ICD Code: J96.90 - Respiratory failure, unspecified, unspecified whether with hypoxia or hypercapnia Diagnosis: Principal (3) Encephalopathy acute ICD Code: G93.40 - Encephalopathy, unspecified Diagnosis: Principal Procedures Right frontoparietal craniotomy and evacuation of parenchymal hematoma. Tracheostomy. PEG tube insertion. Brief History History of Present Illness HPI 82-year-old female with a medical history of atrial fibrillation on anticoagulation with Eliquis who developed sudden onset left-sided weakness and altered mental status and slurred speech as she was walking out with her family after the [place]. She was rushed to the ER as a stroke alert. Head CT showed a large right frontal hemorrhage. She was also hypertensive on arrival and was started on nicardipine drip. She received Kcentra in the ER and was accepted for admission by critical care medicine. Neurosurgery was consulted and patient was evaluated in the ER by Dr. Lin. When I evaluated the patient in the ER she was laying in the ER stretcher not in any acute distress. She had a dense left-sided weakness and slurred speech however was easily arousable and following commands and knew where she was and couldn't give me her home address. History was obtained by discussion with patient's family as well as ER physician. History PFSH Past Medical History atrial fibrillation status post previous ablation by Dr. Blackburn few weeks ago Hx Anticoagulant Therapy: Yes (eliquis) Social History Tobacco Use: No Allergies-Medications Allergies-Medications (Allergen,Severity, Reaction): Coded Allergies: Fish Containing Products (Verified Allergy, Unknown, 11/06/17) Sulfa (Sulfonamide Antibiotics) (Verified Allergy, Unknown, 11/06/17) iodine (Verified Allergy, Unknown, 11/06/17) Reported Meds & Prescriptions Reported Meds & Active Scripts Active Reported Eliquis (Apixaban) 5 Mg Tab 5 Mg PO BID Lasix (Furosemide) 20 Mg Tab 20 Mg PO DAILY ROS Review of Systems Except as stated in HPI: all other systems reviewed are Neg HENT: Positive: Headaches Neurologic: Positive: Focal Abnormalities, Headache, Slurred Speech, No: Change in Mentation CBC/BMP: 11/22/17 0136 11/21/17 0552 Significant Findings Large right parenchymal brain bleed. Imaging CT Head PE at Discharge Improved, breathing spontaneously. Transfer Summary Transferred after trach and PEG placement and weaning from ventilator to SNF. Hospital Course Note for 11/25/17: 11/06: 82-year-old female with a medical history of atrial fibrillation on anticoagulation with Eliquis who developed sudden onset left-sided weakness and altered mental status and slurred speech as she was walking out with her family after the [place]. She was rushed to the ER as a stroke alert. Head CT showed a large right frontal hemorrhage. She was also hypertensive on arrival and was started on nicardipine drip. She received Kcentra in the ER and was accepted for admission by critical care medicine. Neurosurgery was consulted and patient was evaluated in the ER by Dr. Lin. When I evaluated the patient in the ER she was laying in the ER stretcher not in any acute distress. She had a dense left-sided weakness and slurred speech however was easily arousable and following commands and knew where she was and couldn't give me her home address. History was obtained by discussion with patient's family as well as ER physician. 11/07: No events since admission. Patient resting comfortable, easily arousable, following commands. No CP, dyspnea, palpitations, BARNARD, N/V. Tmax 98.7, I/O 215/ 1750. On nicardipine at 2.5. 11/08: Patient underwent right frontoparietal craniotomy for intracerebral hemorrhage evacuation. No events intra-op. Tmax 99.4. Lethargic but arousable, follows some commands. Had episode of Afib with RVR last night and she was started on cardizem drip. now HR in the low 100's. 11/09: Patient did well overnight. She is slightly more awake, more responsive. Afebrile, T-max 98.4, ins and outs 1300/1900. at bedside. 11/10: No events over the night. T-max 98.4. Increased urine output up to 2150 cc over the last 24 hours. No significant improvement in mental status, patient remains lethargic but arousable following some commands. She remains in A. fib on Cardizem at 15 mg/h, heart rate ranging between low 100s-130s. 11/11: NG tube placed last evening and tube feeds together with free water started. Mental status is unchanged, patient remains lethargic but arousable. T-max of 99.6. Heart rate ranging anywhere from 90s to low 130s, on Cardizem at 15. Blood pressure is okay. 11/12: No events over the night. Patient remains on Cardizem drip at 15, amiodarone added back yesterday. Afebrile with a T-max of 99.4. Good urine output, 1575 mL's in the last 24 hours. Tolerating tube feeds. No significant improvement in mental status. Family present at bedside. 11/13: No events overnight. Mental status is unchanged. She remains lethargic but arousable, tolerating tube feeds. Loaded with dig, on Cardizem 15, heart rate better controlled. 11/14: no changes. Still encephalopathic. protecting airway. will order EEG to ensure no subclinical seizures. HR under better control. ROS - unobtainable due to patient's condition 11/15: no changes. opens eyes to voice. tolerating tube feeds. EEG pending, but prelim negative for overt ictal activity. ROS unobtainable. protecting airway. 11/16: Protects airway, breathing comfortably. No seizure activity. 11/17: Patient is not protecting airway. Gurgling breath sounds. Tachypneic. Wheezing bilateral upper chest. Myself and Dr. Quiñones discussed extensively with patient's . he wants everything done including trach and PEG. 11/18: Plan for PEG on tuesday. Continue weaning trials for vent. Opens eyes today. 11/19: Appears to open eyes more frequently. PEG placement discussed again with . Probably won't participate with rehab, likely need LTAC or SNF disposition in 4-5 days. 11/20: Remains on CPAP 06/23 slightly tachypneic. No improvement in mental status. PEG tube planned for tomorrow. Attempt TP up to 2 hours 11/21: Remains from CPAP again slightly tachypneic plan for PEG today. Neuro status remains the same. LTAC/SNF eval after PEG 11/22: Status post trach and PEG. PEG was placed yesterday. Case management for rehab/LTAC/SNF placement. Tolerating T piece patient has remained stable for transfer to SNF. 11/23: SNF is available and patient is breathing comfortably on T-piece. agrees with transfer. 11/24: SNF transfer pending. No change in status. 11/25: Safe for SNF transfer today. Trach site clean, dry. Pt Condition on Discharge: Stable Discharge Disposition: Discharge to SNF Discharge Instructions DIET: Follow Instructions for: On Tube Feeding Activities you can perform: Regular-No Restrictions Tay Quiñones MD Nov 25, 2017 17:22
== END 2017-11-25 15:08 | DRG 3 ==
LOC: NEPE 19:53 → NEDA 20:51 → N03B 22:16
PROVIDERS: ADMIT Internal Medicine; ATTEND Internal Medicine
PROC: 30283B1 Transfusion of Nonautologous 4-Factor Prothrombin Complex Concentrate into Vein, Percutaneous Approach (ICD-10-PCS; 2017-11-06)
PROC: 00C70ZZ Extirpation of Matter from Cerebral Hemisphere, Open Approach (ICD-10-PCS; 2017-11-08)
PROC: 0B113F4 Bypass Trachea to Cutaneous with Tracheostomy Device, Percutaneous Approach (ICD-10-PCS; principal; 2017-11-17)
PROC: 5A1955Z Respiratory Ventilation, Greater than 96 Consecutive Hours (ICD-10-PCS; 2017-11-17)
PROC: 0BH17EZ Insertion of Endotracheal Airway into Trachea, Via Natural or Artificial Opening (ICD-10-PCS; 2017-11-17)
PROC: 0BJ08ZZ Inspection of Tracheobronchial Tree, Via Natural or Artificial Opening Endoscopic (ICD-10-PCS; 2017-11-17)
PROC: 0DH68UZ Insertion of Feeding Device into Stomach, Via Natural or Artificial Opening Endoscopic (ICD-10-PCS; 2017-11-21)
DX: I61.5 Nontraumatic intracerebral hemorrhage, intraventricular (principal); G93.6 Cerebral edema; J96.20 Acute and chronic respiratory failure, unspecified whether with hypoxia or hypercapnia; G93.49 Other encephalopathy; D68.32 Hemorrhagic disorder due to extrinsic circulating anticoagulants; G81.94 Hemiplegia, unspecified affecting left nondominant side; E87.0 Hyperosmolality and hypernatremia; T45.515A Adverse effect of anticoagulants, initial encounter; Z79.01 Long term (current) use of anticoagulants; I48.91 Unspecified atrial fibrillation; Z91.041 Radiographic dye allergy status; R29.709 NIHSS score 9; R47.81 Slurred speech; I10 Essential (primary) hypertension; Z87.891 Personal history of nicotine dependence; E83.39 Other disorders of phosphorus metabolism; E87.6 Hypokalemia
CPT/HCPCS: 31500; 31600; 31624; 36600; 70450; 71045; 74018; 76377; 80048; 80053; 80162; 80185; 81001; 82550; 82805; 83735; 83930; 84100; 84132; 84295; 84484; 85007; 85014; 85018; 85025; 85027; 85384; 85610; 85730; 86850; 86900; 86901; 87641; 88304; 93005; 93306; 93880; 93971; 94002; 94003; 94664; 95819; C1713; C9132; J0690; J1160; J1165; J1200; J1580; J1650; J1953; J2250; J2270; J2370; J2405; J2710; J2765; J2930; J3010; J3370; J3475; J3480; J7030; J7050; J7120